=== PATIENT | female | born 1955 | race Caucasian/White ===

== ENCOUNTER → 2016-11-13 | Outpatient (CLI) | payer BC, MEDICARE ==
[2016-11-13 14:57] LABS: Blood Urea Nitrogen 10 mg/dL (7-17); Non-African American GFR(MDRD) >60 (>60 ml/min/1.73 sqM)
--- NOTE | 2016-11-13 15:47 | CT ---
EXAMINATION TYPE: CT abdomen pelvis w con DATE OF EXAM: 11/13/2016 COMPARISON: NONE HISTORY: Heart burn and bloating x [address] DLP: 1484.00 mGycm Automated exposure control for dose reduction was used. CONTRAST: CT scan of the abdomen pelvis is performed with IV Contrast, patient injected with 100 mL of Omnipaqu e 300. FINDINGS- LUNG BASES-subsegmental linear changes at both lung bases. Calcified granuloma right lower lobe LIVER/GB-a mild fatty infiltration of the liver. Post cholecystectomy changes noted. PANCREAS- No gross abnormality is seen. SPLEEN- No gross abnormality is seen. ADRENALS- No gross abnormality is seen. KIDNEYS/BLADDER- no hydronephrosis or nephrolithiasis. Tiny 3 mm hypodensity within the left kidney t oo small to characterize. BOWEL- no bowel dilatation. Normal appendix. Diverticulosis of the colon. No CT evidence of diverti culitis. LYMPH NODES- No greater than 1cm abdominal or pelvic lymph nodes areappreciated. OSSEOUS STRUCTURES-previous vertebroplasty involving the upper lumbar spine. Surgical clips in the pe lvis. OTHER- atherosclerotic change of the aorta and visualized vasculature. No aneurysm. IMPRESSION- 1. No acute process.
== END | disposition home or self-care (01) ==
LOC: RADCTMAIN 13:49
PROVIDERS: ATTEND Surgery Plastic and Reconstructive Surgery
DX: K57.30 Diverticulosis of large intestine without perforation or abscess without bleeding (principal); K21.9 Gastro-esophageal reflux disease without esophagitis
CPT/HCPCS: 82565; 84520; 74177; 36415; Q9967

== ENCOUNTER 2016-11-28 09:10 | Day surgery (SDC) | payer BC, MEDICARE ==
--- NOTE | 2016-11-28 08:59 | P.GSHP ---
History of Present Illness H&P Date: 11/28/16 CHIEF COMPLAINT: GERD HISTORY OF PRESENT ILLNESS: The patient is a 61-year-old female who presents reports gastroesophageal reflux disease. Upper endoscopy was offered for further evaluation and management. PAST MEDICAL HISTORY: Please see list. PAST SURGICAL HISTORY: Please see list. MEDICATIONS: Please see list. ALLERGIES: Please see list. SOCIAL HISTORY: No illicit drug use FAMILY HISTORY: No reports of Crohn disease or ulcerative colitis. REVIEW OF ORGAN SYSTEMS: CONSTITUTIONAL: No reports of fevers or chills. GI: Denies any blood in stools or constipation. PHYSICAL EXAM: VITAL SIGNS: Stable GENERAL: Well-developed and pleasant in no acute distress. HEENT: No scleral icterus. Extraocular movements grossly intact. Moist buccal mucosa. NECK: Supple without lymphadenopathy. CHEST: Unlabored respirations. Equal bilateral excursions. CARDIOVASCULAR: Regular rate and rhythm. Distal 2+ pulses. ABDOMEN: Soft, nondistended. MUSCULOSKELETAL: No clubbing, cyanosis, or edema. ASSESSMENT: 1. Gastroesophageal reflux disease PLAN: 1. Recommend proceeding with an upper endoscopy Past Medical History Past Medical History: Asthma, COPD, Diabetes Mellitus, Fibromyalgia, GERD/Reflux , Sleep Apnea/CPAP/BIPAP, Thyroid Disorder Additional Past Medical History / Comment(s): NEUROPATHY OF FEET WITH PAIN., NO LONGER USES C-PAP MACHINE, LUPUS, STATES HOLE IN HEART WITH IRREGULAR HEART BEAT , HX OF SEPSIS FROM PORT INFECTION. History of Any Multi-Drug Resistant Organisms: None Reported Past Surgical History: Section, Hysterectomy, Joint Replacement Additional Past Surgical History / Comment(s): PORT INSERTED AND REMOVED, THUMB SURGERY, BRUCE TOTAL KNEE. Past Anesthesia/Blood Transfusion Reactions: No Reported Reaction Past Psychological History: Anxiety, Depression Smoking Status: Current every day smoker Past Alcohol Use History: None Reported Additional Past Alcohol Use History / Comment(s): SMOKES < 1PPD, SMOKING FOR 35 YEARS. Past Drug Use History: None Reported - Past Family History Mother Family Medical History: Deep Vein Thrombosis (DVT) Daughter(s) Family Medical History: Cancer Additional Family Medical History / Comment(s): PASSED FROM LYMPHOMA Medications and Allergies Home Medications Medication Instructions Recorded Confirmed Type ALPRAZolam [Xanax] 0.25 mg PO BID PRN 11/27/16 11/27/16 History Aspirin [Adult Low Dose Aspirin EC] 81 mg PO DAILY 11/27/16 11/27/16 History Diclofenac Sodium [Voltaren Gel] 2 gram TOPICAL QID 11/27/16 11/27/16 History Diltiazem HCl [Diltiazem ER] 360 mg PO DAILY 11/27/16 11/27/16 History Empagliflozin [Jardiance] 10 mg PO DAILY 11/27/16 11/27/16 History Furosemide [Lasix] 40 mg PO DAILY 11/27/16 11/27/16 History Gabapentin [Neurontin] 800 mg PO TID 11/27/16 11/27/16 History HYDROcodone/APAP 7.5-325MG [[place] 1 tab PO BID 11/27/16 11/27/16 History 7.5-325] Levothyroxine Sodium [Synthroid] 112 mcg PO DAILY 11/27/16 11/27/16 History Liraglutide [Victoza 2-Lencho] 1.8 mg SQ DAILY 11/27/16 11/27/16 History Pantoprazole Sodium [Protonix] 40 mg PO DAILY 11/27/16 11/27/16 History Potassium Chloride [K-Tab ER] 20 meq PO DAILY 11/27/16 11/27/16 History Ranitidine HCl [Zantac] 150 mg PO BID 11/27/16 11/27/16 History Umeclidinium Brm/Vilanterol Tr 1 puff INHALATION DAILY 11/27/16 11/27/16 History [Anoro Ellipta 62.5-25 Mcg INH] Venlafaxine HCl ER [Effexor Xr] 75 mg PO DAILY 11/27/16 11/27/16 History glipiZIDE [Glucotrol] 10 mg PO BID 11/27/16 11/27/16 History rOPINIRole HCL [Requip] 3 mg PO HS 11/27/16 11/27/16 History traZODone HCL 200 mg PO HS 11/27/16 11/27/16 History Allergies Allergy/AdvReac Type Severity Reaction Status Date / Time ceftriaxone [From Rocephin] Allergy Severe PASSED OUT Verified 11/27/16 09:06 Sulfa (Sulfonamide Allergy Unknown DID NOT Verified 11/27/16 09:06 Antibiotics) FEEL WELL- PT UNABLE TO PUT INTO WORDS.
[~2016-11-28 09:10] MED LIST: LACTATED RINGERS 1,000 ML IV SCH
[2016-11-28 09:49] LABS: Glucose,Whole Blood 236 mg/dL (75-99)
[2016-11-28] MEDS ORDERED: LIDOCAINE 1% 20 ML VIAL (10MG/ML) FOR IV START INTRADERMA ONE (09:52)
[2016-11-28] MEDS ORDERED: PROPOFOL 10 MG/ML 20 ML VIAL IV ONE (09:53)
--- NOTE | 2016-11-28 10:15 | P.PCN ---
Date of Procedure: 11/28/16 Preoperative Diagnosis: Postoperative Diagnosis: Procedure(s) Performed: Implants: Indications for Procedure: Operative Findings: Description of Procedure: PREOPERATIVE DIAGNOSIS: Gastroesophageal reflux disease. POSTOPERATIVE DIAGNOSIS: Gastritis. Gastroesophageal reflux disease. Diaphragmatic hiatal hernia without obstruction. Erosive esophagitis. OPERATION: Esophagogastroduodenoscopy with biopsies along antrum. SURGEON: Mahsa Tan MD ANESTHESIA: MAC. INDICATIONS: The patient is a 61-year-old female who presents with a history of reflux disease. Benefits and risks of the procedure were described. Informed consent was obtained. DESCRIPTION: The patient was brought into the endoscopy suite and laid in the left lateral decubitus position. An Olympus gastroscope was passed along the posterior oropharynx down to the distal esophagus where the squamocolumnar junction was encountered at 36 cm from the incisors. The stomach was entered and bile reflux was found. Additional findings are listed below. Biopsies with cold forceps were obtained of the antrum. The first through third portion of the duodenum was examined and unremarkable. Retroflexion of the scope confirmed Hill grade 4 lower esophageal valve. The squamocolumnar junction demostrated LA grade B erosive esophagitis. The stomach was desufflated. The patient tolerated the procedure well. FINDINGS: Squamocolumnar junction 36 cm from the incisors. Diaphragmatic hiatus at 40 cm. Hiatal hernia 4 cm. Hill grade 4 lower esophageal valve. LA grade B erosive esophagitis. No active duodenitis. Gastritis. RECOMMENDATIONS: Continue medical therapy. Further recommendations pending results of pathology report. Upper endoscopy as needed. Will benefit from antireflux surgical procedure Plan - Discharge Summary New Discharge Prescriptions: No Action Umeclidinium Brm/Vilanterol Tr [Anoro Ellipta 62.5-25 Mcg INH] 1 puff INHALATION DAILY glipiZIDE [Glucotrol] 10 mg PO BID Levothyroxine Sodium [Synthroid] 112 mcg PO DAILY HYDROcodone/APAP 7.5-325MG [[place] 7.5-325] 1 tab PO BID Liraglutide [Victoza 2-Lencho] 1.8 mg SQ DAILY Furosemide [Lasix] 40 mg PO DAILY ALPRAZolam [Xanax] 0.25 mg PO BID PRN PRN Reason: Anxiety rOPINIRole HCL [Requip] 3 mg PO HS Venlafaxine HCl ER [Effexor Xr] 75 mg PO DAILY Ranitidine HCl [Zantac] 150 mg PO BID traZODone HCL 200 mg PO HS Potassium Chloride [K-Tab ER] 20 meq PO DAILY Pantoprazole Sodium [Protonix] 40 mg PO DAILY Gabapentin [Neurontin] 800 mg PO TID Empagliflozin [Jardiance] 10 mg PO DAILY Diltiazem HCl [Diltiazem ER] 360 mg PO DAILY Diclofenac Sodium [Voltaren Gel] 2 gram TOPICAL QID Aspirin [Adult Low Dose Aspirin EC] 81 mg PO DAILY Discharge Medication List ALPRAZolam [Xanax] 0.25 mg PO BID PRN 11/27/16 [History] Aspirin [Adult Low Dose Aspirin EC] 81 mg PO DAILY 11/27/16 [History] Diclofenac Sodium [Voltaren Gel] 2 gram TOPICAL QID 11/27/16 [History] Diltiazem HCl [Diltiazem ER] 360 mg PO DAILY 11/27/16 [History] Empagliflozin [Jardiance] 10 mg PO DAILY 11/27/16 [History] Furosemide [Lasix] 40 mg PO DAILY 11/27/16 [History] Gabapentin [Neurontin] 800 mg PO TID 11/27/16 [History] HYDROcodone/APAP 7.5-325MG [[place] 7.5-325] 1 tab PO BID 11/27/16 [History] Levothyroxine Sodium [Synthroid] 112 mcg PO DAILY 11/27/16 [History] Liraglutide [Victoza 2-Lencho] 1.8 mg SQ DAILY 11/27/16 [History] Pantoprazole Sodium [Protonix] 40 mg PO DAILY 11/27/16 [History] Potassium Chloride [K-Tab ER] 20 meq PO DAILY 11/27/16 [History] Ranitidine HCl [Zantac] 150 mg PO BID 11/27/16 [History] Umeclidinium Brm/Vilanterol Tr [Anoro Ellipta 62.5-25 Mcg INH] 1 puff INHALATION DAILY 11/27/16 [History] Venlafaxine HCl ER [Effexor Xr] 75 mg PO DAILY 11/27/16 [History] glipiZIDE [Glucotrol] 10 mg PO BID 11/27/16 [History] rOPINIRole HCL [Requip] 3 mg PO HS 11/27/16 [History] traZODone HCL 200 mg PO HS 11/27/16 [History] Follow up Appointment(s)/Referral(s): Mahsa Tan MD [STAFF PHYSICIAN] - 12/18/16 Patient Instructions/Handouts: Hiatal Hernia (DC), Gastroesophageal Reflux Disease (DC) Discharge Disposition: HOME SELF-CARE
[2016-11-28] MEDS ORDERED: HYDROmorphone 1 MG/ML 1 ML SYRINGE IVP ONE (10:40)
== END 2016-11-28 11:25 | disposition home or self-care (01) ==
LOC: ORWHC2ENDO 09:10
PROVIDERS: ATTEND Surgery Plastic and Reconstructive Surgery
DX: K29.70 Gastritis, unspecified, without bleeding (principal); K21.9 Gastro-esophageal reflux disease without esophagitis; K44.9 Diaphragmatic hernia without obstruction or gangrene; K22.10 Ulcer of esophagus without bleeding; J44.9 Chronic obstructive pulmonary disease, unspecified; F17.200 Nicotine dependence, unspecified, uncomplicated; E11.9 Type 2 diabetes mellitus without complications; Z79.84 Long term (current) use of oral hypoglycemic drugs; M79.7 Fibromyalgia; G47.30 Sleep apnea, unspecified; E07.9 Disorder of thyroid, unspecified; F41.9 Anxiety disorder, unspecified; F32.9 Major depressive disorder, single episode, unspecified; M32.9 Systemic lupus erythematosus, unspecified; Z79.82 Long term (current) use of aspirin; Z79.891 Long term (current) use of opiate analgesic; Z79.899 Other long term (current) drug therapy; Z88.1 Allergy status to other antibiotic agents; Z88.2 Allergy status to sulfonamides
CPT/HCPCS: 88305; 43239; J1170; J2704

== ENCOUNTER → 2017-05-07 | Outpatient (CLI) | payer MEDICARE ==
[2017-05-07 12:56] LABS: HCT 46.6 % (34.0-46.0); HGB 14.9 gm/dL (11.4-16.0); MCH 28.6 pg (25.0-35.0); MCV 89.3 fL (80.0-100.0); Mean Platelet Volume 7.3; Platelet Count 323 k/uL (150-450); RBC 5.22 m/uL (3.80-5.40); RDW 14.6 % (11.5-15.5); WBC 10.1 k/uL (3.8-10.6)
== END | disposition home or self-care (01) ==
LOC: LABPAT 12:02
PROVIDERS: ATTEND Surgery Plastic and Reconstructive Surgery
DX: Z01.812 Encounter for preprocedural laboratory examination (principal)
CPT/HCPCS: 36415; 84132; 85027

== ENCOUNTER 2017-05-09 11:22 | Inpatient (IN) | payer BC, MEDICARE ==
[2017-05-03 12:09] VITALS: BMI 29.2
[~2017-05-09 11:22] MED LIST changes: +CHLORHEXIDINE GLUCONATE 15 ML CUP MUCOUS MEM ONE; +CLINDAMYCIN 900 MG in DEXTROSE 5% IN WATER 50 ML IVPB ONE; +DEXAMETHASONE SOD PHOSPHATE 10 MG/ML 1 ML VIAL IV ONE; +HEPARIN SODIUM,PORCINE 5,000 UNIT/ML 1 ML VIAL SQ ONE; +LEVOFLOXACIN 500MG-D5W PMX 500 MG in DEXTROSE/WATER 1 100ML.BAG IVPB ONE; +LIDOCAINE 1% 20 ML VIAL (10MG/ML) FOR IV START INTRADERMA PRN; +MIDAZOLAM 2 MG/2 ML VIAL IV PRN; +ONDANSETRON 4 MG/2 ML VIAL IVP ONE; +PANTOPRAZOLE 40 MG/10 ML VIAL IV STA; +SCOPOLAMINE 1.5MG/72HR PATCH TRANSDERM ONE; +SCOPOLAMINE 1.5MG/72HR PATCH TRANSDERM STA
[2017-05-09 12:06] LABS: Glucose,Whole Blood 123 mg/dL (75-99)
--- NOTE | 2017-05-09 12:07 | P.GSHP ---
History of Present Illness H&P Date: 05/09/17 CHIEF COMPLAINT: Paraesophageal hiatal hernia with gastroesophageal reflux disease. HISTORY OF PRESENT ILLNESS: The patient is a 62-year-old female who presents with paraesophageal hiatal hernia. She has completed an esophageal manometry including upper endoscopy workup. Now she presents for surgical intervention. PAST MEDICAL HISTORY: Please see list. PAST SURGICAL HISTORY: Please see list. MEDICATIONS: Please see list. ALLERGIES: Please see list. SOCIAL HISTORY: No illicit drug use FAMILY HISTORY: No reports of Crohn disease or ulcerative colitis. REVIEW OF ORGAN SYSTEMS: CONSTITUTIONAL: No reports of fevers or chills. GI: Denies any blood in stools or constipation. PHYSICAL EXAM: VITAL SIGNS: Stable GENERAL: Well-developed pleasant and in no acute distress. HEENT: No scleral icterus. Extraocular movements grossly intact. Moist buccal mucosa. NECK: Supple without lymphadenopathy. CHEST: Unlabored respirations. Equal bilateral excursions. CARDIOVASCULAR: Regular rate and rhythm. Distal 2+ pulses. ABDOMEN: Soft, nondistended. No peritoneal signs. MUSCULOSKELETAL: No clubbing, cyanosis, or edema. ASSESSMENT: 1. Diaphragmatic paraesophageal hiatal hernia with severe gastroesophageal reflux disease. PLAN: 1. Recommend proceeding with a robotic paraesophageal hiatal hernia with possible mesh. 2. Benefits and risks of surgical intervention was discussed including possibility of open technique. 3. Inpatient hospitalization recommended of 2 nights or less. 4. DVT prophylaxis. 5. Antibiotic prophylaxis. Past Medical History Past Medical History: Asthma, COPD, Diabetes Mellitus, Fibromyalgia, GERD/Reflux , Hypertension, Sleep Apnea/CPAP/BIPAP, Thyroid Disorder Additional Past Medical History / Comment(s): NEUROPATHY FEET, RLS, HX OF RHEMATIC FEVER, HAS HOLE IN BACK OF HEART., HX OF SEPSIS FROM PORT INFECTIONS., STATES NO LONGER USING C-PAP MACHINE., OXYGEN @3 LITER PRN SOB., STATES FREQUENT DIARRHEA., LUPUS., HIATAL HERNIA., PT STATES SHE IS ON A PROTEIN LIQUID DIET PER DR WOODARD INSTRUCTIONS. History of Any Multi-Drug Resistant Organisms: None Reported Past Surgical History: Section, Hysterectomy, Joint Replacement Additional Past Surgical History / Comment(s): THUMB SURGERY, BRUCE TOTAL KNEES, PORT INSERTED & REMOVED. Past Anesthesia/Blood Transfusion Reactions: No Reported Reaction, Blood Transfusion Reaction Additional Past Anesthesia/Blood Transfusion Reaction / Comment(s): STATES BLOOD TRANSFUSION WITH CHILD - STATES RASH AND ITCHING. Past Psychological History: Anxiety, Depression Smoking Status: Former smoker Past Alcohol Use History: None Reported Additional Past Alcohol Use History / Comment(s): QUIT SMOKING 6 WEEKS AGO (MAR 2017). SMOKED <1 PPD, SMOKED FOR 35 YRS OR MORE. Past Drug Use History: Marijuana Additional Drug Use History / Comment(s): MEDICAL MARIJUANA 5 YRS AGO- NO USE NOW. - Past Family History Mother Family Medical History: Deep Vein Thrombosis (DVT) Medications and Allergies Home Medications Medication Instructions Recorded Confirmed Type Aspirin [Adult Low Dose Aspirin EC] 81 mg PO DAILY 11/27/16 05/03/17 History Diclofenac Sodium [Voltaren Gel] 2 gram TOPICAL DAILY PRN 11/27/16 05/03/17 History Empagliflozin [Jardiance] 10 mg PO DAILY 11/27/16 05/03/17 History Furosemide [Lasix] 40 mg PO DAILY 11/27/16 05/03/17 History Gabapentin [Neurontin] 800 mg PO TID 11/27/16 05/03/17 History HYDROcodone/APAP 7.5-325MG [[place] 1 tab PO BID PRN 11/27/16 05/03/17 History 7.5-325] Levothyroxine Sodium [Synthroid] 112 mcg PO DAILY 11/27/16 05/03/17 History Liraglutide [Victoza 2-Lencho] 1.8 mg SQ DAILY 11/27/16 05/03/17 History Pantoprazole Sodium [Protonix] 40 mg PO DAILY 11/27/16 05/03/17 History Potassium Chloride [K-Tab ER] 20 meq PO BID 11/27/16 05/03/17 History Ranitidine HCl [Zantac] 150 mg PO BID 11/27/16 05/03/17 History Umeclidinium Brm/Vilanterol Tr 1 puff INHALATION DAILY 11/27/16 05/03/17 History [Anoro Ellipta 62.5-25 Mcg INH] glipiZIDE [Glucotrol] 10 mg PO BID 11/27/16 05/03/17 History rOPINIRole HCL [Requip] 3 mg PO HS 11/27/16 05/03/17 History traZODone HCL 200 mg PO HS 11/27/16 05/03/17 History Cyanocobalamin (Vitamin B-12) 2,500 mcg PO DAILY 05/03/17 05/03/17 History [Vitamin B-12] Taztia Xt 180 mg PO DAILY 05/03/17 History Venlafaxine HCl [Effexor XR] 150 mg PO BID 05/03/17 05/03/17 History Allergies Allergy/AdvReac Type Severity Reaction Status Date / Time ceftriaxone [From Rocephin] Allergy Severe PASSED OUT Verified 05/03/17 11:37 Sulfa (Sulfonamide Allergy Unknown Rash/Hives, Verified 05/03/17 11:37 Antibiotics) Itchy
[2017-05-09] MEDS ORDERED: SUCCINYLCHOLINE CHLORIDE 100 MG/5 ML SYR IV ONE (13:36)
[2017-05-09] MEDS ORDERED: GLYCOPYRROLATE 0.2 MG/ML 2 ML VIAL ONE (13:36)
[2017-05-09] MEDS ORDERED: PROPOFOL 10 MG/ML 20 ML VIAL IV ONE (13:36)
[2017-05-09] MEDS ORDERED: fentaNYL (PF) 50 MCG/ML 2 ML AMP ONE (13:36)
[2017-05-09] MEDS ORDERED: LIDOCAINE 1% INJ 10MG/ML (20 ML MDV) ONE (13:36)
[2017-05-09] MEDS ORDERED: MIDAZOLAM 2 MG/2 ML VIAL ONE (13:36)
[2017-05-09] MEDS ORDERED: HYDROmorphone (PF) 1 MG/ML ONE (13:36)
[2017-05-09] MEDS ORDERED: NEOSTIGMINE 1 MG/ML 10 ML VIAL ONE (13:36)
[2017-05-09] MEDS ORDERED: ROCURONIUM BROMIDE 10 MG/ML 10 ML VIAL IV ONE (13:36)
[2017-05-09] MEDS ORDERED: BUPIVACAINE (PF) 0.25% 30 ML VIAL SQ ONE (14:06)
[2017-05-09] MEDS ORDERED: LACTATED RINGERS 1,000 ML IV ONE (15:42)
[2017-05-09] MEDS ORDERED: ONDANSETRON 4 MG/2 ML VIAL IVP PRN (15:59)
[2017-05-09 16:10] LABS: Glucose,Whole Blood 158 mg/dL (75-99)
--- NOTE | 2017-05-09 16:10 | P.PCN ---
Date of Procedure: 05/09/17 Preoperative Diagnosis: 1. Paraesophageal hiatal hernia 2. Gastroesophageal reflux disease. 3. Hypertensive lower esophageal sphincter 4. Diabetes type 2 5. Hypertensive heart disease or cardiomyopathy Postoperative Diagnosis: 1. Paraesophageal midline diaphragmatic hiatal hernia, incarcerated, 6 x 4 cm 2. Gastroesophageal reflux disease. 3. Hypertensive lower esophageal sphincter 4. Diabetes type 2 5. Hypertensive heart disease or cardiomyopathy 6. Mediastinal lipoma Procedure(s) Performed: 1. Robotic assisted laparoscopic reduction and repair of incarcerated paraesophageal diaphragmatic midline hernia, 6 x 4 cm with mesh 2. Intraoperative esophagogastroduodenoscopy. 3. Robotic excision of mediastinal tumor, 4 x 3 cm Anesthesia: GETA, local Surgeon: Mahsa Tan Estimated Blood Loss (ml): 5 Pathology: other (Mediastinal tumor) Condition: stable Disposition: floor Operative Findings: 1. Defect of 6 x 4 cm repaired with a posterior herniorrhaphy 2. 56-[place] bougie easily passed. 3. Hill grade 1 lower esophageal valve post procedure
[2017-05-09] MEDS ORDERED: HYDROcodone/APAP 15 ML SOLUTION PO PRN (16:11)
[2017-05-09 16:46] LABS: Basophils % (A) 0 %; Eosinophils % (A) 0 %; HCT 44.3 % (34.0-46.0); HGB 13.8 gm/dL (11.4-16.0); Lymphocytes # (A) 0.8 k/uL (1.0-4.8); Lymphocytes % (A) 10 %; MCH 27.9 pg (25.0-35.0); MCHC 31.1 g/dL (31.0-37.0); MCV 89.8 fL (80.0-100.0); Monocytes # (A) 0.1 k/uL (0-1.0); Monocytes % (A) 1 %; Neutrophils # (A) 6.7 k/uL (1.3-7.7); Neutrophils % (A) 88 %; Platelet Count 277 k/uL (150-450); RBC 4.94 m/uL (3.80-5.40); RDW 14.7 % (11.5-15.5); WBC 7.7 k/uL (3.8-10.6)
[2017-05-09] MEDS: HYDROmorphone 0.5 MG/0.5 ML SYRINGE IVP PRN ×4 (16:50→17:49)
[2017-05-09 17:02] LABS: Anion Gap 15 mmol/L; Blood Urea Nitrogen 14 mg/dL (7-17); Calcium 9.2 mg/dL (8.4-10.2); Carbon Dioxide 20 mmol/L (22-30); Chloride 106 mmol/L (98-107); Glucose 164 mg/dL (74-99); Potassium 4.1 mmol/L (3.5-5.1); Sodium 141 mmol/L (137-145)
[2017-05-09] MEDS: GABAPENTIN 400 MG CAP PO SCH ×2 (17:51→20:50)
[2017-05-09] MEDS: HYDROmorphone 4 MG/ML 1 ML SYRINGE IVP PRN (18:49)
[2017-05-09 20:32] LABS: Glucose,Whole Blood 140 mg/dL (75-99)
[2017-05-09] MEDS: INSULIN ASPART 100 UNIT/ML 1 ML 10 ML VIAL SQ SCH (20:49)
[2017-05-09] MEDS: HYOSCYAMINE ORAL DROPS 1.875 MG/15 ML BOTTLE PO SCH (20:49)
[2017-05-09] MEDS: METOCLOPRAMIDE 5 MG/ML 2 ML VIAL IVP SCH (20:49)
[2017-05-09] MEDS: SIMETHICONE 40 MG/0.6 ML DROPS 2,000 MG/30 ML BOTTLE PO SCH (20:50)
[2017-05-09] MEDS: VENLAFAXINE HCL ER 150 MG CAP PO SCH (20:50)
[2017-05-09] MEDS ORDERED: diphenhydrAMINE 50 MG/ML 1 ML VIAL IVP SCH (21:00)
[2017-05-09] MEDS ORDERED: traZODone HCL 100 MG TAB PO SCH (21:00)
[2017-05-09] MEDS: D5-0.45% NACL WITH KCL 20MEQ/L 1,000 ML IV SCH ×2 (21:09)
[2017-05-10] MEDS: METOCLOPRAMIDE 5 MG/ML 2 ML VIAL IVP SCH ×3 (01:11→12:45)
[2017-05-10] MEDS: HYDROmorphone 4 MG/ML 1 ML SYRINGE IVP PRN ×2 (01:11→05:04)
[2017-05-10] MEDS: HYOSCYAMINE ORAL DROPS 1.875 MG/15 ML BOTTLE PO SCH ×4 (01:11→12:46)
[2017-05-10] MEDS: SIMETHICONE 40 MG/0.6 ML DROPS 2,000 MG/30 ML BOTTLE PO SCH ×3 (01:12→12:45)
[2017-05-10] MEDS: D5-0.45% NACL WITH KCL 20MEQ/L 1,000 ML IV SCH ×3 (01:18→08:41)
[2017-05-10] MEDS: INSULIN ASPART 100 UNIT/ML 1 ML 10 ML VIAL SQ SCH ×3 (01:21→12:43)
[2017-05-10 01:31] LABS: Glucose,Whole Blood 150 mg/dL (75-99)
[2017-05-10] MEDS ORDERED: LEVOTHYROXINE 112 MCG TAB PO SCH (06:30)
[2017-05-10 06:49] LABS: Glucose,Whole Blood 120 mg/dL (75-99)
[2017-05-10] MEDS ORDERED: IPRATROPIUM-ALBUTEROL 3 ML NEB INHALATION SCH (08:00)
[2017-05-10 08:03] VITALS: BP 100/61; PULSE 72; RESP 18; TEMP 97.8
[2017-05-10] MEDS: VENLAFAXINE HCL ER 150 MG CAP PO SCH (08:41)
[2017-05-10] MEDS: GABAPENTIN 400 MG CAP PO SCH (08:41)
[2017-05-10] MEDS ORDERED: ENOXAPARIN 40 MG/0.4 ML SYRINGE SQ SCH (09:00)
[2017-05-10] MEDS ORDERED: ASPIRIN 81 MG PO SCH (09:00)
--- NOTE | 2017-05-10 10:24 | FL ---
EXAMINATION TYPE: FL esophagus cervic/pharynx DATE OF EXAM: 05/10/2017 HISTORY: Gastroesophageal reflux, Adrian fundoplication COMPARISON: NONE TECHNIQUE: Single contrast study FINDINGS: Attention is paid to the distal esophagus and proximal stomach status post Adrian fundoplication. There is moderate hesitancy passing through the level of the Adrian fundoplication. No obstruction is evident. No extravasation of contrast is evident. 45 seconds of fluoroscopy time was provided for the procedure. 10 images were obtained. IMPRESSION: 1. No obstruction or extravasation post Adrian fundoplication.
[2017-05-10 11:16] LABS: Glucose,Whole Blood 101 mg/dL (75-99)
--- NOTE | 2017-05-10 11:19 | P.DS ---
Providers Date of admission: 05/09/17 11:22 Expected date of discharge: 05/10/17 Attending physician: Mahsa Tan Primary care physician: Mariana Young Hospital Course: 62-year-old female presented on the day of admission to undergo a robotic- assisted laparoscopic reduction and repair of incarcerated periesophageal diaphragmatic midline hernia with mesh. Patient has a history of esophageal reflux disease. Patient underwent the procedure on May 09 postop no events Patient had a esophagram done showed no obstruction patient is tolerating rangel clear liquid diet Patient was felt to be appropriate to proceed with discharge to home Impression discharge diagnoses History of esophageal reflux disease Paraesophageal midline diaphragmatic hiatal hernia, incarcerated, 6 x 4 cm Robotic-assisted laparoscopic reduction and repair of incarcerated periesophageal diaphragmatic midline hernia with mesh done on May 09 May 09 robotic excision of mediastinal tumor 4 x 3 cm History of mediastinal lipoma The above impression and plan of care have been discussed and directed by signing physician. Alla Parra nurse practitioner acting as scribe for signing physician. Plan - Discharge Summary Discharge Rx Participant: Yes New Discharge Prescriptions: New Hyoscyamine Oral Drops [Levsin Drops] 0.25 mg PO Q4HR #1 bottle Simethicone 40 mg/0.6 ml Drops [Mylicon Drops] 40 mg PO QID #1 bottle HYDROcodone/APAP [[place] 7.5-325Mg/15Ml] 15 ml PO Q6H PRN #480 solution PRN Reason: Pain Continue Umeclidinium Brm/Vilanterol Tr [Anoro Ellipta 62.5-25 Mcg INH] 1 puff INHALATION RT-DAILY glipiZIDE [Glucotrol] 10 mg PO BID Levothyroxine Sodium [Synthroid] 112 mcg PO DAILY Liraglutide [Victoza 2-Lencho] 1.8 mg SQ DAILY Furosemide [Lasix] 40 mg PO DAILY rOPINIRole HCL [Requip] 3 mg PO HS traZODone HCL 200 mg PO HS Potassium Chloride [K-Tab ER] 20 meq PO BID Gabapentin [Neurontin] 800 mg PO TID Empagliflozin [Jardiance] 10 mg PO DAILY Diclofenac Sodium [Voltaren Gel] 2 gram TOPICAL DAILY PRN PRN Reason: Pain Aspirin [Adult Low Dose Aspirin EC] 81 mg PO DAILY Venlafaxine HCl [Effexor XR] 150 mg PO BID Taztia Xt 180 mg PO DAILY Cyanocobalamin (Vitamin B-12) [Vitamin B-12] 2,500 mcg PO DAILY Discontinued HYDROcodone/APAP 7.5-325MG [[place] 7.5-325] 1 tab PO BID PRN PRN Reason: Pain Ranitidine HCl [Zantac] 150 mg PO BID Pantoprazole Sodium [Protonix] 40 mg PO DAILY Discharge Medication List Aspirin [Adult Low Dose Aspirin EC] 81 mg PO DAILY 11/27/16 [History] Diclofenac Sodium [Voltaren Gel] 2 gram TOPICAL DAILY PRN 11/27/16 [History] Empagliflozin [Jardiance] 10 mg PO DAILY 11/27/16 [History] Furosemide [Lasix] 40 mg PO DAILY 11/27/16 [History] Gabapentin [Neurontin] 800 mg PO TID 11/27/16 [History] Levothyroxine Sodium [Synthroid] 112 mcg PO DAILY 11/27/16 [History] Liraglutide [Victoza 2-Lencho] 1.8 mg SQ DAILY 11/27/16 [History] Potassium Chloride [K-Tab ER] 20 meq PO BID 11/27/16 [History] Umeclidinium Brm/Vilanterol Tr [Anoro Ellipta 62.5-25 Mcg INH] 1 puff INHALATION RT-DAILY 11/27/16 [History] glipiZIDE [Glucotrol] 10 mg PO BID 11/27/16 [History] rOPINIRole HCL [Requip] 3 mg PO HS 11/27/16 [History] traZODone HCL 200 mg PO HS 11/27/16 [History] Cyanocobalamin (Vitamin B-12) [Vitamin B-12] 2,500 mcg PO DAILY 05/03/17 [ History] Taztia Xt 180 mg PO DAILY 05/03/17 [History] Venlafaxine HCl [Effexor XR] 150 mg PO BID 05/03/17 [History] HYDROcodone/APAP [[place] Elixir 7.5-325Mg/15Ml] 15 ml PO Q6H PRN #480 solution [Rx] Hyoscyamine Oral Drops [Levsin Drops] 0.25 mg PO Q4HR #1 bottle 05/10/17 [Rx] Simethicone 40 mg/0.6 ml Drops [Mylicon Drops] 40 mg PO QID #1 bottle 05/10/17 [ Rx] Follow up Appointment(s)/Referral(s): Mahsa Tan MD [STAFF PHYSICIAN] - 05/14/17 Patient Instructions/Handouts: Laparoscopic Hiatal Hernia Repair (DC) Activity/Diet/Wound Care/Special Instructions: No lifting over 4 pounds in 4 weeks. May shower. No bathub soak. Discharge Disposition: HOME SELF-CARE
--- NOTE | 2017-06-02 14:28 | P.OP ---
Date of Procedure: 05/09/17 Description of Procedure: SURGEON: OUMAR VILLELA MD VEGETABLE FARM WORKER: 1. Cindy Meeks Preoperative Diagnosis: 1. Paraesophageal hiatal hernia 2. Gastroesophageal reflux disease. 3. Hypertensive lower esophageal sphincter 4. Diabetes type 2, [id number]. 5. Hypertensive heart disease with cardiomyopathy 6. Chronic obstructive pulmonary disease. 7. Depressive disorder. 8. Hypothyroidism. 9. Asthma. 10. Fibromyalgia. 11. Obstructive sleep apnea. 12. Lupus. Postoperative Diagnosis: 1. Paraesophageal midline diaphragmatic hiatal hernia, incarcerated, 6 x 4 cm 2. Gastroesophageal reflux disease. 3. Hypertensive lower esophageal sphincter 4. Diabetes type 2, [id number]. 5. Hypertensive heart disease with cardiomyopathy 6. Chronic obstructive pulmonary disease. 7. Depressive disorder. 8. Hypothyroidism. 9. Asthma. 10. Fibromyalgia. 11. Obstructive sleep apnea. 12. Lupus. 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 Robotic assisted laparoscopic reduction and repair of incarcerated paraesophageal diaphragmatic midline hernia, 6 x 4 cm with mesh 2. Robotic excision of mediastinal tumor, 4 x 3 cm 3. Intraoperative esophagogastroduodenoscopy. Anesthesia: GETA, local Surgeon: Oumar Villela Estimated Blood Loss (ml): 5 Pathology: other (Mediastinal tumor) Condition: stable Disposition: floor Operative Findings: 1. Defect of 6 x 4 cm repaired with a posterior herniorrhaphy 2. 56-Surinamese bougie easily passed. 3. Hill grade 1 lower esophageal valve post procedure INDICATIONS: The patient is a 62-year-old fmale who presents with gastroesophageal reflux and a symptomatic diaphragmatic hiatal hernia. Preoperative workup including upper endoscopy demonstrated a Hill grade 4 lower esophageal valve. She completed an esophageal manometry. Given the severity of her symptoms, particularly of her symptomatic diaphragmatic hiatal hernia, she had elected for surgical intervention. Benefits and risks including bleeding, infection, recurrence, dysphagia, injury to the lung, need for further surgery was described at length. Informed consent was obtained. DESCRIPTION: The patient was brought into the operating room and placed in supine position. Preoperatively she had received heparin subcutaneously for DVT prophylaxis. After general induction, the abdomen was prepped and draped in standard sterile fashion. The patient had previously voided prior to coming to the operating room. Ioban draping was placed along the abdomen. A timeout protocol was confirmed with the surgical team, for which the patient's name, procedure to be performed including DVT prophylaxis with bilateral SCDs, and preoperative antibiotics were also confirmed. A robotic da Michael Xi system was prepped and primed. At 12 cm from the xiphoid to just below the umbilicus, proposed port sites were marked with indelible marker along the left axillary line, left mid-clavicular line with each ports were marked 10 cm from each other. A 5 mm 0 degrees laparoscopic trocar entry was performed along the left upper quadrant. The abdomen was insufflated to 15 mmHg pressure he tolerated well. Diagnostic laparoscopy demonstrated no injury to bowel, viscera, or mesentery. The liver surface was unremarkable. No injury had occurred to the small bowel or viscera. Along the hiatus, a defect was found anteriorly. Next, one 8 mm robotic port was placed along the right upper abdomen. An 8-mm port was were placed along the left lateral abdominal wall. The camera 8-mm port was maintained along the epigastrium via the hernia defect. Another 12 mm port was placed along the left upper abdominal wall after exchanging the 5 mm port. Please note that the ports were placed at least 20 cm away from the target anatomy. Care was taken to check that each robotic arm were safely away from collision with the bed or the patient. At the epigastrium, a medium sized Shaun liver retractor was placed under direct visualization with the Iron Tester Armature Or Fields placed over the right shoulder of the patient. The additional third robotic arm was placed along the left aspect of the patient. The patient was repositioned in reverse Trendelenburg position at 14-degrees after lowering the bed. The robot was docked above the left side of the patient. Using a grasper for arm 3, a grasper for arm 1, including vessel sealer for arm 2, the robotic system was docked and primed as described. Instruments were interchanged by the food service assistant. I had sat at the console. The gastrohepatic ligament was cleaved using a vessel sealer. Next, the phrenoesophageal ligament was mobilized and the distal esophagus was mobilized circumferentially. An incarcerated hernia with a large lipoma was found along the mediastinum. As a result, deep dissection well into the mediastinum was needed to free the entire esophagus. The left and right crura was identified. A moderate sized midline large hiatal hernia and sac was found incarcerated into the mediastinum. Significant mobilization of the distal to mid esophagus into the mediastinum was performed. Circumferentially, the hernia sac was excised and brought into the peritoneal cavity. Care was taken to avoid any gastrotomy to the incarcerated upper pole of the stomach. Extended dissection occurred for at least another 1 hour as the stomach was densely adherent to the left diaphragm. The measured defect was consistent with 6 cm axial length and 4 cm in width. After extensive dissection, the distal esophagus at least 3 cm was brought into the abdominal cavity. Once the hiatus and crura was dissected, 2-0 VLOC suture was placed as a running suture to re-approximate the diaphragmatic hiatus posteriorly. To buttress the repair, a [place] Biopatch A was prepared along the back table and cut in a mendieta-hole fashion as to reinforce the repair as an underlay. The mesh was placed along the crural repair and tagged using horizontal mattress sutures using 2-0 VLOC. I went to the head of the bed to perform intraoperative esophagogastroduodenoscopy. A 56-Surinamese bougie was carefully placed along the posterior oropharynx through the hiatus as a visual aid for hiatus closure and then removed. I went to the head of the bed to perform intraoperative esophagogastroduodenoscopy. An Olympus gastroscope was passed through posterior oropharynx, where the GE junction was found distal to the diaphragmatic hiatus. The intra-abdominal esophageal length obtained during the case was over 2 cm. The stomach was entered. The duodenum was unremarkable. Retroflexion of the scope confirmed a Hill grade 1 lower esophageal valve. The stomach had been desufflated. No evidence of leaks were found either of the mucosal defects of the esophagus or stomach. The hiatal closure was consistent with a 56 Surinamese bougie as a bougie was passed. This concluded the endoscopic portion of the case. The robot was undocked from the patient. I re-scrubbed into the case. All instruments and pneumoperitoneum were evacuated from the abdominal cavity. Incisions were reapproximated using 4-0 Monocryl in an interrupted subcuticular fashion. The 12-mm port site fascial defect was reapproximated using 0 Vicryl and Caleb Hebert. Dermabond was applied to the skin. Local anesthetic was infiltrated in all wounds for postop analgesia. Multiple intra-abdominal films were obtained. At the end of the procedure, needle, sponge, and instrument count was verified correct by the waste minimization technician. The patient had tolerated the procedure well and was taken to the postanesthesia unit in stable condition.
== END 2017-05-10 14:45 | disposition home or self-care (01) | DRG 327 ==
LOC: 2ORWHC 11:22 → 3SUR 16:04
PROVIDERS: ADMIT Surgery Plastic and Reconstructive Surgery; ATTEND Surgery Plastic and Reconstructive Surgery
PROC: 0WBC4ZZ Excision of Mediastinum, Percutaneous Endoscopic Approach (ICD-10-PCS; principal; 2017-05-09 13:10)
PROC: 8E0W4CZ Robotic Assisted Procedure of Trunk Region, Percutaneous Endoscopic Approach (ICD-10-PCS; principal; 2017-05-09 13:10)
PROC: 0DJ08ZZ Inspection of Upper Intestinal Tract, Via Natural or Artificial Opening Endoscopic (ICD-10-PCS; principal; 2017-05-09 13:10)
PROC: 0BUT4JZ Supplement Diaphragm with Synthetic Substitute, Percutaneous Endoscopic Approach (ICD-10-PCS; principal; 2017-05-09 13:10)
DX: K44.9 Diaphragmatic hernia without obstruction or gangrene (principal); I42.9 Cardiomyopathy, unspecified; K22.0 Achalasia of cardia; I11.9 Hypertensive heart disease without heart failure; E11.9 Type 2 diabetes mellitus without complications; F32.9 Major depressive disorder, single episode, unspecified; F41.9 Anxiety disorder, unspecified; G25.81 Restless legs syndrome; G47.30 Sleep apnea, unspecified; J44.9 Chronic obstructive pulmonary disease, unspecified; G47.33 Obstructive sleep apnea (adult) (pediatric); K21.9 Gastro-esophageal reflux disease without esophagitis; E03.9 Hypothyroidism, unspecified; M79.7 Fibromyalgia; Z79.82 Long term (current) use of aspirin; Z79.84 Long term (current) use of oral hypoglycemic drugs; Z79.899 Other long term (current) drug therapy; Z87.891 Personal history of nicotine dependence; Z90.710 Acquired absence of both cervix and uterus; Z79.890 Hormone replacement therapy; Z79.891 Long term (current) use of opiate analgesic; Z88.2 Allergy status to sulfonamides; Z88.1 Allergy status to other antibiotic agents; D17.5 Benign lipomatous neoplasm of intra-abdominal organs
CPT/HCPCS: 36415; 74210; 80048; 83735; 84132; 85025; 85027; 86850; 86900; 86901; 88304

== ENCOUNTER → 2017-11-11 | Outpatient (CLI) | payer MEDICARE ==
--- NOTE | 2017-11-11 13:48 | FL ---
EXAMINATION: Cervical and Thoracic Esophagram DATE OF EXAM: 11/11/2017 CLINICAL INDICATION: 62-year-old female with gastroesophageal reflux disease, status post Nasir fund oplication in May 2017, recurrent GERD and belching. COMPARISON: 05/10/2017 Total Fluoroscopy Time: 2.07 minutes Total images: 36 FINDINGS: The swallowing mechanism is normal and hypopharyngeal anatomy is preserved. The cervical and thoracic portions have a normal course and caliber. Mild tertiary peristalsis is not ed. The mucosa is normal and no persistent filling defect is encountered. There is a tiny sliding hiatal hernia. A Nasir fundoplication wrap is not clearly seen. Gastroesophageal reflux could not be elicited with Valsalva or positional maneuvers. IMPRESSION: 1. Tiny sliding hiatal hernia. A Nasir wrap is not clearly identified. Correlate clinically. Images are available for review. 2. Reflux could not be elicited during the course of the exam. This does not exclude its possibility.
== END | disposition home or self-care (01) ==
LOC: RADFLWHC 09:41
PROVIDERS: ATTEND Surgery Plastic and Reconstructive Surgery
DX: K44.9 Diaphragmatic hernia without obstruction or gangrene (principal); Z88.1 Allergy status to other antibiotic agents; Z88.2 Allergy status to sulfonamides; Z88.5 Allergy status to narcotic agent
CPT/HCPCS: 74220

== ENCOUNTER 2017-11-20 08:27 | Day surgery (SDC) | payer MEDICARE ==
[2017-11-18 17:01] VITALS: BMI 29.2
[~2017-11-20 08:27] MED LIST changes: -CHLORHEXIDINE GLUCONATE 15 ML CUP MUCOUS MEM ONE; -CLINDAMYCIN 900 MG in DEXTROSE 5% IN WATER 50 ML IVPB ONE; -DEXAMETHASONE SOD PHOSPHATE 10 MG/ML 1 ML VIAL IV ONE; -HEPARIN SODIUM,PORCINE 5,000 UNIT/ML 1 ML VIAL SQ ONE; -LEVOFLOXACIN 500MG-D5W PMX 500 MG in DEXTROSE/WATER 1 100ML.BAG IVPB ONE; -MIDAZOLAM 2 MG/2 ML VIAL IV PRN; -ONDANSETRON 4 MG/2 ML VIAL IVP ONE; -PANTOPRAZOLE 40 MG/10 ML VIAL IV STA; -SCOPOLAMINE 1.5MG/72HR PATCH TRANSDERM ONE; -SCOPOLAMINE 1.5MG/72HR PATCH TRANSDERM STA
--- NOTE | 2017-11-20 09:32 | P.GSHP ---
History of Present Illness H&P Date: 11/20/17 CHIEF COMPLAINT: GERD HISTORY OF PRESENT ILLNESS: The patient is a 62-year-old female who presents reports gastroesophageal reflux disease. Upper endoscopy was offered for further evaluation and management. PAST MEDICAL HISTORY: Please see list. PAST SURGICAL HISTORY: Please see list. MEDICATIONS: Please see list. ALLERGIES: Please see list. SOCIAL HISTORY: No illicit drug use FAMILY HISTORY: No reports of Crohn disease or ulcerative colitis. REVIEW OF ORGAN SYSTEMS: CONSTITUTIONAL: No reports of fevers or chills. GI: Denies any blood in stools or constipation. PHYSICAL EXAM: VITAL SIGNS: Stable GENERAL: Well-developed and pleasant in no acute distress. HEENT: No scleral icterus. Extraocular movements grossly intact. Moist buccal mucosa. NECK: Supple without lymphadenopathy. CHEST: Unlabored respirations. Equal bilateral excursions. CARDIOVASCULAR: Regular rate and rhythm. Distal 2+ pulses. ABDOMEN: Soft, nondistended. MUSCULOSKELETAL: No clubbing, cyanosis, or edema. ASSESSMENT: 1. Gastroesophageal reflux disease PLAN: 1. Recommend proceeding with an upper endoscopy Past Medical History Past Medical History: Asthma, COPD, Diabetes Mellitus, Fibromyalgia, GERD/Reflux , Hypertension, Sleep Apnea/CPAP/BIPAP, Thyroid Disorder Additional Past Medical History / Comment(s): NEUROPATHY FEET, RLS. HX RHEMATIC FEVER, HOLE IN BACK OF HEART. HX SEPSIS R/T PORT INFECTIONS. STATES NO C-PAP MACHINE. HX LUPUS. HIATAL HERNIA REPAIRED 05/2017; HAVING PROB FOR FEW MONTHS - EXCESSIVE BURPING, BLOATING, FLATULENCE. History of Any Multi-Drug Resistant Organisms: None Reported Past Surgical History: Section, Hernia Repair, Hysterectomy, Joint Replacement Additional Past Surgical History / Comment(s): THUMB SURGERY, BRUCE TOTAL KNEES, PORT INSERTED & REMOVED. Lap Nasir with hiatal hernia repair with mesh 2017. Past Anesthesia/Blood Transfusion Reactions: No Reported Reaction, Blood Transfusion Reaction Additional Past Anesthesia/Blood Transfusion Reaction / Comment(s): STATES BLOOD TRANSFUSION WITH CHILD - STATES RASH AND ITCHING. Smoking Status: Former smoker - Past Family History Mother Family Medical History: Deep Vein Thrombosis (DVT) Daughter(s) Family Medical History: Cancer Medications and Allergies Home Medications Medication Instructions Recorded Confirmed Type Aspirin [Adult Low Dose Aspirin EC] 81 mg PO DAILY 11/27/16 11/18/17 History Diclofenac Sodium [Voltaren Gel] 2 gram TOPICAL DAILY PRN 11/27/16 11/18/17 History Furosemide [Lasix] 40 mg PO DAILY 11/27/16 11/18/17 History Gabapentin [Neurontin] 800 mg PO TID 11/27/16 11/18/17 History Levothyroxine Sodium [Synthroid] 112 mcg PO DAILY 11/27/16 11/18/17 History Potassium Chloride [K-Tab ER] 20 meq PO BID 11/27/16 11/18/17 History Umeclidinium Brm/Vilanterol Tr 1 puff INHALATION RT-DAILY 11/27/16 11/18/17 History [Anoro Ellipta 62.5-25 Mcg INH] glipiZIDE [Glucotrol] 10 mg PO BID 11/27/16 11/18/17 History rOPINIRole HCL [Requip] 3 mg PO HS 11/27/16 11/18/17 History traZODone HCL 200 mg PO HS 11/27/16 11/18/17 History Taztia Xt 180 mg PO DAILY 05/03/17 11/18/17 History Venlafaxine HCl [Effexor XR] 150 mg PO BID 05/03/17 11/18/17 History Bisacodyl [Dulcolax] 10 mg RECTAL DAILY PRN 11/18/17 11/18/17 History Dulaglutide [Trulicity] 1.5 mg SQ FR 11/18/17 11/18/17 History HYDROcodone/APAP 7.5-325MG [[place] 1 - 2 tab PO Q6HR PRN 11/18/17 11/18/17 History 7.5-325] Polyethylene Glycol 3350 [Miralax] 17 gm PO DAILY PRN 11/18/17 11/18/17 History Allergies Allergy/AdvReac Type Severity Reaction Status Date / Time ceftriaxone [From Rocephin] Allergy Severe PASSED OUT Verified 11/18/17 16:31 Sulfa (Sulfonamide Allergy Unknown Rash/Hives, Verified 11/18/17 16:31 Antibiotics) Itchy
[2017-11-20 09:39] VITALS: RESP 16; TEMP 97.8
[2017-11-20 09:51] LABS: Glucose,Whole Blood 130 mg/dL (75-99)
[2017-11-20] MEDS ORDERED: PROPOFOL 10 MG/ML 20 ML VIAL IV ONE (10:12)
--- NOTE | 2017-11-20 10:31 | P.PCN ---
Date of Procedure: 11/20/17 Description of Procedure: PREOPERATIVE DIAGNOSIS: Dysphagia. Gastroesophageal reflux disease History of Nasir fundoplication Upper esophageal sphincter hypertension POSTOPERATIVE DIAGNOSIS: Dysphagia. Gastroesophageal reflux disease History of Nasir fundoplication Upper esophageal sphincter hypertension Acute gastritis is recent bleeding. OPERATION: Esophagogastroduodenoscopy with rigid dilator over the guidewire 57 Fr. Esophagogastroduodenoscopy with cold forceps biopsy along the antrum SURGEON: Mahsa Tan MD ANESTHESIA: MAC. INDICATIONS: The patient is a 62-year-old female who presents with a history of dysphagia. She had a manometry demonstrating upper esophageal sphincter disorder. She reports trouble swallowing. Benefits and risks of the procedure were described. Informed consent was obtained. DESCRIPTION: The patient was brought into the endoscopy suite and laid in the left lateral decubitus position. After a timeout was confirmed, the procedure was initiated. An Olympus gastroscope was passed and the stomach was entered. Acute gastritis with recent bleeding was identified. The scope was advanced to the duodenum which was unremarkable. Retroflexion the scope confirmed a Hill grade 1 lower esophageal valve. Next using an Taiwanese rigid dilator, a guidewire was placed through the gastroscope. Next the scope was withdrawn. A 57-Greek rigid Taiwanese dilator was passed carefully along the posterior oropharynx to 45 cm and left in place for 2 minutes stretch. The dilator was withdrawn including the guidewire. The scope was reentered along the posterior oropharynx with no findings of full-thickness tear of the upper esophageal sphincter. Biopsies were taken along the antrum secondary to acute gastritis as well as some bleeding. No full-thickness injury was encountered. The GI tract was desufflated. The patient tolerated the procedure well. FINDINGS: Squamocolumnar junction unremarkable at 40 cm. Hypertensive upper esophageal sphincter. Taiwanese rigid dilator 57-Greek completed. Acute gastritis or recent bleeding within the body of the stomach and biopsies obtained Hill grade 1 lower esophageal valve No recurrent hiatal hernia No LA grade A esophagitis. RECOMMENDATIONS: Upper endoscopy as needed Plan - Discharge Summary New Discharge Prescriptions: No Action Umeclidinium Brm/Vilanterol Tr [Anoro Ellipta 62.5-25 Mcg INH] 1 puff INHALATION RT-DAILY glipiZIDE [Glucotrol] 10 mg PO BID Levothyroxine Sodium [Synthroid] 112 mcg PO DAILY Furosemide [Lasix] 40 mg PO DAILY rOPINIRole HCL [Requip] 3 mg PO HS traZODone HCL 200 mg PO HS Potassium Chloride [K-Tab ER] 20 meq PO BID Gabapentin [Neurontin] 800 mg PO TID Diclofenac Sodium [Voltaren Gel] 2 gram TOPICAL DAILY PRN PRN Reason: Pain Aspirin [Adult Low Dose Aspirin EC] 81 mg PO DAILY Venlafaxine HCl [Effexor XR] 150 mg PO BID Taztia Xt 180 mg PO DAILY Dulaglutide [Trulicity] 1.5 mg SQ FR HYDROcodone/APAP 7.5-325MG [[place] 7.5-325] 1 - 2 tab PO Q6HR PRN PRN Reason: Pain Bisacodyl [Dulcolax] 10 mg RECTAL DAILY PRN PRN Reason: Constipation Polyethylene Glycol 3350 [Miralax] 17 gm PO DAILY PRN PRN Reason: Constipation Discharge Medication List Aspirin [Adult Low Dose Aspirin EC] 81 mg PO DAILY 11/27/16 [History] Diclofenac Sodium [Voltaren Gel] 2 gram TOPICAL DAILY PRN 11/27/16 [History] Furosemide [Lasix] 40 mg PO DAILY 11/27/16 [History] Gabapentin [Neurontin] 800 mg PO TID 11/27/16 [History] Levothyroxine Sodium [Synthroid] 112 mcg PO DAILY 11/27/16 [History] Potassium Chloride [K-Tab ER] 20 meq PO BID 11/27/16 [History] Umeclidinium Brm/Vilanterol Tr [Anoro Ellipta 62.5-25 Mcg INH] 1 puff INHALATION RT-DAILY 11/27/16 [History] glipiZIDE [Glucotrol] 10 mg PO BID 11/27/16 [History] rOPINIRole HCL [Requip] 3 mg PO HS 11/27/16 [History] traZODone HCL 200 mg PO HS 11/27/16 [History] Taztia Xt 180 mg PO DAILY 05/03/17 [History] Venlafaxine HCl [Effexor XR] 150 mg PO BID 05/03/17 [History] Bisacodyl [Dulcolax] 10 mg RECTAL DAILY PRN 11/18/17 [History] Dulaglutide [Trulicity] 1.5 mg SQ FR 11/18/17 [History] HYDROcodone/APAP 7.5-325MG [[place] 7.5-325] 1 - 2 tab PO Q6HR PRN 11/18/17 [ History] Polyethylene Glycol 3350 [Miralax] 17 gm PO DAILY PRN 11/18/17 [History]
[2017-11-20 11:11] VITALS: BP 118/78; PULSE 69
== END 2017-11-20 11:38 | disposition home or self-care (01) ==
LOC: ORWHC2ENDO 08:27
PROVIDERS: ATTEND Surgery Plastic and Reconstructive Surgery
DX: R13.10 Dysphagia, unspecified (principal); K22.8 Other specified diseases of esophagus; K29.01 Acute gastritis with bleeding; J44.9 Chronic obstructive pulmonary disease, unspecified; E11.40 Type 2 diabetes mellitus with diabetic neuropathy, unspecified; M79.7 Fibromyalgia; K21.9 Gastro-esophageal reflux disease without esophagitis; I10 Essential (primary) hypertension; G47.33 Obstructive sleep apnea (adult) (pediatric); G25.81 Restless legs syndrome; M32.9 Systemic lupus erythematosus, unspecified; Z87.891 Personal history of nicotine dependence; Z79.82 Long term (current) use of aspirin; Z79.890 Hormone replacement therapy; Z79.899 Other long term (current) drug therapy; Z88.1 Allergy status to other antibiotic agents; Z88.2 Allergy status to sulfonamides
CPT/HCPCS: 88305; 43239; 43248; J2704; 43249

== ENCOUNTER 2017-12-27 10:36 | Inpatient (IN) | payer MEDICARE ==
[2017-12-19 10:32] VITALS: BMI 29.5
[~2017-12-27 10:36] MED LIST changes: +CLINDAMYCIN 900 MG in DEXTROSE 5% IN WATER 50 ML IVPB ONE; +DEXAMETHASONE SOD PHOSPHATE 10 MG/ML 1 ML VIAL IV ONE; +GENTAMICIN 440 MG in SODIUM CHLORIDE 0.9% 100 ML IVPB ONE; +HEPARIN SODIUM,PORCINE 5,000 UNIT/ML 1 ML VIAL SQ ONE; -LACTATED RINGERS 1,000 ML IV SCH; -LIDOCAINE 1% 20 ML VIAL (10MG/ML) FOR IV START INTRADERMA PRN; +MIDAZOLAM 2 MG/2 ML VIAL IV PRN; +ONDANSETRON 4 MG/2 ML VIAL IVP ONE; +SCOPOLAMINE 1.5MG/72HR PATCH TRANSDERM ONE; +fentaNYL (PF) 50 MCG/ML 2 ML AMP IV PRN
[2017-12-27] MEDS ORDERED: Antibiotics per Pharmacy 1 EACH MISC MISCELLANE PRN (11:14)
[2017-12-27] MEDS ORDERED: ACETAMINOPHEN TAB 500 MG TAB PO ONE (11:14)
[2017-12-27] MEDS ORDERED: ALVIMOPAN 12 MG CAPSULE PO ONE (11:14)
--- NOTE | 2017-12-27 11:14 | P.GSHP ---
History of Present Illness H&P Date: 12/27/17 CHIEF COMPLAINT: History of sigmoid diverticulitis HISTORY OF PRESENT ILLNESS: The patient is a 62-year-old female with long- standing history of chronic constipation including chronic diverticulitis. She completed a colonoscopy which excluded underlying neoplasm. Now she presents for sigmoid colon resection. PAST MEDICAL HISTORY: Please see list. PAST SURGICAL HISTORY: Please see list. MEDICATIONS: Please see list. ALLERGIES: Please see list. SOCIAL HISTORY: No illicit drug use FAMILY HISTORY: No reports of Crohn disease or ulcerative colitis. REVIEW OF ORGAN SYSTEMS: CONSTITUTIONAL: Denies any fever or chills. HEENT: Denies any trouble with vision or nosebleeds. No difficulty swallowing. LYMPHATIC: The patient denies any lumps and bumps around the neck. ENDOCRINE: Has thyroid disorders. Has blood sugar glucose intolerance. RESPIRATORY: Denies pneumonia. Denies any troubles with breathing or dyspnea on exertion. CARDIOVASCULAR: Denies any chest pain, palpitations, or recent heart attacks. She has obtained cardiac risk assessment in the past year. GASTROINTESTINAL: Has constipation GENITOURINARY: No increased urinary frequency. MUSCULOSKELETAL: Has back pain, stiffness, joint arthritis. NEUROLOGIC: Denies any numbness or tingling along the distal extremities. No seizure disorders or headaches. PSYCHIATRIC: Has depression. No suidical ideation. HEMATOLOGIC: Denies any abnormal bleeding or bruising. PHYSICAL EXAM: VITAL SIGNS: Stable GENERAL: Well-developed pleasant in no acute distress. HEENT: No scleral icterus. Extraocular movements grossly intact. Moist buccal mucosa. NECK: Supple without lymphadenopathy. CHEST: Unlabored respirations. Equal bilateral excursions. CARDIOVASCULAR: Regular rate and rhythm. Distal 2+ pulses. ABDOMEN: Soft, nontender, nondistended. MUSCULOSKELETAL: No clubbing, cyanosis, or edema. NERUO: Regular 2-12 grossly intact. PSYCH: Alert and oriented to person place and time. ASSESSMENT: 1. History of sigmoid diverticulitis. 2. Chronic constipation 3. Diabetes type 2 4. Hypertensive heart disease PLAN: 1. Benefits and risks of surgical intervention sigmoid diverticulitis were reviewed in detail. Robotic-assisted approach was also described. 2. She has completed an enhanced colon recovery program. 3. DVT prophylaxis. 4. Antibiotic prophylaxis. Past Medical History Past Medical History: Asthma, COPD, CVA/TIA, Diabetes Mellitus, Fibromyalgia, GERD/Reflux, Hypertension, Neurologic Disorder, Sleep Apnea/CPAP/BIPAP, Thyroid Disorder Additional Past Medical History / Comment(s): NEUROPATHY FEET, RLS, HX OF RHEMATIC FEVER, HAS HOLE IN BACK OF HEART., HX OF SEPSIS FROM PORT INFECTIONS., STATES NO LONGER USING C-PAP MACHINE., STATES FREQUENT DIARRHEA., LUPUS., aneurysm back of brain surgery with coil, and stent to repair History of Any Multi-Drug Resistant Organisms: None Reported Past Surgical History: Section, Hysterectomy, Joint Replacement Additional Past Surgical History / Comment(s): THUMB SURGERY, BRUCE TOTAL KNEES, PORT INSERTED & REMOVED. Lap Nasir with hiatal hernia repair with mesh 2017 ,surgery to repair brain aneurysm with coil and stent, bruce elbow surgery Past Anesthesia/Blood Transfusion Reactions: No Reported Reaction, Blood Transfusion Reaction Additional Past Anesthesia/Blood Transfusion Reaction / Comment(s): STATES BLOOD TRANSFUSION WITH CHILD - STATES RASH AND ITCHING Smoking Status: Former smoker - Past Family History Mother Family Medical History: Deep Vein Thrombosis (DVT) Daughter(s) Family Medical History: Cancer Additional Family Medical History / Comment(s): lymphoma Medications and Allergies Home Medications Medication Instructions Recorded Confirmed Type Aspirin [Adult Low Dose Aspirin EC] 81 mg PO DAILY 11/27/16 12/19/17 History Diclofenac Sodium [Voltaren Gel] 2 gram TOPICAL DAILY PRN 11/27/16 12/19/17 History Furosemide [Lasix] 40 mg PO BID 11/27/16 12/19/17 History Gabapentin [Neurontin] 800 mg PO TID 11/27/16 12/19/17 History Levothyroxine Sodium [Synthroid] 112 mcg PO DAILY 11/27/16 12/19/17 History Potassium Chloride [K-Tab ER] 20 meq PO BID 11/27/16 12/19/17 History Umeclidinium Brm/Vilanterol Tr 1 puff INHALATION DAILY 11/27/16 12/19/17 History [Anoro Ellipta 62.5-25 Mcg INH] glipiZIDE [Glucotrol] 10 mg PO BID 11/27/16 12/19/17 History rOPINIRole HCL [Requip] 3 mg PO HS 11/27/16 12/19/17 History traZODone HCL 200 mg PO HS 11/27/16 12/19/17 History Taztia Xt 180 mg PO DAILY 05/03/17 12/19/17 History Venlafaxine HCl [Effexor XR] 150 mg PO BID 05/03/17 12/19/17 History Bisacodyl [Dulcolax] 10 mg RECTAL DAILY PRN 11/18/17 12/19/17 History Dulaglutide [Trulicity] 1.5 mg SQ FR 11/18/17 12/19/17 History HYDROcodone/APAP 7.5-325MG [[place] 1 - 2 tab PO Q6HR PRN 11/18/17 12/19/17 History 7.5-325] Polyethylene Glycol 3350 [Miralax] 17 gm PO DAILY PRN 11/18/17 12/19/17 History Allergies Allergy/AdvReac Type Severity Reaction Status Date / Time ceftriaxone [From Rocephin] Allergy Severe PASSED OUT Verified 12/19/17 10:08 Sulfa (Sulfonamide Allergy Unknown Rash/Hives, Verified 12/19/17 10:08 Antibiotics) Itchy
[2017-12-27] MEDS: LACTATED RINGERS 1,000 ML IV SCH (12:54)
[2017-12-27] MEDS ORDERED: LIDOCAINE 1% 20 ML VIAL (10MG/ML) FOR IV START INTRADERMA ONE (12:55)
[2017-12-27 12:56] LABS: Glucose,Whole Blood 214 mg/dL (75-99)
[2017-12-27 12:57] LABS: Basophils % (A) 0 %; Eosinophils # (A) 0.1 k/uL (0-0.7); Eosinophils % (A) 1 %; HCT 44.8 % (34.0-46.0); HGB 15.1 gm/dL (11.4-16.0); Lymphocytes # (A) 2.4 k/uL (1.0-4.8); Lymphocytes % (A) 24 %; MCH 30.3 pg (25.0-35.0); MCHC 33.7 g/dL (31.0-37.0); MCV 89.8 fL (80.0-100.0); Mean Platelet Volume 7.4; Monocytes # (A) 0.4 k/uL (0-1.0); Monocytes % (A) 4 %; Neutrophils # (A) 6.9 k/uL (1.3-7.7); Neutrophils % (A) 69 %; Platelet Count 248 k/uL (150-450); RBC 4.99 m/uL (3.80-5.40); RDW 12.9 % (11.5-15.5)
[2017-12-27] MEDS ORDERED: NALOXONE 0.4 MG/ML 1 ML VIAL IV PRN (13:18)
[2017-12-27] MEDS ORDERED: ROPIVACAINE 300 MG, HYDROMORPHONE (PF) 5 MG in SODIUM CHLORIDE 0.9% 190 ML EPIDURAL PRN (13:18)
[2017-12-27 13:28] LABS: Albumin 4.1 g/dL (3.5-5.0); Calcium 9.3 mg/dL (8.4-10.2); Potassium 3.5 mmol/L (3.5-5.1); Total Bilirubin 0.8 mg/dL (0.2-1.3)
[2017-12-27] MEDS ORDERED: fentaNYL (PF) 50 MCG/ML 2 ML AMP ONE (14:06)
[2017-12-27] MEDS ORDERED: LIDOCAINE 1% INJ 10MG/ML (20 ML MDV) ONE (14:06)
[2017-12-27] MEDS ORDERED: MIDAZOLAM 2 MG/2 ML VIAL ONE (14:06)
[2017-12-27] MEDS ORDERED: PROPOFOL 10 MG/ML 20 ML VIAL IV ONE (14:06)
[2017-12-27] MEDS ORDERED: ROCURONIUM BROMIDE 10 MG/ML 10 ML VIAL IV ONE (14:06)
[2017-12-27] MEDS ORDERED: ePHEDrine SULFATE/0.9% NACL/PF 50 MG/5 ML SYRINGE IV ONE (14:06)
[2017-12-27] MEDS ORDERED: SUCCINYLCHOLINE CHLORIDE 100 MG/5 ML SYR IV ONE (14:06)
[2017-12-27] MEDS ORDERED: PHENYLEPHRINE-0.9% NACL SYG 1 MG/10 ML SYRINGE ONE (14:06)
[2017-12-27] MEDS ORDERED: BUPIVACAIN-EPI 0.25%-1:200,000 30 ML VIAL SQ ONE (14:43)
[2017-12-27] MEDS ORDERED: LACTATED RINGERS 1,000 ML IV ONE ×2 (16:35→19:25)
[2017-12-27] MEDS ORDERED: ONDANSETRON 4 MG/2 ML VIAL IVP PRN (20:01)
[2017-12-27] MEDS ORDERED: HYDROmorphone 1 MG/ML 1 ML SYRINGE IVP PRN (20:01)
[2017-12-27] MEDS ORDERED: METOCLOPRAMIDE 5 MG/ML 2 ML VIAL IVP PRN (20:01)
[2017-12-27] MEDS ORDERED: BENZOCAINE/MENTHOL LOZENG 1 EACH LOZENGE MUCOUS MEM PRN (20:01)
--- NOTE | 2017-12-27 20:01 | P.PCN ---
Date of Procedure: 12/27/17 Preoperative Diagnosis: Sigmoid diverticulitis, chronic constipation Postoperative Diagnosis: Same, severe pelvic adhesions from previous hysterectomy Procedure(s) Performed: Robotic lysis of adhesions over 2.5 hours, robotic sigmoid colectomy Anesthesia: GETA, local Surgeon: Mahsa aTn Estimated Blood Loss (ml): 30 Pathology: other (Sigmoid colon) Condition: stable Disposition: floor Indications for Procedure: 1. Severe pelvic adhesions including the redundant sigmoid colon with gross distortion from scar tissue from previous hysterectomy and diverticulitis 2. Over 12 inches colectomy performed 3. Surgical anastomosis with 25 mm Ethicon stapler 4. REJI drain and pelvis with minimal gross spillage 5. Anterior colotomy on descending colon for anastomosis 6. Console time 254 minutes
[2017-12-27] MEDS ORDERED: INSULIN ASPART 100 UNIT/ML 1 ML 10 ML VIAL SQ ONE (20:12)
[2017-12-27] MEDS ORDERED: diphenhydrAMINE 50 MG/ML 1 ML VIAL IVP ONE (20:19)
[2017-12-27 20:21] LABS: Glucose,Whole Blood 210 mg/dL (75-99)
[2017-12-27] MEDS: FORMOTEROL FUMARATE 20 MCG/2 ML NEBU INHALATION SCH (21:03)
[2017-12-27] MEDS: IPRATROPIUM 0.5 MG/2.5 ML NEBU INHALATION SCH (21:04)
[2017-12-27] MEDS: HEPARIN SODIUM,PORCINE 5,000 UNIT/ML 1 ML VIAL SQ SCH (22:05)
[2017-12-27] MEDS: traZODone HCL 100 MG TAB PO SCH (22:05)
[2017-12-27] MEDS: ALVIMOPAN 12 MG CAPSULE PO SCH (22:05)
[2017-12-27 22:20] LABS: Hemoglobin A1C 7.7 % (4.0-6.0)
[2017-12-27] MEDS: HYDROmorphone 1 MG/ML 1 ML SYRINGE IVP PRN (22:46)
[2017-12-27] MEDS: GABAPENTIN 400 MG CAP PO SCH (22:47)
[2017-12-28] MEDS: HYDROmorphone 1 MG/ML 1 ML SYRINGE IVP PRN ×6 (01:39→16:16)
[2017-12-28] MEDS: LEVOTHYROXINE 112 MCG TAB PO SCH (05:45)
[2017-12-28] MEDS: LACTATED RINGERS 1,000 ML IV SCH (06:07)
[2017-12-28 07:46] LABS: Basophils % (A) 0 %; Eosinophils % (A) 0 %; HCT 39.5 % (34.0-46.0); HGB 12.8 gm/dL (11.4-16.0); Lymphocytes # (A) 1.8 k/uL (1.0-4.8); Lymphocytes % (A) 12 %; MCH 30.4 pg (25.0-35.0); MCHC 32.5 g/dL (31.0-37.0); MCV 93.6 fL (80.0-100.0); Mean Platelet Volume 7.7; Monocytes # (A) 0.7 k/uL (0-1.0); Monocytes % (A) 4 %; Neutrophils # (A) 12.9 k/uL (1.3-7.7); Neutrophils % (A) 83 %; Platelet Count 220 k/uL (150-450); RBC 4.22 m/uL (3.80-5.40); RDW 12.9 % (11.5-15.5); WBC 15.7 k/uL (3.8-10.6)
[2017-12-28] MEDS: IPRATROPIUM 0.5 MG/2.5 ML NEBU INHALATION SCH ×4 (08:07→19:39)
[2017-12-28] MEDS: FORMOTEROL FUMARATE 20 MCG/2 ML NEBU INHALATION SCH ×2 (08:07→19:45)
[2017-12-28 08:09] LABS: Calcium 8.9 mg/dL (8.4-10.2); Potassium 4.2 mmol/L (3.5-5.1)
[2017-12-28 08:10] LABS: Glucose,Whole Blood 134 mg/dL (75-99)
[2017-12-28] MEDS: ALVIMOPAN 12 MG CAPSULE PO SCH ×2 (09:49→20:04)
[2017-12-28] MEDS: ASPIRIN 81 MG PO SCH (09:49)
[2017-12-28] MEDS: GABAPENTIN 400 MG CAP PO SCH ×3 (09:50→20:13)
[2017-12-28] MEDS: DILTIAZEM CD 180 MG CAP.ER.24H PO SCH (09:50)
[2017-12-28] MEDS: HEPARIN SODIUM,PORCINE 5,000 UNIT/ML 1 ML VIAL SQ SCH ×2 (09:52→20:05)
--- NOTE | 2017-12-28 10:16 | P.PN ---
Progress Note - Text Progress Note Date: 12/28/17 The patient resting comfortably in bed. She has complaints of pain at her left upper quadrant incision. On exam her vital signs appear stable. Her abdomen is soft. There is some minimal incisional tenderness. Status post laparoscopic sigmoid likely. Patient will continue to be observed. We dissected discharged home next 24-48 hours.
[2017-12-28] MEDS: ceFAZolin IN SWFI 2 GM/20 ML SYRINGE IVP SCH ×3 (10:42→23:29)
[2017-12-28] MEDS: metroNIDAZOLE-NS PMX 500 MG in SALINE 1 100ML.BAG IVPB SCH ×3 (10:42→20:13)
[2017-12-28] MEDS ORDERED: HYDROcodone/APAP 7.5-325MG 1 EACH TAB PO PRN (10:54)
[2017-12-28] MEDS: diphenhydrAMINE 50 MG/ML 1 ML VIAL IVP PRN ×2 (11:24→20:05)
[2017-12-28 11:31] LABS: Glucose,Whole Blood 137 mg/dL (75-99)
[2017-12-28] MEDS: INSULIN ASPART 100 UNIT/ML 1 ML 10 ML VIAL SQ SCH ×3 (13:49→23:32)
--- NOTE | 2017-12-28 15:27 | P.CONS ---
History of Present Illness - Reason for Consult Consult date: 12/28/17 Medical management of hypertension diabetes2 - Chief Complaint Admitted for sigmoid colectomy, chronic diverticulitis - History of Present Illness Patient is a 62-year-old female with a known history of hypertension, diabetes type 2, history of CVA/TIA, COPD/asthma and obstructive sleep apnea as well as hypothyroidism was admitted to the hospital for colectomy. Patient does have a history of chronic constipation and chronic diverticulitis. Patient had colonoscopy which showed no evidence of malignancy. Patient was admitted to hospital for sigmoid colon resection. Patient underwent robotic lysis of adhesions and sigmoid colectomy. Patient tolerated the procedure. Currently still complaining of left upper quadrant abdominal pain. Slight nausea otherwise. No vomiting. Tolerating liquid diet. No complaints of chest pain or shortness of breath. No fever no chills. No headache or dizziness. Review of Systems Constitutional: Patient denies any fever or chills . No generalized weakness or weight loss. Abdomen: Patient does have left upper quadrant abdominal pain. Nausea. No vomiting. No diarrhea.. Cardiovascular: Patient denies any chest pain or short of breath no palpitations. Respiratory: patient denied any cough is from production. No shortness of breath Neurologic: Patient denied any numbness or tingling headache. Musculoskeletal: Patient denies any complaints of joint swelling or deformity. Skin: Negative Psychiatric: Negative Endocrine: No heat or cold intolerance. No recent weight gain. Genitourinary: No dysuria or hematuria. All other 14 point ROS negative except the above Past Medical History Past Medical History: Asthma, COPD, CVA/TIA, Diabetes Mellitus, Fibromyalgia, GERD/Reflux, Hypertension, Neurologic Disorder, Sleep Apnea/CPAP/BIPAP, Thyroid Disorder Additional Past Medical History / Comment(s): NEUROPATHY FEET, RLS, HX OF RHEMATIC FEVER, HAS HOLE IN BACK OF HEART., HX OF SEPSIS FROM PORT INFECTIONS., STATES NO LONGER USING C-PAP MACHINE., STATES FREQUENT DIARRHEA., LUPUS., aneurysm back of brain surgery with coil, and stent to repair History of Any Multi-Drug Resistant Organisms: None Reported Past Surgical History: Section, Hysterectomy, Joint Replacement Additional Past Surgical History / Comment(s): THUMB SURGERY, BRUCE TOTAL KNEES, PORT INSERTED & REMOVED. Lap Nasir with hiatal hernia repair with mesh 2017 ,surgery to repair brain aneurysm with coil and stent, bruce elbow surgery Past Anesthesia/Blood Transfusion Reactions: No Reported Reaction, Blood Transfusion Reaction Additional Past Anesthesia/Blood Transfusion Reaction / Comm: STATES BLOOD TRANSFUSION WITH CHILD - STATES RASH AND ITCHING Past Psychological History: Anxiety, Depression Smoking Status: Former smoker Past Alcohol Use History: None Reported Additional Past Alcohol Use History / Comment(s): QUIT SMOKING 6 WEEKS AGO (MAR 2017). SMOKED <1 PPD, SMOKED FOR 35 YRS OR MORE. Past Drug Use History: Marijuana Additional Drug Use History / Comment(s): MEDICAL MARIJUANA 5 YRS AGO- NO USE NOW. - Past Family History Mother Family Medical History: Deep Vein Thrombosis (DVT) Daughter(s) Family Medical History: Cancer Additional Family Medical History / Comment(s): lymphoma Medications and Allergies Home Medications Medication Instructions Recorded Confirmed Type Aspirin [Adult Low Dose Aspirin EC] 81 mg PO DAILY 11/27/16 12/27/17 History Diclofenac Sodium [Voltaren Gel] 2 gram TOPICAL DAILY PRN 11/27/16 12/27/17 History Furosemide [Lasix] 40 mg PO BID 11/27/16 12/27/17 History Gabapentin [Neurontin] 800 mg PO TID 11/27/16 12/27/17 History Levothyroxine Sodium [Synthroid] 112 mcg PO DAILY 11/27/16 12/27/17 History Potassium Chloride [K-Tab ER] 20 meq PO BID 11/27/16 12/27/17 History Umeclidinium Brm/Vilanterol Tr 1 puff INHALATION RT-DAILY 11/27/16 12/27/17 History [Anoro Ellipta 62.5-25 Mcg INH] glipiZIDE [Glucotrol] 10 mg PO BID 11/27/16 12/27/17 History rOPINIRole HCL [Requip] 3 mg PO HS 11/27/16 12/27/17 History traZODone HCL 200 mg PO HS 11/27/16 12/27/17 History Taztia Xt 180 mg PO DAILY 05/03/17 12/27/17 History Venlafaxine HCl [Effexor XR] 150 mg PO BID 05/03/17 12/27/17 History Dulaglutide [Trulicity] 1.5 mg SQ FR 11/18/17 12/27/17 History HYDROcodone/APAP 7.5-325MG [[place] 1 - 2 tab PO Q6HR PRN 11/18/17 12/27/17 History 7.5-325] Allergies Allergy/AdvReac Type Severity Reaction Status Date / Time ceftriaxone [From [facility]] Allergy Severe PASSED OUT Verified 12/28/17 09:33 Sulfa (Sulfonamide Allergy Unknown Rash/Hives, Verified 12/19/17 10:08 Antibiotics) Itchy Physical Exam Vitals: Vital Signs Temp Pulse Pulse Resp BP Pulse Ox 12/28/17 12:31 80 12/28/17 12:19 80 12/28/17 08:30 16 12/28/17 07:00 97.9 F 89 16 94/52 94 L 12/27/17 23:50 99.2 F 91 14 91/55 91 L 12/27/17 22:32 87 99/61 91 L 12/27/17 22:16 96 95/56 90 L 12/27/17 22:01 91 99/62 93 L 12/27/17 21:48 92 97/61 93 L 12/27/17 21:31 95 87/53 92 L 12/27/17 21:23 92 12/27/17 21:17 95 95/61 92 L 12/27/17 21:14 90 12/27/17 21:13 88 12/27/17 21:12 94 L 12/27/17 21:07 90 12/27/17 21:02 97 87/48 91 L 12/27/17 20:46 95 92/57 91 L 12/27/17 20:20 99 18 110/55 94 L 12/27/17 20:05 100 16 125/60 94 L 12/27/17 19:49 98.4 F 108 H 16 129/60 96 Intake and Output 12/27/17 12/28/17 12/28/17 22:59 06:59 14:59 Intake Total 1240 140 700 Output Total 200 630 900 Balance 1040 -490 -200 Intake: IV 1200 Intake, IV Titration 40 140 Amount Lactated Ringers 1,000 ml 40 140 @ 20 mls/hr IV .Q24H [facility] Rx#:[id number] Oral 700 Output: Drainage 30 Anterior Abdomen 30 Urine 200 600 900 Other: Voiding Method Indwelling Catheter Indwelling Catheter Indwelling Catheter Weight 90.718 kg PHYSICAL EXAMINATION: Patient is lying in the bed comfortably, no acute distress, awake alert and oriented.. HEENT: Normocephalic. Neck is supple. Pupils reactive. Nostrils clear. Oral cavity is moist. Ears reveal no drainage. Neck reveals no JVD, carotid bruits, or thyromegaly. CHEST EXAMINATION: Trachea is central. Symmetrical expansion. Bibasilar diminished air entry. Lung jones clear to auscultation and percussion. CARDIAC: Normal S1, S2 with no gallops. No murmurs ABDOMEN: Soft. Left upper quadrant tenderness. Bowel sounds normal. No organomegaly. No abdominal bruits. Surgical wounds intact. Drain tube in place. Extremities: reveal no edema. No clubbing or cyanosis Neurologically awake, alert, oriented x3 with well-coordinated movements. No focal deficits noted Skin: No rash or skin lesions. Psychiatric: Coperative. Nonsuicidal Musculoskeletal: No joint swelling or deformity. Normal range of motion. Results CBC & Chem 7: 12/28/17 06:35 12/28/17 06:35 Labs: Abnormal Lab Results - Last 24 Hours (Table) 12/27/17 12/27/17 12/28/17 Range/Units 12:45 20:01 06:35 WBC 15.7 H (3.8-10.6) k/uL Neutrophils # 12.9 H (1.3-7.7) k/uL Glucose (74-99) mg/dL POC Glucose (mg/dL) 210 H (75-99) mg/dL Hemoglobin A1c 7.7 H (4.0-6.0) % 12/28/17 12/28/17 12/28/17 Range/Units 06:35 08:08 11:29 WBC (3.8-10.6) k/uL Neutrophils # (1.3-7.7) k/uL Glucose 138 H (74-99) mg/dL POC Glucose (mg/dL) 134 H 137 H (75-99) mg/dL Hemoglobin A1c (4.0-6.0) % Assessment and Plan Assessment: Status post robotic persisted sigmoid colectomy due to chronic constipation and diverticulitis Mild leukocytosis and mild acute blood loss surgery Hypertension controlled. Currently hypotensive. Hold blood pressure medications. Diabetes type 2. [id number]. Asthma/COPD stable Fibromyalgia GERD Obstructive sleep apnea on CPAP at home Hypothyroidism Bilateral peripheral diabetic neuropathy Restless leg syndrome History of rheumatic fever Brain aneurysm status post surgery with coil and stent. Anxiety/depression History of marijuana use and smoking. DVT prophylaxis Plan: Patient will be continued on IV fluids and pain management and bowel regimen. Continue with incentive spirometry and DVT prophylaxis. Blood pressure medications will be held due to hypotension. Continue the home medications and insulin sliding scale. Continue with breathing treatments as needed. CPAP in the night when necessary. Will follow up closely. Repeat CBC tomorrow. Further recommendations based on the clinical course. Thank you for your consult Time with Patient: Greater than 30
[2017-12-28 17:04] LABS: Glucose,Whole Blood 140 mg/dL (75-99)
[2017-12-28] MEDS: traZODone HCL 100 MG TAB PO SCH (20:04)
--- NOTE | 2017-12-28 20:26 | P.PN ---
Progress Note - Text Progress Note Date: 12/28/17 Postoperative day #1 status post robotic sigmoid resection/epidural catheter placed for postoperative analgesia, patient doing well epidural site okay, patient currently on combination of epidural infusion solution of Ropivacaine 0.0625% and Dilaudid 20 g per mL the infusion rate at 5 ml per hour , patient had no motor deficit epidural site okay , vital signs stable ,VAS 2-6 / 10, patient is getting Dilaudid IV 0.5 mg when necessary for breakthrough pain. , Assessment and plan= post operative day #1 patient doing well ,pain adequtely controlled , there is no anesthesia related complications
[2017-12-28 23:31] LABS: Glucose,Whole Blood 141 mg/dL (75-99)
[2017-12-29] MEDS: metroNIDAZOLE-NS PMX 500 MG in SALINE 1 100ML.BAG IVPB SCH (05:19)
[2017-12-29 06:21] LABS: Glucose,Whole Blood 146 mg/dL (75-99)
[2017-12-29] MEDS: LACTATED RINGERS 1,000 ML IV SCH (06:21)
[2017-12-29] MEDS: INSULIN ASPART 100 UNIT/ML 1 ML 10 ML VIAL SQ SCH ×3 (06:21→17:36)
[2017-12-29] MEDS: LEVOTHYROXINE 112 MCG TAB PO SCH (06:23)
[2017-12-29 07:55] LABS: Basophils % (A) 0 %; Eosinophils # (A) 0.2 k/uL (0-0.7); Eosinophils % (A) 1 %; HCT 39.2 % (34.0-46.0); HGB 12.3 gm/dL (11.4-16.0); Lymphocytes # (A) 2.4 k/uL (1.0-4.8); Lymphocytes % (A) 17 %; MCH 30.1 pg (25.0-35.0); MCHC 31.4 g/dL (31.0-37.0); MCV 95.7 fL (80.0-100.0); Mean Platelet Volume 7.3; Monocytes # (A) 0.7 k/uL (0-1.0); Monocytes % (A) 5 %; Neutrophils # (A) 10.5 k/uL (1.3-7.7); Neutrophils % (A) 75 %; Platelet Count 184 k/uL (150-450); RBC 4.09 m/uL (3.80-5.40); RDW 13.2 % (11.5-15.5); WBC 14.1 k/uL (3.8-10.6)
[2017-12-29] MEDS: FORMOTEROL FUMARATE 20 MCG/2 ML NEBU INHALATION SCH ×2 (08:15→19:24)
[2017-12-29] MEDS: IPRATROPIUM 0.5 MG/2.5 ML NEBU INHALATION SCH ×4 (08:15→19:24)
[2017-12-29 08:48] LABS: Calcium 8.7 mg/dL (8.4-10.2); Potassium 3.5 mmol/L (3.5-5.1)
[2017-12-29] MEDS: ALVIMOPAN 12 MG CAPSULE PO SCH ×2 (10:28→20:53)
[2017-12-29] MEDS: HEPARIN SODIUM,PORCINE 5,000 UNIT/ML 1 ML VIAL SQ SCH ×2 (10:28→20:54)
[2017-12-29] MEDS: GABAPENTIN 400 MG CAP PO SCH ×3 (10:28→20:55)
[2017-12-29] MEDS: ASPIRIN 81 MG PO SCH (10:28)
[2017-12-29] MEDS: DILTIAZEM CD 180 MG CAP.ER.24H PO SCH (10:29)
--- NOTE | 2017-12-29 11:52 | P.PN ---
Progress Note - Text Progress Note Date: 12/29/17 The patient's postoperative day 2 from laparoscopic left colectomy. The patient resting comfortably in bed. She has some complaints of pain. Her epidural was adjusted yesterday. On exam her vital signs are stable. Her abdomen soft. Incision sites are clean dry tach. Status post low anterior resection. Patient will most likely be discharged home the next 24-48 hours.
[2017-12-29 12:11] LABS: Glucose,Whole Blood 143 mg/dL (75-99)
[2017-12-29] MEDS ORDERED: DICLOFENAC SODIUM GEL 100 GM TUBE TOPICAL PRN (13:04)
[2017-12-29] MEDS ORDERED: HYDROcodone/APAP 7.5-325MG 1 EACH TAB PO PRN (13:04)
[2017-12-29] MEDS ORDERED: PIPERACILLIN-TAZOBACTAM 3.375 GM in DEXTROSE/WATER 1 50ML.BAG IVPB SCH (14:00)
[2017-12-29 17:23] LABS: Glucose,Whole Blood 169 mg/dL (75-99)
--- NOTE | 2017-12-29 17:41 | P.PN ---
Progress Note - Text Progress Note Date: 12/29/17 Postoperative day #2 status post robotic sigmoid resection/epidural catheter placed for postoperative analgesia, patient doing well epidural site okay, patient currently on combination of epidural infusion solution of Ropivacaine 0.0625% and Dilaudid 20 g per mL the infusion rate at 5 ml per hour , patient had no motor deficit epidural site okay , vital signs stable ,VAS 2-6 / 10, patient is getting Dilaudid IV 0.5 mg when necessary for breakthrough pain. , Assessment and plan= post operative day #1 patient doing well ,pain adequtely controlled , there is no anesthesia related complications
[2017-12-29] MEDS: HYDROmorphone 1 MG/ML 1 ML SYRINGE IVP PRN (18:21)
[2017-12-29] MEDS: diphenhydrAMINE 50 MG/ML 1 ML VIAL IVP PRN (18:44)
[2017-12-29] MEDS: PIPERACILLIN-TAZOBACTAM 3.375 GM in DEXTROSE/WATER 1 50ML.BAG IVPB SCH (20:53)
[2017-12-29] MEDS: POTASSIUM CHLORIDE ER 20 MEQ TAB.ER PO SCH (20:54)
[2017-12-29] MEDS: FUROSEMIDE 40 MG TAB PO SCH (20:54)
[2017-12-29] MEDS: traZODone HCL 100 MG TAB PO SCH (20:55)
[2017-12-29] MEDS: VENLAFAXINE HCL ER 75 MG CAP PO SCH (20:55)
[2017-12-30 00:02] LABS: Glucose,Whole Blood 154 mg/dL (75-99)
[2017-12-30] MEDS: PIPERACILLIN-TAZOBACTAM 3.375 GM in DEXTROSE/WATER 1 50ML.BAG IVPB SCH ×2 (00:07→12:27)
[2017-12-30] MEDS: LACTATED RINGERS 1,000 ML IV SCH (00:07)
[2017-12-30] MEDS: INSULIN ASPART 100 UNIT/ML 1 ML 10 ML VIAL SQ SCH ×3 (00:09→12:19)
[2017-12-30 05:43] LABS: Glucose,Whole Blood 153 mg/dL (75-99)
[2017-12-30] MEDS: LEVOTHYROXINE 112 MCG TAB PO SCH (05:44)
--- NOTE | 2017-12-30 06:50 | P.PN ---
Progress Note - Text Progress Note Date: 12/30/17 Postoperative day #3 status post robotic sigmoid resection/epidural catheter placed for postoperative analgesia, patient doing well epidural site okay, patient currently on combination of epidural infusion solution of Ropivacaine 0.0625% and Dilaudid 20 g per mL the infusion rate at 5 ml per hour , patient had no motor deficit epidural site okay , vital signs stable ,VAS 2 /10 , patient. , Assessment and plan= post operative day #3 patient doing well ,pain adequtely controlled , there is no anesthesia related complications
[2017-12-30 07:18] VITALS: PULSE 92; RESP 16
[2017-12-30 07:43] LABS: Basophils % (A) 0 %; Eosinophils # (A) 0.4 k/uL (0-0.7); Eosinophils % (A) 3 %; HCT 43.1 % (34.0-46.0); Lymphocytes % (A) 12 %; MCH 30.3 pg (25.0-35.0); MCHC 32.4 g/dL (31.0-37.0); MCV 93.6 fL (80.0-100.0); Mean Platelet Volume 7.9; Monocytes # (A) 0.6 k/uL (0-1.0); Monocytes % (A) 4 %; Neutrophils # (A) 12.5 k/uL (1.3-7.7); Neutrophils % (A) 79 %; Platelet Count 219 k/uL (150-450); WBC 15.8 k/uL (3.8-10.6)
[2017-12-30 08:06] LABS: Calcium 8.6 mg/dL (8.4-10.2); Potassium 3.5 mmol/L (3.5-5.1)
[2017-12-30] MEDS: ASPIRIN 81 MG PO SCH (08:13)
[2017-12-30] MEDS: ALVIMOPAN 12 MG CAPSULE PO SCH (08:13)
[2017-12-30] MEDS: GABAPENTIN 400 MG CAP PO SCH ×2 (08:14→15:37)
[2017-12-30] MEDS: POTASSIUM CHLORIDE ER 20 MEQ TAB.ER PO SCH (08:14)
[2017-12-30] MEDS: DILTIAZEM CD 180 MG CAP.ER.24H PO SCH (08:14)
[2017-12-30] MEDS: VENLAFAXINE HCL ER 75 MG CAP PO SCH (08:14)
[2017-12-30] MEDS: HEPARIN SODIUM,PORCINE 5,000 UNIT/ML 1 ML VIAL SQ SCH (08:14)
[2017-12-30] MEDS: FUROSEMIDE 40 MG TAB PO SCH (08:14)
[2017-12-30] MEDS: FORMOTEROL FUMARATE 20 MCG/2 ML NEBU INHALATION SCH (09:13)
[2017-12-30] MEDS: IPRATROPIUM 0.5 MG/2.5 ML NEBU INHALATION SCH ×2 (09:13→16:10)
--- NOTE | 2017-12-30 10:50 | P.PN ---
Subjective Progress Note Date: 12/29/17 Principal diagnosis: Sigmoid colectomy due to chronic diverticulitis Patient is a 62-year-old female with a known history of hypertension, diabetes type 2, history of CVA/TIA, COPD/asthma and obstructive sleep apnea as well as hypothyroidism was admitted to the hospital for colectomy. Patient does have a history of chronic constipation and chronic diverticulitis. Patient had colonoscopy which showed no evidence of malignancy. Patient was admitted to hospital for sigmoid colon resection. Patient underwent robotic lysis of adhesions and sigmoid colectomy. Patient tolerated the procedure. Currently still complaining of left upper quadrant abdominal pain. Slight nausea otherwise. No vomiting. Tolerating liquid diet. No complaints of chest pain or shortness of breath. No fever no chills. No headache or dizziness. 12/29/2017 Patient's abdominal pain is mainly left upper quadrant which is improved compared to yesterday. Pain medications have been adjusted. No fever no chills. Patient is tolerating oral diet. Patient does have nausea but no episodes of vomiting. No chest pain or shortness of breath. Anticipate discharge in next 24 hours with marked clinical improvement. Encourage granulation. Current medications reviewed Objective - Vital Signs Vital signs: Vital Signs Temp 99.1 F 12/29/17 07:00 Pulse 90 12/29/17 08:34 Resp 16 12/29/17 07:00 BP 110/49 12/29/17 07:00 Pulse Ox 95 12/29/17 07:00 Intake & Output 12/28/17 12/29/17 12/29/17 18:59 06:59 18:59 Intake Total 700 400 Output Total 920 300 Balance -220 100 Weight 90.718 kg Intake: Oral 700 400 Output: Drainage 20 Anterior Abdomen 20 Urine 900 300 Other: Voiding Method Indwelling Catheter Indwelling Catheter Indwelling Catheter # Bowel Movements 1 - Exam PHYSICAL EXAMINATION: Patient is lying in the bed comfortably, no acute distress, awake alert and oriented.. HEENT: Normocephalic. Neck is supple. Pupils reactive. Nostrils clear. Oral cavity is moist. Ears reveal no drainage. Neck reveals no JVD, carotid bruits, or thyromegaly. CHEST EXAMINATION: Trachea is central. Symmetrical expansion. Bibasilar diminished air entry. Lung jones clear to auscultation and percussion. CARDIAC: Normal S1, S2 with no gallops. No murmurs ABDOMEN: Soft. Left upper quadrant tenderness. Bowel sounds normal. No organomegaly. No abdominal bruits. Surgical wounds intact. Drain tube in place. Extremities: reveal no edema. No clubbing or cyanosis Neurologically awake, alert, oriented x3 with well-coordinated movements. No focal deficits noted Skin: No rash or skin lesions. Psychiatric: Coperative. Nonsuicidal Musculoskeletal: No joint swelling or deformity. Normal range of motion. - Labs CBC & Chem 7: 12/30/17 06:50 12/30/17 06:50 Labs: Abnormal Lab Results - Last 24 Hours (Table) 12/28/17 12/28/17 12/29/17 Range/Units 17:03 23:30 06:20 WBC (3.8-10.6) k/uL Neutrophils # (1.3-7.7) k/uL Sodium (137-145) mmol/L Glucose (74-99) mg/dL POC Glucose (mg/dL) 140 H 141 H 146 H (75-99) mg/dL 12/29/17 12/29/17 12/29/17 Range/Units 07:24 07:24 12:06 WBC 14.1 H (3.8-10.6) k/uL Neutrophils # 10.5 H (1.3-7.7) k/uL Sodium 136 L (137-145) mmol/L Glucose 140 H (74-99) mg/dL POC Glucose (mg/dL) 143 H (75-99) mg/dL Assessment and Plan Assessment: Status post robotic persisted sigmoid colectomy due to chronic constipation and diverticulitis Mild leukocytosis and mild acute blood loss surgery Hypertension controlled. Currently hypotensive. Hold blood pressure medications. Diabetes type 2. [id number]. Asthma/COPD stable Fibromyalgia GERD Obstructive sleep apnea on CPAP at home Hypothyroidism Bilateral peripheral diabetic neuropathy Restless leg syndrome History of rheumatic fever Brain aneurysm status post surgery with coil and stent. Anxiety/depression History of marijuana use and smoking. DVT prophylaxis Plan: Patient will be continued on IV fluids and pain management and bowel regimen. Continue with incentive spirometry and DVT prophylaxis. Blood pressure medications have been held due to hypotension. Continue the home medications and insulin sliding scale. Continue with breathing treatments as needed. CPAP in the night when necessary. Will follow up closely. Repeat CBC tomorrow. Further recommendations based on the clinical course. Thank you for your consult Time with Patient: Greater than 30
[2017-12-30] MEDS ORDERED: HYDROcodone/APAP 5-325MG 1 EACH TAB PO PRN (11:05)
--- NOTE | 2017-12-30 11:05 | P.PN ---
<Alla Parra - Last Filed: 12/30/17 10:55> Subjective Progress Note Date: 12/30/17 62-year-old female seen at the bedside. Patient states she has been up ambulating in the hallway. Passing gas" having loose stools" reports no nausea vomiting tolerating diet surgical dressing site dry abdomen soft not distended. Patient is postop December 27 Robotic lysis of adhesions over 2.5 hours, robotic sigmoid colectomy Objective - Vital Signs Vital signs: Vital Signs Temp 99.6 F 12/30/17 07:16 Pulse 92 12/30/17 07:16 Resp 16 12/30/17 07:16 BP 100/63 12/30/17 07:16 Pulse Ox 92 L 12/30/17 02:44 Intake & Output 12/29/17 12/30/17 12/30/17 18:59 06:59 18:59 Intake Total 360 540 Output Total 70 840 60 Balance -70 -480 480 Intake: Oral 360 540 Output: Drainage 70 140 60 Anterior Abdomen 70 140 60 Urine 700 Other: Voiding Method Indwelling Catheter Indwelling Catheter # Bowel Movements 1 2 1 - Exam Physical exam 62-year-old female sitting up in bed appearing in no acute distress Lungs adequate air movement bilaterally on 2 l nc sats 92% no shortness of breath noted Heart S1-S2 audible regular Abdomen soft surgical tenderness appropriate not distended bowel tones present states passing gas and having loose stools reports no nausea vomiting and tolerating a diet surgical dressings dry. Indwelling Rod catheter in place. REJI drain in place serous drainage Extremities Venodyne's on bilaterally no edema - Labs CBC & Chem 7: 12/30/17 06:50 12/30/17 06:50 Labs: Abnormal Lab Results - Last 24 Hours (Table) 12/29/17 12/29/17 12/30/17 Range/Units 12:06 17:21 00:01 WBC (3.8-10.6) k/uL Neutrophils # (1.3-7.7) k/uL Carbon Dioxide (22-30) mmol/L Glucose (74-99) mg/dL POC Glucose (mg/dL) 143 H 169 H 154 H (75-99) mg/dL 12/30/17 12/30/17 12/30/17 Range/Units 05:41 06:50 06:50 WBC 15.8 H (3.8-10.6) k/uL Neutrophils # 12.5 H (1.3-7.7) k/uL Carbon Dioxide 21 L (22-30) mmol/L Glucose 151 H (74-99) mg/dL POC Glucose (mg/dL) 153 H (75-99) mg/dL Assessment and Plan Assessment: Impression Severe pelvic adhesions including sigmoid colon suspect due to from diverticulitis and prior hysterectomy Sigmoid diverticulitis Chronic constipation Robotic lysis of adhesions over 2.5 hours, robotic sigmoid colectomy Leukocytosis white count 15.8 Plan Continue postop surgical care Remove epidural Hamel for pain as ordered Increase activity Remove Rod catheter DVT and GI prophylaxis Anticipate discharge soon The above impression and plan of care have been discussed and directed by signing physician. Alla Parra nurse practitioner acting as scribe for signing physician. <Mahsa Tan N - Last Filed: 12/30/17 14:21> Objective - Vital Signs Vital signs: Vital Signs Temp 99.6 F 12/30/17 07:16 Pulse 92 12/30/17 07:16 Resp 16 12/30/17 07:16 BP 100/63 12/30/17 07:16 Pulse Ox 92 L 12/30/17 02:44 Intake & Output 12/29/17 12/30/17 12/30/17 18:59 06:59 18:59 Intake Total 360 540 Output Total 70 840 210 Balance -70 -480 330 Intake: Oral 360 540 Output: Drainage 70 140 60 Anterior Abdomen 70 140 60 Urine 700 150 Uretheral (Rod) 150 Other: Voiding Method Indwelling Catheter Indwelling Catheter # Bowel Movements 1 2 1 - Labs CBC & Chem 7: 12/30/17 06:50 12/30/17 06:50 Labs: Abnormal Lab Results - Last 24 Hours (Table) 12/29/17 12/30/17 12/30/17 Range/Units 17:21 00:01 05:41 WBC (3.8-10.6) k/uL Neutrophils # (1.3-7.7) k/uL Carbon Dioxide (22-30) mmol/L Glucose (74-99) mg/dL POC Glucose (mg/dL) 169 H 154 H 153 H (75-99) mg/dL 12/30/17 12/30/17 12/30/17 Range/Units 06:50 06:50 12:11 WBC 15.8 H (3.8-10.6) k/uL Neutrophils # 12.5 H (1.3-7.7) k/uL Carbon Dioxide 21 L (22-30) mmol/L Glucose 151 H (74-99) mg/dL POC Glucose (mg/dL) 161 H (75-99) mg/dL
[2017-12-30 12:12] LABS: Glucose,Whole Blood 161 mg/dL (75-99)
--- NOTE | 2017-12-30 13:20 | P.DS ---
Providers Date of admission: 12/27/17 10:36 Expected date of discharge: 12/30/17 Attending physician: Mahsa Tan Consults: 12/27/17 20:01 Consult Physician Routine Consulting Provider: Saw Collins Consult Reason/Comments: Medical management Do you want consulting provider notified?: Yes, Notify in am 12/28/17 12:18 Consult Physician Routine Consulting Provider: Eladio Elder Consult Reason/Comments: medical management Do you want consulting provider notified?: Yes Primary care physician: Stated None Hospital Course: 62-year-old female presented to undergo any elective sigmoid colon resection. Patient has a long-standing history of chronic constipation including chronic diverticulitis. Patient underwent a colonoscopy recently which excluded underlying neoplasm There were no postop events the day of discharge patient was up ambulatory on the unit having bowel movements and tolerating a diet pain medication was effective for pain control surgical dressing sites were dry surgical tenderness appropriate abdomen nondistended The white count on the was 15.8 electrolytes within normal limits the temp was 99.6 Robotic lysis of adhesions over 2.5 hours, robotic sigmoid colectomy done on December 27 for severe pelvic adhesions from her prior hysterectomy Impression Severe pelvic adhesions including sigmoid colon suspect due to from diverticulitis and prior hysterectomy Sigmoid diverticulitis Chronic constipation Robotic lysis of adhesions over 2.5 hours, robotic sigmoid colectomy Leukocytosis white count 15.8 The above impression and plan of care have been discussed and directed by signing physician. Alla Parra nurse practitioner acting as scribe for signing physician. Plan - Discharge Summary Discharge Rx Participant: Yes New Discharge Prescriptions: New Tamsulosin HCl [Flomax] 0.4 mg PO DAILY #7 capsule Levofloxacin [Levaquin] 500 mg PO DAILY #7 tab metroNIDAZOLE [Flagyl] 500 mg PO TID #21 tab Continue Umeclidinium Brm/Vilanterol Tr [Anoro Ellipta 62.5-25 Mcg INH] 1 puff INHALATION RT-DAILY glipiZIDE [Glucotrol] 10 mg PO BID Levothyroxine Sodium [Synthroid] 112 mcg PO DAILY Furosemide [Lasix] 40 mg PO BID rOPINIRole HCL [Requip] 3 mg PO HS traZODone HCL 200 mg PO HS Potassium Chloride [K-Tab ER] 20 meq PO BID Gabapentin [Neurontin] 800 mg PO TID Diclofenac Sodium [Voltaren Gel] 2 gram TOPICAL DAILY PRN PRN Reason: Pain Aspirin [Adult Low Dose Aspirin EC] 81 mg PO DAILY Venlafaxine HCl [Effexor XR] 150 mg PO BID Taztia Xt 180 mg PO DAILY Dulaglutide [Trulicity] 1.5 mg SQ FR HYDROcodone/APAP 7.5-325MG [[place] 7.5-325] 1 - 2 tab PO Q6HR PRN PRN Reason: Pain Discontinued Bisacodyl [Dulcolax] 10 mg RECTAL DAILY PRN PRN Reason: Constipation Polyethylene Glycol 3350 [Miralax] 17 gm PO DAILY PRN PRN Reason: Constipation Discharge Medication List Aspirin [Adult Low Dose Aspirin EC] 81 mg PO DAILY 11/27/16 [History] Diclofenac Sodium [Voltaren Gel] 2 gram TOPICAL DAILY PRN 11/27/16 [History] Furosemide [Lasix] 40 mg PO BID 11/27/16 [History] Gabapentin [Neurontin] 800 mg PO TID 11/27/16 [History] Levothyroxine Sodium [Synthroid] 112 mcg PO DAILY 11/27/16 [History] Potassium Chloride [K-Tab ER] 20 meq PO BID 11/27/16 [History] Umeclidinium Brm/Vilanterol Tr [Anoro Ellipta 62.5-25 Mcg INH] 1 puff INHALATION RT-DAILY 11/27/16 [History] glipiZIDE [Glucotrol] 10 mg PO BID 11/27/16 [History] rOPINIRole HCL [Requip] 3 mg PO HS 11/27/16 [History] traZODone HCL 200 mg PO HS 11/27/16 [History] Taztia Xt 180 mg PO DAILY 05/03/17 [History] Venlafaxine HCl [Effexor XR] 150 mg PO BID 05/03/17 [History] Dulaglutide [Trulicity] 1.5 mg SQ FR 11/18/17 [History] HYDROcodone/APAP 7.5-325MG [[place] 7.5-325] 1 - 2 tab PO Q6HR PRN 11/18/17 [ History] Levofloxacin [Levaquin] 500 mg PO DAILY #7 tab 12/30/17 [Rx] Tamsulosin HCl [Flomax] 0.4 mg PO DAILY #7 capsule 12/30/17 [Rx] metroNIDAZOLE [Flagyl] 500 mg PO TID #21 tab 12/30/17 [Rx] Follow up Appointment(s)/Referral(s): Mahsa Tan MD [STAFF PHYSICIAN] - 12/31/17 9:40 am ([facility]LE[facility]) Patient Instructions/Handouts: Rashawn-Saleh Drain Care (DC), Colectomy (DC), Laparoscopic Bowel Resection (DC), Colectomy Diet (DC) Activity/Diet/Wound Care/Special Instructions: NO lifting over 4 pounds in 4 weeks. No shower. No bathtub soaks. (TAKE YOUR HOME PAIN MEDICATIONS) Record REJI drain output daily and strip drains to prevent clogging. Dressings to be removed by your doctor in the office. Drink protein shakes three times daily [facility] - [phone] Discharge Disposition: HOME SELF-CARE
[2017-12-30] MEDS ORDERED: TAMSULOSIN 0.4 MG CAP.ER.24H PO STA (13:24)
[2017-12-30 14:55] VITALS: BP 106/60; TEMP 97.7
--- NOTE | 2017-12-30 17:27 | PN ---
PROGRESS NOTE DATE OF SERVICE: 12/30/2017 PRESENTING COMPLAINT: Sigmoid colectomy. INTERVAL HISTORY: Patient is status post sigmoid colectomy due to chronic diverticulitis. Sitting up on her bed. Did tolerate her diet. Colostomy bag is working. Patient has been moved up to a regular diet today. Some abdominal pain is present. No nausea or vomiting. The patient pretty much has been in bed. No chest pain or shortness of breath. REVIEW OF SYSTEMS: Done for constitutional, cardiovascular, GI, pulmonary; relevant findings as above. CURRENT MEDICATIONS: Reviewed. They include: 1. Entereg. 2. Aspirin. 3. Cardizem CD. 4. Oral Lasix. 5. Neurontin. 6. Subcutaneous heparin. 7. Ava. 8. Atrovent. 9. Synthroid. 10.IV Zosyn. 11.Desyrel. 12.Effexor. PHYSICAL EXAMINATION: Temperature 99.6, pulse 92, respirations 16, blood pressure 100/63, pulse ox 95% on 2 L. GENERAL APPEARANCE: Sitting up, awake. EYES: Pupils equal. Conjunctivae normal. HEENT: External appearance of nose and ears normal. Oral cavity normal. Nasal cannula in place. NECK: JVD unable to assess. Mass not palpable. RESPIRATORY: Effort normal. LUNGS: Decreased breath sounds. CARDIOVASCULAR: First and second sounds normal. No edema. ABDOMEN: Mild tenderness. Colostomy bag with stool in place. Liver and spleen not palpable. Some tenderness. No guarding or rigidity. PSYCHIATRY: Awake, answering questions appropriately. INVESTIGATIONS: White count 15.8, hemoglobin 14, potassium 3.5. BUN and creatinine are normal. Accu- Cheks are noted. ASSESSMENT: 1. Status post sigmoid colectomy for chronic diverticulitis. 2. Essential hypertension. 3. Diabetes mellitus, type 2, on oral hypoglycemics. 4. Chronic obstructive pulmonary disease, stable. 5. Chronic fibromyalgia. 6. Gastroesophageal reflux disease. 7. Obstructive sleep apnea. On CPAP at home. 8. Hypothyroidism. 9. Bilateral peripheral diabetic neuropathy. 10.Chronic restless legs syndrome. 11.History of brain aneurysm, status post surgery and coil and stent. 12.Anxiety, depression, not otherwise specified, controlled. PLAN: Continue current medication and treatment plan per Surgery. The patient will be on Levaquin and Flagyl. Looking for patient to go to the [facility]. Care was discussed with the patient. Will cut back the dose of Glucotrol to 5 mg b.i.d. Accu-Cheks to continue to be followed closely. MERONL / CHETN: [id number] /
== END 2017-12-30 16:42 | disposition home or self-care (01) | DRG 330 ==
LOC: 2ORMAIN 10:36 → 3SUR 20:19
PROVIDERS: ADMIT Surgery Plastic and Reconstructive Surgery; ATTEND Surgery Plastic and Reconstructive Surgery
PROC: 0DNW4ZZ Release Peritoneum, Percutaneous Endoscopic Approach (ICD-10-PCS; 2017-12-27)
PROC: 8E0W4CZ Robotic Assisted Procedure of Trunk Region, Percutaneous Endoscopic Approach (ICD-10-PCS; 2017-12-27)
PROC: 0DBN4ZZ Excision of Sigmoid Colon, Percutaneous Endoscopic Approach (ICD-10-PCS; principal; 2017-12-27 12:45)
DX: K57.32 Diverticulitis of large intestine without perforation or abscess without bleeding (principal); D62 Acute posthemorrhagic anemia; K59.09 Other constipation; E03.9 Hypothyroidism, unspecified; E11.42 Type 2 diabetes mellitus with diabetic polyneuropathy; F32.9 Major depressive disorder, single episode, unspecified; F41.9 Anxiety disorder, unspecified; G25.81 Restless legs syndrome; G47.33 Obstructive sleep apnea (adult) (pediatric); I11.9 Hypertensive heart disease without heart failure; J44.9 Chronic obstructive pulmonary disease, unspecified; K21.9 Gastro-esophageal reflux disease without esophagitis; M79.7 Fibromyalgia; N73.6 Female pelvic peritoneal adhesions (postinfective); Z79.82 Long term (current) use of aspirin; Z79.84 Long term (current) use of oral hypoglycemic drugs; Z80.7 Family history of other malignant neoplasms of lymphoid, hematopoietic and related tissues; Z86.73 Personal history of transient ischemic attack (TIA), and cerebral infarction without residual deficits; Z87.891 Personal history of nicotine dependence; Z90.710 Acquired absence of both cervix and uterus; Z88.1 Allergy status to other antibiotic agents; Z88.2 Allergy status to sulfonamides; Z96.653 Presence of artificial knee joint, bilateral; Z83.2 Family history of diseases of the blood and blood-forming organs and certain disorders involving the immune mechanism; Z79.890 Hormone replacement therapy; Z79.899 Other long term (current) drug therapy; M19.90 Unspecified osteoarthritis, unspecified site; M54.9 Dorsalgia, unspecified
CPT/HCPCS: 80048; 80053; 83036; 83735; 85025; 86850; 86900; 86901; 88307; 94640

== ENCOUNTER 2018-01-04 21:25 | Observation (INO) | payer MEDICARE ==
--- NOTE | 2018-01-04 22:07 | ED ---
Abdominal Pain HPI - General Source: patient, EMS, RN notes reviewed Mode of arrival: EMS Limitations: no limitations <Yohana Grijalva - Last Filed: 01/04/18 23:19> <Alexandru Acuna - Last Filed: 01/05/18 07:12> - General Chief Complaint: Abdominal Pain Stated Complaint: Abdominal Pain Time Seen by Provider: 01/04/18 21:35 - History of Present Illness Initial Comments: This is a 62-year-old female transferred to the emergency department via EMS from [facility] with chief complaint of abdominal pain. Patient reports undergoing bowel resection for an obstruction on December 27. She states the surgery was performed by Dr. Tan. She followed up with Dr. Tan on Saturday and was started on Levaquin and Flagyl. Patient states yesterday she began to develop an increase in abdominal pain. Today the pain continued to increase so she presented to the emergency department in [place]. Patient complains of pain to both the left and right-sided upper abdomen. She denies any recent fevers or chills, chest pain or shortness breath, nausea or vomiting. She states that she has not had a normal bowel movement since Saturday. (Yohana Grijalva) - Related Data Home Medications Medication Instructions Recorded Confirmed Aspirin [Adult Low Dose Aspirin EC] 81 mg PO DAILY 11/27/16 01/04/18 Diclofenac Sodium [Voltaren Gel] 2 gram TOPICAL DAILY PRN 11/27/16 01/04/18 Furosemide [Lasix] 40 mg PO BID 11/27/16 01/04/18 Gabapentin [Neurontin] 800 mg PO TID 11/27/16 01/04/18 Levothyroxine Sodium [Synthroid] 112 mcg PO DAILY 11/27/16 01/04/18 Potassium Chloride [K-Tab ER] 20 meq PO BID 11/27/16 01/04/18 Umeclidinium Brm/Vilanterol Tr 1 puff INHALATION RT-DAILY 11/27/16 01/04/18 [Anoro Ellipta 62.5-25 Mcg INH] rOPINIRole HCL [Requip] 3 mg PO HS 11/27/16 01/04/18 traZODone HCL 200 mg PO HS 11/27/16 01/04/18 Taztia Xt 180 mg PO DAILY 05/03/17 01/04/18 Venlafaxine HCl [Effexor XR] 150 mg PO BID 05/03/17 01/04/18 Dulaglutide [Trulicity] 1.5 mg SQ FR 11/18/17 01/04/18 HYDROcodone/APAP 7.5-325MG [[place] 1 - 2 tab PO Q6HR PRN 11/18/17 01/04/18 7.5-325] Previous Rx's Medication Instructions Recorded Levofloxacin [Levaquin] 500 mg PO DAILY #7 tab 12/30/17 Tamsulosin HCl [Flomax] 0.4 mg PO DAILY #7 capsule 12/30/17 glipiZIDE [Glucotrol] 5 mg PO BID #0 12/30/17 metroNIDAZOLE [Flagyl] 500 mg PO TID #21 tab 12/30/17 Allergies Allergy/AdvReac Type Severity Reaction Status Date / Time ceftriaxone [From Rocephin] Allergy Severe PASSED OUT Verified 01/04/18 21:26 Sulfa (Sulfonamide Allergy Unknown Rash/Hives, Verified 01/04/18 21:26 Antibiotics) Itchy Review of Systems ROS Other: All systems not noted in ROS Statement are negative. <Yohana Grijalva - Last Filed: 01/04/18 23:19> ROS Other: All systems not noted in ROS Statement are negative. <Alexandru Acuna - Last Filed: 01/05/18 07:12> ROS Statement: Those systems with pertinent positive or pertinent negative responses have been documented in the HPI. Past Medical History Past Medical History: Asthma, COPD, CVA/TIA, Diabetes Mellitus, Fibromyalgia, GERD/Reflux, Hypertension, Neurologic Disorder, Sleep Apnea/CPAP/BIPAP, Thyroid Disorder Additional Past Medical History / Comment(s): NEUROPATHY FEET, RLS, HX OF RHEMATIC FEVER, HAS HOLE IN BACK OF HEART., HX OF SEPSIS FROM PORT INFECTIONS., STATES NO LONGER USING C-PAP MACHINE., STATES FREQUENT DIARRHEA., LUPUS., aneurysm back of brain surgery with coil, and stent to repair History of Any Multi-Drug Resistant Organisms: None Reported Past Surgical History: Section, Hysterectomy, Joint Replacement Additional Past Surgical History / Comment(s): THUMB SURGERY, BRUCE TOTAL KNEES, PORT INSERTED & REMOVED. Lap Nasir with hiatal hernia repair with mesh 2017 ,surgery to repair brain aneurysm with coil and stent, bruce elbow surgery Past Anesthesia/Blood Transfusion Reactions: No Reported Reaction, Blood Transfusion Reaction Additional Past Anesthesia/Blood Transfusion Reaction / Comment(s): STATES BLOOD TRANSFUSION WITH CHILD - STATES RASH AND ITCHING Past Psychological History: Anxiety, Depression Smoking Status: Former smoker Past Alcohol Use History: None Reported Past Drug Use History: None Reported - Past Family History Mother Family Medical History: Deep Vein Thrombosis (DVT) Daughter(s) Family Medical History: Cancer Additional Family Medical History / Comment(s): lymphoma <Yohana Grijalva - Last Filed: 01/04/18 23:19> General Exam Limitations: no limitations <Yohana Grijalva - Last Filed: 01/04/18 23:19> <Alexandru Acuna - Last Filed: 01/05/18 07:12> - General Exam Comments Initial Comments: General: Awake and alert, well-developed; in no apparent distress. HEENT: Head atraumatic, normocephalic. Pupils are equal, round and reactive to light. Extraocular movements intact. Oropharynx moist without erythema or exudate. Neck: Supple. Normal ROM. Cardiovascular: Regular rate and rhythm. No murmurs, rubs or gallops. Chest symmetrical. Respiratory: Lungs clear to auscultation bilaterally. No wheezes, rales or rhonchi. Normal respiratory effort with no use of accessory muscles. Abdomen: Soft, distended. Tenderness on palpation of left upper quadrant and right upper quadrant with guarding. Four transverse linear incisions across the upper abdomen are well-healing in appearance with mild surrounding erythema. There is a drainage tube in the right upper quadrant. No rigidity or rebound. Normal bowel sounds in all 4 quadrants. Musculoskeletal: Normal ROM, no tenderness bilateral upper and lower extremities. Skin: [place], warm and dry without rashes or lesions. Neurological: Alert and oriented x3. CN II-XII grossly intact. Speech is fluent and answers are appropriate. No focal neuro deficits. Psychiatric: Normal mood and affect. No overt signs of depression or anxiety noted. (Yohana Grjialva) Vital Signs 01/04/18 01/04/18 21:27 23:05 Temperature 99.1 F 98.3 F Pulse Rate 71 68 Respiratory 18 20 Rate Blood Pressure 118/56 117/59 O2 Sat by Pulse 97 97 Oximetry Medical Decision Making <Yohana Grijalva - Last Filed: 01/04/18 23:19> <Alexandru Acuna - Last Filed: 01/05/18 07:12> - Medical Decision Making This is a 62-year-old female who presents to the emergency department with chief complaint of postoperative abdominal pain. Patient was transferred to this emergency department from [place]. Patient underwent bowel resection surgery on December [address] Tan. Over the past day she has had an increase in abdominal pain. She has been taking oral Levaquin and Flagyl since Saturday after following up with Dr. Tan. On physical examination, abdomen is distended and there is mild erythema surrounding the incision sites. There is tenderness on palpation of the right and left upper quadrants. On review of patient's laboratory studies that were performed at [place], UA is indicative of infection with positive leukocyte esterase, bacteria and white blood cells. CBC and CMP are unremarkable. Case discussed with attending physician, Dr. Acuna who spoke with Dr. Franco. Patient will be continued on Levaquin and Flagyl. She will be admitted for observation to Dr. Tan. Patient is in agreement for admission. Vitals are stable and patient is in no acute distress. (Yohana Grijalva) I saw this patient in conjunction with the physician senior it assistant. I performed independent history and physical exam. Agree with case management. (Alexandru Acuna) Disposition Is patient prescribed a controlled substance at d/c from ED?: No Time of Disposition: 22:36 <Yohana Grijalva - Last Filed: 01/04/18 23:19> <Alexandru Acuna - Last Filed: 01/05/18 07:12> Clinical Impression: Postoperative abdominal pain, Urinary tract infection Disposition: ADMITTED IP TO THIS HOSP Condition: Good
[2018-01-04] MEDS ORDERED: LEVOFLOXACIN 750MG-D5W PMX 750 MG in DEXTROSE/WATER 1 150ML.BAG IVPB SCH (22:30)
[2018-01-04] MEDS ORDERED: ACETAMINOPHEN TAB 325 MG TAB PO PRN (22:36)
[2018-01-04] MEDS ORDERED: NALOXONE 0.4 MG/ML 1 ML VIAL IV PRN (22:36)
[2018-01-04] MEDS: SODIUM CHLORIDE 0.9% 1,000 ML IV SCH (23:01)
[2018-01-04] MEDS: metroNIDAZOLE 500 MG TAB PO SCH (23:01)
[2018-01-04] MEDS: MORPHINE SULFATE 4 MG/ML SYRINGE IV PRN (23:01)
[2018-01-04 23:45] LABS: Glucose,Whole Blood 88 mg/dL (75-99)
[2018-01-05 00:41] VITALS: BMI 28.0
[2018-01-05] MEDS: HYDROcodone/APAP 5-325MG 1 EACH TAB PO PRN ×5 (00:44→18:22)
[2018-01-05] MEDS: MORPHINE SULFATE 4 MG/ML SYRINGE IV PRN ×6 (03:27→23:31)
[2018-01-05 05:12] LABS: Appearance,Urine Clear (Clear); Bilirubin,Urine Negative (Negative); Blood,Urine Negative (Negative); Color,Urine Yellow; Glucose,Urine (UA) Negative (Negative); Ketones,Urine Negative (Negative); Leukocyte Esterase,Urine Moderate (Negative); Nitrite,Urine Negative (Negative); Protein,Urine Trace (Negative); Specific Gravity,Urine 1.017 (1.001-1.035); Squamous Epithelial Cell,Urine 3 /hpf (0-4); Urobilinogen,Urine <2.0 mg/dL (<2.0); WBC,Urine 27 /hpf (0-5)
[2018-01-05 07:01] LABS: Glucose,Whole Blood 97 mg/dL (75-99)
[2018-01-05] MEDS: metroNIDAZOLE 500 MG TAB PO SCH ×3 (09:52→20:48)
[2018-01-05] MEDS ORDERED: HYDROCORTISONE 1% CREAM 30 GM TUBE TOPICAL PRN (10:38)
[2018-01-05] MEDS ORDERED: diphenhydrAMINE 50 MG/ML 1 ML VIAL IVP PRN (10:38)
--- NOTE | 2018-01-05 10:41 | P.GSHP ---
History of Present Illness H&P Date: 01/05/18 Chief Complaint: Abdominal pain Patient presents to the [facility] yesterday. She is complaining of redness at her laparoscopy incision sites. CAT scan was obtained while she was there. Some mild subcutaneous induration was noted. The ER physician felt that she had cellulitis at all of her laparoscopy incision sites. The patient was having pain at the incision site. The patient was given the option of oral antibiotics and outpatient follow-up but because of her ongoing complaints she was transferred to our emergency department and admitted. White blood cell count was reportedly normal. She is afebrile. Surgery was performed approximately 9-10 days ago. She has a REJI drain is serous. She is hungry. She is having normal bowel function. - Review of Systems Comment: The patient denies any acute changes in vision or hearing, no dysphagia or odynophagia, no chest pain or shortness of breath, no dysuria or hematuria, no headache, no runny nose, no rectal bleeding or melena, no unexplained weight loss Past Medical History Past Medical History: Asthma, COPD, CVA/TIA, Diabetes Mellitus, Fibromyalgia, GERD/Reflux, Hypertension, Neurologic Disorder, Sleep Apnea/CPAP/BIPAP, Thyroid Disorder Additional Past Medical History / Comment(s): NEUROPATHY FEET, RLS, HX OF RHEMATIC FEVER, HAS HOLE IN BACK OF HEART., HX OF SEPSIS FROM PORT INFECTIONS., STATES NO LONGER USING C-PAP MACHINE., STATES FREQUENT DIARRHEA., LUPUS., aneurysm back of brain surgery with coil, and stent to repair History of Any Multi-Drug Resistant Organisms: None Reported Past Surgical History: Section, Hysterectomy, Joint Replacement Additional Past Surgical History / Comment(s): THUMB SURGERY, BRUCE TOTAL KNEES, PORT INSERTED & REMOVED. Lap Nasir with hiatal hernia repair with mesh 2017 ,surgery to repair brain aneurysm with coil and stent, bruce elbow surgery Past Anesthesia/Blood Transfusion Reactions: Blood Transfusion Reaction Additional Past Anesthesia/Blood Transfusion Reaction / Comment(s): STATES BLOOD TRANSFUSION WITH CHILD - STATES RASH AND ITCHING Past Psychological History: Anxiety, Depression Smoking Status: Former smoker Past Alcohol Use History: None Reported Additional Past Alcohol Use History / Comment(s): QUIT SMOKING 6 WEEKS AGO (MAR 2017). SMOKED <1 PPD, SMOKED FOR 35 YRS OR MORE. Past Drug Use History: None Reported Additional Drug Use History / Comment(s): MEDICAL MARIJUANA 5 YRS AGO- NO USE NOW. - Past Family History Mother Family Medical History: Deep Vein Thrombosis (DVT) Daughter(s) Family Medical History: Cancer Additional Family Medical History / Comment(s): lymphoma Medications and Allergies Home Medications Medication Instructions Recorded Confirmed Type Aspirin [Adult Low Dose Aspirin EC] 81 mg PO DAILY 11/27/16 01/04/18 History Diclofenac Sodium [Voltaren Gel] 2 gram TOPICAL DAILY PRN 11/27/16 01/04/18 History Furosemide [Lasix] 40 mg PO BID 11/27/16 01/04/18 History Gabapentin [Neurontin] 800 mg PO TID 11/27/16 01/04/18 History Levothyroxine Sodium [Synthroid] 112 mcg PO DAILY 11/27/16 01/04/18 History Potassium Chloride [K-Tab ER] 20 meq PO BID 11/27/16 01/04/18 History Umeclidinium Brm/Vilanterol Tr 1 puff INHALATION RT-DAILY 11/27/16 01/04/18 History [Anoro Ellipta 62.5-25 Mcg INH] rOPINIRole HCL [Requip] 3 mg PO HS 11/27/16 01/04/18 History traZODone HCL 200 mg PO HS 11/27/16 01/04/18 History Taztia Xt 180 mg PO DAILY 05/03/17 01/04/18 History Venlafaxine HCl [Effexor XR] 150 mg PO BID 05/03/17 01/04/18 History Dulaglutide [Trulicity] 1.5 mg SQ FR 11/18/17 01/04/18 History HYDROcodone/APAP 7.5-325MG [[place] 1 - 2 tab PO Q6HR PRN 11/18/17 01/04/18 History 7.5-325] Levofloxacin [Levaquin] 500 mg PO DAILY #7 tab 12/30/17 01/04/18 Rx Tamsulosin HCl [Flomax] 0.4 mg PO DAILY #7 capsule 12/30/17 01/04/18 Rx glipiZIDE [Glucotrol] 5 mg PO BID #0 12/30/17 01/04/18 Rx metroNIDAZOLE [Flagyl] 500 mg PO TID #21 tab 12/30/17 01/04/18 Rx Allergies Allergy/AdvReac Type Severity Reaction Status Date / Time ceftriaxone [From Rocephin] Allergy Severe PASSED OUT Verified 01/04/18 21:26 Sulfa (Sulfonamide Allergy Unknown Rash/Hives, Verified 01/04/18 21:26 Antibiotics) Itchy Surgical - Exam Vital Signs Temp Pulse Resp BP Pulse Ox 99.1 F 71 18 118/56 97 01/04/18 21:27 01/04/18 21:27 01/04/18 21:27 01/04/18 21:27 01/04/18 21:27 Physical exam: General: Well-developed, well-nourished HEENT: Normocephalic, sclerae nonicteric Abdomen: All 4 incision sites with circular erythema suggestive all of probable skin related ALLERGY to the Dermabond, mild tenderness diffusely, nondistended Extremities: No edema Neuro: Alert and oriented Results - Labs Abnormal Lab Results - Last 24 Hours (Table) 01/05/18 Range/Units 04:30 Urine Protein Trace H (Negative) Ur Leukocyte Esterase Moderate H (Negative) Urine WBC 27 H (0-5) /hpf Microbiology - Last 24 Hours (Table) 01/05/18 04:30 Urine Culture - Preliminary Urine,Clean Catch Assessment and Plan (1) Postoperative abdominal pain Narrative/Plan: Discussed with the patient that I suspect more of an ALLERGIC reaction than true cellulitis. Continue antibiotics already ordered. Diet as tolerated. Anticipate discharge tomorrow. Current Visit: Yes Status: Acute Code(s): R10.9 - UNSPECIFIED ABDOMINAL PAIN ; G89.18 - OTHER ACUTE POSTPROCEDURAL PAIN SNOMED Code(s): 18185215
[2018-01-05 11:52] LABS: Glucose,Whole Blood 136 mg/dL (75-99)
[2018-01-05] MEDS: SODIUM CHLORIDE 0.9% 1,000 ML IV SCH (13:25)
[2018-01-05] MEDS: NYSTATIN 100,000 UNIT/ML SUSP 500,000 UNIT/5 ML CUP PO SCH ×3 (13:25→20:47)
[2018-01-05 16:37] LABS: Glucose,Whole Blood 89 mg/dL (75-99)
[2018-01-05] MEDS ORDERED: DICLOFENAC SODIUM GEL 100 GM TUBE TOPICAL PRN (16:54)
[2018-01-05] MEDS ORDERED: LEVOTHYROXINE 112 MCG TAB PO SCH (17:00)
[2018-01-05] MEDS: ENOXAPARIN 40 MG/0.4 ML SYRINGE SQ SCH (17:44)
[2018-01-05] MEDS: TAMSULOSIN 0.4 MG CAP.ER.24H PO SCH (17:44)
[2018-01-05] MEDS: ASPIRIN 81 MG PO SCH (17:44)
[2018-01-05] MEDS: DILTIAZEM CD 180 MG CAP.ER.24H PO SCH (18:21)
[2018-01-05] MEDS: FORMOTEROL FUMARATE 20 MCG/2 ML NEBU INHALATION SCH (19:56)
[2018-01-05] MEDS: IPRATROPIUM 0.5 MG/2.5 ML NEBU INHALATION SCH (19:56)
[2018-01-05 20:11] LABS: Glucose,Whole Blood 95 mg/dL (75-99)
--- NOTE | 2018-01-05 20:20 | CONS ---
CONSULTATION DATE OF CONSULTATION: 01/05/2018 REASON FOR CONSULTATION: Medical management requested by Dr. Tan. CONSULTATION: This is a 62-year-old patient off Dr. Mariana Young, who on 12/27/2017 for chronic diverticulitis, underwent sigmoid dissection and lysis of adhesions. The patient went home on 12/30/2017. When she left, she was doing well, tolerating a diet. The patient did have a postop followup visit with Dr. Tan in the office. The patient now presents with redness at 4 sites of the laparoscope with some slight induration. Denies any drainage from that area. No fever and chills. The patient's appetite has been okay. The patient's first bowel movement was last night after she got admitted to the hospital. The patient's chronic stable medical conditions include COPD, diabetes, fibromyalgia, GERD, hypertension, sleep apnea, peripheral neuropathy, aneurysm of the brain with a coil and stent for repair. REVIEW OF SYSTEMS: CONSTITUTIONAL: None. HEENT none. RESPIRATORY: Baseline short of breath. CARDIOVASCULAR: None. GASTROINTESTINAL: Heartburn and as above. GENITOURINARY none. MUSCULOSKELETAL: Arthritic pain in the joints. DERMATOLOGICAL, HEMATOLOGIC, LYMPHATIC: none. PSYCHIATRY none. NEUROLOGICAL none. PAST MEDICAL HISTORY: COPD, diabetes, fibromyalgia, GERD, hypertension, diverticulitis, sleep apnea, hypothyroid, peripheral neuropathy, restless legs syndrome. Rheumatic fever, hole in the back of the heart, port infections, not using CPAP anymore, lupus, aneurysm in the brain with coil and stent. PAST SURGICAL HISTORY: , hysterectomy, joint replacement, sigmoid resection for diverticulitis. Lap Nasir with hiatal hernia repair in May 2017. Surgery to repair brain aneurysm with coil and stents and bilateral elbow surgery. PSYCH HISTORY: Anxiety and depression. SOCIAL HISTORY: The patient smoked less than a pack a day over 35 years. Stopped in March of 2017. The patient did medical marijuana 5 years ago. Lives with her . FAMILY HISTORY: DVT and lymphoma. HOME MEDICATIONS: 1. Trazodone 200 mg q.h.s. 2. Requip 3 mg q.h.s. 3. Flagyl 500 mg p.o. t.i.d. 4. Glucotrol 5 mg b.i.d. 5. Effexor XR 150 mg b.i.d. 6. Ellipta 1 puff daily. 7. Taztixt 180 mg a day. 8. Flomax 0.4 mg a day. 9. Potassium 20 mEq b.i.d. 10.Synthroid 112 mcg a day. 11.Levaquin 500 mg a day. 12.Neurontin 800 mg t.i.d. 13.Lasix 40 mg b.i.d. 14.Trulicity 1.5 mg subcu on Saturday. 15.Voltaren gel 2 g topical daily p.r.n. 16.Aspirin 81 mg a day. ALLERGIES: TO CEFTRIAXONE AND SULFUR. PHYSICAL EXAMINATION: VITAL SIGNS: Temperature 98.3, pulse 68, respiratory 20, blood pressure 111/59, pulse ox 97% on room air. GENERAL APPEARANCE: Well-built, sitting up, comfortable. EYES pupils are equal, conjunctivae normal. HEENT: External appearance of nose and ears normal. Oral cavity normal. NECK JVD not raised. Mass not palpable. RESPIRATORY effort normal. LUNGS diminished breath sounds. CARDIOVASCULAR: First and second sounds normal. No edema. ABDOMEN: Distended, soft. Liver and spleen not palpable. The areas of laparoscopic insertion with some redness around the same in a circular fashion with minimal tenderness. No drainage. Liver and spleen not palpable. LYMPHATICS: No lymph nodes palpable in the neck and axilla. PSYCHIATRY: Alert and oriented x3. Mood and affect normal. NEUROLOGICAL: Pupils equal. Cranial nerves grossly intact. Power and sensation grossly intact. INVESTIGATIONS: White count 15. UA noted. ASSESSMENT: 1. There are areas that appear to be showing localized allergic contact dermatitis at the area of lap, probably where the glue was present. Does not appear to be infection. 2. Recent sigmoid colectomy for diverticulitis on December 27, 2017. 3. Chronic obstructive pulmonary disease in an ex-smoker. 4. Diabetes mellitus type 2 on oral hypoglycemics. 5. Chronic fibromyalgia. 6. Gastroesophageal reflux disease. 7. Essential hypertension. 8. Obstructive sleep apnea does not use CPAP machine. 9. Peripheral neuropathy secondary to diabetes. 10.Restless legs syndrome. 11.Aneurysm at the back of the brain with prior history of coil and stent. 12.Anxiety and depression, not otherwise specified. PLAN: Patient started from Levaquin in the ER. I personally do not think there is any infection involved. The patient to complete her antibiotic from the recent surgery. Other home medications will be resumed. Will give Lovenox for DVT prophylaxis. Care was discussed with the patient. Thank you Dr. Tan. Copy to Mariana Young. MMODL / IJN: [id number] /
[2018-01-05] MEDS: GABAPENTIN 400 MG CAP PO SCH (20:48)
[2018-01-05] MEDS: traZODone HCL 100 MG TAB PO SCH (20:48)
[2018-01-05] MEDS: POTASSIUM CHLORIDE ER 20 MEQ TAB.ER PO SCH (20:48)
[2018-01-05] MEDS ORDERED: VENLAFAXINE HCL 150 MG PO SCH (21:00)
[2018-01-05] MEDS: FUROSEMIDE 40 MG TAB PO SCH (22:49)
[2018-01-05] MEDS: VENLAFAXINE HCL ER 150 MG CAP PO SCH (22:55)
[2018-01-06] MEDS: HYDROcodone/APAP 5-325MG 1 EACH TAB PO PRN ×3 (01:01→17:31)
[2018-01-06] MEDS: SODIUM CHLORIDE 0.9% 1,000 ML IV SCH ×2 (02:31→15:04)
[2018-01-06] MEDS: MORPHINE SULFATE 4 MG/ML SYRINGE IV PRN ×2 (04:38→10:47)
[2018-01-06] MEDS: LEVOTHYROXINE 112 MCG TAB PO SCH (04:38)
[2018-01-06 07:08] LABS: Glucose,Whole Blood 137 mg/dL (75-99)
[2018-01-06] MEDS: FORMOTEROL FUMARATE 20 MCG/2 ML NEBU INHALATION SCH ×2 (07:31→19:18)
[2018-01-06] MEDS: IPRATROPIUM 0.5 MG/2.5 ML NEBU INHALATION SCH ×4 (07:32→19:18)
[2018-01-06 08:05] LABS: Basophils % (A) 1 %; Eosinophils # (A) 0.2 k/uL (0-0.7); Eosinophils % (A) 4 %; HCT 37.1 % (34.0-46.0); HGB 11.9 gm/dL (11.4-16.0); Hypochromasia Slight; Lymphocytes # (A) 1.5 k/uL (1.0-4.8); Lymphocytes % (A) 26 %; MCH 30.1 pg (25.0-35.0); MCHC 31.9 g/dL (31.0-37.0); MCV 94.1 fL (80.0-100.0); Mean Platelet Volume 7.2; Monocytes # (A) 0.3 k/uL (0-1.0); Monocytes % (A) 5 %; Neutrophils # (A) 3.5 k/uL (1.3-7.7); Neutrophils % (A) 62 %; Platelet Count 317 k/uL (150-450); RBC 3.94 m/uL (3.80-5.40); RDW 13.4 % (11.5-15.5); WBC 5.8 k/uL (3.8-10.6)
[2018-01-06 08:09] LABS: Anion Gap 5 mmol/L; Blood Urea Nitrogen 8 mg/dL (7-17); Calcium 8.3 mg/dL (8.4-10.2); Carbon Dioxide 19 mmol/L (22-30); Chloride 119 mmol/L (98-107); Glucose 113 mg/dL (74-99); Potassium 4.3 mmol/L (3.5-5.1); Sodium 143 mmol/L (137-145)
[2018-01-06] MEDS: INSULIN ASPART 100 UNIT/ML 1 ML 10 ML VIAL SQ SCH ×4 (08:38→21:47)
[2018-01-06] MEDS: ENOXAPARIN 40 MG/0.4 ML SYRINGE SQ SCH (08:39)
[2018-01-06] MEDS: GABAPENTIN 400 MG CAP PO SCH ×3 (08:42→19:02)
[2018-01-06] MEDS: metroNIDAZOLE 500 MG TAB PO SCH (08:42)
[2018-01-06] MEDS: DILTIAZEM CD 180 MG CAP.ER.24H PO SCH (08:44)
[2018-01-06] MEDS: VENLAFAXINE HCL ER 150 MG CAP PO SCH ×2 (08:44→21:48)
[2018-01-06] MEDS: NYSTATIN 100,000 UNIT/ML SUSP 500,000 UNIT/5 ML CUP PO SCH ×4 (08:45→21:47)
[2018-01-06] MEDS: POTASSIUM CHLORIDE ER 20 MEQ TAB.ER PO SCH ×2 (08:45→21:47)
[2018-01-06] MEDS: TAMSULOSIN 0.4 MG CAP.ER.24H PO SCH (08:45)
[2018-01-06] MEDS: FUROSEMIDE 40 MG TAB PO SCH ×2 (08:46→17:54)
[2018-01-06] MEDS: ASPIRIN 81 MG PO SCH (08:46)
[2018-01-06] MEDS ORDERED: LEVOFLOXACIN 500 MG TAB PO SCH (09:00)
--- NOTE | 2018-01-06 11:06 | P.PN ---
Subjective Progress Note Date: 01/06/18 HPI: The patient was brought into observation over the weekend in my absence as I was being covered. Patient presents with history of crampy abdominal pain that developed Saturday night. She went to her local emergency room at [facility] where she transferred her to [facility] for suspicion of possible cellulitis. She reports appropriate incisional pain along the left upper quadrant. No fevers or chills. Her bowel movements are more than 6 times daily. She denies any pain from her other incisions with the exception of the left upper quadrant which is to be expected. ABDOMEN: No signs of cellulitis or infection. Contact dermatitis at skin glue site. REJI completely serous GENERAL: Well developed and in no acute distress. Pleasant. HEENT: No sclera icterus. Extraocular movements grossly intact. Moist buccal mucosa. Head is atraumatic, normocephalic. Hears conversational speech. No nasal drainage. NECK: Supple without lymphadenopathy. No JV distention. CHEST: Non-labored respirations and equal bilateral excursions. CARDIOVASCULAR: Regular rate and rhythm. Palpable 2+ radial pulses. MUSCULOSKELETAL: No clubbing, cyanosis or edema. NEUROLOGIC: No focal or lateralizing signs. Cranial nerves II-12 grossly intact PSYCH: Appropriate affect. Alert and oriented to person, place and time. SKIN: Good skin turgor. Well perfused. STUDIES: CT of the abdomen and pelvis reviewed demonstrating no signs of intra- abdominal infection. ASSESSMENT: 1. Postop incisional pain 2. Contact dermatitis from skin glue 3. History of chronic pain PLAN: 1. White blood cell count normal. 2. Send stool for C. diff. Continue Flagyl. 3. Discontinue REJI prior to discharge. 4. Abdominal binder for comfort. 5. Possible discharge home today. Objective - Vital Signs Vital signs: Vital Signs Temp 98.7 F 01/06/18 08:11 Pulse 78 01/06/18 08:11 Resp 16 01/06/18 08:11 BP 110/71 01/06/18 08:11 Pulse Ox 91 L 01/06/18 08:11 Intake & Output 01/05/18 01/06/18 01/06/18 18:59 06:59 18:59 Intake Total 765 800 Output Total 15 Balance 765 785 Intake: Intake, IV Titration 525 800 Amount Sodium Chloride 0.9% 1, 525 800 000 ml @ 75 mls/hr IV . [id number] [facility] Rx#:[id number] Oral 240 Output: Drainage 15 Right Lower Abdomen 15 Other: Voiding Method Toilet # Voids 2 1 - Labs CBC & Chem 7: 01/06/18 07:09 01/06/18 07:09 Labs: Abnormal Lab Results - Last 24 Hours (Table) 01/05/18 01/06/18 01/06/18 Range/Units 11:48 07:06 07:09 Chloride 119 H (98-107) mmol/L Carbon Dioxide 19 L (22-30) mmol/L Glucose 113 H (74-99) mg/dL POC Glucose (mg/dL) 136 H 137 H (75-99) mg/dL Calcium 8.3 L (8.4-10.2) mg/dL Microbiology - Last 24 Hours (Table) 01/05/18 04:30 Urine Culture - Preliminary Urine,Clean Catch Assessment and Plan (1) Contact dermatitis Current Visit: Yes Status: Acute Code(s): L25.9 - UNSPECIFIED CONTACT DERMATITIS, UNSPECIFIED CAUSE SNOMED Code(s): 62354136 (2) Postoperative abdominal pain Current Visit: Yes Status: Acute Code(s): R10.9 - UNSPECIFIED ABDOMINAL PAIN ; G89.18 - OTHER ACUTE POSTPROCEDURAL PAIN SNOMED Code(s): 79205858 (3) Chronic pain syndrome Current Visit: Yes Status: Acute Code(s): G89.4 - CHRONIC PAIN SYNDROME SNOMED Code(s): 538674020
[2018-01-06] MEDS ORDERED: diphenhydrAMINE 50 MG/ML 1 ML VIAL IVP STA (12:12)
[2018-01-06] MEDS ORDERED: FAMOTIDINE 20 MG/2 ML VIAL IV STA (12:13)
[2018-01-06] MEDS ORDERED: methylPREDNISolone SOD SUCCI 125 MG/2 ML VIAL IV STA (12:14)
[2018-01-06 12:19] LABS: Glucose,Whole Blood 77 mg/dL (75-99)
[2018-01-06] MEDS: metroNIDAZOLE-NS PMX 500 MG in SALINE 1 100ML.BAG IVPB SCH ×3 (15:03→23:40)
[2018-01-06 17:04] LABS: Glucose,Whole Blood 182 mg/dL (75-99)
--- NOTE | 2018-01-06 18:27 | P.PN ---
Progress Note - Text Progress Note Date: 01/06/18 Patient reevaluated this evening. Stools bedside without sequelae. Discharge home due to ALLERGIC reaction from morphine
[2018-01-06] MEDS ORDERED: HYDROmorphone 1 MG/ML 1 ML SYRINGE IVP PRN (18:28)
[2018-01-06 20:40] LABS: Glucose,Whole Blood 230 mg/dL (75-99)
--- NOTE | 2018-01-06 21:10 | PN ---
PROGRESS NOTE DATE OF SERVICE: 01/06/18. PRESENTING COMPLAINT: Abdominal pain. INTERVAL HISTORY: This patient is status post recent sigmoid resection presented with abdominal pain. Had a good bowel movement yesterday, multiple stools, the first he had since surgery. The patient is felt to have local contact dermatitis at the laparoscopic insertion site, otherwise patient doing well. This morning patient did receive morphine and felt a bit of her tongue started to swell. I did order IV Benadryl, IV Pepcid, a dose of IV Solu-Medrol. REVIEW OF SYSTEMS: Done for constitutional, cardiovascular, GI, pulmonary; findings as above. The patient's diet had been advanced earlier. CURRENT MEDICATIONS: Reviewed. PHYSICAL EXAMINATION: Temperature 99.4, pulse 83, respirations 17, blood pressure 110/71, pulse ox 91 percent on room air. GENERAL APPEARANCE: Lying in bed, awake. EYES: Pupils equal. Conjunctivae normal. HEENT: External appearance of nose and ears normal. Oral cavity, swollen tongue. NECK: JVD not raised. Mass not palpable. RESPIRATORY: Effort, lung diminished breath sounds. CARDIOVASCULAR: 1st and 2nd sounds normal. No edema. ABDOMEN: Soft. Minimal tenderness. Some area of redness at the laparoscopic incision site. PSYCHIATRY: Alert and oriented x3. Mood and affect normal. INVESTIGATIONS: White count 5.8, hemoglobin 11.9, potassium 4.3. BUN and creatinine are normal. ASSESSMENT: 1. Areas of local allergic/contact dermatitis in areas of laparoscopic insertion. 2. Acute allergic reaction to morphine earlier today. 3. Recent sigmoid colectomy for diverticulitis on December 27, 2017. 4. Chronic obstructive pulmonary disease in an ex-smoker. 5. Diabetes mellitus type 2 on oral hypoglycemic. 6. Chronic fibromyalgia. 7. Gastroesophageal reflux disease. 8. Essential hypertension. 9. Obstructive sleep apnea, does not use CPAP. 10.Peripheral neuropathy secondary to diabetes. 11.Restless legs syndrome. 12.Aneurysm at the back of the brain with prior history of coil and stent. 13.Anxiety and depression, not otherwise specified. PLAN: Care was discussed with the patient. The patient already on oral antibiotics. Clinically does not appear to have C diff. The patient has a bowel movement yesterday was the first one after a week of surgery and she had multiple stools. Overall, otherwise looking rather good. The patient will be followed. MMODL / IJN: [id number] /
[2018-01-06] MEDS: HYDROcodone/APAP 7.5-325MG 1 EACH TAB PO PRN (21:48)
[2018-01-06] MEDS: traZODone HCL 100 MG TAB PO SCH (21:48)
[2018-01-07] MEDS: SODIUM CHLORIDE 0.9% 1,000 ML IV SCH (05:23)
[2018-01-07] MEDS: LEVOTHYROXINE 112 MCG TAB PO SCH (05:23)
[2018-01-07] MEDS: HYDROcodone/APAP 7.5-325MG 1 EACH TAB PO PRN (05:23)
[2018-01-07] MEDS: metroNIDAZOLE-NS PMX 500 MG in SALINE 1 100ML.BAG IVPB SCH ×2 (05:23→11:47)
[2018-01-07 06:57] LABS: Glucose,Whole Blood 194 mg/dL (75-99)
[2018-01-07 07:43] VITALS: BP 104/75; PULSE 69; RESP 18; TEMP 98.2
[2018-01-07] MEDS: FORMOTEROL FUMARATE 20 MCG/2 ML NEBU INHALATION SCH (07:47)
[2018-01-07] MEDS: IPRATROPIUM 0.5 MG/2.5 ML NEBU INHALATION SCH ×2 (07:47→12:41)
[2018-01-07] MEDS: POTASSIUM CHLORIDE ER 20 MEQ TAB.ER PO SCH (08:10)
[2018-01-07] MEDS: TAMSULOSIN 0.4 MG CAP.ER.24H PO SCH (08:10)
[2018-01-07] MEDS: GABAPENTIN 400 MG CAP PO SCH (08:10)
[2018-01-07] MEDS: VENLAFAXINE HCL ER 150 MG CAP PO SCH (08:10)
[2018-01-07] MEDS: ASPIRIN 81 MG PO SCH (08:10)
[2018-01-07] MEDS: DILTIAZEM CD 180 MG CAP.ER.24H PO SCH (08:10)
[2018-01-07] MEDS: FUROSEMIDE 40 MG TAB PO SCH (08:10)
[2018-01-07] MEDS: ENOXAPARIN 40 MG/0.4 ML SYRINGE SQ SCH (08:10)
[2018-01-07] MEDS: NYSTATIN 100,000 UNIT/ML SUSP 500,000 UNIT/5 ML CUP PO SCH ×2 (08:11→13:01)
[2018-01-07 08:24] LABS: Calcium 8.4 mg/dL (8.4-10.2); Potassium 4.4 mmol/L (3.5-5.1)
[2018-01-07] MEDS: INSULIN ASPART 100 UNIT/ML 1 ML 10 ML VIAL SQ SCH ×2 (08:24→11:33)
--- NOTE | 2018-01-07 10:48 | P.DS ---
<Alla Parra - Last Filed: 01/07/18 10:46> Providers Date of admission: 01/04/18 22:38 Expected date of discharge: 01/07/18 Attending physician: Mahsa Tan Consults: 01/05/18 09:37 Consult Physician Routine Consulting Provider: Saw Collins Consult Reason/Comments: medical management Do you want consulting provider notified?: Yes Primary care physician: Mariana [place] Hospital Course: 62-year-old female presented initially to [facility] on January 04. Chief complaint redness at her laparoscopic incision sites a CAT scan was obtained. It showed mild subcutaneous induration. physician at the facility felt the patient had cellulitis the patient was transferred to this facility. Patient reported that she was having incisional pain. REJI drain was in place with serous drainage. Patient's surgery approximately 7-10 days ago robotic lysis of adhesions robotic sigmoid colectomy suspect due to diverticulitis patient reportedly was tolerating a diet was having normal bowel function. the patient was felt to have local contact dermatitis at the laparoscopic insertion sites. Patient had been doing relatively well. Patient apparently did receive a dose of morphine on January 06 had a reaction to the morphine which since has resolved On the day of discharge patient was up ambulatory on the pain medication effective for pain control mild redness around the laparoscopic incision sites abdomen soft nondistended bowel function normal tolerating a diet stated that she was anxious to be discharged home all 4 incision sites with circular redness suggestive of probable skim related ALLERGY did Dermabond Impression discharge diagnosis Present on admission all 4 incision sites with circular erythema suggestive all of probable skin related ALLERGY to the Dermabond, mild tenderness diffusely, Postop incisional pain History of chronic pain Stool for C. diff negative ALLERGIC reaction to morphine ALLERGIC reaction to do dermabond Anxiety depressive disorder sigmoid diverticulitis chronic constipation chronic pain syndrome December 27 extensive robotic laparoscopic lysis of adhesions, sigmoid colectomy The above impression and plan of care have been discussed and directed by signing physician. Alla Parra nurse practitioner acting as scribe for signing physician. Patient Condition at Discharge: Good Plan - Discharge Summary New Discharge Prescriptions: Continue Umeclidinium Brm/Vilanterol Tr [Anoro Ellipta 62.5-25 Mcg INH] 1 puff INHALATION RT-DAILY Levothyroxine Sodium [Synthroid] 112 mcg PO DAILY Furosemide [Lasix] 40 mg PO BID rOPINIRole HCL [Requip] 3 mg PO HS traZODone HCL 200 mg PO HS Potassium Chloride [K-Tab ER] 20 meq PO BID Gabapentin [Neurontin] 800 mg PO TID Diclofenac Sodium [Voltaren Gel] 2 gram TOPICAL DAILY PRN PRN Reason: Pain Aspirin [Adult Low Dose Aspirin EC] 81 mg PO DAILY Venlafaxine HCl [Effexor XR] 150 mg PO BID Taztia Xt 180 mg PO DAILY Dulaglutide [Trulicity] 1.5 mg SQ FR HYDROcodone/APAP 7.5-325MG [[place] 7.5-325] 1 - 2 tab PO Q6HR PRN PRN Reason: Pain Tamsulosin HCl [Flomax] 0.4 mg PO DAILY #7 capsule Levofloxacin [Levaquin] 500 mg PO DAILY #7 tab metroNIDAZOLE [Flagyl] 500 mg PO TID #21 tab glipiZIDE [Glucotrol] 5 mg PO BID #0 Discharge Medication List Aspirin [Adult Low Dose Aspirin EC] 81 mg PO DAILY 11/27/16 [History] Diclofenac Sodium [Voltaren Gel] 2 gram TOPICAL DAILY PRN 11/27/16 [History] Furosemide [Lasix] 40 mg PO BID 11/27/16 [History] Gabapentin [Neurontin] 800 mg PO TID 11/27/16 [History] Levothyroxine Sodium [Synthroid] 112 mcg PO DAILY 11/27/16 [History] Potassium Chloride [K-Tab ER] 20 meq PO BID 11/27/16 [History] Umeclidinium Brm/Vilanterol Tr [Anoro Ellipta 62.5-25 Mcg INH] 1 puff INHALATION RT-DAILY 11/27/16 [History] rOPINIRole HCL [Requip] 3 mg PO HS 11/27/16 [History] traZODone HCL 200 mg PO HS 11/27/16 [History] Taztia Xt 180 mg PO DAILY 05/03/17 [History] Venlafaxine HCl [Effexor XR] 150 mg PO BID 05/03/17 [History] Dulaglutide [Trulicity] 1.5 mg SQ FR 11/18/17 [History] HYDROcodone/APAP 7.5-325MG [[place] 7.5-325] 1 - 2 tab PO Q6HR PRN 11/18/17 [ History] Levofloxacin [Levaquin] 500 mg PO DAILY #7 tab 12/30/17 [Rx] Tamsulosin HCl [Flomax] 0.4 mg PO DAILY #7 capsule 12/30/17 [Rx] glipiZIDE [Glucotrol] 5 mg PO BID #0 12/30/17 [Rx] metroNIDAZOLE [Flagyl] 500 mg PO TID #21 tab 12/30/17 [Rx] Follow up Appointment(s)/Referral(s): Mahsa Tan MD [STAFF PHYSICIAN] - 01/14/18 2:00 pm Mariana Young MD [Primary Care Provider] - 01/13/18 8:30 am (Appointment set in [address] [place] [address] ) Patient Instructions/Handouts: Urinary Tract Infection in Women (DC) Activity/Diet/Wound Care/Special Instructions: No tub bath for six weeks. Shower daily. No lifting over 10 pounds for the next 3 weeks. May use ice packs to surgical site. No driving while taking narcotic for pain. Discharge Disposition: HOME SELF-CARE <Mahsa Tan - Last Filed: 01/07/18 22:32> - Discharge Diagnosis(es) (1) Contact dermatitis Status: Acute (2) Postoperative abdominal pain Status: Acute (3) Chronic pain syndrome Status: Acute Hospital Course: Patient had NO urinary tract infection. Patient had NO cellulitis or surgical infection. Clinical findings consistent with contact dermatitis.
[2018-01-07 11:31] LABS: Glucose,Whole Blood 108 mg/dL (75-99)
[2018-01-07 15:19] LABS: Hemoglobin A1C 7.3 % (4.0-6.0)
--- NOTE | 2018-01-07 17:38 | PN ---
PROGRESS NOTE DATE OF SERVICE: 01/07/2018 PRESENTING COMPLAINT: Abdominal pain. INTERVAL HISTORY: This is a patient with recent sigmoid resection who presented with abdominal pain. Had a good bowel movement. Tolerating a diet. Overall feeling much better. She had an allergic reaction to morphine that has settled down. She was seen by Dr. Tan. REVIEW OF SYSTEMS: Done for constitutional, cardiovascular, GI, pulmonary; relevant findings as above. CURRENT MEDICATIONS: Reviewed. PHYSICAL EXAMINATION: Temperature 98.2, pulse 69, respiration 18, blood pressure 104/75, pulse ox 93% on room air. GENERAL APPEARANCE: Sitting up, comfortable. EYES: Pupils equal. Conjunctivae normal. HEENT: External appearance of nose and ears normal. Oral cavity normal. NECK: JVD not raised. Mass not palpable. RESPIRATORY: Effort normal. LUNGS: Decreased breath sounds. CARDIOVASCULAR: First and second sounds normal. No edema. ABDOMEN: Soft. Minimal tenderness. Some area of redness at the laparoscopic insertion site. PSYCHIATRY: Alert and oriented x3. Mood and affect normal. INVESTIGATIONS: Potassium 4.4. BUN and creatinine are normal. ASSESSMENT: 1. Area of contact dermatitis in the area of laparoscopic insertion. 2. Acute ALLERGIC REACTION TO MORPHINE yesterday, settled. 3. Recent sigmoid colectomy for diverticulitis on December 27. 4. Chronic obstructive pulmonary disease in an ex-smoker. 5. Diabetes mellitus, type 2, on oral hypoglycemic. 6. Chronic fibromyalgia. 7. Gastroesophageal reflux disease. 8. Essential hypertension. 9. Obstructive sleep apnea; does not use CPAP machine. 10.Peripheral neuropathy secondary to diabetes. 11.Restless legs syndrome. 12.Aneurysm at the back of the brain with prior history of coil and stent. 13.Anxiety and depression not otherwise specified. Patient is stable. Complete antibiotics per Dr. Tan. Should follow up with family doctor upon discharge. MMODL / IJN: [id number] /
== END 2018-01-07 13:20 | disposition home or self-care (01) ==
LOC: EC 21:25 → 3SUR 22:38
PROVIDERS: ADMIT Surgery Plastic and Reconstructive Surgery; ATTEND Surgery Plastic and Reconstructive Surgery
DX: L23.9 Allergic contact dermatitis, unspecified cause (principal); G89.18 Other acute postprocedural pain; G89.4 Chronic pain syndrome; F41.9 Anxiety disorder, unspecified; J44.9 Chronic obstructive pulmonary disease, unspecified; M79.7 Fibromyalgia; K21.9 Gastro-esophageal reflux disease without esophagitis; F32.9 Major depressive disorder, single episode, unspecified; E03.9 Hypothyroidism, unspecified; K57.32 Diverticulitis of large intestine without perforation or abscess without bleeding; E11.42 Type 2 diabetes mellitus with diabetic polyneuropathy; I10 Essential (primary) hypertension; R19.7 Diarrhea, unspecified; G25.81 Restless legs syndrome; M32.9 Systemic lupus erythematosus, unspecified; G47.33 Obstructive sleep apnea (adult) (pediatric); I67.1 Cerebral aneurysm, nonruptured; K59.09 Other constipation; Z87.891 Personal history of nicotine dependence; Z88.1 Allergy status to other antibiotic agents; Z88.2 Allergy status to sulfonamides; Z79.899 Other long term (current) drug therapy; Z79.890 Hormone replacement therapy; Z79.84 Long term (current) use of oral hypoglycemic drugs; Z79.82 Long term (current) use of aspirin; Z96.89 Presence of other specified functional implants; Z80.7 Family history of other malignant neoplasms of lymphoid, hematopoietic and related tissues; Z86.73 Personal history of transient ischemic attack (TIA), and cerebral infarction without residual deficits; Z90.49 Acquired absence of other specified parts of digestive tract; R22.0 Localized swelling, mass and lump, head; T40.2X5A Adverse effect of other opioids, initial encounter; T50.995A Adverse effect of other drugs, medicaments and biological substances, initial encounter; Y92.239 Unspecified place in hospital as the place of occurrence of the external cause
CPT/HCPCS: 99285; 96365 ×2; 96375 ×3; 96376 ×2; 96366 ×3; 96367; 96372 ×3; 80048 ×2; 85025; 81001; 87324; 87086; 83036; G0378 ×4; J2270 ×3; J1200; J2930; J1650 ×3; J1956

== ENCOUNTER 2018-03-05 18:49 | Inpatient (IN) | payer MEDICARE ==
[2018-03-05] MEDS ORDERED: NITROGLYCERIN SL TABS 0.4 MG TAB SUBLINGUAL PRN (19:15)
[2018-03-05] MEDS ORDERED: HEPARIN SODIUM,PORCINE 5,000 UNIT/ML 1 ML VIAL IV ONE (19:15)
--- NOTE | 2018-03-05 19:20 | ED ---
Chest Pain HPI - General Chief Complaint: Recheck/Abnormal Lab/Rx Stated Complaint: Ekg changes Time Seen by Provider: 03/05/18 19:10 Source: patient, EMS, RN notes reviewed, old records reviewed Mode of arrival: EMS Limitations: no limitations - History of Present Illness Initial Comments: This is a 63-year-old female the ER for evaluation, patient's presented here for evaluation EKG changes. Patient was being observed for glycemic changes to [place] and sent to ER when she began to have profound EKG changes. Patient has had occasional chest pain, shortness of breath currently no chest pain currently MD Complaint: chest pain -: hour(s) Onset: after eating, other Pain Location: substernal (Current chest pain) Pain Radiation: none Severity: mild Severity scale (1-10): 3 Quality: aching Consistency: now resolved Improves With: nothing Worsens With: nothing Context: other (None) Anginal Symptoms: other (None) Other Symptoms: other (None) Treatments Prior to Arrival: none - Related Data Home Medications Medication Instructions Recorded Confirmed Aspirin [Adult Low Dose Aspirin EC] 81 mg PO DAILY 11/27/16 03/05/18 Diclofenac Sodium [Voltaren Gel] 2 gram TOPICAL DAILY PRN 11/27/16 03/05/18 Furosemide [Lasix] 40 mg PO BID 11/27/16 03/05/18 Gabapentin [Neurontin] 800 mg PO TID 11/27/16 03/05/18 Levothyroxine Sodium [Synthroid] 112 mcg PO DAILY 11/27/16 03/05/18 Potassium Chloride [K-Tab ER] 20 meq PO BID 11/27/16 03/05/18 Umeclidinium Brm/Vilanterol Tr 1 puff INHALATION RT-DAILY 11/27/16 03/05/18 [Anoro Ellipta 62.5-25 Mcg INH] rOPINIRole HCL [Requip] 3 mg PO HS 11/27/16 03/05/18 traZODone HCL 200 mg PO HS 11/27/16 03/05/18 Venlafaxine HCl [Effexor XR] 150 mg PO BID 05/03/17 03/05/18 Dulaglutide [Trulicity] 1.5 mg SQ WE 11/18/17 03/05/18 HYDROcodone/APAP 7.5-325MG [[place] 1 - 2 tab PO Q6HR PRN 11/18/17 03/05/18 7.5-325] ALPRAZolam [Xanax] 0.5 mg PO HS 03/05/18 03/05/18 Diltiazem HCl [Diltiazem 24Hr ER] 180 mg PO DAILY 03/05/18 03/05/18 Previous Rx's Medication Instructions Recorded glipiZIDE [Glucotrol] 5 mg PO BID #0 12/30/17 Allergies Allergy/AdvReac Type Severity Reaction Status Date / Time ceftriaxone [From Rocephin] Allergy Severe PASSED OUT Verified 03/05/18 20:00 Sulfa (Sulfonamide Allergy Unknown Rash/Hives, Verified 03/05/18 20:00 Antibiotics) Itchy morphine Allergy Swelling Verified 03/05/18 20:00 dermabond Allergy Rash/Hives Uncoded 03/05/18 18:57 Review of Systems ROS Statement: Those systems with pertinent positive or pertinent negative responses have been documented in the HPI. ROS Other: All systems not noted in ROS Statement are negative. EKG Findings - EKG Comments: EKG Findings:: EKG shows normal sinus rhythm rate of 83, VT 150, QRS 70, QTc 568 Past Medical History Past Medical History: Asthma, COPD, CVA/TIA, Diabetes Mellitus, Fibromyalgia, GERD/Reflux, Hypertension, Neurologic Disorder, Sleep Apnea/CPAP/BIPAP, Thyroid Disorder Additional Past Medical History / Comment(s): NEUROPATHY FEET, RLS, HX OF RHEMATIC FEVER, HAS HOLE IN BACK OF HEART., HX OF SEPSIS FROM PORT INFECTIONS., STATES NO LONGER USING C-PAP MACHINE., STATES FREQUENT DIARRHEA., LUPUS., aneurysm back of brain surgery with coil, and stent to repair History of Any Multi-Drug Resistant Organisms: None Reported Past Surgical History: Section, Hysterectomy, Joint Replacement Additional Past Surgical History / Comment(s): THUMB SURGERY, BRUCE TOTAL KNEES, PORT INSERTED & REMOVED. Lap Nasir with hiatal hernia repair with mesh 2017 ,surgery to repair brain aneurysm with coil and stent, bruce elbow surgery Past Anesthesia/Blood Transfusion Reactions: Blood Transfusion Reaction Additional Past Anesthesia/Blood Transfusion Reaction / Comment(s): STATES BLOOD TRANSFUSION WITH CHILD - STATES RASH AND ITCHING Past Psychological History: Anxiety, Depression Smoking Status: Former smoker Past Alcohol Use History: None Reported Past Drug Use History: None Reported - Past Family History Mother Family Medical History: Deep Vein Thrombosis (DVT) Daughter(s) Family Medical History: Cancer Additional Family Medical History / Comment(s): lymphoma General Exam Limitations: no limitations General appearance: alert, in no apparent distress Head exam: Present: atraumatic, normocephalic, normal inspection Eye exam: Present: normal appearance, PERRL, EOMI. Absent: scleral icterus, conjunctival injection, periorbital swelling ENT exam: Present: normal exam, mucous membranes moist Neck exam: Present: normal inspection. Absent: tenderness, meningismus, lymphadenopathy Respiratory exam: Present: normal lung sounds bilaterally. Absent: respiratory distress, wheezes, rales, rhonchi, stridor Cardiovascular Exam: Present: regular rate, normal rhythm, normal heart sounds. Absent: systolic murmur, diastolic murmur, rubs, gallop, clicks GI/Abdominal exam: Present: soft, normal bowel sounds. Absent: distended, tenderness, guarding, rebound, rigid Extremities exam: Present: normal inspection, full ROM, normal capillary refill. Absent: tenderness, pedal edema, joint swelling, calf tenderness Back exam: Present: normal inspection Neurological exam: Present: alert, oriented X3, CN II-XII intact Psychiatric exam: Present: normal affect, normal mood Skin exam: Present: warm, dry, intact, normal color. Absent: rash Course Vital Signs 03/05/18 18:52 Temperature 98.5 F Pulse Rate 79 Respiratory 18 Rate Blood Pressure 137/78 O2 Sat by Pulse 97 Oximetry Chest Pain MDM - MDM 63 female to the ER for evaluation, patient was sent to the ER for evaluation regards to abnormal EKG changes and elevated troponin. Patient be admitted for cardiac observation Critical Care Time Critical Care Time: Yes Total Critical Care Time: 31 Disposition Clinical Impression: Chest pain, Unstable angina Disposition: ADMITTED IP TO THIS HOSP Condition: Serious Is patient prescribed a controlled substance at d/c from ED?: No
[2018-03-05 20:26] LABS: Basophils % (A) 0 %; Eosinophils # (A) 0.1 k/uL (0-0.7); Eosinophils % (A) 1 %; HCT 48.9 % (34.0-46.0); Lymphocytes % (A) 29 %; MCH 29.5 pg (25.0-35.0); MCHC 32.7 g/dL (31.0-37.0); MCV 90.3 fL (80.0-100.0); Mean Platelet Volume 7.2; Monocytes # (A) 0.3 k/uL (0-1.0); Monocytes % (A) 3 %; Neutrophils # (A) 6.8 k/uL (1.3-7.7); Neutrophils % (A) 65 %; Platelet Count 345 k/uL (150-450); RBC 5.42 m/uL (3.80-5.40); RDW 13.9 % (11.5-15.5); WBC 10.4 k/uL (3.8-10.6)
--- NOTE | 2018-03-05 20:29 | XR ---
EXAMINATION TYPE: XR chest 2V DATE OF EXAM: 03/05/2018 COMPARISON: 06/20/2017 HISTORY: COPD and asthma TECHNIQUE: Frontal and lateral views of the chest are obtained. FINDINGS: Heart and mediastinum are normal. Lungs are clear. Diaphragm is normal. Bony thorax is int act. There are chest leads. IMPRESSION: Normal chest. No change.
[2018-03-05 20:41] LABS: Partial Thromboplastin Time 22.4 sec (22.0-30.0); Prothrombin Time 10.1 sec (9.0-12.0)
[2018-03-05] MEDS: HEPARIN SOD,PORK IN 0.45% NACL 25,000 UNIT in 0.45% NACL 1 500ML.BAG IV SCH (20:53)
[2018-03-05 21:00] LABS: ALT 23 U/L (9-52); AST 24 U/L (14-36); Albumin 3.9 g/dL (3.5-5.0); Alkaline Phosphatase 158 U/L (38-126); Anion Gap 10 mmol/L; Blood Urea Nitrogen 16 mg/dL (7-17); Carbon Dioxide 22 mmol/L (22-30); Chloride 108 mmol/L (98-107); Glucose 171 mg/dL (74-99); Magnesium 1.9 mg/dL (1.6-2.3); Potassium 3.7 mmol/L (3.5-5.1); Sodium 140 mmol/L (137-145); Total Bilirubin 0.7 mg/dL (0.2-1.3); Total Protein 7.3 g/dL (6.3-8.2)
[2018-03-05] MEDS ORDERED: HYDROcodone/APAP 7.5-325MG 1 EACH TAB PO ONE (21:00)
[2018-03-05 21:05] LABS: Creatine Kinase MB 2.3 ng/mL (0.0-2.4); Troponin I 0.018 ng/mL (0.000-0.034)
[2018-03-05] MEDS ORDERED: LACTULOSE 20 GM/30 ML CUP PO PRN (23:15)
[2018-03-05] MEDS ORDERED: ONDANSETRON 4 MG/2 ML VIAL IVP PRN (23:15)
[2018-03-05] MEDS ORDERED: ACETAMINOPHEN TAB 325 MG TAB PO PRN (23:15)
[2018-03-05] MEDS ORDERED: NALOXONE 0.4 MG/ML 1 ML VIAL IV PRN (23:15)
[2018-03-05] MEDS ORDERED: MAGNESIUM HYDROXIDE 2,400 MG/10 ML CUP PO PRN (23:15)
[2018-03-06] MEDS ORDERED: CALCIUM CARBONATE 500 MG CHEWABLE PO PRN
--- NOTE | 2018-03-06 00:51 | HP ---
HISTORY AND PHYSICAL DATE OF ADMISSION/SERVICE: March 05, 2018. PRESENTING COMPLAINT: Not feeling well. HISTORY OF PRESENTING COMPLAINT: This is a pleasant 63-year-old who follows with Dr. Mariana Young and follows with screen cleaner Dr. Mares. The patient is transferred from [facility]. The patient's chronic stable medical conditions include COPD, fibromyalgia, GERD, hypertension, hypothyroid, peripheral neuropathy, restless legs syndrome, lupus, brain aneurysm with coil and stent in place, anxiety, depression. The patient, a week ago, was given Solu-Medrol for COPD. For sugars glucometer sugars were running high. The patient did see her doctor, neurologist from [place] Dr. Gutierrez who asked her to go to the hospital to get her sugars checked. Today the sugar was reading 527. The patient has been having a headache earlier in the day. The patient is put in the room and patient felt herself drifting and then she passed out. The patient was examined by the ER physician there. It says patient did get 2 dose of Romazaicane. The patient did come around. The patient had no focal weakness otherwise. There was no slurring of speech. The patient's urine drug screen was positive for benzodiazepine. EKG did show diffuse flipped T-waves. CT scan of the brain was negative. Carotid was unremarkable. 2D echo showed EF of 68%, possible ASD and LVH. Troponins were 0.031, 0.032 and 0.034. UA is negative. The patient was therefore sent over here for further workup. The patient was put on IV heparin. The patient denies any other cardiac history except for possible small ASD in the past. REVIEW OF SYSTEMS: CONSTITUTIONAL: Tired. HEENT: Headache previously. RESPIRATORY: Occasional wheezing. CARDIOVASCULAR: No chest pain. GASTROINTESTINAL: Heartburn. GENITOURINARY: None. MUSCULOSKELETAL: Some arthritic pain in joints. DERMATOLOGICAL, HEMATOLOGIC, LYMPHATICS: none. PSYCHIATRY: Anxiety and depression controlled. NEUROLOGICAL as above with no focal symptoms. PAST MEDICAL HISTORY: COPD, diabetes, fibromyalgia, GERD, hypertension, obstructive sleep apnea does not use CPAP, hypothyroid, peripheral neuropathy, restless legs syndrome, lupus, brain aneurysm with a stent and a coil, anxiety, depression. PAST SURGICAL HISTORY: , hysterectomy, bilateral total knees, port inserted and removed. Lap Nasir with hiatal hernia repair with mesh in May 2017, brain surgery for aneurysm with coil and stent, bilateral elbow surgery like sigmoid colectomy, cataract lens implant. PSYCH HISTORY: Anxiety and depression. SOCIAL HISTORY: The patient smoked for 39 years, stopped about a year ago. Smoked a pack a day. The patient was doing medical marijuana till 5 years ago. Lives with her . FAMILY HISTORY: Of lymphoma. HOME MEDICATIONS: 1. Trulicity 1.5 mg subcu Wednesdays. 2. Cardizem ER 180 mg a day. 3. Xanax 0.5 p.o. q.h.s. 4. Trazodone 200 mg q.h.s. 5. Requip 0.3 mg q.h.s. 6. Glucotrol 5 mg b.i.d. 7. Effexor XR 150 mg p.o. b.i.d. 8. Anoro Ellipta 62.5/25 1 puff daily. 9. Potassium 20 mEq daily. 10.Synthroid 112 mcg a day. 11.[place] 7.5 1-2 tablets q.6h p.r.n. 12.Neurontin 800 mg t.i.d. 13.Lasix 40 mg b.i.d. 14.Motrin gel 2 g topical daily p.r.n. 15.Aspirin 81 mg a day. ALLERGIES: TO CEFTRIAXONE, SULFA, MORPHINE, DERMABOND. EXAMINATION: VITAL SIGNS: Temp 98.5, pulse 79, respiratory 18, blood pressure 197/58, pulse ox 97% on room air. GENERAL APPEARANCE: Average build, lying in bed somewhat anxious-appearing. EYES: Pupils equal. Conjunctivae normal. HEENT: External appearance of nose and ears normal. Oral cavity normal. NECK: JVD unable to assess. Mass not palpable. RESPIRATORY: Effort lungs mild wheezing. CARDIOVASCULAR: First and second sounds normal. No edema. ABDOMEN: Soft, nontender. Liver and spleen not palpable LYMPHATICS: No lymph nodes palpable in the neck and axillae. PSYCHIATRY: Alert and oriented x3. Mood and affect slightly anxious-appearing. NEUROLOGICAL: Pupils equal. Cranial nerves grossly intact. Power and sensation grossly intact. INVESTIGATIONS: White count 10.4, hemoglobin 16, potassium 3.7, BUN 16, creatinine 0.75. Additional testing from [place] showed UA to be negative. 2D echo showed EF of 68%, possibly AST, LVH. CT scan of brain was negative. Carotid was negative. EKG was diffuse, flipped T-waves. UA drug screen positive for benzodiazepine. ASSESSMENT: 1. This is a patient who presented initially with not feeling well this morning. Sugars were running in 500s. Had a slight headache, then became unresponsive in the ER with no focal manifestations. Patient did get some Romazaicaine. This appears to be more from metabolic event from the hyperglycemia as patient did turn around and the EKG changes may be reflective of the same. 2. EKG changes showing diffuse T flipped T-waves, probably more of a central nature. Doubt acute coronary event, even though patient's troponins have been 0.031, 0.32. We will get a cardiology opinion. 3. Chronic obstructive pulmonary disease in an ex-smoker. 4. Diabetes mellitus type 2 on oral hypoglycemics, uncontrolled with hyperglycemia from recent steroids. 5. Chronic fibromyalgia. 6. Gastroesophageal reflux disease. 7. Essential hypertension. 8. Hypothyroidism. 9. Peripheral neuropathy from diabetes. 10.Restless legs syndrome. 11.Lupus in remission. 12.Anxiety, depression not otherwise specified. 13.Brain aneurysm with stent and coil in place. PLAN: Home medications resumed. Will add bronchodilators. Will do neuro checks. We ordered an EEG in the morning. Get a neurological opinion. Cardiology was also consulted. Care was discussed with the patient. Questions were answered. Copy to Mariana Young. KENY / MAX: [id number] /
[2018-03-06] MEDS: FUROSEMIDE 40 MG TAB PO SCH ×3 (01:02→21:23)
[2018-03-06] MEDS: METOPROLOL TARTRATE 25 MG TAB PO SCH ×3 (01:06→21:23)
[2018-03-06] MEDS: POTASSIUM CHLORIDE ER 20 MEQ TAB.ER PO SCH ×3 (01:06→21:23)
[2018-03-06] MEDS: traZODone HCL 100 MG TAB PO SCH ×2 (01:07→21:22)
[2018-03-06] MEDS: VENLAFAXINE HCL ER 75 MG CAP PO SCH ×2 (01:08→12:18)
[2018-03-06] MEDS: GABAPENTIN 400 MG CAP PO SCH ×4 (01:12→22:04)
[2018-03-06] MEDS: ALPRAZolam 0.5 MG TAB PO SCH ×2 (01:12→21:23)
[2018-03-06] MEDS: DICLOFENAC SODIUM GEL 100 GM TUBE TOPICAL PRN ×2 (01:46→12:10)
[2018-03-06 02:15] LABS: Creatine Kinase MB 2.3 ng/mL (0.0-2.4); Troponin I 0.023 ng/mL (0.000-0.034)
[2018-03-06] MEDS: HEPARIN SODIUM,PORCINE 5,000 UNIT/ML 1 ML VIAL IV PRN ×2 (03:02→11:12)
[2018-03-06 03:29] LABS: Glucose,Whole Blood 200 mg/dL (75-99)
[2018-03-06] MEDS: HYDROcodone/APAP 7.5-325MG 1 EACH TAB PO PRN ×2 (03:37→22:05)
[2018-03-06] MEDS: LEVOTHYROXINE 112 MCG TAB PO SCH (06:23)
[2018-03-06] MEDS: IPRATROPIUM-ALBUTEROL 3 ML NEB INHALATION SCH ×4 (07:57→19:44)
[2018-03-06] MEDS ORDERED: ASPIRIN 325 MG TAB PO SCH (09:00)
[2018-03-06] MEDS ORDERED: DILTIAZEM CD 180 MG CAP.ER.24H PO SCH (09:00)
[2018-03-06] MEDS ORDERED: ASPIRIN 81 MG PO SCH (09:00)
--- NOTE | 2018-03-06 09:05 | P.CRDCN ---
History of Present Illness Consult date: 03/06/18 Requesting physician: Eladio Elder Consult reason: sycope Chief complaint: Syncope History of present illness: This is a 63-year-old female who follows regularly with Dr. Mares in the office. She has a known history of diabetes, hypertension, hyperlipidemia, rheumatic fever as a child, Rubi scan stress test was performed in 2017 which was negative for any reversible ischemia, she has a history of nicotine dependence, she states that she quit smoking approximately a year ago. Patient also has had history of TIA approximately 5 or 6 years ago and also has undergone coiling and stenting at [facility]. Earlier this year patient did undergo a bowel resection. She states that she went to see Dr. Gonzalez recently and was started on steroids for her COPD. Shortly thereafter, her blood sugars were running quite high, up to the 500 600 range. She went to the clinic, she was given some insulin, and discharged home. Patient then had a follow-up appointment, a routine visit with her neurologist, she went to see her and was recommended to have blood tests drawn. She went to visit a friend [facility] and had her labs drawn there. She then received a call at home but her blood sugars were in the 5-600 range and was advised to go back to [facility]. While in her room at [facility], patient states there is no call light in her room, but she was given something for pain, shortly thereafter, she states that she just did not feel right, she did not get out of bed, felt as though she may pass out. Shortly thereafter a friend came to visit and found her unresponsive. According to the patient, she states that he she could hear her friend's voice but was unable to open her eyes unable to speak or unable to move. Upon wakening she was alert and oriented, she did not lose bowel or bladder function. She was not on the monitor at that time. They did perform an echocardiogram with Doppler study which revealed an ejection fraction of 68%, no pericardial effusion, questionable ASD. An EKG was subsequently performed there which showed a normal sinus rhythm with significant T wave inversion noted in the anterior inferior and lateral leads. CAT scan of the brain was performed which did not reveal any acute process. Carotid ultrasound was also performed which did not reveal any hemodynamically significant stenosis. White blood cell count at [facility] 9.6, hemoglobin 13.1, platelet count 223. Troponins were drawn there which came back to be 0.03, 0.03 , 0.03, magnesium 2.0, sodium 137, potassium 3.1, glucose 251, BUN 20 and creatinine 0.8. Drug screen positive for benzos otherwise negative. As of the abnormality and EKG as well as the abnormal troponin was advised for transfer here to [facility]. Blood pressure here 96/60, 91% on room air, heart rate in the 60s. White blood cell count 10.4, hemoglobin 16, platelet count 345. Sodium 140, potassium 3.7, BUN 16, creatinine 0.7. Troponins 0.018, 0.023. Chest x-ray normal. At the time of my examination this morning, patient feels well, she denies any dizziness or lightheadedness, no chest discomfort. No palpitations. Past Medical History Past Medical History: Asthma, COPD, CVA/TIA, Diabetes Mellitus, Fibromyalgia, GERD/Reflux, Hypertension, Neurologic Disorder, Sleep Apnea/CPAP/BIPAP, Thyroid Disorder Additional Past Medical History / Comment(s): NEUROPATHY FEET, RLS, diverticulitis HX OF RHEMATIC FEVER, HAS HOLE IN BACK OF HEART., HX OF SEPSIS FROM PORT INFECTIONS., STATES NO LONGER USING C-PAP MACHINE., STATES FREQUENT DIARRHEA., LUPUS., aneurysm back of brain surgery with coil, and stent to repair History of Any Multi-Drug Resistant Organisms: None Reported Past Surgical History: Section, Hysterectomy, Joint Replacement Additional Past Surgical History / Comment(s): THUMB SURGERY, BRUCE TOTAL KNEES, PORT INSERTED & REMOVED. Lap Nasir with hiatal hernia repair with mesh 2017 ,surgery to repair brain aneurysm with coil and stent, bruce elbow surgery , lap sigmoid colectomy, cataracts-lens implants Past Anesthesia/Blood Transfusion Reactions: Blood Transfusion Reaction Additional Past Anesthesia/Blood Transfusion Reaction / Comment(s): STATES BLOOD TRANSFUSION 45 years ago WITH CHILD - STATES RASH AND ITCHING Smoking Status: Former smoker - Past Family History Mother Family Medical History: Deep Vein Thrombosis (DVT) Daughter(s) Family Medical History: Cancer Additional Family Medical History / Comment(s): lymphoma Medications and Allergies Home Medications Medication Instructions Recorded Confirmed Type Aspirin [Adult Low Dose Aspirin EC] 81 mg PO DAILY 11/27/16 03/05/18 History Diclofenac Sodium [Voltaren Gel] 2 gram TOPICAL DAILY PRN 11/27/16 03/05/18 History Furosemide [Lasix] 40 mg PO BID 11/27/16 03/05/18 History Gabapentin [Neurontin] 800 mg PO TID 11/27/16 03/05/18 History Levothyroxine Sodium [Synthroid] 112 mcg PO DAILY 11/27/16 03/05/18 History Potassium Chloride [K-Tab ER] 20 meq PO BID 11/27/16 03/05/18 History Umeclidinium Brm/Vilanterol Tr 1 puff INHALATION RT-DAILY 11/27/16 03/05/18 History [Anoro Ellipta 62.5-25 Mcg INH] rOPINIRole HCL [Requip] 3 mg PO HS 11/27/16 03/05/18 History traZODone HCL 200 mg PO HS 11/27/16 03/05/18 History Venlafaxine HCl [Effexor XR] 150 mg PO BID 05/03/17 03/05/18 History Dulaglutide [Trulicity] 1.5 mg SQ WE 11/18/17 03/05/18 History HYDROcodone/APAP 7.5-325MG [Tabor 1 - 2 tab PO Q6HR PRN 11/18/17 03/05/18 History 7.5-325] glipiZIDE [Glucotrol] 5 mg PO BID #0 12/30/17 03/05/18 Rx ALPRAZolam [Xanax] 0.5 mg PO HS 03/05/18 03/05/18 History Diltiazem HCl [Diltiazem 24Hr ER] 180 mg PO DAILY 03/05/18 03/05/18 History Allergies Allergy/AdvReac Type Severity Reaction Status Date / Time ceftriaxone [From Rocephin] Allergy Severe PASSED OUT Verified 03/05/18 20:00 Sulfa (Sulfonamide Allergy Unknown Rash/Hives, Verified 03/05/18 20:00 Antibiotics) Itchy morphine Allergy Swelling Verified 03/05/18 20:00 dermabond Allergy Rash/Hives Uncoded 03/05/18 18:57 Physical Exam Vitals: Vital Signs Temp Pulse Pulse Resp BP BP BP 03/06/18 08:00 97.9 F 61 20 90/50 96/62 03/06/18 05:22 90 139/82 03/06/18 03:21 97.3 F L 73 15 116/54 03/05/18 23:30 145/78 03/05/18 22:00 110/100 03/05/18 21:30 87 12 139/76 03/05/18 21:00 91 24 132/64 03/05/18 20:38 89 24 132/64 03/05/18 18:52 98.5 F 79 18 137/78 Pulse Ox 03/06/18 08:00 91 L 03/06/18 05:22 03/06/18 03:21 96 03/05/18 23:30 94 L 03/05/18 22:00 03/05/18 21:30 97 03/05/18 21:00 95 03/05/18 20:38 99 03/05/18 18:52 97 Intake and Output 03/05/18 03/06/18 03/06/18 22:59 06:59 14:59 Intake Total 122.84 Output Total 0 Balance 122.84 Intake: Intake, IV Titration 122.84 Amount Heparin Sod,Pork in 0.45% 122.84 NaCl 25,000 unit In 0.45 % NaCl 1 500ml.bag @ 12 UNITS/KG/HR 19.92 mls/hr IV .Q24H [facility] Rx#: [id number] Output: Urine 0 Other: Voiding Method Toilet Weight 83.007 kg 82.1 kg PHYSICAL EXAMINATION: GENERAL: 63-year-old female in no acute distress at the time of my examination HEENT: Head is atraumatic, normocephalic. Pupils equal, round. Sclera anicteric. Conjunctiva are clear. Mucous membranes of the mouth are moist. Neck is supple. There is no elevated jugular venous pressure. No carotid bruit is heard. HEART EXAMINATION: S1 S2 1 systolic murmur is heard. CHEST EXAMINATION: Lungs are clear to auscultation and precussion. No chest wall tenderness is noted on palpation or with deep breathing. ABDOMEN: Soft, nontender. Bowel sounds are heard. No organomegaly noted. EXTREMITIES: 2+ peripheral pulses with no evidence of peripheral edema and no calf tenderness noted. NEUROLOGIC patient is awake, alert and oriented 3 . . Results 03/05/18 19:45 03/05/18 19:45 Cardiac Enzymes 03/05/18 03/05/18 03/06/18 Range/Units 19:45 19:45 01:11 AST 24 (14-36) U/L CK-MB (CK-2) 2.3 2.3 (0.0-2.4) ng/mL Troponin I 0.018 0.023 (0.000-0.034) ng/mL Coagulation 03/05/18 03/06/18 Range/Units 19:45 01:11 PT 10.1 (9.0-12.0) sec APTT 22.4 28.7 (22.0-30.0) sec CBC 03/05/18 Range/Units 19:45 WBC 10.4 (3.8-10.6) k/uL RBC 5.42 H (3.80-5.40) m/uL Hgb 16.0 D (11.4-16.0) gm/dL Hct 48.9 H (34.0-46.0) % Plt Count 345 (150-450) k/uL Comprehensive Metabolic Panel 03/05/18 Range/Units 19:45 Sodium 140 (137-145) mmol/L Potassium 3.7 (3.5-5.1) mmol/L Chloride 108 H (98-107) mmol/L Carbon Dioxide 22 (22-30) mmol/L BUN 16 (7-17) mg/dL Creatinine 0.75 (0.52-1.04) mg/dL Glucose 171 H (74-99) mg/dL Calcium 10.0 (8.4-10.2) mg/dL AST 24 (14-36) U/L ALT 23 (9-52) U/L Alkaline Phosphatase 158 H (38-126) U/L Total Protein 7.3 (6.3-8.2) g/dL Albumin 3.9 (3.5-5.0) g/dL Current Medications Generic Name Dose Route Start Last Admin Trade Name Freq PRN Reason Stop Dose Admin Acetaminophen 650 mg 03/05/18 23:15 Tylenol Tab PO Q6HR PRN Mild Pain or Fever > 100.5 Hydrocodone Bitart/Acetaminophen 1 each 03/05/18 21:00 03/06/18 03:37 Tabor 7.5-325 PO 1 each Q6H PRN Administration Pain Albuterol/Ipratropium 3 ml 03/06/18 08:00 03/06/18 07:57 Duoneb 0.5 Mg-3 Mg/3 Ml Soln INHALATION Not Given RT-QID [facility] Alprazolam 0.5 mg 03/05/18 23:15 03/06/18 01:12 Xanax PO 0.5 mg HS [facility] Administration Aspirin 325 mg 03/06/18 09:00 Aspirin PO DAILY [facility] Aspirin 81 mg 03/06/18 09:00 Aspirin PO DAILY [facility] Calcium Carbonate/Glycine 1,000 mg 03/06/18 00:00 Tums PO Q4HR PRN Dyspepsia Diclofenac Sodium 2 gm 03/06/18 09:00 03/06/18 01:46 Voltaren Gel TOPICAL 2 gm DAILY PRN Administration Pain Diltiazem HCl 180 mg 03/06/18 09:00 Cardizem Cd PO DAILY [facility] Furosemide 40 mg 03/05/18 23:30 03/06/18 01:02 Lasix PO Not Given BID [facility] Gabapentin 800 mg 03/05/18 23:30 03/06/18 01:12 Neurontin PO 800 mg TID [facility] Administration Heparin Sodium (Porcine) 0 unit 03/05/18 19:15 03/06/18 03:02 Heparin IV 4,000 unit Q6HR PRN Administration Low PTT Protocol Heparin Sodium/Sodium Chloride 500 mls @ 19.92 mls/hr 03/05/18 19:15 03:03 25,000 unit/ Sodium Chloride IV 15 units/kg/hr .Q24H [facility] 24.9 mls/hr Titration Protocol 12 UNITS/KG/HR Lactulose 20 gm 03/05/18 23:15 Cephulac PO DAILY PRN Constipation Levothyroxine Sodium 112 mcg 03/06/18 06:30 03/06/18 06:23 Synthroid PO 112 mcg DAILY@0630 [facility] Administration Magnesium Hydroxide 2,400 mg 03/05/18 23:15 Milk Of Magnesia PO DAILY PRN Constipation Metoprolol Tartrate 25 mg 03/05/18 21:00 03/06/18 01:06 Lopressor PO 25 mg BID [facility] Administration Naloxone HCl 0.2 mg 03/05/18 23:15 Narcan IV Q2M PRN Opioid Reversal Nitroglycerin 0.4 mg 03/05/18 19:15 Nitrostat SUBLINGUAL Q5M PRN Chest Pain Ondansetron HCl 4 mg 03/05/18 23:15 Zofran IVP Q8HR PRN Nausea And Vomiting Potassium Chloride 20 meq 03/05/18 23:15 03/06/18 01:06 K-Dur 20 PO 20 meq BID [facility] Administration Ropinirole HCl 3 mg 03/05/18 23:15 03/06/18 01:05 Requip PO 3 mg HS [facility] Administration Trazodone HCl 200 mg 03/05/18 23:30 03/06/18 01:07 Desyrel PO 200 mg HS [facility] Administration Venlafaxine HCl 150 mg 03/05/18 23:30 03/06/18 01:08 Effexor Xr PO 150 mg BID [facility] Administration Intake and Output 03/05/18 03/06/18 03/06/18 22:59 06:59 14:59 Intake Total 122.84 Output Total 0 Balance 122.84 Intake: Intake, IV Titration 122.84 Amount Heparin Sod,Pork in 0.45% 122.84 NaCl 25,000 unit In 0.45 % NaCl 1 500ml.bag @ 12 UNITS/KG/HR 19.92 mls/hr IV .Q24H [facility] Rx#: [id number] Output: Urine 0 Other: Voiding Method Toilet Weight 83.007 kg 82.1 kg 03/05/18 19:45 03/05/18 19:45 EKG Interpretations (text) EKG shows normal sinus rhythm with deep T-wave inversions in the inferior anterior lateral leads. Assessment and Plan Plan: Assessment and plan #1 hyperglycemia, likely secondary to steroids #2 syncope, rule out cardiac causes #3 history of prior CVA and history of brain coiling and stent placement #4 hypertension #5 diabetes #6 hyperlipidemia #7 abnormal troponins, not consistent with acute coronary syndrome, 0.03, 0.03, 0.03, 0.018, 0.033. EKG shows normal sinus rhythm with deep T-wave inversion in anterior inferior and lateral leads. #8 COPD #9 history of nicotine dependence #10 history of bowel resection earlier this year Plan Echocardiogram with Doppler study was performed at [facility] which revealed a normal left ventricular systolic function with a question of possible ASD. We will obtain an old EKG from the office to compare. We will check orthostatic heart rate and blood pressure every shift. Continue to monitor for any significant tachycardia or bradycardia arrhythmias. Check a d-dimer to rule out possibility of pulmonary embolism. Further recommendations to follow. DNP note has been reviewed, I agree with a documented findings and plan of care. Patient was seen and examined.
--- NOTE | 2018-03-06 09:26 | CT ---
EXAMINATION TYPE: CT brain wo con DATE OF EXAM: 03/06/2018 COMPARISON: Outside CT dated 03/04/2018. Images only and report is unavailable. HISTORY: decreased consciousness-f/u ct brain.hx coiled aneurysm CT DLP: 1070.4 mGycm Automated exposure control for dose reduction was used. FINDINGS: Aneurysm coils are seen near the basilar artery and right posterior cerebral artery. No evidence of a cute intracranial hemorrhage, midline shift or mass effect. Patchy areas of hypoattenuation are seen within the periventricular and frontal subcortical white matter. These findings are also seen in the bilateral external capsules. Velasco-white junction interface appears maintained. Mild peripheral sulcal prominence and symmetric ventricular system prominence are seen most compatible with age-related vol ume loss. Calvarium appears intact. Mild mucosal thickening is seen within the ethmoid sinuses. There is partial opacification of the bilateral inferior mastoid air cells. Stable lucent lesion within th e left frontal bone is well-circumscribed. IMPRESSION: NO EVIDENCE OF ACUTE INTRACRANIAL HEMORRHAGE, MIDLINE SHIFT OR MASS EFFECT. POSTERIOR CIRCULATION ANE URYSM COILS ARE REDEMONSTRATED. MILD NONSPECIFIC WHITE MATTER CHANGES AND CEREBRAL ATROPHY ARE PRESEN T.
[2018-03-06 09:31] LABS: Mean Platelet Volume 7.2; Platelet Count 328 k/uL (150-450)
[2018-03-06 09:48] LABS: D-Dimer 0.72 mg/L FEU (<0.60); Partial Thromboplastin Time 45.3 sec (22.0-30.0)
[2018-03-06 09:52] LABS: Cholesterol 165 mg/dL (<200); HDL Cholesterol 49 mg/dL (40-60); LDL Cholesterol,Calculated 76 mg/dL (0-99); Triglycerides 199 mg/dL (<150)
[2018-03-06] MEDS: MAGNESIUM SULFATE-D5W PMX 1 GM in DEXTROSE/WATER 1 100ML.BAG IVPB SCH ×2 (11:35→12:37)
[2018-03-06 12:17] LABS: Glucose,Whole Blood 243 mg/dL (75-99)
[2018-03-06] MEDS: ASPIRIN 81 MG PO SCH (12:38)
[2018-03-06] MEDS ORDERED: ALPRAZolam 0.25 MG TAB PO PRN (13:25)
[2018-03-06] MEDS ORDERED: ASPIRIN 325 MG TAB PO STA (13:25)
[2018-03-06] MEDS ORDERED: NITROGLYCERIN SL TABS 0.4 MG TAB SUBLINGUAL PRN (13:25)
[2018-03-06] MEDS ORDERED: ALPRAZolam 0.5 MG TAB PO PRN (13:25)
[2018-03-06] MEDS ORDERED: ATORVASTATIN 80 MG TAB PO STA (13:28)
[2018-03-06] MEDS: SODIUM CHLORIDE 0.9% 1,000 ML IV SCH ×2 (13:54→22:46)
[2018-03-06] MEDS: INSULIN ASPART 100 UNIT/ML 1 ML 10 ML VIAL SQ SCH ×3 (13:55→22:05)
[2018-03-06] MEDS: SODIUM CHLORIDE 0.9% 1,000 ML in EMPTY BAG 1 BAG IV ONE ×2 (16:07→22:07)
[2018-03-06 16:38] LABS: Glucose,Whole Blood 143 mg/dL (75-99)
[2018-03-06 21:05] LABS: Glucose,Whole Blood 279 mg/dL (75-99)
--- NOTE | 2018-03-06 21:10 | EEG ---
ELECTROENCEPHALOGRAM REPORT DATE OF EE03/06/2018. ELECTROENCEPHALOGRAPHIC EXAMINATION REPORT: REFERRING PHYSICIAN: Dr. Collins CONSULTING/INTERPRETING PHYSICIAN: Dr. Dashawn Torres MD INDICATION FOR EXAMINATION: This patient is a 63-year-old female being evaluated for acute syncopal episode and hyperglycemia. The patient has history of brain aneurysm with stent placement and coiling procedure in the past. AGE: [age]. EEG FINDINGS: A routine 21 channel awake digital EEG recording was accomplished utilizing the 10-20 international system with bipolar and referential montages. The background activity in the most alert resting state consists of a low to medium amplitude, fairly well developed and well sustained 8 Hz activity over the posterior head regions. This posterior rhythm attenuates to eye opening. There is a small amount of low amplitude 18-20 Hz beta activity seen maximally over the anterior head regions. Muscle and movement artifact was observed on a few occasions during the tracing. Hyperventilation was not performed. Photic stimulation at flash frequencies of 2-30 Hz produced a good symmetrical occipital driving response. No epileptiform discharges were seen. IMPRESSION: This EEG is normal for the patient's age. The EEG failed to reveal any focal, lateralized, or epileptiform abnormalities. Clinical correlation is recommended. MMODL / IJN: [id number] /
[2018-03-06] MEDS: VENLAFAXINE HCL ER 150 MG CAP PO SCH (21:23)
[2018-03-06 22:00] LABS: Hemoglobin A1C 10.1 % (4.0-6.0)
[2018-03-06] MEDS: HEPARIN SOD,PORK IN 0.45% NACL 25,000 UNIT in 0.45% NACL 1 500ML.BAG IV SCH (22:06)
--- NOTE | 2018-03-06 22:49 | P.CNNES ---
History of Present Illness Consult date: 03/06/18 History of Present Illness: The patient is a 63-year-old right-handed white female who states that one week ago she received a steroid shot for COPD and her glucose went up to 500. She went to the emergency room and received insulin and her sugar came down to 385. As she was released and again this week her sugar came back up and she went to the hospital. While she was at the hospital she had a reported unresponsive episode. Patient reports that she was not completely unresponsive and that she could hear what was going on around her but she couldn't open her eyes. Was transferred from [facility] because of abnormal EKG. Patient does not report any new neurologic changes such as focal weakness numbness vision changes or headache. States that when her EKG was abnormal she did not experience any chest pain or palpitations. The patient was admitted to the hospital with unstable angina Review of Systems All systems: negative Eyes: denies blurred vision, denies pain Ears, nose, mouth and throat: Denies headache, Denies sore throat Cardiovascular: Denies chest pain, Denies shortness of breath Respiratory: Denies cough Gastrointestinal: Denies abdominal pain, Denies diarrhea, Denies nausea, Denies vomiting Genitourinary: Denies dysuria, Denies hematuria Musculoskeletal: Denies myalgias Integumentary: Denies pruritus, Denies rash Neurological: Denies numbness, Denies weakness Psychiatric: Denies anxiety, Denies depression Endocrine: Denies fatigue, Denies weight change Past Medical History Past Medical History: Asthma, COPD, CVA/TIA, Diabetes Mellitus, Fibromyalgia, GERD/Reflux, Hypertension, Neurologic Disorder, Sleep Apnea/CPAP/BIPAP, Thyroid Disorder Additional Past Medical History / Comment(s): NEUROPATHY FEET, RLS, diverticulitis HX OF RHEMATIC FEVER, HAS HOLE IN BACK OF HEART., HX OF SEPSIS FROM PORT INFECTIONS., STATES NO LONGER USING C-PAP MACHINE., STATES FREQUENT DIARRHEA., LUPUS., aneurysm back of brain surgery with coil, and stent to repair History of Any Multi-Drug Resistant Organisms: None Reported Past Surgical History: Section, Hysterectomy, Joint Replacement Additional Past Surgical History / Comment(s): THUMB SURGERY, BRUCE TOTAL KNEES, PORT INSERTED & REMOVED. Lap Nasir with hiatal hernia repair with mesh 2017 ,surgery to repair brain aneurysm with coil and stent, bruce elbow surgery , lap sigmoid colectomy, cataracts-lens implants Past Anesthesia/Blood Transfusion Reactions: Blood Transfusion Reaction Additional Past Anesthesia/Blood Transfusion Reaction / Comment(s): STATES BLOOD TRANSFUSION 45 years ago WITH CHILD - STATES RASH AND ITCHING Smoking Status: Former smoker - Past Family History Mother Family Medical History: Deep Vein Thrombosis (DVT) Daughter(s) Family Medical History: Cancer Additional Family Medical History / Comment(s): lymphoma Medications and Allergies Home Medications Medication Instructions Recorded Confirmed Type Aspirin [Adult Low Dose Aspirin EC] 81 mg PO DAILY 11/27/16 03/05/18 History Diclofenac Sodium [Voltaren Gel] 2 gram TOPICAL DAILY PRN 11/27/16 03/05/18 History Furosemide [Lasix] 40 mg PO BID 11/27/16 03/05/18 History Gabapentin [Neurontin] 800 mg PO TID 11/27/16 03/05/18 History Levothyroxine Sodium [Synthroid] 112 mcg PO DAILY 11/27/16 03/05/18 History Potassium Chloride [K-Tab ER] 20 meq PO BID 11/27/16 03/05/18 History Umeclidinium Brm/Vilanterol Tr 1 puff INHALATION RT-DAILY 11/27/16 03/05/18 History [Anoro Ellipta 62.5-25 Mcg INH] rOPINIRole HCL [Requip] 3 mg PO HS 11/27/16 03/05/18 History traZODone HCL 200 mg PO HS 11/27/16 03/05/18 History Venlafaxine HCl [Effexor XR] 150 mg PO BID 05/03/17 03/05/18 History Dulaglutide [Trulicity] 1.5 mg SQ WE 11/18/17 03/05/18 History HYDROcodone/APAP 7.5-325MG [Talmo 1 - 2 tab PO Q6HR PRN 11/18/17 03/05/18 History 7.5-325] glipiZIDE [Glucotrol] 5 mg PO BID #0 12/30/17 03/05/18 Rx ALPRAZolam [Xanax] 0.5 mg PO HS 03/05/18 03/05/18 History Diltiazem HCl [Diltiazem 24Hr ER] 180 mg PO DAILY 03/05/18 03/05/18 History Allergies Allergy/AdvReac Type Severity Reaction Status Date / Time ceftriaxone [From Rocephin] Allergy Severe PASSED OUT Verified 03/05/18 20:00 Sulfa (Sulfonamide Allergy Unknown Rash/Hives, Verified 03/05/18 20:00 Antibiotics) Itchy morphine Allergy Swelling Verified 03/05/18 20:00 dermabond Allergy Rash/Hives Uncoded 03/05/18 18:57 Physical Examination - Vital Signs Vital Signs: Vital Signs Temp Pulse Pulse Pulse Pulse Resp BP 03/06/18 19:50 97.7 F 78 17 03/06/18 17:45 17 03/06/18 16:00 17 03/06/18 15:53 97.4 F L 77 17 03/06/18 12:04 63 03/06/18 11:30 98 F 66 74 62 16 03/06/18 08:00 97.9 F 61 20 03/06/18 05:22 90 03/06/18 03:21 97.3 F L 73 15 03/05/18 23:30 145/78 BP BP BP BP BP Pulse Ox 03/06/18 19:50 104/50 89 L 03/06/18 17:45 03/06/18 16:00 03/06/18 15:53 93/48 95 03/06/18 12:04 101/61 03/06/18 11:30 94/55 93/56 95/69 95 03/06/18 08:00 90/50 96/62 91 L 03/06/18 05:22 139/82 03/06/18 03:21 116/54 96 03/05/18 23:30 94 L Intake and Output 03/06/18 03/06/18 03/06/18 06:59 14:59 22:59 Intake Total 122.84 602.105 355.055 Output Total 0 100 400 Balance 122.84 502.105 -44.945 Intake: IV 200 Heparin Sod,Pork in 0.45% 200 NaCl 25,000 unit In 0.45 % NaCl 1 500ml.bag @ 12 UNITS/KG/HR 19.92 mls/hr IV .Q24H [facility] Rx#: [id number] Intake, IV Titration 122.84 202.105 175.055 Amount Heparin Sod,Pork in 0.45% 122.84 202.105 175.055 NaCl 25,000 unit In 0.45 % NaCl 1 500ml.bag @ 12 UNITS/KG/HR 19.92 mls/hr IV .Q24H [facility] Rx#: [id number] Oral 200 180 Output: Urine 0 100 400 Other: Voiding Method Toilet Toilet Toilet Weight 82.1 kg - Constitutional General appearance: obese - EENT EENT: PERRL, hearing intact, vision intact - Respiratory Respiratory: lungs clear - Cardiovascular Cardiovascular: regular rate, normal S1, normal S2 - Neurologic Neurologic examination: Mental status: She was awake alert and oriented 3. Her speech was fluent. There was no a aphasia or dysarthria. X Cranial nerve examination: Cranial nerves II through XII grossly intact Motor examination limited she was able to move all 4 extremities Coordination: Finger to nose intact Deep tendon reflexes: Intact in the upper extremities and symmetric next Gait: Not tested Results - Laboratory Findings CBC and BMP: 03/06/18 09:03 03/05/18 19:45 Abnormal Lab Findings: Abnormal Labs 03/05/18 03/05/18 03/06/18 19:45 19:45 03:27 RBC 5.42 H Hct 48.9 H APTT D-Dimer Chloride 108 H Glucose 171 H POC Glucose (mg/dL) 200 H Hemoglobin A1c Alkaline Phosphatase 158 H Triglycerides 03/06/18 03/06/18 03/06/18 09:03 09:03 09:03 RBC Hct APTT 45.3 H D-Dimer 0.72 H Chloride Glucose POC Glucose (mg/dL) Hemoglobin A1c 10.1 H Alkaline Phosphatase Triglycerides 199 H 03/06/18 03/06/18 03/06/18 12:15 15:10 16:34 RBC Hct APTT 53.2 H D-Dimer Chloride Glucose POC Glucose (mg/dL) 243 H 143 H Hemoglobin A1c Alkaline Phosphatase Triglycerides 03/06/18 20:40 RBC Hct APTT D-Dimer Chloride Glucose POC Glucose (mg/dL) 279 H Hemoglobin A1c Alkaline Phosphatase Triglycerides Assessment and Plan (1) Syncope Current Visit: Yes Status: Acute Code(s): R55 - SYNCOPE AND COLLAPSE SNOMED Code(s): 226384121 (2) Elevated serum glucose Current Visit: Yes Status: Acute SNOMED Code(s): 67222381 (3) Abnormal EKG Current Visit: Yes Status: Acute SNOMED Code(s): 567654755 (4) Unstable angina Current Visit: Yes Status: Acute SNOMED Code(s): 6093132 Plan: Patient's episode of syncope versus near syncope was likely related to metabolic causes. It does not appear that she had a seizure. She was advised however that she should not be operating a motorized vehicle until spell free for 6 months. She did have an EEG which was unremarkable. She had a CT of the brain which showed nonspecific white matter changes and cerebral atrophy and she reportedly had a carotid ultrasound which was negative
--- NOTE | 2018-03-07 00:31 | PN ---
PROGRESS NOTE DATE OF SERVICE: 03/06/2018. PRESENTING COMPLAINT: Tired. INTERVAL HISTORY: This patient presented to [facility] and she was transferred. Sugar was 500. She then became less responsive, felt to be metabolic. EEG negative. Stroke was negative. Patient had diffuse T-wave changes. The 2D echo was fine. Tired and rundown today. There were no new symptoms. REVIEW OF SYSTEMS: Done for constitutional, cardiovascular, GI, pulmonary; relevant findings as above. CURRENT MEDICATIONS: Reviewed. PHYSICAL EXAMINATION: Temperature 97.4, pulse 63, respirations 17, blood pressure 93/48, pulse ox 95% on room air. GENERAL APPEARANCE: Lying in bed, tired-appearing. EYES: Pupils equal. Conjunctivae normal. NECK: JVD not raised. Mass not palpable. Respiratory effort normal. LUNGS: Minimal wheezing. CARDIOVASCULAR: First and second heart sounds normal. No edema. ABDOMEN: Soft, nontender. Liver and spleen not palpable. PSYCHIATRY: Able to answer simple questions. INVESTIGATIONS: Accu-Cheks 243. HbA1c 10.1, LDL 76. CT scan of the brain nil acute. ASSESSMENT: 1. Nonketotic hyperosmolar hyperglycemia. 2. Chronic obstructive pulmonary disease in an ex-smoker. 3. Diabetes mellitus type 2, uncontrolled, with hyperglycemia. 4. Chronic fibromyalgia. 5. Gastroesophageal reflux disease. 6. Essential hypertension. 7. Hypothyroidism. 8. Peripheral neuropathy from diabetes. 9. Restless leg syndrome. 10.Lupus in remission. 11.Anxiety and depression, not otherwise specified. 12.Brain aneurysm with stent, coil in place. 13.Acute metabolic encephalopathy from hyperglycemia. PLAN: Patient is overall doing better. Continue current medication and treatment plan. Neurology and Cardiology consultations are noted. Will DC the IV fluids later today. Cut back on diuretics. MMODL / IJN: [id number] /
[2018-03-07 06:05] LABS: Glucose,Whole Blood 227 mg/dL (75-99)
[2018-03-07] MEDS: INSULIN ASPART 100 UNIT/ML 1 ML 10 ML VIAL SQ SCH ×4 (06:09→21:13)
[2018-03-07] MEDS: ASPIRIN 81 MG PO SCH (06:45)
[2018-03-07] MEDS: GABAPENTIN 400 MG CAP PO SCH ×3 (06:45→20:05)
[2018-03-07] MEDS: METOPROLOL TARTRATE 25 MG TAB PO SCH ×2 (06:45→20:08)
[2018-03-07] MEDS: VENLAFAXINE HCL ER 150 MG CAP PO SCH ×2 (06:45→21:13)
[2018-03-07] MEDS: LEVOTHYROXINE 112 MCG TAB PO SCH (06:45)
[2018-03-07] MEDS: POTASSIUM CHLORIDE ER 20 MEQ TAB.ER PO SCH ×2 (06:46→20:05)
[2018-03-07 07:13] LABS: Anion Gap 6 mmol/L; Blood Urea Nitrogen 16 mg/dL (7-17); Calcium 8.4 mg/dL (8.4-10.2); Carbon Dioxide 19 mmol/L (22-30); Chloride 116 mmol/L (98-107); Glucose 213 mg/dL (74-99); Magnesium 1.8 mg/dL (1.6-2.3); Potassium 3.8 mmol/L (3.5-5.1); Sodium 141 mmol/L (137-145)
[2018-03-07] MEDS ORDERED: IV FLUID CONTINUATION 1,000 ML IV ONE (07:20)
[2018-03-07 07:44] LABS: Basophils % (A) 1 %; Eosinophils # (A) 0.1 k/uL (0-0.7); Eosinophils % (A) 2 %; HCT 36.3 % (34.0-46.0); Lymphocytes % (A) 51 %; MCH 29.9 pg (25.0-35.0); MCHC 31.6 g/dL (31.0-37.0); MCV 94.5 fL (80.0-100.0); Mean Platelet Volume 7.5; Monocytes # (A) 0.2 k/uL (0-1.0); Monocytes % (A) 4 %; Neutrophils # (A) 2.4 k/uL (1.3-7.7); Neutrophils % (A) 41 %; Platelet Count 252 k/uL (150-450); RBC 3.84 m/uL (3.80-5.40); RDW 13.9 % (11.5-15.5); WBC 5.9 k/uL (3.8-10.6)
[2018-03-07] MEDS ORDERED: fentaNYL (PF) 50 MCG/ML 2 ML AMP IV ONE (07:48)
[2018-03-07 07:49] LABS: HGB 11.5 gm/dL (11.4-16.0)
[2018-03-07] MEDS ORDERED: LIDOCAINE 1% INJ 10MG/ML (20 ML MDV) SQ ONE (07:50)
[2018-03-07] MEDS ORDERED: IOPAMIDOL-370 125ML BTL INJ ONE (08:02)
[2018-03-07] MEDS ORDERED: RX INFO: IV CONTRAST WAS GIVEN 1 EACH MISC MISCELLANE PRN (08:13)
[2018-03-07] MEDS: SODIUM CHLORIDE 0.9% 1,000 ML IV SCH ×2 (08:38→18:15)
[2018-03-07] MEDS: FUROSEMIDE 20 MG TAB PO SCH (08:39)
[2018-03-07] MEDS: IPRATROPIUM-ALBUTEROL 3 ML NEB INHALATION SCH ×4 (08:44→19:48)
--- NOTE | 2018-03-07 09:14 | CC ---
CARDIAC CATHETERIZATION REPORT INDICATION: Unstable angina. PROCEDURE NOTE: After obtaining informed consent, left heart catheterization and coronary angiogram were performed with the right femoral artery using standard Aida catheters. The patient tolerated the procedure well without any obvious immediate complications. The femoral angiogram was performed and Angio-Seal was deployed for hemostasis. FINDINGS: 1. HEMODYNAMICS: Left ventricular end-diastolic pressure is 28 mm. There is no significant gradient across the aortic valve. 2. LEFT VENTRICULOGRAM: Left ventriculogram is not performed. 3. ANGIOGRAPHIC DATA: Left main coronary artery: Left main coronary artery appears calcified but is free of significant stenosis. Divides into left anterior descending coronary artery and circumflex coronary artery. LAD and its branches are free of significant stenosis. Circumflex coronary artery shows a 30% to 40% plaque in the proximal part. Right coronary artery is a large dominant vessel that shows mild nonobstructive coronary artery disease. CONCLUSIONS: 1. Calcified left main coronary artery. 2. Mild nonobstructive coronary artery disease. PLAN: The patient's clinical presentation and the EKG changes may be related to some form of Takotsubo syndrome. Patient's management is going to be in the form of risk factor modification and optimal medical therapy. MMODL / IJN: [id number] /
[2018-03-07 11:17] LABS: Glucose,Whole Blood 158 mg/dL (75-99)
[2018-03-07 11:29] VITALS: BMI 27.8
--- NOTE | 2018-03-07 14:05 | ECHOF ---
Referral Reason:acs MEASUREMENTS -------- HEIGHT: 175.3 cm WEIGHT: 85.3 kg BP: 107/60 RVIDd: 2.9 cm (< 3.3) IVSd: 1.2 cm (0.6 - 1.1) LVIDd: 4.0 cm (3.9 - 5.3) LVPWd: 1.3 cm (0.6 - 1.1) IVSs: 1.7 cm LVIDs: 2.5 cm LVPWs: 1.7 cm LAESV Index (A-L): 23.80 ml/m Ao Diam: 3.2 cm (2.0 - 3.7) AV Cusp: 1.9 cm (1.5 - 2.6) LA Diam: 3.4 cm (2.7 - 3.8) MV EXCURSION: 9.718 mm (> 18.000) MV EF SLOPE: 65 mm/s (70 - 150) EPSS: 1.1 cm MV E Moises: 0.95 m/s MV DecT: 200 ms MV A Moises: 0.67 m/s MV E/A Ratio: 1.43 RAP: 5.00 mmHg RVSP: 24.09 mmHg FINDINGS -------- Sinus rhythm. This was a technically adequate study. The left ventricular size is normal. There is mild concentric left ventricular hypertrophy. Overa ll left ventricular systolic function is mildly impaired with, an EF between 45 - 50 %. Basal infer ior LV wall motion is hypokinetic. Mid inferior LV wall motion is hypokinetic. The right ventricle is normal in size and function. The left atrial size is normal. The right atrium is normal in size. Aortic valve is trileaflet and is mildly thickened. The mitral valve leaflets are mildly thickened. Xeqv-xh-tyddzoog mitral regurgitation is present. Mild tricuspid regurgitation present. There is no evidence of pulmonary hypertension. The right v entricular systolic pressure, as measured by Doppler, is 24.09mmHg. There is no pulmonic regurgitation present. The aortic root size is normal. IVC Not well visulized. There is no pericardial effusion. CONCLUSIONS -------- 1. Sinus rhythm. 2. This was a technically adequate study. 3. The left ventricular size is normal. 4. There is mild concentric left ventricular hypertrophy. 5. Overall left ventricular systolic function is mildly impaired with, an EF between 45 - 50 %. 6. Basal inferior LV wall motion is hypokinetic. 7. Mid inferior LV wall motion is hypokinetic. 8. The left atrial size is normal. 9. Aortic valve is trileaflet and is mildly thickened. 10. The mitral valve leaflets are mildly thickened. 11. Iozs-fe-sgadhhva mitral regurgitation is present. 12. Mild tricuspid regurgitation present. 13. There is no evidence of pulmonary hypertension. 14. There is no pulmonic regurgitation present. 15. The aortic root size is normal. 16. IVC Not well visulized. 17. There is no pericardial effusion. [employer] SALES REPRESENTATIVE: Devi Velez RDCS
[2018-03-07 16:42] LABS: Glucose,Whole Blood 149 mg/dL (75-99)
[2018-03-07] MEDS: traZODone HCL 100 MG TAB PO SCH (20:12)
[2018-03-07 20:56] LABS: Glucose,Whole Blood 207 mg/dL (75-99)
[2018-03-07] MEDS: ALPRAZolam 0.5 MG TAB PO SCH (21:13)
[2018-03-07] MEDS: HYDROcodone/APAP 7.5-325MG 1 EACH TAB PO PRN (22:18)
--- NOTE | 2018-03-08 00:08 | PN ---
PROGRESS NOTE DATE OF SERVICE: March 07, 2018. PRESENTING COMPLAINT: Tired. INTERVAL HISTORY: The patient admitted with nonketotic hyperglycemia and some EKG changes. Did undergo cardiac catheterization, found to have some calcified LAD, otherwise comfortable. Overall doing better. REVIEW OF SYSTEMS: Done for constitutional, cardiovascular, GI, pulmonary and relevant findings as above. CURRENT MEDICATIONS: Reviewed. The patient is on aspirin, Lasix and saline. PHYSICAL EXAMINATION: VITAL SIGNS: Temperature 97.5, pulse 67, respirations 17, blood pressure 101/52, pulse ox 98% on room air. GENERAL APPEARANCE: Lying in bed, comfortable. EYES: Pupils equal. Conjunctivae normal. NECK: JVD not raised. Mass not palpable. RESPIRATORY: Effort normal. LUNGS: Decreased breath sounds. CARDIOVASCULAR: 1st and 2nd sounds normal. No edema. ABDOMEN: Soft, nontender. Liver and spleen not palpable. PSYCHIATRY: Answering questions appropriately. INVESTIGATIONS: Cardiac cath results are noted. White count 5.9, potassium 3.8. Accu-Cheks are noted. ASSESSMENT: 1. Nonketotic hyperosmolar hyperglycemia with good response. 2. Chronic obstructive pulmonary disease in an ex-smoker. 3. Diabetes mellitus type 2 uncontrolled with hypoglycemia. 4. Chronic fibromyalgia. 5. Gastroesophageal reflux disease. 6. Essential hypertension. 7. Hypothyroidism. 8. Peripheral neuropathy from diabetes. 9. Restless legs syndrome. 10.Lupus in remission. 11.Anxiety and depression, not otherwise specified. 12.Brain aneurysm with stent, coil in place. 13.Acute metabolic encephalopathy from hypoglycemia, resolved. 14.Noncritical coronary artery disease. PLAN: Continue current medication and treatment plan. The patient's 2D echo did show EF of 45-50 percent and some wall motion abnormalities. Other medication and treatment plan is to continue. Hopefully patient can be discharged tomorrow. MMODL / IJN: [id number] /
[2018-03-08] MEDS: LEVOTHYROXINE 112 MCG TAB PO SCH (04:57)
[2018-03-08 06:29] LABS: Glucose,Whole Blood 186 mg/dL (75-99)
[2018-03-08] MEDS: INSULIN ASPART 100 UNIT/ML 1 ML 10 ML VIAL SQ SCH ×4 (06:44→21:00)
[2018-03-08] MEDS: IPRATROPIUM-ALBUTEROL 3 ML NEB INHALATION SCH ×4 (08:23→19:53)
[2018-03-08 08:50] LABS: Mean Platelet Volume 7.6; Platelet Count 244 k/uL (150-450)
[2018-03-08 09:03] LABS: Anion Gap 5 mmol/L; Blood Urea Nitrogen 16 mg/dL (7-17); Calcium 8.7 mg/dL (8.4-10.2); Carbon Dioxide 20 mmol/L (22-30); Chloride 115 mmol/L (98-107); Glucose 164 mg/dL (74-99); Magnesium 1.8 mg/dL (1.6-2.3); Potassium 4.5 mmol/L (3.5-5.1); Sodium 140 mmol/L (137-145)
[2018-03-08] MEDS: GABAPENTIN 400 MG CAP PO SCH ×3 (09:31→20:54)
[2018-03-08] MEDS: FUROSEMIDE 20 MG TAB PO SCH (09:31)
[2018-03-08] MEDS: METOPROLOL TARTRATE 25 MG TAB PO SCH ×2 (09:31→20:54)
[2018-03-08] MEDS: ASPIRIN 81 MG PO SCH (09:31)
[2018-03-08] MEDS: SODIUM CHLORIDE 0.9% 1,000 ML IV SCH (09:32)
[2018-03-08] MEDS: POTASSIUM CHLORIDE ER 20 MEQ TAB.ER PO SCH ×2 (09:32→20:53)
[2018-03-08] MEDS ORDERED: FUROSEMIDE 10 MG/ML 2 ML VIAL IV STA (11:07)
[2018-03-08 11:34] LABS: Glucose,Whole Blood 184 mg/dL (75-99)
[2018-03-08] MEDS: VENLAFAXINE HCL ER 150 MG CAP PO SCH ×2 (12:19→20:54)
--- NOTE | 2018-03-08 15:09 | P.PN ---
Subjective This is a pleasant 63-year-old female. Dr. Mares in the office. Past medical history significant for diabetes, hypertension, dyslipidemia, rheumatic fever as a child and nicotine dependence. She also has a history of TIA 5-6 years ago for which she underwent coiling and stenting at [facility]. She is seen and examined sitting up in bed in mild respiratory distress. She is mildly tachypneic. She also complains that she woke up in the middle of the night feeling short of breath and had to sit up and walk to the bathroom in order to feel better. She continues to complain of mild ongoing shortness of breath. She denies symptoms of chest pain, dizziness or palpitations. She has been receiving IV fluids at 100 mL/h due to episodes of hypertension yesterday evening. She underwent cardiac catheterization yesterday with Dr. Mares that revealed evidence of calcified left main coronary artery, as well as 30-40% plaque noted in the circumflex artery. Echocardiogram obtained reveals mildly impaired left ventricular systolic function with ejection fraction 45-50%, mild to moderate MR and mild TR noted. Right groin is is examined and is soft nontender with no evidence of hematoma, bleeding or ecchymosis. She has been up and ambulating in the halls without difficulty or pain in the leg. GENERAL: Well-appearing, well-nourished and in no acute distress. NECK: Supple without JVD or thyromegaly. LUNGS: Bibasilar rales noted. Worse on the left. Respiration equal and unlabored. No wheezes or rhonchi. HEART: Regular rate and rhythm with systolic ejection murmur at the apex, no rubs or gallops. S1 and S2 heard. EXTREMITIES: Normal range of motion, no edema. No clubbing or cyanosis. Peripheral pulses intact. Right groin soft, nontender and no hematoma no ecchymosis and no bleeding noted. Peripheral pulses intact. ASSESSMENT Episode of syncope Abnormal EKG with deep T-wave inversions anterolateral leads. COPD Evidence of mild nonobstructive coronary artery disease and catheterization performed yesterday Mildly impaired left ventricular systolic function Diabetes mellitus Hyperglycemia on admission PLAN Obtain chest x-ray to assess for fluid overload. Give 1 dose of IV Lasix 20 mg now and then BID with evidence of fluid overload on chest x-ray. Start on atorvastatin 40 mg daily and small dose of NIRMAL inhibitor 2.5 mg daily. Further recommendations to follow based upon clinical course. Nurse Practitioner note has been reviewed, I agree with a documented findings and plan of care. Patient was seen and examined. Objective - Vital Signs Vital signs: Vital Signs Temp 98.5 F 03/08/18 12:00 Pulse 69 03/08/18 12:00 Resp 16 03/08/18 12:00 BP 126/67 03/08/18 12:00 Pulse Ox 94 L 03/08/18 12:00 Intake & Output 03/07/18 03/08/18 03/08/18 18:59 06:59 18:59 Intake Total 1137 480 Output Total 714 916 4492 Balance 337 -400 -1120 Weight 85.5 kg 89.6 kg Intake: IV 675 Sodium Chloride 0.9% 1, 600 000 ml @ 100 mls/hr IV . Q10H [facility] Rx#:[id number] Oral 462 480 Output: Urine 906 599 2322 Other: Voiding Method Toilet Toilet Toilet - Labs CBC & Chem 7: 03/08/18 07:56 03/08/18 07:56 Labs: Abnormal Lab Results - Last 24 Hours (Table) 03/07/18 03/07/18 03/08/18 Range/Units 16:41 20:55 06:27 Chloride (98-107) mmol/L Carbon Dioxide (22-30) mmol/L Glucose (74-99) mg/dL POC Glucose (mg/dL) 149 H 207 H 186 H (75-99) mg/dL 03/08/18 03/08/18 Range/Units 07:56 11:29 Chloride 115 H (98-107) mmol/L Carbon Dioxide 20 L (22-30) mmol/L Glucose 164 H (74-99) mg/dL POC Glucose (mg/dL) 184 H (75-99) mg/dL
[2018-03-08] MEDS: ATORVASTATIN 40 MG TAB PO SCH (15:45)
[2018-03-08] MEDS: LISINOPRIL 2.5 MG TAB PO SCH (15:46)
[2018-03-08 16:41] LABS: Glucose,Whole Blood 181 mg/dL (75-99)
--- NOTE | 2018-03-08 17:25 | XR ---
EXAMINATION TYPE: XR chest 2V DATE OF EXAM: 03/08/2018 COMPARISON: NONE HISTORY: Dyspnea, pain TECHNIQUE: Frontal and lateral views of the chest are obtained. FINDINGS: There is no focal air space opacity, pleural effusion, or pneumothorax seen. The cardiac silhouette size is within normal limits. The osseous structures are intact. Prior vertebral augment ation of a lower thoracic vertebral body. IMPRESSION: No acute cardiopulmonary process.
[2018-03-08] MEDS: SODIUM BICARBONATE TAB 650 MG TAB PO SCH ×2 (18:48→21:00)
[2018-03-08] MEDS: traZODone HCL 100 MG TAB PO SCH (20:55)
[2018-03-08 20:58] LABS: Glucose,Whole Blood 142 mg/dL (75-99)
[2018-03-08] MEDS: ALPRAZolam 0.5 MG TAB PO SCH (21:00)
--- NOTE | 2018-03-08 21:30 | PN ---
PROGRESS NOTE DATE OF SERVICE: 03/08/2018 PRESENTING COMPLAINT: Tired. INTERVAL HISTORY: The patient admitted with nonketotic hyperglycemia, EKG changes. Cardiac catheterization showed some calcified LAD. This morning per Cardiology, patient was fluid overloaded. The patient did resume Lasix. Feeling better right now. No chest pain. REVIEW OF SYSTEMS: Done for constitutional, cardiovascular, GI, pulmonary and relevant findings as above. CURRENT MEDICATIONS: Reviewed that include p.o. Lasix. PHYSICAL EXAMINATION: VITAL SIGNS: Temperature 97, pulse 74, respirations 16, blood pressure 127/71, pulse ox 93 percent on room air. GENERAL APPEARANCE: Sitting up, not in distress. EYES: Pupils equal. Conjunctivae normal. NECK: JVD not raised. Mass not palpable. RESPIRATORY: Effort normal. LUNGS: Decreased breath sounds. CARDIOVASCULAR: 1st and 2nd sounds normal. No edema. ABDOMEN: Soft, nontender. Liver and spleen not palpable. PSYCHIATRY: Alert and oriented x3. Mood and affect normal. INVESTIGATIONS: Potassium 4.5, BUN 16, creatinine 0.78, bicarb is 20. Accu-Cheks are noted. ASSESSMENT: 1. Nonketotic hyperosmolar hypoglycemia improved. 2. Chronic obstructive pulmonary disease in an ex-smoker. 3. Diabetes mellitus type 2 uncontrolled with hyper and hypoglycemia. 4. Chronic fibromyalgia. 5. Gastroesophageal reflux disease. 6. Essential hypertension. 7. Hypothyroidism. 8. Peripheral neuropathy from diabetes. 9. Restless legs syndrome. 10.Lupus in remission. 11.Anxiety, depression not otherwise specified. 12.Brain aneurysm with stent coil in place. 13.Acute metabolic encephalopathy from hypoglycemia, resolved. 14.Nonobstructive coronary artery disease. 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 PLAN: Patient did receive some Lasix earlier today. Other medication and treatment plan. Encouraged to ambulate and see how she does. MMODL / IJN: [id number] /
[2018-03-08] MEDS: HYDROcodone/APAP 7.5-325MG 1 EACH TAB PO PRN (23:22)
[2018-03-09 06:31] LABS: Calcium 9.4 mg/dL (8.4-10.2); Potassium 4.8 mmol/L (3.5-5.1)
[2018-03-09 06:45] LABS: Glucose,Whole Blood 128 mg/dL (75-99)
[2018-03-09] MEDS: INSULIN ASPART 100 UNIT/ML 1 ML 10 ML VIAL SQ SCH ×2 (06:49→12:47)
[2018-03-09] MEDS: LEVOTHYROXINE 112 MCG TAB PO SCH (06:49)
[2018-03-09] MEDS: IPRATROPIUM-ALBUTEROL 3 ML NEB INHALATION SCH ×3 (08:00→16:33)
[2018-03-09] MEDS: VENLAFAXINE HCL ER 150 MG CAP PO SCH (08:15)
[2018-03-09] MEDS: ASPIRIN 81 MG PO SCH (08:15)
[2018-03-09] MEDS: LISINOPRIL 2.5 MG TAB PO SCH (08:15)
[2018-03-09] MEDS: POTASSIUM CHLORIDE ER 20 MEQ TAB.ER PO SCH (08:16)
[2018-03-09] MEDS: FUROSEMIDE 20 MG TAB PO SCH (08:16)
[2018-03-09] MEDS: GABAPENTIN 400 MG CAP PO SCH (08:16)
[2018-03-09] MEDS: METOPROLOL TARTRATE 25 MG TAB PO SCH (08:16)
[2018-03-09] MEDS: SODIUM BICARBONATE TAB 650 MG TAB PO SCH (08:16)
[2018-03-09] MEDS: ATORVASTATIN 40 MG TAB PO SCH (08:16)
[2018-03-09 12:00] LABS: Glucose,Whole Blood 166 mg/dL (75-99)
[2018-03-09 12:49] VITALS: BP 111/65; PULSE 72; RESP 16; TEMP 97.2
--- NOTE | 2018-03-09 13:33 | P.PN ---
Subjective Progress Note Date: 03/09/18 This is a 63-year-old female who follows regularly with Dr. Mares in the office. She has a known history of diabetes, hypertension, hyperlipidemia, rheumatic fever as a child, Rubi scan stress test was performed in 2017 which was negative for any reversible ischemia, she has a history of nicotine dependence, she states that she quit smoking approximately a year ago. Patient also has had history of TIA approximately 5 or 6 years ago and also has undergone coiling and stenting at [facility]. Earlier this year patient did undergo a bowel resection. She states that she went to see Dr. Gonzalez recently and was started on steroids for her COPD. Shortly thereafter, her blood sugars were running quite high, up to the 500 600 range. She went to the clinic, she was given some insulin, and discharged home. Patient then had a follow-up appointment, a routine visit with her neurologist, she went to see her and was recommended to have blood tests drawn. She went to visit a friend [facility] and had her labs drawn there. She then received a call at home but her blood sugars were in the 5-600 range and was advised to go back to [facility]. While in her room at [facility], patient states there is no call light in her room, but she was given something for pain, shortly thereafter, she states that she just did not feel right, she did not get out of bed, felt as though she may pass out. Shortly thereafter a friend came to visit and found her unresponsive. According to the patient, she states that he she could hear her friend's voice but was unable to open her eyes unable to speak or unable to move. Upon wakening she was alert and oriented, she did not lose bowel or bladder function. She was not on the monitor at that time. They did perform an echocardiogram with Doppler study which revealed an ejection fraction of 68%, no pericardial effusion, questionable ASD. An EKG was subsequently performed there which showed a normal sinus rhythm with significant T wave inversion noted in the anterior inferior and lateral leads. CAT scan of the brain was performed which did not reveal any acute process. Carotid ultrasound was also performed which did not reveal any hemodynamically significant stenosis. White blood cell count at [place] 9.6, hemoglobin 13.1, platelet count 223. Troponins were drawn there which came back to be 0.03, 0.03 , 0.03, magnesium 2.0, sodium 137, potassium 3.1, glucose 251, BUN 20 and creatinine 0.8. Drug screen positive for benzos otherwise negative. As of the abnormality and EKG as well as the abnormal troponin was advised for transfer here to [facility]. Blood pressure here 96/60, 91% on room air, heart rate in the 60s. White blood cell count 10.4, hemoglobin 16, platelet count 345. Sodium 140, potassium 3.7, BUN 16, creatinine 0.7. Troponins 0.018, 0.023. Chest x-ray normal. At the time of my examination this morning, patient feels well, she denies any dizziness or lightheadedness, no chest discomfort. No palpitations. 03/09/2018 Patient underwent a cardiac catheterization by Dr. Justice was not found to have any significant obstructive coronary artery disease. Repeat EKG was performed this morning which showed improvement in T wave inversion. Overall the patient feels well, denies any chest pain today and her breathing is overall stable. Blood pressure 110/60 with a heart rate in the 70s. Sodium 139, potassium 4.8, BUN 19, creatinine 0.9. Objective - Vital Signs Vital signs: Vital Signs Temp 97.2 F L 03/09/18 12:00 Pulse 72 03/09/18 12:00 Resp 16 03/09/18 12:00 BP 111/65 03/09/18 12:00 Pulse Ox 95 03/09/18 12:00 Intake & Output 03/08/18 03/09/18 03/09/18 18:59 06:59 18:59 Intake Total 670 200 520 Output Total 1600 1999 Balance -930 200 -1480 Weight 88 kg Intake: IV 10 Invasive Line 3 10 Oral 660 200 520 Output: Urine 1600 1999 Other: Voiding Method Toilet Toilet Toilet - Exam PHYSICAL EXAMINATION: GENERAL: HEENT: Head is atraumatic, normocephalic. Pupils equal, round. Sclera anicteric. Conjunctiva are clear. Mucous membranes of the mouth are moist. Neck is supple. There is no elevated jugular venous pressure. No carotid bruit is heard. HEART EXAMINATION: Heart S1, S2 normal. No murmur or gallop heard. CHEST EXAMINATION: Lungs are clear to auscultation and precussion. No chest wall tenderness is noted on palpation or with deep breathing. ABDOMEN: Soft, nontender. Bowel sounds are heard. No organomegaly noted. EXTREMITIES: 2+ peripheral pulses with no evidence of peripheral edema and no calf tenderness noted. Right groin soft, no evidence of any hematoma. NEUROLOGIC patient is awake, alert and oriented 3 . . - Labs CBC & Chem 7: 03/08/18 07:56 03/09/18 05:36 Labs: Abnormal Lab Results - Last 24 Hours (Table) 03/08/18 03/08/18 03/09/18 Range/Units 16:36 20:57 05:36 Chloride 112 H (98-107) mmol/L Carbon Dioxide 19 L (22-30) mmol/L BUN 19 H (7-17) mg/dL Glucose 125 H (74-99) mg/dL POC Glucose (mg/dL) 181 H 142 H (75-99) mg/dL 03/09/18 03/09/18 Range/Units 06:44 11:58 Chloride (98-107) mmol/L Carbon Dioxide (22-30) mmol/L BUN (7-17) mg/dL Glucose (74-99) mg/dL POC Glucose (mg/dL) 128 H 166 H (75-99) mg/dL Assessment and Plan Plan: Assessment and plan #1 hyperglycemia, likely secondary to steroids #2 syncope, rule out cardiac causes #3 history of prior CVA and history of brain coiling and stent placement #4 hypertension #5 diabetes #6 hyperlipidemia #7 abnormal troponins, not consistent with acute coronary syndrome, 0.03, 0.03, 0.03, 0.018, 0.033. EKG shows normal sinus rhythm with deep T-wave inversion in anterior inferior and lateral leads. Status post cardiac catheterization which did not reveal any significant obstructive coronary artery disease. #8 COPD #9 history of nicotine dependence #10 history of bowel resection earlier this year Plan From cardiology's perspective, patient may be able to be discharged home today. We will make her a follow-up appointment to see Dr. Mares in the office post discharge. DNP note has been reviewed, I agree with a documented findings and plan of care. Patient was seen and examined.
[2018-03-09 16:46] LABS: Glucose,Whole Blood 135 mg/dL (75-99)
--- NOTE | 2018-03-10 06:17 | DS ---
DISCHARGE SUMMARY DATE OF ADMISSION: 03/05/2018 DATE OF DISCHARGE: 03/09/2018 FINAL DIAGNOSES: 1. Nonketotic hyperosmolar hyperglycemia. 2. Chronic obstructive pulmonary disease in an ex-smoker. 3. Diabetes mellitus type 2 uncontrolled with hyper- and hypoglycemia. 4. Chronic fibromyalgia. 5. Gastroesophageal reflux disease. 6. Essential hypertension. 7. Hypothyroidism. 8. Peripheral neuropathy from diabetes. 9. Restless legs syndrome. 10.Lupus in remission. 11.Anxiety, depression, not otherwise specified. 12.Brain aneurysm, chronic with stent and a coil in place. 13.Acute metabolic encephalopathy from hyperglycemia resolved. 14.Nonobstructive coronary artery disease. 15.Mild cardiomyopathy, ejection fraction 45% to 50%. HOSPITAL COURSE: This patient presented to an outside hospital with hyperglycemia, sugars running in 500s. Does have troponin leak. The patient had diffuse T-wave changes. The patient did undergo cardiac catheterization. No significant blockage was found. It was felt that the EKG changes and mental status changes probably all from metabolic encephalopathy. A 2-D echo showed slight decrease in EF 45% to 50%. Otherwise, patient has been doing well. The patient did have a CT scan of the brain nil acute. EEG did not show any seizure activity. The patient doing much better today, was seen by Cardiology okay to be discharged. CONSULTATION: [facility]. PHYSICAL EXAMINATION: On examination, temperature 97.2, pulse 72, respiration 16, blood pressure 111/65, pulse ox 95% on room air. LUNGS: Slightly decreased breath sounds. CARDIOVASCULAR: First and second sounds normal. LABS: BUN 19, creatinine 0.93. Accu-Cheks also noted 165, 135. DISCHARGE MEDICATIONS: 1. Aspirin 81 mg a day. 2. Voltaren gel 2 grams topical daily p.r.n. 3. Neurontin 800 mg t.i.d. 4. Synthroid 112 mcg p.o. daily. 5. Anoro Ellipta 62.5/25 one puff daily. 6. Requip 3 mg q.h.s. 7. Trazodone 200 mg q.h.s. 8. Effexor XR 150 mg b.i.d. 9. Trulicity 1.5 mg subcutaneous on Wednesdays. 10.Chester 7.5 one to two tablets q.6 p.r.n. 11.Xanax 0.5 mg p.o. q.h.s. 12.Aspirin 81 mg a day. 13.Lipitor 40 mg p.o. daily. 14.Lasix 20 mg p.o. daily. 15.Zestril 2.5 p.o. daily. 16.Lopressor 25 mg p.o. b.i.d. 17.Sodium bicarb 650 mg p.o. t.i.d. DISCONTINUED MEDICATIONS: 1. Potassium. 2. Glucotrol. 3. Cardizem ER. Follow up with Dr. Mariana Young in 2 days. Follow up with Dr. Albert Mares in one week. MMODL / IJN: [id number] /
== END 2018-03-09 17:25 | disposition home or self-care (01) | DRG 637 ==
LOC: EC 18:49 → 3SCARD 19:15
PROVIDERS: ADMIT Hospitalist; ATTEND Hospitalist
PROC: 4A023N7 Measurement of Cardiac Sampling and Pressure, Left Heart, Percutaneous Approach (ICD-10-PCS; principal; 2018-03-05)
PROC: B2111ZZ Fluoroscopy of Multiple Coronary Arteries using Low Osmolar Contrast (ICD-10-PCS; 2018-03-05)
DX: E11.65 Type 2 diabetes mellitus with hyperglycemia (principal); G93.41 Metabolic encephalopathy; E87.0 Hyperosmolality and hypernatremia; I25.110 Atherosclerotic heart disease of native coronary artery with unstable angina pectoris; I42.9 Cardiomyopathy, unspecified; E03.9 Hypothyroidism, unspecified; E11.42 Type 2 diabetes mellitus with diabetic polyneuropathy; E78.5 Hyperlipidemia, unspecified; E87.70 Fluid overload, unspecified; F32.9 Major depressive disorder, single episode, unspecified; F41.9 Anxiety disorder, unspecified; G25.81 Restless legs syndrome; G47.33 Obstructive sleep apnea (adult) (pediatric); I10 Essential (primary) hypertension; I25.84 Coronary atherosclerosis due to calcified coronary lesion; I67.1 Cerebral aneurysm, nonruptured; J44.9 Chronic obstructive pulmonary disease, unspecified; K21.9 Gastro-esophageal reflux disease without esophagitis; M79.7 Fibromyalgia; T38.0X5A Adverse effect of glucocorticoids and synthetic analogues, initial encounter; Z79.82 Long term (current) use of aspirin; Z79.84 Long term (current) use of oral hypoglycemic drugs; Z79.890 Hormone replacement therapy; Z80.7 Family history of other malignant neoplasms of lymphoid, hematopoietic and related tissues; Z86.73 Personal history of transient ischemic attack (TIA), and cerebral infarction without residual deficits; Z87.891 Personal history of nicotine dependence; Z90.49 Acquired absence of other specified parts of digestive tract; Z90.710 Acquired absence of both cervix and uterus; Z96.1 Presence of intraocular lens; Z98.42 Cataract extraction status, left eye; Z98.41 Cataract extraction status, right eye
CPT/HCPCS: 70450; 71046; 80048; 80053; 80061; 82550; 82553; 83036; 83735; 84484; 85025; 85049; 85379; 85610; 85730; 93005; 93306; 93458; 95816; 96365; 96366; 96376; 99291

== ENCOUNTER → 2019-05-20 | Outpatient (CLI) | payer MEDICARE, OTHER ==
--- NOTE | 2019-05-20 16:19 | CT ---
EXAMINATION TYPE: CT abdomen pelvis w con DATE OF EXAM: 05/20/2019 COMPARISON: CT from outside institution dated 01/04/2018, 11/13/2016 HISTORY: abdominal pain. hx of diverticulitis. CT DLP: 1422 mGycm Automated exposure control for dose reduction was used. TECHNIQUE: Helical acquisition of images from the lung bases through the pelvis have been completed. CONTRAST: Performed with Oral Contrast and with IV Contrast, patient injected with 100 mL of Isovue 300. FINDINGS: LUNG BASES: No significant abnormality is appreciated. AORTA: No significant abnormality is appreciated. LIVER/GB: Liver shows low attenuation consistent with hepatic steatosis, liver is enlarged. Gallbladd er is absent. PANCREAS: No significant abnormality is seen. SPLEEN: No significant abnormality is seen. ADRENALS: No significant abnormality is seen. KIDNEYS: No significant abnormality is seen. REPRODUCTIVE ORGANS: Uterus and adnexal structures are not seen. BOWEL: Postop changes are noted to the sigmoid colon, there are scattered diverticular changes prese nt and there is retained fecal debris present within the a sending, transverse, descending colon to t he level of the anastomosis, some material is present distal to this level additionally. Postop winn es are present at the level of the cecum, appendix is not seen. FREE AIR: No Free Air visible. ASCITES: None visible. PELVIC ADENOPATHY: None visualized. RETROPERITONEAL ADENOPATHY: No Retroperitoneal Adenopathy visible. URINARY BLADDER: No significant abnormality is seen. OSSEOUS STRUCTURES: Vertebral plasty changes are again noted within the L2 and L1 vertebral bodies. IMPRESSION: CORRELATE FOR FECAL STASIS. Hepatomegaly, suspect hepatic steatosis. Postop changes. Diverticulosis.
== END | disposition home or self-care (01) ==
LOC: RADCTMAIN 12:50
PROVIDERS: ATTEND Surgery Plastic and Reconstructive Surgery
DX: K57.90 Diverticulosis of intestine, part unspecified, without perforation or abscess without bleeding (principal); R16.0 Hepatomegaly, not elsewhere classified; Z98.890 Other specified postprocedural states
CPT/HCPCS: 82565; 84520; 74177; 36415; Q9967

== ENCOUNTER 2019-06-03 06:03 | Day surgery (SDC) | payer MEDICARE, OTHER ==
[2019-06-01 10:00] VITALS: BMI 29.7
[~2019-06-03 06:03] MED LIST changes: -CLINDAMYCIN 900 MG in DEXTROSE 5% IN WATER 50 ML IVPB ONE; -DEXAMETHASONE SOD PHOSPHATE 10 MG/ML 1 ML VIAL IV ONE; -GENTAMICIN 440 MG in SODIUM CHLORIDE 0.9% 100 ML IVPB ONE; -HEPARIN SODIUM,PORCINE 5,000 UNIT/ML 1 ML VIAL SQ ONE; +LACTATED RINGERS 1,000 ML IV SCH; +LIDOCAINE 1% 20 ML VIAL (10MG/ML) FOR IV START INTRADERMA PRN; -MIDAZOLAM 2 MG/2 ML VIAL IV PRN; -ONDANSETRON 4 MG/2 ML VIAL IVP ONE; -SCOPOLAMINE 1.5MG/72HR PATCH TRANSDERM ONE; -fentaNYL (PF) 50 MCG/ML 2 ML AMP IV PRN
[2019-06-03 06:36] VITALS: TEMP 97.5
[2019-06-03 06:40] LABS: Glucose,Whole Blood 136 mg/dL (75-99)
--- NOTE | 2019-06-03 07:33 | P.GSHP ---
History of Present Illness H&P Date: 06/03/19 CHIEF COMPLAINT: GERD and colon screen HISTORY OF PRESENT ILLNESS: The patient is a 64-year-old female who presents with gastroesophageal reflux disease and need for colon screen. Upper and lower endoscopy were offered for further evaluation and management. PAST MEDICAL HISTORY: Please see list. PAST SURGICAL HISTORY: Please see list. MEDICATIONS: Please see list. ALLERGIES: Please see list. SOCIAL HISTORY: No illicit drug use FAMILY HISTORY: No reports of Crohn disease or ulcerative colitis. REVIEW OF ORGAN SYSTEMS: CONSTITUTIONAL: No reports of fevers or chills. GI: Denies any blood in stools or constipation. PHYSICAL EXAM: VITAL SIGNS: Stable GENERAL: Well-developed pleasant in no acute distress. HEENT: No scleral icterus. Extraocular movements grossly intact. Moist buccal mucosa. NECK: Supple without lymphadenopathy. CHEST: Unlabored respirations. Equal bilateral excursions. CARDIOVASCULAR: Regular rate and rhythm. Distal 2+ pulses. ABDOMEN: Soft, nondistended. MUSCULOSKELETAL: No clubbing, cyanosis, or edema. ASSESSMENT: 1. Gastroesophageal reflux disease 2. Colon screen. PLAN: 1. Recommend proceeding with an upper and lower endoscopy Past Medical History Past Medical History: Asthma, COPD, CVA/TIA, Diabetes Mellitus, Fibromyalgia, GERD/Reflux, Hypertension, Neurologic Disorder, Sleep Apnea/CPAP/BIPAP, Thyroid Disorder Additional Past Medical History / Comment(s): NEUROPATHY FEET, RLS,diverticulitis, HX OF RHEMATIC FEVER, HAS HOLE IN BACK OF HEART., HX OF SEPSIS FROM PORT INFECTIONS., STATES NO LONGER USING C-PAP MACHINE., STATES FREQUENT DIARRHEA., LUPUS., aneurysm back of brain surgery with coil, and stent to repair History of Any Multi-Drug Resistant Organisms: None Reported Past Surgical History: Bowel Resection, Section, Hysterectomy, Joint Replacement Additional Past Surgical History / Comment(s): THUMB SURGERY, BRUCE TOTAL KNEES, PORT INSERTED & REMOVED. Lap Nasir with hiatal hernia repair with mesh 05/09/2017 ,surgery to repair brain aneurysm with coil and stent, bruce elbow surgery ,lap sigmoid colectomy, cataracts-lens implants, COLONOSCOPY Past Anesthesia/Blood Transfusion Reactions: Blood Transfusion Reaction Additional Past Anesthesia/Blood Transfusion Reaction / Comment(s): STATES BLOOD TRANSFUSION 45 years ago WITH CHILD - STATES RASH AND ITCHING Smoking Status: Former smoker - Past Family History Mother Family Medical History: Deep Vein Thrombosis (DVT) Daughter(s) Family Medical History: Cancer Additional Family Medical History / Comment(s): lymphoma Medications and Allergies Home Medications Medication Instructions Recorded Confirmed Type Aspirin [Adult Low Dose Aspirin EC] 81 mg PO DAILY 11/27/16 06/01/19 History Diclofenac Sodium [Voltaren Gel] 2 gram TOPICAL DAILY PRN 11/27/16 06/01/19 History Levothyroxine Sodium [Synthroid] 112 mcg PO DAILY 11/27/16 06/01/19 History Umeclidinium Brm/Vilanterol Tr 1 puff INHALATION RT-DAILY 11/27/16 06/01/19 History [Anoro Ellipta 62.5-25 Mcg INH] rOPINIRole HCL [Requip] 3 mg PO HS 11/27/16 06/01/19 History traZODone HCL 200 mg PO HS 11/27/16 06/01/19 History Venlafaxine HCl [Effexor XR] 150 mg PO BID 05/03/17 06/01/19 History Dulaglutide [Trulicity] 1.5 mg SQ WE 11/18/17 06/01/19 History HYDROcodone/APAP 7.5-325MG [[place] 1 - 2 tab PO Q6HR PRN 11/18/17 06/01/19 History 7.5-325] ALPRAZolam [Xanax] 0.5 mg PO HS 03/05/18 06/01/19 History Atorvastatin [Lipitor] 40 mg PO DAILY #30 tab 03/09/18 06/01/19 Rx Furosemide [Lasix] 20 mg PO DAILY #0 03/09/18 06/01/19 Rx Lisinopril [Zestril] 2.5 mg PO DAILY #30 tab 03/09/18 06/01/19 Rx Sodium Bicarbonate Tab 650 mg PO TID #30 tab 03/09/18 06/01/19 Rx Allergies Allergy/AdvReac Type Severity Reaction Status Date / Time ceftriaxone [From Rocephin] Allergy Severe PASSED OUT Verified 06/03/19 06:18 Sulfa (Sulfonamide Allergy Unknown Rash/Hives, Verified 06/03/19 06:18 Antibiotics) Itchy morphine Allergy Swelling Verified 06/03/19 06:18 dermabond Allergy Rash/Hives Uncoded 06/03/19 06:18 Surgical - Exam Vital Signs Temp Pulse Resp BP Pulse Ox 97.5 F L 99 16 158/80 95 06/03/19 06:30 06/03/19 06:30 06/03/19 06:30 06/03/19 06:30 06/03/19 06:30 Results - Labs Abnormal Lab Results - Last 24 Hours (Table) 06/03/19 Range/Units 06:35 POC Glucose (mg/dL) 136 H (75-99) mg/dL
[2019-06-03] MEDS ORDERED: LIDOCAINE 1% INJ 10MG/ML (20 ML MDV) ONE (07:35)
[2019-06-03] MEDS ORDERED: PROPOFOL 10 MG/ML 20 ML VIAL IV ONE (07:35)
--- NOTE | 2019-06-03 07:48 | P.PCN ---
Date of Procedure: 06/03/19 Description of Procedure: PREOPERATIVE DIAGNOSIS: Gastroesophageal reflux disease. POSTOPERATIVE DIAGNOSIS: Gastritis. Gastroesophageal reflux disease. Diaphragmatic hiatal hernia OPERATION: Esophagogastroduodenoscopy with biopsies along antrum. SURGEON: Mahsa Tan MD ANESTHESIA: MAC. INDICATIONS: The patient is a 64-year-old female who presents with a history of reflux disease. Benefits and risks of the procedure were described. Informed consent was obtained. DESCRIPTION: The patient was brought into the endoscopy suite and laid in the left lateral decubitus position. An Olympus gastroscope was passed along the posterior oropharynx down to the distal esophagus where the squamocolumnar junction was encountered at 37 cm from the incisors. The stomach was entered and no bile reflux was found. Additional findings are listed below. Biopsies with cold forceps were obtained of the antrum. The first through third portion of the duodenum was examined and unremarkable. Retroflexion of the scope confirmed Hill grade 1 lower esophageal valve. The squamocolumnar junction demonstrated LA grade B erosive esophagitis. The stomach was desufflated. The patient tolerated the procedure well. FINDINGS: Squamocolumnar junction 37 cm from the incisors. Diaphragmatic hiatus at 37 cm. Hill grade 1 lower esophageal valve. LA grade B erosive esophagitis. No active duodenitis. Chronic gastritis RECOMMENDATIONS: Upper endoscopy as needed.
--- NOTE | 2019-06-03 08:17 | P.PCN ---
Date of Procedure: 06/03/19 Description of Procedure: PREOPERATIVE DIAGNOSIS: Personal history of colon polyps Colonoscopy screening History of partial colectomy POSTOPERATIVE DIAGNOSIS: Personal history of colon polyps Colonoscopy screening History of sigmoid colectomy Tubular adenoma ascending colon Sigmoid diverticulosis OPERATION: Colonoscopy to the ileocecal valve and appendiceal orifice. Colonoscopy with multiple hot snare polypectomies SURGEON: Mahsa Tan MD. ANESTHESIA: MAC. INDICATIONS: The patient is an 64-year-old male who presents family history of malignant colon polyps and personal history of colon polyps. Last colonoscopy 5 years. Benefits and risks were described and informed consent was obtained. DESCRIPTION OF PROCEDURE: The patient had undergone Suprep. She had been brought into the operating room and laid in the left lateral decubitus position. After adequate intravenous sedation, the rectum was examined with 2% lidocaine jelly. No external hemorrhoids were encountered. The rectal tone was within normal limits. No lesions were palpated in the rectal vault. An Olympus colonoscope was advanced until the ileocecal valve and appendiceal orifice were clearly viewed. The prep was excellent. Sigmoid diverticulosis was encountered. The anastomosis was unremarkable along the sigmoid colon. Ascending colonic polyps were found and snare polypectomy. No evidence of focal colitis was found. Retroflexion of the scope demonstrated no internal hemorrhoids without active bleeding or i nflammation. The colon was desufflated. The patient had tolerated the procedure well. Withdrawal time was over 6 minutes. FINDINGS: Aronchick preparation quality scale 1 (1-5) No internal hemorrhoids No external hemorrhoids No arteriovenous malformations. Sigmoid diverticulosis Sigmoid anastomosis from previous colectomy intact Removal of 2 polyps: - Snare polypectomy ascending colon, 4 and 6 mm tubulovillous adenoma polyp. No focal colitis. RECOMMENDATIONS: Repeat colonoscopy in 3 years, 2022 Plan - Discharge Summary Discharge Rx Participant: No New Discharge Prescriptions: Continue Umeclidinium Brm/Vilanterol Tr [Anoro Ellipta 62.5-25 Mcg INH] 1 puff INHALATION RT-DAILY Levothyroxine Sodium [Synthroid] 112 mcg PO DAILY rOPINIRole HCL [Requip] 3 mg PO HS traZODone HCL 200 mg PO HS Diclofenac Sodium [Voltaren Gel] 2 gram TOPICAL DAILY PRN PRN Reason: Pain Aspirin [Adult Low Dose Aspirin EC] 81 mg PO DAILY Venlafaxine HCl [Effexor XR] 150 mg PO BID Dulaglutide [Trulicity] 1.5 mg SQ WE HYDROcodone/APAP 7.5-325MG [[place] 7.5-325] 1 - 2 tab PO Q6HR PRN PRN Reason: Pain ALPRAZolam [Xanax] 0.5 mg PO HS Lisinopril [Zestril] 2.5 mg PO DAILY #30 tab Sodium Bicarbonate Tab 650 mg PO TID #30 tab Furosemide [Lasix] 20 mg PO DAILY #0 Atorvastatin [Lipitor] 40 mg PO DAILY #30 tab Discharge Medication List Aspirin [Adult Low Dose Aspirin EC] 81 mg PO DAILY 11/27/16 [History] Diclofenac Sodium [Voltaren Gel] 2 gram TOPICAL DAILY PRN 11/27/16 [History] Levothyroxine Sodium [Synthroid] 112 mcg PO DAILY 11/27/16 [History] Umeclidinium Brm/Vilanterol Tr [Anoro Ellipta 62.5-25 Mcg INH] 1 puff INHALATION RT-DAILY 11/27/16 [History] rOPINIRole HCL [Requip] 3 mg PO HS 11/27/16 [History] traZODone HCL 200 mg PO HS 11/27/16 [History] Venlafaxine HCl [Effexor XR] 150 mg PO BID 05/03/17 [History] Dulaglutide [Trulicity] 1.5 mg SQ WE 11/18/17 [History] HYDROcodone/APAP 7.5-325MG [[place] 7.5-325] 1 - 2 tab PO Q6HR PRN 11/18/17 [History] ALPRAZolam [Xanax] 0.5 mg PO HS 03/05/18 [History] Atorvastatin [Lipitor] 40 mg PO DAILY #30 tab 03/09/18 [Rx] Furosemide [Lasix] 20 mg PO DAILY #0 03/09/18 [Rx] Lisinopril [Zestril] 2.5 mg PO DAILY #30 tab 03/09/18 [Rx] Sodium Bicarbonate Tab 650 mg PO TID #30 tab 03/09/18 [Rx] Follow up Appointment(s)/Referral(s): Mahsa Tan MD [STAFF PHYSICIAN] - 1 Week Patient Instructions/Handouts: Colorectal Polyps (IP), Esophagitis (DC), Gastroesophageal Reflux Disease (DC) Activity/Diet/Wound Care/Special Instructions: Repeat colonoscopy 3 years, 2022 Discharge Disposition: HOME SELF-CARE
[2019-06-03 08:33] VITALS: BP 117/58; PULSE 80; RESP 16
== END 2019-06-03 09:06 | disposition home or self-care (01) ==
LOC: ORWHC2ENDO 06:03
PROVIDERS: ATTEND Surgery Plastic and Reconstructive Surgery
DX: K29.50 Unspecified chronic gastritis without bleeding (principal); K21.0 Gastro-esophageal reflux disease with esophagitis; K22.10 Ulcer of esophagus without bleeding; K44.9 Diaphragmatic hernia without obstruction or gangrene; Z12.11 Encounter for screening for malignant neoplasm of colon; D12.2 Benign neoplasm of ascending colon; Z86.010 Personal history of colon polyps; K57.30 Diverticulosis of large intestine without perforation or abscess without bleeding; Z98.0 Intestinal bypass and anastomosis status; Z80.0 Family history of malignant neoplasm of digestive organs; E11.42 Type 2 diabetes mellitus with diabetic polyneuropathy; J44.9 Chronic obstructive pulmonary disease, unspecified; M79.7 Fibromyalgia; I10 Essential (primary) hypertension; G47.33 Obstructive sleep apnea (adult) (pediatric); G25.81 Restless legs syndrome; M32.9 Systemic lupus erythematosus, unspecified; E78.5 Hyperlipidemia, unspecified; E03.9 Hypothyroidism, unspecified; Z90.49 Acquired absence of other specified parts of digestive tract; Z86.19 Personal history of other infectious and parasitic diseases; Z87.19 Personal history of other diseases of the digestive system; Z86.79 Personal history of other diseases of the circulatory system; Z95.828 Presence of other vascular implants and grafts; Z98.890 Other specified postprocedural states; Z90.710 Acquired absence of both cervix and uterus; Z96.653 Presence of artificial knee joint, bilateral; Z98.42 Cataract extraction status, left eye; Z98.41 Cataract extraction status, right eye; Z96.1 Presence of intraocular lens; Z87.898 Personal history of other specified conditions; Z87.891 Personal history of nicotine dependence; Z79.82 Long term (current) use of aspirin; Z79.890 Hormone replacement therapy; Z79.899 Other long term (current) drug therapy; Z79.84 Long term (current) use of oral hypoglycemic drugs; Z88.1 Allergy status to other antibiotic agents; Z88.2 Allergy status to sulfonamides; Z88.5 Allergy status to narcotic agent; Z91.09 Other allergy status, other than to drugs and biological substances; Z97.2 Presence of dental prosthetic device (complete) (partial); Z86.73 Personal history of transient ischemic attack (TIA), and cerebral infarction without residual deficits; Z82.49 Family history of ischemic heart disease and other diseases of the circulatory system; Z80.7 Family history of other malignant neoplasms of lymphoid, hematopoietic and related tissues
CPT/HCPCS: 88305; 45385; 43239; J2001; J2704

== ENCOUNTER → 2020-05-30 | Outpatient (CLI) | payer MEDICARE, OTHER ==
--- NOTE | 2020-06-01 08:26 | CTL ---
EXAMINATION TYPE: CT Low Dose Lung DATE OF EXAM ORDERED: 05/30/2020 HISTORY: 65-year-old female Z87.891, personal history of tobacco use. Lung cancer screening CT DLP: [address] CTDI: 2.07 mGy Automated exposure control for dose reduction was used. SCREENING VISIT: Baseline COMPARISON: CT abdomen 01/04/2018 TECHNIQUE: Low dose computed tomography scan was performed through the chest at 1 mm thick sections a nd reconstructed images in the coronal and sagittal plane. Additional coronal MIP reconstruction was performed. CT DIAGNOSTIC QUALITY: Satisfactory FINDINGS: Heart normal size without pericardial effusion. Three-vessel coronary artery calcifications are noted . Aorta normal caliber with mild atherosclerotic arch calcifications and conventional arch vessel branc pawel anatomy. No thoracic lymphadenopathy by CT size criteria. There is mild/moderate diffuse bronchial wall thickening and moderate upper lung centrilobular emphys tano. Tiny 2 mm posterior right upper lobe pulmonary nodule, axial image 36. 3 mm pulmonary nodule posterior left upper lobe, axial image 67. Mild dependent atelectasis. No consolidation or pleural effusion. Visualized upper abdomen shows no gross abnormality. Bones: Vertebroplasty change within T12 and L1 vertebra. There is superior endplate deformity also no johana of T11 and T4 vertebra. Referring to the CT abdomen of 01/04/2018, the T11 endplate injury is new from that time. Slight retropulsion into the ventral spinal canal at the T12 level as progressed from 01/04/2018. No significant paravertebral soft tissue swelling seen at these levels. IMPRESSION: 1. LungRADS 2, benign. A couple tiny 3 mm and smaller pulmonary nodules at baseline. 2. COPD with moderate emphysema and suspected component of chronic bronchitis. Recommend smoking cess ation. 3. COPD with three-vessel coronary artery calcifications. 4. Previous T12 and L1 vertebroplasty. Age indeterminate T4 and T11 superior endplate deformities als o noted. As compared to the CT abdomen on 01/04/2018, the T11 endplate injury is new from that time. C linically correlate. CT LUNG RAD AND CT CHEST RECOMMENDATION: Lung-Rad 2 Benign Appearance or Behavior: Continue annual sc reening with LDCT in 12 months.
== END | disposition home or self-care (01) ==
LOC: RADCTMAIN 15:30
PROVIDERS: ATTEND Internal Medicine Critical Care Medicine
DX: Z12.2 Encounter for screening for malignant neoplasm of respiratory organs (principal); R91.8 Other nonspecific abnormal finding of lung field; J43.9 Emphysema, unspecified; I25.10 Atherosclerotic heart disease of native coronary artery without angina pectoris; F17.210 Nicotine dependence, cigarettes, uncomplicated; Z98.890 Other specified postprocedural states
CPT/HCPCS: 71271

== ENCOUNTER 2020-08-18 06:51 | Observation (INO) | payer MEDICARE, OTHER ==
[2020-08-17 09:28] VITALS: BMI 27.3
[2020-08-18] MEDS ORDERED: ONDANSETRON 4 MG/2 ML VIAL ONE (07:34)
[2020-08-18] MEDS ORDERED: DEXAMETHASONE SOD PHOSPHATE 10 MG/ML 1 ML VIAL ONE (07:36)
[2020-08-18] MEDS ORDERED: PROPOFOL 10 MG/ML 20 ML VIAL IV ONE (07:36)
[2020-08-18] MEDS ORDERED: METOCLOPRAMIDE 5 MG/ML 2 ML VIAL ONE (07:36)
[2020-08-18] MEDS ORDERED: LIDOCAINE 1% INJ 10MG/ML (20 ML MDV) ONE (07:36)
--- NOTE | 2020-08-18 07:42 | P.GSHP ---
History of Present Illness H&P Date: 08/18/20 CHIEF COMPLAINT: Epigastric abdominal pain HISTORY OF PRESENT ILLNESS: The patient is a 65-year-old female who reported epigastric abdominal pain and also gastroesophageal reflux disease. She reports the last 1-2 days unable to tolerate anything by mouth. She reports new intractable nausea and vomiting. She initially presented for elective upper endoscopy however her symptoms have gotten worse. Multiple IVs have been attempted due to severe dehydration. Secondary to severe abdominal pain which she says is 10 out of 10 including inadequate oral intake, patient is being admitted for IV fluid hydration and completion of her upper endoscopy workup. PAST MEDICAL HISTORY: Please see list. PAST SURGICAL HISTORY: Please see list. MEDICATIONS: Please see list. ALLERGIES: Please see list. SOCIAL HISTORY: No illicit drug use FAMILY HISTORY: No reports of Crohn disease or ulcerative colitis. REVIEW OF ORGAN SYSTEMS: CONSTITUTIONAL: Denies any fever or chills. HEENT: Denies any trouble with vision or nosebleeds. Has difficulty swallowing. LYMPHATIC: The patient denies any lumps and bumps around the neck. ENDOCRINE: Has thyroid disorders. Has blood sugar glucose intolerance. RESPIRATORY: Has chronic obstructive pulmonary disease. CARDIOVASCULAR: Past chest pain, palpitations, or recent heart attacks. GASTROINTESTINAL: Has a change in bowel habits Has no intractable nausea and vomiting and generalized abdominal pain. GENITOURINARY: No increased urinary frequency. MUSCULOSKELETAL: Has back pain, stiffness, joint arthritis. NEUROLOGIC: Denies any numbness or tingling along the distal extremities. No seizure disorders or headaches. PSYCHIATRIC: Has depression. No suidical ideation. HEMATOLOGIC: Denies any abnormal bleeding or bruising. PHYSICAL EXAM: VITAL SIGNS: Stable GENERAL: Well-developed pleasant in no acute distress. HEENT: No scleral icterus. Extraocular movements grossly intact. Moist buccal mucosa. NECK: Supple without lymphadenopathy. CHEST: Unlabored respirations. Equal bilateral excursions. CARDIOVASCULAR: Regular rate and rhythm. Distal 2+ pulses. ABDOMEN: Soft, nontender, nondistended. MUSCULOSKELETAL: No clubbing, cyanosis, or edema. NERUO: Regular 2-12 grossly intact. PSYCH: Alert and oriented to person place and time. ASSESSMENT: 1. Intractable nausea and vomiting 2. Dehydration 3. Epigastric abdominal pain now generalized abdominal pain 4. Gastroesophageal reflux disease PLAN: 1. Will proceed with upper endoscopy for intractable nausea and vomiting including epigastric abdominal pain and gastroesophageal reflux disease 2. Recommend admission with IV fluid hydration including additional workup for new generalized abdominal pain 3. Additional workup including CT of the abdomen and pelvis advised following IV fluid hydration Past Medical History Past Medical History: Asthma, COPD, CVA/TIA, Diabetes Mellitus, Fibromyalgia, GERD/Reflux, Hypertension, Neurologic Disorder, Sleep Apnea/CPAP/BIPAP, Thyroid Disorder Additional Past Medical History / Comment(s): NEUROPATHY FEET, RLS,diverticulitis HX OF RHEUMATIC FEVER, HAS HOLE IN BACK OF HEART., HX OF SEPSIS FROM PORT INFECTIONS., STATES NO LONGER USING C-PAP MACHINE., STATES FREQUENT DIARRHEA., LUPUS., aneurysm back of brain surgery with coil, and stent to repair, difficulty swallowing History of Any Multi-Drug Resistant Organisms: None Reported Past Surgical History: Back Surgery, Section, Hysterectomy, Joint Replacement Additional Past Surgical History / Comment(s): THUMB SURGERY, BRUCE TOTAL KNEES, PORT INSERTED & REMOVED. Lap Nasir with hiatal hernia repair with mesh 05/09/2017 ,surgery to repair brain aneurysm with coil and stent, bruce elbow surgery ,lap sigmoid colectomy, cataracts-lens implants, back surgery 06/23/20 Past Anesthesia/Blood Transfusion Reactions: Blood Transfusion Reaction Additional Past Anesthesia/Blood Transfusion Reaction / Comment(s): STATES BLOOD TRANSFUSION 45 years ago WITH CHILD - STATES RASH AND ITCHING Smoking Status: Former smoker - Past Family History Mother Family Medical History: Deep Vein Thrombosis (DVT) Daughter(s) Family Medical History: Cancer Additional Family Medical History / Comment(s): lymphoma Medications and Allergies Home Medications Medication Instructions Recorded Confirmed Type Aspirin [Adult Low Dose Aspirin EC] 81 mg PO DAILY 11/27/16 08/17/20 History Diclofenac Sodium [Voltaren Gel] 2 gram TOPICAL DAILY PRN 11/27/16 08/17/20 History Levothyroxine Sodium [Synthroid] 112 mcg PO DAILY 11/27/16 08/17/20 History Umeclidinium Brm/Vilanterol Tr 1 puff INHALATION RT-DAILY 11/27/16 08/17/20 History [Anoro Ellipta 62.5-25 Mcg INH] rOPINIRole HCL [Requip] 3 mg PO HS 11/27/16 08/17/20 History traZODone HCL 200 mg PO HS 11/27/16 08/17/20 History Venlafaxine HCl [Effexor XR] 150 mg PO BID 05/03/17 08/17/20 History Dulaglutide [Trulicity] 1.5 mg SQ WE 11/18/17 08/17/20 History ALPRAZolam [Xanax] 0.5 mg PO HS 03/05/18 08/17/20 History Atorvastatin [Lipitor] 40 mg PO DAILY #30 tab 03/09/18 08/17/20 Rx Furosemide [Lasix] 20 mg PO DAILY #0 03/09/18 08/17/20 Rx lisinopriL [Zestril] 2.5 mg PO DAILY #30 tab 03/09/18 08/17/20 Rx Percocet (Unkn.Dose) 1 tab PO DAILY 08/17/20 08/17/20 History Allergies Allergy/AdvReac Type Severity Reaction Status Date / Time ceftriaxone [From Rocephin] Allergy Severe PASSED OUT Verified 08/17/20 09:14 Sulfa (Sulfonamide Allergy Unknown Rash/Hives, Verified 08/17/20 09:14 Antibiotics) Itchy morphine Allergy Swelling Verified 08/17/20 09:14 dermabond Allergy Rash/Hives Uncoded 08/17/20 09:14
[2020-08-18] MEDS ORDERED: LIDOCAINE 1% (10MG/ML) FOR IV START INTRADERMA ONE (07:45)
[2020-08-18] MEDS ORDERED: ONDANSETRON 4 MG/2 ML VIAL IVP ONE (07:47)
[2020-08-18] MEDS ORDERED: LACTATED RINGERS 1,000 ML IV ONE (07:47)
[2020-08-18 07:55] LABS: Glucose,Whole Blood 150 mg/dL (75-99)
[2020-08-18] MEDS ORDERED: ONDANSETRON 4 MG/2 ML VIAL IVP PRN (08:09)
[2020-08-18] MEDS ORDERED: NALOXONE 0.4 MG/ML 1 ML VIAL IV PRN (08:09)
[2020-08-18] MEDS ORDERED: METOCLOPRAMIDE 5 MG/ML 2 ML VIAL IVP PRN (08:09)
[2020-08-18] MEDS ORDERED: SODIUM CHLORIDE 0.9% 2,000 ML IV ONE (08:10)
[2020-08-18] MEDS ORDERED: DICLOFENAC SODIUM GEL 100 GM TUBE TOPICAL PRN (08:11)
[2020-08-18] MEDS ORDERED: IV FLUID CONTINUATION 1,000 ML IV ONE ×2 (08:13)
--- NOTE | 2020-08-18 08:16 | P.PCN ---
Date of Procedure: 08/18/20 Description of Procedure: PREOPERATIVE DIAGNOSIS: Gastroesophageal reflux disease Intractable nausea with vomiting Severe epigastric abdominal pain POSTOPERATIVE DIAGNOSIS: Gastroesophageal reflux disease with erosive esophagitis Duodenal ulcer, acute Acute gastritis with recent bleed OPERATION: Esophagogastroduodenoscopy with biopsies along antrum, and duodenum SURGEON: Mahsa Tan MD ANESTHESIA: MAC. INDICATIONS: The patient is a 65-year-old female who presents with a history of reflux d isease. She reports severe epigastric abdominal pain including intractable nausea and vomiting upon presentation. Benefits and risks of the procedure were described. Informed consent was obtained. DESCRIPTION: The patient was brought into the endoscopy suite and laid in the left lateral decubitus position. An Olympus gastroscope was passed along the posterior oropharynx down to the distal esophagus where the squamocolumnar junction was encountered at 37 cm from the incisors. The stomach was entered and no bile reflux was found. Additional findings are listed below. Biopsies with cold forceps were obtained of the antrum. The first through third portion of the duodenum was examined and remarkable for acute duodenal ulcers. Retroflexion of the scope confirmed Hill grade 1 lower esophageal valve. The squamocolumnar junction demonstrated LA grade B erosive esophagitis. The stomach was desufflated. The patient tolerated the procedure well. FINDINGS: Squamocolumnar junction 37 cm from the incisors. Diaphragmatic hiatus at 37 cm. Hill grade 1 lower esophageal valve. Active duodenitis with duodenal ulcer Chronic gastritis with recent bleed RECOMMENDATIONS: 1. Start Protonix 40 mg twice daily 2. Recommend Carafate 1 g 3 times daily
[2020-08-18] MEDS: ACETAMINOPHEN IV (For NPO) 1,000 MG in EMPTY BAG 1 BAG IVPB ONE ×2 (08:32→08:47)
[2020-08-18] MEDS: SODIUM CHLORIDE 0.9% 1,000 ML IV SCH ×2 (09:55→18:57)
[2020-08-18] MEDS: PANTOPRAZOLE 40 MG/10 ML VIAL IVP SCH ×2 (09:55→22:13)
[2020-08-18] MEDS: SUCRALFATE 1 GM TAB PO SCH ×2 (09:55→18:51)
[2020-08-18] MEDS: IPRATROPIUM 0.5 MG/2.5 ML NEBU INHALATION SCH ×3 (10:56→21:25)
[2020-08-18 12:17] LABS: Basophils % (A) 0 %; Eosinophils % (A) 0 %; HCT 38.5 % (34.0-46.0); Hypochromasia Moderate; Lymphocytes % (A) 14 %; MCH 27.3 pg (25.0-35.0); MCHC 31.1 g/dL (31.0-37.0); MCV 87.8 fL (80.0-100.0); Mean Platelet Volume 7.5; Monocytes # (A) 0.1 k/uL (0-1.0); Monocytes % (A) 2 %; Neutrophils # (A) 5.6 k/uL (1.3-7.7); Neutrophils % (A) 83 %; Platelet Count 257 k/uL (150-450); RBC 4.39 m/uL (3.80-5.40); RDW 15.4 % (11.5-15.5); WBC 6.7 k/uL (3.8-10.6)
[2020-08-18 12:29] LABS: Albumin 3.4 g/dL (3.5-5.0); Calcium 8.5 mg/dL (8.4-10.2); Potassium 4.1 mmol/L (3.5-5.1); Total Bilirubin 0.7 mg/dL (0.2-1.3); Total Protein 6.5 g/dL (6.3-8.2)
[2020-08-18] MEDS ORDERED: HYDROmorphone 1 MG/ML 1 ML SYRINGE IVP PRN (16:07)
[2020-08-18] MEDS: IOPAMIDOL CONTRAST (ORAL USE) VIAL PO PRN ×2 (16:46→17:29)
[2020-08-18] MEDS ORDERED: ACETAMINOPHEN TAB 500 MG TAB PO SCH (18:00)
[2020-08-18] MEDS ORDERED: FORMOTEROL FUMARATE 20 MCG/2 ML NEBU INHALATION SCH (20:00)
[2020-08-18 20:31] VITALS: BP 143/76; PULSE 81; RESP 18; TEMP 97.7
[2020-08-18] MEDS ORDERED: traZODone HCL 100 MG TAB PO SCH (21:00)
[2020-08-18] MEDS ORDERED: ALPRAZolam 0.5 MG TAB PO SCH (21:00)
[2020-08-18] MEDS ORDERED: VENLAFAXINE HCL ER 150 MG CAP PO SCH (21:00)
--- NOTE | 2020-08-18 21:43 | CT ---
EXAMINATION TYPE: CT abdomen pelvis w con DATE OF EXAM: 08/18/2020 COMPARISON: 05/20/2019 CT HISTORY: Pain CT DLP: 1082.2 mGycm Automated exposure control for dose reduction was used. TECHNIQUE: Helical acquisition of images was performed from the lung bases through the pelvis. IV CONTRAST: 30 mL Isovue-300. FINDINGS: LUNG BASES: No significant abnormality is appreciated. LIVER/GB: No significant abnormality is appreciated. PANCREAS: No significant abnormality is seen. SPLEEN: No significant abnormality is seen. ADRENALS: No significant abnormality is seen. KIDNEYS: No significant abnormality is seen. PERITONEAL CAVITY: No peritoneal fluid or pneumoperitoneum. RETROPERITONEAL ADENOPATHY: None visualized REPRODUCTIVE ORGANS: No significant abnormality is seen URINARY BLADDER: No significant abnormality is seen. PELVIC ADENOPATHY: None visualized. OSSEOUS STRUCTURES: No significant abnormality is seen. BOWEL: No significant abnormality is seen. OTHER: No acute vascular findings. IMPRESSION: NO ACUTE PROCESS.
[2020-08-19] MEDS ORDERED: LEVOTHYROXINE 112 MCG TAB PO SCH (06:30)
== END 2020-08-18 23:37 | disposition home or self-care (01) ==
LOC: ORWHC2ENDO 06:51 → 6PED 08:45 → INTOOBSV 14:05 → ORWHC2ENDO 14:05 → UNDODISIN 23:37
PROVIDERS: ADMIT Surgery Plastic and Reconstructive Surgery; ATTEND Surgery Plastic and Reconstructive Surgery
DX: K29.80 Duodenitis without bleeding (principal); E86.0 Dehydration; K26.3 Acute duodenal ulcer without hemorrhage or perforation; K22.10 Ulcer of esophagus without bleeding; J44.9 Chronic obstructive pulmonary disease, unspecified; K29.50 Unspecified chronic gastritis without bleeding; K29.00 Acute gastritis without bleeding; K21.00 Gastro-esophageal reflux disease with esophagitis, without bleeding; E11.40 Type 2 diabetes mellitus with diabetic neuropathy, unspecified; M79.7 Fibromyalgia; R13.10 Dysphagia, unspecified; I10 Essential (primary) hypertension; G47.33 Obstructive sleep apnea (adult) (pediatric); E07.9 Disorder of thyroid, unspecified; G25.81 Restless legs syndrome; M32.9 Systemic lupus erythematosus, unspecified; Z20.822 Contact with and (suspected) exposure to COVID-19; Z96.1 Presence of intraocular lens; Z79.82 Long term (current) use of aspirin; Z79.890 Hormone replacement therapy; Z79.899 Other long term (current) drug therapy; Z79.891 Long term (current) use of opiate analgesic; Z88.2 Allergy status to sulfonamides; Z88.1 Allergy status to other antibiotic agents; Z88.5 Allergy status to narcotic agent; Z91.048 Other nonmedicinal substance allergy status; Z90.710 Acquired absence of both cervix and uterus; Z87.19 Personal history of other diseases of the digestive system; Z86.73 Personal history of transient ischemic attack (TIA), and cerebral infarction without residual deficits; Z86.19 Personal history of other infectious and parasitic diseases; Z95.828 Presence of other vascular implants and grafts; Z87.891 Personal history of nicotine dependence; Z82.49 Family history of ischemic heart disease and other diseases of the circulatory system; Z80.7 Family history of other malignant neoplasms of lymphoid, hematopoietic and related tissues
CPT/HCPCS: 88305; 80053; 85025; 87635; 74177; 43239; G0378; J1100; J2765; J2405; J2001; J0131; J2704; C9113; Q9967

== ENCOUNTER 2020-09-29 06:47 | Day surgery (SDC) | payer MEDICARE, OTHER ==
[~2020-09-29 06:47] MED LIST changes: -LIDOCAINE 1% 20 ML VIAL (10MG/ML) FOR IV START INTRADERMA PRN
[2020-09-29 07:32] VITALS: RESP 16; TEMP 97.1
--- NOTE | 2020-09-29 07:36 | P.GSHP ---
History of Present Illness H&P Date: 09/29/20 CHIEF COMPLAINT: Colon screen HISTORY OF PRESENT ILLNESS: The patient is a 65-year-old female who presents for colon screen. Lower endoscopy was offered for further evaluation and management. PAST MEDICAL HISTORY: Please see list. PAST SURGICAL HISTORY: Please see list. MEDICATIONS: Please see list. ALLERGIES: Please see list. SOCIAL HISTORY: No illicit drug use FAMILY HISTORY: No reports of Crohn disease or ulcerative colitis. REVIEW OF ORGAN SYSTEMS: CONSTITUTIONAL: No reports of fevers or chills. PHYSICAL EXAM: VITAL SIGNS: Stable GENERAL: Well-developed pleasant in no acute distress. HEENT: No scleral icterus. Extraocular movements grossly intact. Moist buccal mucosa. NECK: Supple without lymphadenopathy. CHEST: Unlabored respirations. Equal bilateral excursions. CARDIOVASCULAR: Regular rate and rhythm. Distal 2+ pulses. ABDOMEN: Soft, nontender, nondistended. MUSCULOSKELETAL: No clubbing, cyanosis, or edema. ASSESSMENT: 1. Colon screen. PLAN: 1. Recommend proceeding with a lower endoscopy Past Medical History Past Medical History: Asthma, COPD, CVA/TIA, Diabetes Mellitus, Fibromyalgia, GERD/Reflux, Hypertension, Neurologic Disorder, Sleep Apnea/CPAP/BIPAP, Thyroid Disorder Additional Past Medical History / Comment(s): IDDMM. 08/2011 DUODENAL ULCER, GASTRITIS. NEUROPATHY FEET, RLS. HX OF RHEUMATIC FEVER, HAS HOLE IN BACK OF HEART., HX OF SEPSIS FROM PORT INFECTIONS., STATES NO LONGER USING C-PAP MACHINE., STATES FREQUENT DIARRHEA., LUPUS., aneurysm back of brain surgery with coil, and stent to repair, difficulty swallowing History of Any Multi-Drug Resistant Organisms: None Reported Past Surgical History: Back Surgery, Section, Hysterectomy, Joint Replacement Additional Past Surgical History / Comment(s): THUMB SURGERY, BRUCE TOTAL KNEES, PORT INSERTED & REMOVED. Lap Nasir with hiatal hernia repair with mesh 05/09/2017 ,surgery to repair brain aneurysm with coil and stent, bruce elbow surgery ,lap sigmoid colectomy, cataracts-lens implants, back surgery 06/23/20 Past Anesthesia/Blood Transfusion Reactions: Blood Transfusion Reaction Additional Past Anesthesia/Blood Transfusion Reaction / Comment(s): STATES BLOOD TRANSFUSION 45 years ago WITH CHILD - STATES RASH AND ITCHING Past Psychological History: Anxiety, Depression Smoking Status: Former smoker Past Alcohol Use History: None Reported Additional Past Alcohol Use History / Comment(s): started smoking 1977 and QUIT SMOKING (MAR 2017). SMOKED 1 PPD. Past Drug Use History: None Reported Additional Drug Use History / Comment(s): MEDICAL MARIJUANA 5 YRS AGO- NO USE NOW. - Past Family History Mother Family Medical History: Deep Vein Thrombosis (DVT) Daughter(s) Family Medical History: Cancer Additional Family Medical History / Comment(s): lymphoma Medications and Allergies Home Medications Medication Instructions Recorded Confirmed Type Aspirin [Adult Low Dose Aspirin EC] 81 mg PO DAILY 11/27/16 09/26/20 History Diclofenac Sodium [Voltaren Gel] 2 gram TOPICAL DAILY PRN 11/27/16 09/26/20 History Levothyroxine Sodium [Synthroid] 112 mcg PO QAM 11/27/16 09/26/20 History Umeclidinium Brm/Vilanterol Tr 1 puff INHALATION QAM 11/27/16 09/26/20 History [Anoro Ellipta 62.5-25 Mcg INH] rOPINIRole HCL [Requip] 3 mg PO HS 11/27/16 09/26/20 History Venlafaxine HCl [Effexor XR] 150 mg PO BID 05/03/17 09/26/20 History ALPRAZolam [Xanax] 0.5 mg PO HS 03/05/18 09/26/20 History Atorvastatin [Lipitor] 40 mg PO QAM 09/26/20 09/26/20 History Furosemide [Lasix] 20 mg PO QAM 09/26/20 09/26/20 History Insulin Glargine [Lantus] 46 unit SQ HS 09/26/20 09/26/20 History oxyCODONE-APAP 7.5-325MG [Percocet 1 tab PO Q6H 09/26/20 09/26/20 History 7.5-325 mg] Allergies Allergy/AdvReac Type Severity Reaction Status Date / Time ceftriaxone [From Rocephin] Allergy Severe PASSED OUT Verified 09/29/20 07:33 Sulfa (Sulfonamide Allergy Unknown Rash/Hives, Verified 09/29/20 07:33 Antibiotics) Itchy morphine Allergy Swelling Verified 09/29/20 07:33 dermabond Allergy Rash/Hives Uncoded 09/29/20 07:33 Surgical - Exam Vital Signs Temp Pulse Resp BP Pulse Ox 97.1 F L 110 H 16 145/72 97 09/29/20 07:31 09/29/20 07:31 09/29/20 07:31 09/29/20 07:31 09/29/20 07:31
[2020-09-29 07:48] LABS: Glucose,Whole Blood 225 mg/dL (75-99)
[2020-09-29] MEDS ORDERED: PROPOFOL 10 MG/ML 20 ML VIAL IV ONE (09:09)
--- NOTE | 2020-09-29 10:04 | P.PCN ---
Date of Procedure: 09/29/20 Description of Procedure: PREOPERATIVE DIAGNOSIS: Personal history of colon polyps POSTOPERATIVE DIAGNOSIS: Personal history of colon polyps Scattered diverticulosis Cecal adenoma OPERATION: Colonoscopy to the ileocecal valve and appendiceal orifice, cecum Colonoscopy with hot snare polypectomy SURGEON: Mahsa Tan MD. ANESTHESIA: MAC. INDICATIONS: The patient is an 65-year-old female who presents with past history of colon polyps. Last colonoscopy 5 years. Benefits and risks were described and informed consent was obtained. DESCRIPTION OF PROCEDURE: The patient had undergone Sutab prep. The patient had been brought into the operating room and laid in the left lateral decubitus position. After adequate intravenous sedation, the rectum was examined with 2% lidocaine jelly. External hemorrhoids were encountered. The rectal tone was within normal limits. No lesions were palpated in the rectal vault. An Olympus colonoscope was advanced until the cecum, ileocecal valve and appendiceal orifice were clearly viewed. The prep was fair. Sigmoid diverticulosis was encountered. Area of tortuosity found between 20-30 cm from the anal verge. Colonic polyps were found and removed. No evidence of focal colitis was found. Retroflexion of the scope demonstrated grade 2 internal hemorrhoids without active bleeding or inflammation. The colon was desufflated. The patient had tolerated the procedure well. Withdrawal time was over 6 minutes. FINDINGS: Aronchick preparation quality scale 1 (1-5) Internal hemorrhoids, grade 2 External hemorrhoids, grade 2 No arteriovenous malformations. Sigmoid diverticulosis with scattered diverticulosis Area of tortuosity found between 20-30 cm from the anal verge Removal of 2 polyps: - Snare polypectomy at cecum, 8 mm tubulovillous adenoma polyp. No focal colitis. RECOMMENDATIONS: 1. Repeat colonoscopy in 3 years, 2023 Plan - Discharge Summary Discharge Rx Participant: No New Discharge Prescriptions: Continue Umeclidinium Brm/Vilanterol Tr [Anoro Ellipta 62.5-25 Mcg INH] 1 puff INHALATION QAM Levothyroxine Sodium [Synthroid] 112 mcg PO QAM rOPINIRole HCL [Requip] 3 mg PO HS Diclofenac Sodium [Voltaren Gel] 2 gram TOPICAL DAILY PRN PRN Reason: Pain Aspirin [Adult Low Dose Aspirin EC] 81 mg PO DAILY Venlafaxine HCl [Effexor XR] 150 mg PO BID ALPRAZolam [Xanax] 0.5 mg PO HS Atorvastatin [Lipitor] 40 mg PO QAM Furosemide [Lasix] 20 mg PO QAM Insulin Glargine [Lantus] 46 unit SQ HS oxyCODONE-APAP 7.5-325MG [Percocet 7.5-325 mg] 1 tab PO Q6H Discharge Medication List Aspirin [Adult Low Dose Aspirin EC] 81 mg PO DAILY 11/27/16 [History] Diclofenac Sodium [Voltaren Gel] 2 gram TOPICAL DAILY PRN 11/27/16 [History] Levothyroxine Sodium [Synthroid] 112 mcg PO QAM 11/27/16 [History] Umeclidinium Brm/Vilanterol Tr [Anoro Ellipta 62.5-25 Mcg INH] 1 puff INHALATION QAM 11/27/16 [History] rOPINIRole HCL [Requip] 3 mg PO HS 11/27/16 [History] Venlafaxine HCl [Effexor XR] 150 mg PO BID 05/03/17 [History] ALPRAZolam [Xanax] 0.5 mg PO HS 03/05/18 [History] Atorvastatin [Lipitor] 40 mg PO QAM 09/26/20 [History] Furosemide [Lasix] 20 mg PO QAM 09/26/20 [History] Insulin Glargine [Lantus] 46 unit SQ HS 09/26/20 [History] oxyCODONE-APAP 7.5-325MG [Percocet 7.5-325 mg] 1 tab PO Q6H 09/26/20 [History] Follow up Appointment(s)/Referral(s): Mahsa Tan MD [STAFF PHYSICIAN] - As Needed Patient Instructions/Handouts: Diverticulosis (DC), Colorectal Polyps (IP) Activity/Diet/Wound Care/Special Instructions: Repeat colonoscopy in 3 years, 2023 Discharge Disposition: HOME SELF-CARE
[2020-09-29 10:09] VITALS: BP 113/69; PULSE 84
== END 2020-09-29 10:20 | disposition home or self-care (01) ==
LOC: ORWHC2ENDO 06:47
PROVIDERS: ATTEND Surgery Plastic and Reconstructive Surgery
DX: Z12.11 Encounter for screening for malignant neoplasm of colon (principal); D12.0 Benign neoplasm of cecum; K57.30 Diverticulosis of large intestine without perforation or abscess without bleeding; Z86.010 Personal history of colon polyps; K64.1 Second degree hemorrhoids; Q43.8 Other specified congenital malformations of intestine; J44.9 Chronic obstructive pulmonary disease, unspecified; M79.7 Fibromyalgia; E11.21 Type 2 diabetes mellitus with diabetic nephropathy; K21.9 Gastro-esophageal reflux disease without esophagitis; I10 Essential (primary) hypertension; G47.30 Sleep apnea, unspecified; Z87.19 Personal history of other diseases of the digestive system; G25.81 Restless legs syndrome; Z86.19 Personal history of other infectious and parasitic diseases; Z86.73 Personal history of transient ischemic attack (TIA), and cerebral infarction without residual deficits; Q24.8 Other specified congenital malformations of heart; Z95.820 Peripheral vascular angioplasty status with implants and grafts; F41.9 Anxiety disorder, unspecified; F32.9 Major depressive disorder, single episode, unspecified; Z98.891 History of uterine scar from previous surgery; Z90.710 Acquired absence of both cervix and uterus; Z98.890 Other specified postprocedural states; Z90.49 Acquired absence of other specified parts of digestive tract; Z98.49 Cataract extraction status, unspecified eye; Z96.1 Presence of intraocular lens; Z87.891 Personal history of nicotine dependence; Z79.899 Other long term (current) drug therapy; Z82.49 Family history of ischemic heart disease and other diseases of the circulatory system; Z80.7 Family history of other malignant neoplasms of lymphoid, hematopoietic and related tissues; Z79.82 Long term (current) use of aspirin; Z79.890 Hormone replacement therapy; Z79.4 Long term (current) use of insulin; Z79.891 Long term (current) use of opiate analgesic; Z88.1 Allergy status to other antibiotic agents; Z88.5 Allergy status to narcotic agent; Z88.2 Allergy status to sulfonamides; Z91.09 Other allergy status, other than to drugs and biological substances
CPT/HCPCS: 88305; 45385; J2704

== ENCOUNTER → 2020-12-23 | Outpatient (CLI) | payer MEDICARE, OTHER ==
[2020-12-23 09:21] LABS: HCT 40.7 % (34.0-46.0); HGB 13.2 gm/dL (11.4-16.0); MCH 27.1 pg (25.0-35.0); MCHC 32.3 g/dL (31.0-37.0); MCV 83.8 fL (80.0-100.0); Mean Platelet Volume 8.2; Platelet Count 414 k/uL (150-450); RBC 4.85 m/uL (3.80-5.40); RDW 14.8 % (11.5-15.5); WBC 13.1 k/uL (3.8-10.6)
[2020-12-23 09:31] LABS: Albumin 4.2 g/dL (3.5-5.0); Calcium 10.2 mg/dL (8.4-10.2); Potassium 4.4 mmol/L (3.5-5.1); Total Bilirubin 0.7 mg/dL (0.2-1.3); Total Protein 7.6 g/dL (6.3-8.2)
== END | disposition home or self-care (01) ==
LOC: LABPAT 08:19
PROVIDERS: ATTEND Surgery Plastic and Reconstructive Surgery
DX: Z01.812 Encounter for preprocedural laboratory examination (principal)
CPT/HCPCS: 36415; 80053; 85027

== ENCOUNTER 2020-12-29 08:52 | Inpatient (IN) | payer MEDICARE, OTHER ==
[~2020-12-29 08:52] MED LIST changes: +ACETAMINOPHEN TAB 500 MG TAB PO PRN; +ALVIMOPAN 12 MG CAPSULE PO PRN; +HEPARIN SODIUM,PORCINE/PF 5,000 UNIT/0.5 ML SYRINGE SQ PRN; -LACTATED RINGERS 1,000 ML IV SCH; +MELOXICAM 7.5 MG TAB PO PRN
[2020-12-29 10:23] LABS: Glucose,Whole Blood 141 mg/dL (75-99)
[2020-12-29] MEDS ORDERED: Antibiotics per Pharmacy 1 EACH MISC MISCELLANE PRN (10:30)
--- NOTE | 2020-12-29 10:33 | P.GSHP ---
History of Present Illness H&P Date: 12/29/20 CHIEF COMPLAINT: History of sigmoid diverticulitis HISTORY OF PRESENT ILLNESS: The patient is a 65-year-old female with long- standing history of sigmoid diverticulitis. She completed a colonoscopy which excluded underlying neoplasm. Now she presents for sigmoid colon resection. PAST MEDICAL HISTORY: Please see list. PAST SURGICAL HISTORY: Please see list. MEDICATIONS: Please see list. ALLERGIES: Please see list. SOCIAL HISTORY: No illicit drug use FAMILY HISTORY: No reports of Crohn disease or ulcerative colitis. REVIEW OF ORGAN SYSTEMS: CONSTITUTIONAL: Denies any fever or chills. HEENT: Denies any trouble with vision or nosebleeds. No difficulty swallowing. PHYSICAL EXAM: VITAL SIGNS: Stable GENERAL: Well-developed pleasant in no acute distress. HEENT: No scleral icterus. Extraocular movements grossly intact. Moist buccal mucosa. He is hard of hearing. NECK: Supple without lymphadenopathy. CHEST: Unlabored respirations. Equal bilateral excursions. CARDIOVASCULAR: Regular rate and rhythm. Distal 2+ pulses. ABDOMEN: Soft, nontender, nondistended. MUSCULOSKELETAL: No clubbing, cyanosis, or edema. NERUO: Cranial nerves 2-12 grossly intact. PSYCH: Alert and oriented to person place and time. ASSESSMENT: 1. Sigmoid diverticulitis 2. Chronic pain syndrome PLAN: 1. Benefits and risks of surgical robotic sigmoid resection was reviewed in detail. Robotic-assisted approach was also described. 2. Enhanced colon recovery program. 3. DVT prophylaxis. 4. Antibiotic prophylaxis. 5. Inpatient hospitalization greater than 2 nights. 6. She is elevated risk with pre-existing colon resection and chronic pain syndrome. Past Medical History Past Medical History: Asthma, COPD, CVA/TIA, Diabetes Mellitus, Fibromyalgia, GERD/Reflux, Hyperlipidemia, Hypertension, Neurologic Disorder, Sleep Apnea/CPAP/BIPAP, Thyroid Disorder Additional Past Medical History / Comment(s): IDDMM. 08/2011 DUODENAL ULCER, GASTRITIS. NEUROPATHY FEET, RLS. HX OF RHEUMATIC FEVER, HAS HOLE IN BACK OF H EART., HX OF SEPSIS FROM PORT INFECTIONS., STATES NO LONGER USING C-PAP MACHINE., STATES FREQUENT DIARRHEA., LUPUS., aneurysm back of brain surgery with coil, and stent to repair, difficulty swallowing, diverticulitis History of Any Multi-Drug Resistant Organisms: None Reported Past Surgical History: Back Surgery, Section, Hernia Repair, H ysterectomy, Joint Replacement Additional Past Surgical History / Comment(s): THUMB SURGERY, BRUCE TOTAL KNEES, PORT INSERTED & REMOVED. Lap Nasir with hiatal hernia repair with mesh 05/09/2017 ,surgery to repair brain aneurysm with coil and stent, bruce elbow surgery ,lap sigmoid colectomy, cataracts-lens implants, back surgery 06/23/20 Past Anesthesia/Blood Transfusion Reactions: Blood Transfusion Reaction Additional Past Anesthesia/Blood Transfusion Reaction / Comment(s): STATES BLOOD TRANSFUSION 45 years ago WITH CHILD - STATES RASH AND ITCHING Smoking Status: Former smoker - Past Family History Mother Family Medical History: Deep Vein Thrombosis (DVT) Daughter(s) Family Medical History: Cancer Additional Family Medical History / Comment(s): lymphoma- age 30 Medications and Allergies Home Medications Medication Instructions Recorded Confirmed Type Aspirin [Adult Low Dose Aspirin EC] 81 mg PO DAILY 11/27/16 12/26/20 History Diclofenac Sodium [Voltaren Gel] 2 gram TOPICAL DAILY PRN 11/27/16 12/26/20 History Levothyroxine Sodium [Synthroid] 112 mcg PO QAM 11/27/16 12/26/20 History Umeclidinium Brm/Vilanterol Tr 1 puff INHALATION QAM 11/27/16 12/26/20 History [Anoro Ellipta 62.5-25 Mcg INH] rOPINIRole HCL [Requip] 3 mg PO HS 11/27/16 12/26/20 History Venlafaxine HCl [Effexor XR] 150 mg PO BID 05/03/17 12/26/20 History ALPRAZolam [Xanax] 0.5 mg PO HS 03/05/18 12/26/20 History Atorvastatin [Lipitor] 40 mg PO QAM 09/26/20 12/26/20 History Furosemide [Lasix] 20 mg PO QAM 09/26/20 12/26/20 History Insulin Glargine [Lantus Vial] 46 unit SQ HS 09/26/20 12/26/20 History oxyCODONE-APAP 7.5-325MG [Percocet 1 tab PO Q6H 09/26/20 12/26/20 History 7.5-325 mg] Insulin Aspart [NovoLOG] 0 units SQ ACHS PRN 12/26/20 12/26/20 History Allergies Allergy/AdvReac Type Severity Reaction Status Date / Time ceftriaxone [From Rocephin] Allergy Severe PASSED OUT Verified 12/29/20 10:06 Sulfa (Sulfonamide Allergy Unknown Rash/Hives, Verified 12/29/20 10:06 Antibiotics) Itchy morphine Allergy Swelling Verified 12/29/20 10:06 dermabond Allergy Rash/Hives Uncoded 12/29/20 10:06 Surgical - Exam Vital Signs Temp Pulse Resp BP Pulse Ox 96.7 F L 87 15 135/68 95 12/29/20 10:01 12/29/20 10:01 12/29/20 10:01 12/29/20 10:01 12/29/20 10:01 Results - Labs Abnormal Lab Results - Last 24 Hours (Table) 12/29/20 Range/Units 10:12 POC Glucose (mg/dL) 141 H (75-99) mg/dL
[2020-12-29] MEDS ORDERED: LACTATED RINGERS 1,000 ML IV ONE (10:57)
[2020-12-29] MEDS ORDERED: ONDANSETRON 4 MG/2 ML VIAL ONE (11:05)
[2020-12-29] MEDS ORDERED: MIDAZOLAM 2 MG/2 ML VIAL IVP ONE (11:09)
[2020-12-29] MEDS ORDERED: ONDANSETRON 4 MG/2 ML VIAL IVP ONE (11:22)
[2020-12-29] MEDS ORDERED: DEXAMETHASONE SOD PHOSPHATE 4 MG/ML 1 ML VIAL IVP ONE (11:22)
--- NOTE | 2020-12-29 11:35 | P.ANPRN ---
Procedure Note - Anesthesia - Nerve Block Performed Bilateral Erector Spinae Single Time Out Performed: Yes Date of Procedure: 12/29/20 Procedure Start Time: 11:08 Procedure Stop Time: 11:16 Location of Patient: PreOp Indication: Acute Post-Operative Pain, Requested by Surgeon Sedation Type: Sedate with meaningful contact maintained Preparation: Sterile Prep Position: Prone Needle Types: Pajunk Needle Gauge: 21 Ultrasound used to visualize needle placement: Yes Ultrasound used to observe medication spread: Yes Blood Aspirated: No Pain Paresthesia on Injection Noted: No Resistance on Injection: Normal Image Stored and Saved: Yes Events: Uneventful and Well Tolerated (ropi .5% 15cc plus xylo 1% with epi 15cc given bilaterally at L1)
[2020-12-29] MEDS ORDERED: SUCCINYLCHOLINE CHLORIDE 100 MG/5 ML SYR IV ONE (11:41)
[2020-12-29] MEDS ORDERED: SODIUM CHLORIDE 0.9% 100 ML BAG ONE (11:41)
[2020-12-29] MEDS ORDERED: PROPOFOL 10 MG/ML 20 ML VIAL IV ONE (11:41)
[2020-12-29] MEDS ORDERED: MIDAZOLAM 2 MG/2 ML VIAL ONE (11:41)
[2020-12-29] MEDS ORDERED: ceFAZolin 1,000 MG VIAL ONE (11:41)
[2020-12-29] MEDS ORDERED: fentaNYL (PF) 50 MCG/ML 2 ML AMP ONE (11:41)
[2020-12-29] MEDS ORDERED: ALBUMIN HUMAN 5% (12.5gm) 250 ML BOTTLE IVPB ONE (11:41)
[2020-12-29] MEDS ORDERED: LIDOCAINE 1% INJ 10MG/ML (20 ML MDV) ONE (11:41)
[2020-12-29] MEDS ORDERED: PHENYLEPHRINE-0.9% NACL SYG 1,000 MCG/10 ML SYRINGE ONE (11:41)
[2020-12-29] MEDS ORDERED: HYDROmorphone (PF) 1 MG/ML ONE (11:41)
[2020-12-29] MEDS ORDERED: INSULIN REGULAR 100 UNIT/ML VIAL (IV) IV ONE (11:41)
[2020-12-29] MEDS ORDERED: GLYCOPYRROLATE 0.2 MG/ML 2 ML VIAL ONE (11:41)
[2020-12-29] MEDS ORDERED: ROCURONIUM 10 MG/ML (5 ML VIAL) IV ONE (11:41)
[2020-12-29] MEDS ORDERED: NEOSTIGMINE 1 MG/ML 10 ML VIAL ONE (11:41)
[2020-12-29 11:50] LABS: Basophils # (A) 0.1 k/uL (0-0.2); Basophils % (A) 1 %; Eosinophils # (A) 0.3 k/uL (0-0.7); Eosinophils % (A) 1 %; HGB 13.4 gm/dL (11.4-16.0); Lymphocytes # (A) 6.1 k/uL (1.0-4.8); Lymphocytes % (A) 31 %; MCH 27.6 pg (25.0-35.0); MCHC 33.4 g/dL (31.0-37.0); MCV 82.7 fL (80.0-100.0); Mean Platelet Volume 7.9; Monocytes # (A) 0.6 k/uL (0-1.0); Monocytes % (A) 3 %; Neutrophils # (A) 12.2 k/uL (1.3-7.7); Neutrophils % (A) 61 %; Platelet Count 383 k/uL (150-450); RBC 4.84 m/uL (3.80-5.40); WBC 19.9 k/uL (3.8-10.6)
[2020-12-29 11:59] LABS: Albumin 3.9 g/dL (3.5-5.0); Calcium 9.2 mg/dL (8.4-10.2); Potassium 3.2 mmol/L (3.5-5.1); Total Bilirubin 0.4 mg/dL (0.2-1.3); Total Protein 7.1 g/dL (6.3-8.2)
--- NOTE | 2020-12-29 12:29 | P.HPADDEND ---
H&P Addendum H&P Addendum Date: 12/29/20 Patient did report mild lower abdominal pain however not unusual from her prior. CBC and CMP repeated. Anticipated increased time of surgery for lysis of adhesions reviewed including with family members.
[2020-12-29] MEDS: metroNIDAZOLE-NS PMX 500 MG in SALINE 1 100ML.BAG IVPB PRN ×2 (12:36→12:46)
[2020-12-29] MEDS ORDERED: LIDOCAINE 1%-EPI 1:100,000 20 ML VIAL SQ ONE ×2 (12:46)
[2020-12-29] MEDS: LACTATED RINGERS 1,000 ML IV ONE ×5 (14:28→20:42)
[2020-12-29 17:14] LABS: Glucose,Whole Blood 367 mg/dL (75-99)
[2020-12-29 17:27] LABS: Glucose,Whole Blood 346 mg/dL (75-99)
[2020-12-29] MEDS: SODIUM CHLORIDE 0.9% 1,000 ML IV ONE ×2 (18:16→20:42)
[2020-12-29] MEDS ORDERED: BENZOCAINE/MENTHOL LOZENG 1 EACH LOZENGE MUCOUS MEM PRN (18:45)
[2020-12-29 18:48] LABS: Glucose,Whole Blood 333 mg/dL (75-99)
[2020-12-29] MEDS ORDERED: ONDANSETRON 4 MG/2 ML VIAL IVP PRN (18:50)
[2020-12-29] MEDS ORDERED: LORazepam 2 MG/ML INJ IV PRN (18:54)
[2020-12-29] MEDS ORDERED: HYDROmorphone 0.5 MG/0.5 ML SYRINGE IVP ONE ×2 (19:00→19:45)
[2020-12-29] MEDS ORDERED: INSULIN ASPART (NovoLOG) 100 UNIT/ML VIAL SQ ONE (19:03)
[2020-12-29] MEDS ORDERED: ONDANSETRON ODT 4 MG TAB PO ONE (19:42)
[2020-12-29] MEDS ORDERED: KETOROLAC 15 MG/ML 1 ML VIAL IVP ONE (19:54)
[2020-12-29] MEDS ORDERED: LEVOFLOXACIN 500MG-D5W PMX 500 MG in DEXTROSE/WATER 1 100ML.BAG IVPB SCH (20:00)
[2020-12-29 20:02] LABS: Glucose,Whole Blood 319 mg/dL (75-99)
[2020-12-29 20:35] LABS: Glucose,Whole Blood 306 mg/dL (75-99)
[2020-12-29] MEDS: ALPRAZolam 0.5 MG TAB PO SCH (20:49)
[2020-12-29] MEDS: metroNIDAZOLE-NS PMX 500 MG in SALINE 1 100ML.BAG IVPB SCH (20:49)
[2020-12-29] MEDS: HEPARIN SODIUM,PORCINE/PF 5,000 UNIT/0.5 ML SYRINGE SQ SCH (20:49)
[2020-12-29] MEDS: HYDROmorphone 1 MG/ML 1 ML SYRINGE IVP PRN (20:50)
[2020-12-29] MEDS: SIMETHICONE 40 MG/0.6 ML DROPS 2,000 MG/30 ML BOTTLE PO SCH (20:50)
[2020-12-29] MEDS: VENLAFAXINE HCL ER 150 MG CAP PO SCH (20:50)
--- NOTE | 2020-12-29 22:51 | P.OP ---
Date of Procedure: 12/29/20 Description of Procedure: SURGEON: OUMAR VILLELA MD PREOPERATIVE DIAGNOSES: 1. 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 Fibromyalgia with chronic pain syndrome 3. Pneumonia with acute leukocytosis 4. Obesity due to excess calories, BMI 30.6 5. Diabetes type 2, insulin-dependent with diabetic neuropathy 6. Hypertensive heart disease with congestive heart failure 7. Chronic obstructive pulmonary disease with acute exacerbation 8. Depressive disorder 9. Hyperlipidemia 10. Lupus 11. Generalized anxiety disorder 12. History of multiple abdominal surgeries with peritoneal adhesion 13. Gastroesophageal reflux disease 14. Obstructive sleep apnea 15. Hypothyroidism 16. History of brain aneurysm 17. Hyponatremia 18. Hypokalemia POSTOPERATIVE DIAGNOSES: 1. 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 Fibromyalgia with chronic pain syndrome 3. Pneumonia with acute leukocytosis 4. Obesity due to excess calories, BMI 30.6 5. Diabetes type 2, insulin-dependent with diabetic neuropathy 6. Hypertensive heart disease with congestive heart failure 7. Chronic obstructive pulmonary disease with acute exacerbation 8. Depressive disorder 9. Hyperlipidemia 10. Lupus 11. Generalized anxiety disorder 12. History of multiple abdominal surgeries with peritoneal adhesion 13. Gastroesophageal reflux disease 14. Obstructive sleep apnea 15. Hypothyroidism 16. History of brain aneurysm 17. Hyponatremia 18. Hypokalemia 19. Severe intra-abdominal/pelvic adhesions OPERATION: 1. Robotic-assisted daVinci Xi laparoscopic lysis of adhesions, over 3 hrs 2. Robotic-assisted daVinci Xi laparoscopic with sigmoid colectomy and low anterior resection using 29mm EEA Ethicon powered stapler 3. Intraoperative colonoscopy for flexible sigmoidoscopy 4. Placement of round #19 Rashawn-Saleh drain, right pelvis Anesthesia: GETA, local, regional Estimated Blood Loss (ml): 50 Pathology: other (Sigmoid colon, anastomosis) Condition: stable Disposition: floor COMPLICATIONS: None. Operative Findings: 1. Severe sigmoid diverticulitis with pelvic adhesions involving left ovary 2. Greater omental adhesions anterior abdominal wall including severe pelvic adhesions 3. Prior sigmoid colon anastomosis resected INDICATIONS: The patient is a 65-year-old female with symptomatic sigmoid stricture due to recurrent sigmoid diverticulitis. Surgical intervention was described. Benefits and risks, including infection, bowel injury, ureteral injury, colostomy creation and possibility for additional surgery was discussed at length. Informed consent was obtained. All questions of the patient and family were answered. DESCRIPTION: Earlier the patient had undergone a bowel prep using the enhanced colon recovery program. The patient was transferred to the operating room onto a split leg table and repositioned to modified lithotomy following intubation. A Rod catheter was placed. The abdomen was then prepped and draped in standard sterile fashion as Ioban was placed along the abdomen to minimize any contamination of skin floor. After a timeout protocol was performed including antibiotics, DVT prophylaxis, procedures to be performed. Initial attention was brought to flexible sigmoidoscopy and assessment of bowel prep including severe sigmoid stricture. I went to the foot of the bed. An Olympus colonoscope was advanced along the rectum to 30 cm proximal to the anal verge. Moderate sigmoid stricture was confirmed at 20 cm from the anal verge. The colon was decompressed. Attention was brought to the abdominal portion of the case. Attention was then brought to the left upper quadrant whereby a 0 degree 5 mm laparoscopic trocar entry was performed. The abdominal cavity was entered and insufflated to 15 mmHg pressure, which was tolerated well. Diagnostic laparoscopy confirmed severe adhesions omentum to abdominal wall involving the bilateral upper quadrant, midline, epigastrium, and pelvis. Next trocars were placed 20 cm superior from the pelvis. A 12-mm trocar was placed along the right lateral abdominal wall. A 8 mm port was placed along the right upper quadrant. Ports were placed 10 cm apart from each other including 15-20 cm away from the target anatomy of the left pelvis. An 8-mm port was was placed along the left upper quadrant. The 12-mm port was arranged along the left lateral abdominal wall. The patient was then placed in Trendelenburg position, at least 21. The robotic da Michael XI system was primed. The robot was docked from the right side of the patient. Using atraumatic graspers and vessel sealer, the robotic system was docked and primed as described. Instruments were interchanged by the certified surgical assistant including needle driver messenger, clip customer sales consultant, hook cautery, robotic stapler and vessel sealer. The robot stapler was prepared along the right lateral abdominal wall. Initial attention was brought to lysis of adhesions involving the upper abdomen, epigastrium and pelvis. Lysis of adhesions was performed using vessel sealer including hook cautery. Extensive lysis of adhesions over 3 hrs was performed to address abdominal wall adhesions including along the right pelvis. The sigmoid mesentery was adherent to the right pelvic brim which was carefully dissected free. Next, attention was brought to sigmoid colon. The sigmoid mesentery was mobilized using a vessel sealer. Using robot stapler 60 mm black loads, the descending colon was divided. Mobilization of the colon was performed to the pelvic brim along the sacral promontory. The mesentery of the sigmoid colon was mobilized towards the descending colon using a vessel sealer. Next, the top of the rectum was divided using robotic stapler 60 mm black loads. The rest of the sigmoid colon mesentery was mobilized using vessel sealer. Additionally, the sigmoid colon was mobilized onto the colon to minimize injury to the ureters. I went to the foot of the bed for selection of a sizer. A colorectal colon anastomosis with an EEA 29-mm was selected after using a sizer along the rectum. For the proximal sigmoid colon, a 29-mm anvil was placed after creating a colotomy then closed using a stapler at the distal end. The robot arms were temporarily undocked. A stapler was entered along the rectum and mated to the anvil for 1 minute. The anastomosis was created. The donuts were thick on the rectum side and thin on the colon side. I then performed a bedside flexible sigmoidoscopy using colonoscope where no leaks or defects were confirmed as the certified surgical assistant placed normal saline along the pelvis. I re-scrubbed into the case. Irrigation fluid was suctioned from the abdomen. The robot was undocked. All needles were removed from the abdominal cavity. A round #19 Rashawn-Saleh drain was entered via the right lateral trocar in place anterior right lateral along the pelvis. 2-0 nylon was placed to tack the drain to the skin. Via the left lateral 12-mm trocar site, the resected colon was retrieved. The fascial defect was oversewn using 0 Vicryl and a Caleb Hebert. All incisions were cleansed using dilute normal saline and hydrogen peroxide mixture. Next all pneumoperitoneum was evacuated from the abdominal cavity. The 8-mm trocar sites were reapproximated using 4-0 Monocryl in an interrupted subcuticular fashion. Local anesthetic was infiltrated to all wounds for postop analgesia. All incisions were also cleansed with diluted hydrogen peroxide. An Optifoam surgical dressing was placed over the colon extraction site including drain site. Exofin was applied to the rest of the skin incisions. The patient was extubated successfully. The patient was transferred to the postanesthesia care unit in stable condition.
[2020-12-29] MEDS: INSULIN ASPART (NovoLOG) 100 UNIT/ML VIAL SQ SCH (22:55)
[2020-12-29] MEDS: ACETAMINOPHEN IV (For NPO) 1,000 MG in EMPTY BAG 1 BAG IVPB SCH (23:25)
[2020-12-29] MEDS: KETOROLAC 15 MG/ML 1 ML VIAL IVP SCH (23:26)
[2020-12-29] MEDS: 0.9% NACL WITH KCL 40 MEQ/L 1,000 ML IV SCH (23:26)
[2020-12-30] MEDS ORDERED: ONDANSETRON 4 MG/2 ML VIAL IVP SCH
[2020-12-30] MEDS: HYDROmorphone 1 MG/ML 1 ML SYRINGE IVP PRN ×4 (00:26→13:26)
[2020-12-30] MEDS: metroNIDAZOLE-NS PMX 500 MG in SALINE 1 100ML.BAG IVPB SCH ×3 (04:33→19:40)
[2020-12-30] MEDS: ACETAMINOPHEN IV (For NPO) 1,000 MG in EMPTY BAG 1 BAG IVPB SCH ×3 (05:38→18:21)
[2020-12-30] MEDS: KETOROLAC 15 MG/ML 1 ML VIAL IVP SCH ×2 (05:39→11:56)
[2020-12-30] MEDS ORDERED: INSULIN ASPART (NovoLOG) 100 UNIT/ML VIAL SQ SCH ×2 (07:30)
[2020-12-30] MEDS: HEPARIN SODIUM,PORCINE/PF 5,000 UNIT/0.5 ML SYRINGE SQ SCH ×2 (07:48→20:55)
[2020-12-30] MEDS: ALVIMOPAN 12 MG CAPSULE PO SCH ×2 (07:49→20:54)
[2020-12-30] MEDS: VENLAFAXINE HCL ER 150 MG CAP PO SCH ×2 (07:49→21:09)
[2020-12-30] MEDS ORDERED: NON FORMULARY DRUG (Umeclidinium Brm/Vilanterol Tr [Anoro Ellipta 62.5-25 Mcg Inh] 1 EACH INHALATION SCH (09:00)
--- NOTE | 2020-12-30 09:40 | XR ---
EXAMINATION TYPE: XR chest 2V DATE OF EXAM: 12/30/2020 COMPARISON: Chest x-ray March 08, 2018. Low dose lung screening CT May 30, 2020 HISTORY: Cough. History of COPD. TECHNIQUE: Frontal and lateral views of the chest are obtained. FINDINGS: There is moderate underlying emphysematous and pulmonary fibrotic changes without suspicio us new focal air space opacity, pleural effusion, or pneumothorax seen. The cardiac silhouette size is more prominent measuring mildly enlarged currently with slightly ectatic thoracic aorta. The oss eous structures are intact. IMPRESSION: Mild cardiomegaly along with moderate emphysematous changes without acute pulmonary proc ess.
[2020-12-30 09:47] LABS: Glucose,Whole Blood 311 mg/dL (75-99)
[2020-12-30] MEDS: 0.9% NACL WITH KCL 40 MEQ/L 1,000 ML IV SCH ×3 (09:53→19:39)
[2020-12-30] MEDS: INSULIN ASPART (NovoLOG) 100 UNIT/ML VIAL SQ SCH ×4 (09:54→21:10)
[2020-12-30] MEDS ORDERED: SODIUM CHLORIDE 0.9% 1,000 ML IV ONE (10:51)
--- NOTE | 2020-12-30 10:54 | P.PN ---
<EricGalina dodge - Last Filed: 12/30/20 10:47> Subjective Progress Note Date: 12/30/20 CHIEF COMPLAINT: Sigmoid stricture HISTORY OF PRESENT ILLNESS: Patient is status post Robotic-assisted daVinci Xi laparoscopic lysis of adhesions, sigmoid colectomy and low anterior resection for sigmoid stricture due to sigmoid diverticulitis and severe intra- abdominal/pelvic adhesions. She is postop day #1. She reports that her pain is controlled. She is having flatus. She denies any nausea or vomiting. Chest x- ray mild cardiomegaly along with moderate emphysematous changes without acute pulmonary process. Patient's urine output has been on the lower side. Urine is dark. She has had some mild tachycardia. She's afebrile. BP 94/58. Labs are pending. Patient has had 70 mL sanguinous output through REJI drain. PHYSICAL EXAM: VITAL SIGNS: Reviewed GENERAL: Well-developed in no acute distress. HEENT: No sclera icterus. Extraocular movements grossly intact. Moist buccal mucosa. Head is atraumatic, normocephalic. Hears conversational speech. No nasal drainage. NECK: Supple without lymphadenopathy. CHEST: Non-labored respirations and equal bilateral excursions. CARDIOVASCULAR: Palpable 2+ radial pulses. ABDOMEN: Soft. Nondistended. Incision sites clean dry and intact REJI drain with sanguinous output. MUSCULOSKELETAL: No clubbing or cyanosis. NEUROLOGIC: No focal or lateralizing signs. Cranial nerves II through XII grossly intact. PSYCH: Appropriate affect. Alert and oriented to person, place and time. SKIN: Well perfused. Good skin turgor. ASSESSMENT: 1. 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 Fibromyalgia with chronic pain syndrome 3. Pneumonia with acute leukocytosis 4. Obesity due to excess calories, BMI 30.6 5. Diabetes type 2, insulin-dependent with diabetic neuropathy 6. Hypertensive heart disease with congestive heart failure 7. Chronic obstructive pulmonary disease with acute exacerbation 8. Depressive disorder 9. Hyperlipidemia 10. Lupus 11. Generalized anxiety disorder 12. History of multiple abdominal surgeries with peritoneal adhesion 13. Gastroesophageal reflux disease 14. Obstructive sleep apnea 15. Hypothyroidism 16. History of brain aneurysm 17. Hyponatremia 18. Hypokalemia 19. Severe intra-abdominal/pelvic adhesions PLAN: -We'll give her 1 L normal saline fluid bolus for low urine output -Continue clear liquid diet -Continue pain medication as needed -Continue antibiotics -Continue IV fluids -Encourage patient to ambulate -Encourage patient to use incentive spirometer -DVT prophylaxis subcu heparin Physician Rn Transplant note has been reviewed by physician. Signing provider agrees with the documented findings, assessment, and plan of care. Objective - Vital Signs Vital signs: Vital Signs Temp 97.8 F 12/30/20 07:34 Pulse 92 12/30/20 07:34 Resp 16 12/30/20 07:34 BP 94/58 12/30/20 07:34 Pulse Ox 92 L 12/30/20 07:34 Intake & Output 12/29/20 12/30/20 12/30/20 18:59 06:59 18:59 Intake Total 3150 Output Total 300 120 70 Balance 2850 -120 -70 Weight 86 kg Intake: IV 3150 Output: Drainage 80 70 Right Lower Abdomen 80 70 Urine 250 40 Estimated Blood Loss 50 Other: Voiding Method Indwelling Catheter - Labs CBC & Chem 7: 12/29/20 11:39 12/29/20 11:39 Labs: Abnormal Lab Results - Last 24 Hours (Table) 12/29/20 12/29/20 12/29/20 Range/Units 11:39 11:39 17:11 WBC 19.9 H (3.8-10.6) k/uL Neutrophils # 12.2 H (1.3-7.7) k/uL Lymphocytes # 6.1 H (1.0-4.8) k/uL Potassium 3.2 L (3.5-5.1) mmol/L BUN 23 H (7-17) mg/dL Creatinine 1.17 H (0.52-1.04) mg/dL Glucose 127 H (74-99) mg/dL POC Glucose (mg/dL) 367 H (75-99) mg/dL AST 67 H (14-36) U/L ALT 43 H (4-34) U/L Alkaline Phosphatase 174 H (38-126) U/L 12/29/20 12/29/20 12/29/20 Range/Units 17:15 18:40 20:00 WBC (3.8-10.6) k/uL Neutrophils # (1.3-7.7) k/uL Lymphocytes # (1.0-4.8) k/uL Potassium (3.5-5.1) mmol/L BUN (7-17) mg/dL Creatinine (0.52-1.04) mg/dL Glucose (74-99) mg/dL POC Glucose (mg/dL) 346 H 333 H 319 H (75-99) mg/dL AST (14-36) U/L ALT (4-34) U/L Alkaline Phosphatase (38-126) U/L 12/29/20 12/30/20 Range/Units 20:31 09:44 WBC (3.8-10.6) k/uL Neutrophils # (1.3-7.7) k/uL Lymphocytes # (1.0-4.8) k/uL Potassium (3.5-5.1) mmol/L BUN (7-17) mg/dL Creatinine (0.52-1.04) mg/dL Glucose (74-99) mg/dL POC Glucose (mg/dL) 306 H 311 H (75-99) mg/dL AST (14-36) U/L ALT (4-34) U/L Alkaline Phosphatase (38-126) U/L <Mahsa Tan N - Last Filed: 12/30/20 17:44> Subjective Patient seen and evaluated with above. Please see additional documentation below. CHIEF COMPLAINT: History of sigmoid diverticulitis HISTORY OF PRESENT ILLNESS: The patient is a 65-year-old female status post low anterior resection with sigmoid colectomy for recurrent sigmoid diverticulitis and stricture of sigmoid colon. She reports feeling well. White count has improved. Patient did present with pre-existing leukocytosis white count almost 20,000. Her pre-existing dyspnea has improved. She is passing flatus. She is tolerating liquid diet. Urine output was mostly dark and low but improved after fluid bolus. REVIEW OF ORGAN SYSTEMS: No fevers or chills. No nausea and vomiting. No bowel movement. No chest pain. PHYSICAL EXAM: VITAL SIGNS: Stable GENERAL: Well-developed pleasant in no acute distress. HEENT: No scleral icterus. Extraocular movements grossly intact. Moist buccal mucosa. NECK: Supple without lymphadenopathy. CHEST: Unlabored respirations. Equal bilateral excursions. CARDIOVASCULAR: Regular rate and rhythm. Distal 2+ pulses. ABDOMEN: Dressing clean dry and intact. REJI serosanguineous. No peritonitis. MUSCULOSKELETAL: No clubbing, cyanosis, or edema. NERUO: Cranial nerves 2-12 grossly intact. PSYCH: Alert and oriented to person place and time. : Urine clear and yellow. XRAY: Chest x-ray obtained confirming COPD without acute pneumonia. ASSESSMENT: 1. Sigmoid diverticulitis 2. Chronic pain syndrome. 3. Acute exacerbation of chronic obstructive pulmonary disease PLAN: 1. Continue IV antibiotics for pre-existing leukocytosis due to infection of unclear etiology. 2. Await bowel movement prior to advancing to low fiber diet. 3. Pulmonary consultation for acute exacerbation of COPD 4. Medicine consultation for poorly controlled diabetes type 2 Objective - Vital Signs Vital signs: Vital Signs Temp 98.0 F 12/30/20 14:00 Pulse 96 12/30/20 16:36 Resp 16 12/30/20 14:00 BP 104/57 12/30/20 14:00 Pulse Ox 86 L 12/30/20 15:02 Intake & Output 12/29/20 12/30/20 12/30/20 18:59 06:59 18:59 Intake Total 3150 Output Total 300 120 70 Balance 2850 -120 -70 Weight 86 kg Intake: IV 3150 Output: Drainage 80 70 Right Lower Abdomen 80 70 Urine 250 40 Estimated Blood Loss 50 Other: Voiding Method Indwelling Catheter Indwelling Catheter - Labs CBC & Chem 7: 12/30/20 06:41 12/30/20 06:41 Labs: Abnormal Lab Results - Last 24 Hours (Table) 12/29/20 12/29/20 12/29/20 Range/Units 18:40 20:00 20:31 WBC (4.50-10.00) X 10*3/uL RBC (4.10-5.20) X 10*6/uL Hgb (12.0-15.0) g/dL Hct (37.2-46.3) % MCHC (32.0-37.0) g/dL RDW (11.5-14.5) % Immature Gran # (0.00-0.04) X 10*3/uL Neutrophils # (1.80-7.70) X 10*3/uL Eosinophils # (0.04-0.35) X 10*3/uL Carbon Dioxide (21.6-31.8) mmol/L BUN (9.0-27.0) mg/dL Est GFR (CKD-EPI)AfAm (60.0-200.0) Est GFR (CKD-EPI)NonAf (60.0-200.0) Glucose (70-110) mg/dL POC Glucose (mg/dL) 333 H 319 H 306 H (75-99) mg/dL Calcium (8.7-10.3) mg/dL 12/30/20 12/30/20 12/30/20 Range/Units 06:41 06:41 09:44 WBC 13.70 H (4.50-10.00) X 10*3/uL RBC 3.84 L (4.10-5.20) X 10*6/uL Hgb 10.6 L (12.0-15.0) g/dL Hct 33.2 L (37.2-46.3) % MCHC 31.9 L (32.0-37.0) g/dL RDW 15.7 H (11.5-14.5) % Immature Gran # 0.05 H (0.00-0.04) X 10*3/uL Neutrophils # 10.50 H (1.80-7.70) X 10*3/uL Eosinophils # 0.02 L (0.04-0.35) X 10*3/uL Carbon Dioxide 19.9 L (21.6-31.8) mmol/L BUN 28.0 H (9.0-27.0) mg/dL Est GFR (CKD-EPI)AfAm 41.6 L (60.0-200.0) Est GFR (CKD-EPI)NonAf 35.9 L (60.0-200.0) Glucose 147 H (70-110) mg/dL POC Glucose (mg/dL) 311 H (75-99) mg/dL Calcium 8.0 L (8.7-10.3) mg/dL 12/30/20 12/30/20 Range/Units 11:41 16:31 WBC (4.50-10.00) X 10*3/uL RBC (4.10-5.20) X 10*6/uL Hgb (12.0-15.0) g/dL Hct (37.2-46.3) % MCHC (32.0-37.0) g/dL RDW (11.5-14.5) % Immature Gran # (0.00-0.04) X 10*3/uL Neutrophils # (1.80-7.70) X 10*3/uL Eosinophils # (0.04-0.35) X 10*3/uL Carbon Dioxide (21.6-31.8) mmol/L BUN (9.0-27.0) mg/dL Est GFR (CKD-EPI)AfAm (60.0-200.0) Est GFR (CKD-EPI)NonAf (60.0-200.0) Glucose (70-110) mg/dL POC Glucose (mg/dL) 229 H 205 H (75-99) mg/dL Calcium (8.7-10.3) mg/dL Assessment and Plan (1) Diverticulitis large intestine w/o perforation or abscess w/o bleeding Current Visit: Yes Status: Acute Code(s): K57.32 - DVTRCLI OF LG INT W/O PERFORATION OR ABSCESS W/O BLEEDING SNOMED Code(s): 3432190 (2) Chronic pain syndrome Current Visit: No Status: Acute Code(s): G89.4 - CHRONIC PAIN SYNDROME SNOMED Code(s): 884632765 (3) Elevated serum glucose Current Visit: No Status: Acute Code(s): R73.9 - HYPERGLYCEMIA, UNSPECIFIED SNOMED Code(s): 91336163
[2020-12-30 11:45] LABS: Glucose,Whole Blood 229 mg/dL (75-99)
[2020-12-30] MEDS: SIMETHICONE 40 MG/0.6 ML DROPS 2,000 MG/30 ML BOTTLE PO SCH ×4 (11:59→20:55)
[2020-12-30] MEDS: diphenhydrAMINE 50 MG/ML 1 ML VIAL IVP PRN (12:00)
[2020-12-30 12:12] LABS: Basophils # (A) 0.05 X 10*3/uL (0.00-0.10); Basophils % (A) 0.4 %; Eosinophils # (A) 0.02 X 10*3/uL (0.04-0.35); Eosinophils % (A) 0.1 %; HCT 33.2 % (37.2-46.3); HGB 10.6 g/dL (12.0-15.0); Lymphocytes % (A) 18.2 %; MCH 27.6 pg (27.0-32.0); MCHC 31.9 g/dL (32.0-37.0); MCV 86.5 fL (80.0-97.0); Monocytes # (A) 0.58 X 10*3/uL (0.20-1.00); Monocytes % (A) 4.2 %; Neutrophils % (A) 76.7 %; Platelet Count 254 X 10*3/uL (140-440); RBC 3.84 X 10*6/uL (4.10-5.20); RDW 15.7 % (11.5-14.5)
[2020-12-30 12:28] LABS: African American GFR (CKD) 41.6 (60.0-200.0); Anion Gap 11.1 mmol/L (4.00-12.00); BUN/Creat Ratio 18.67 Ratio (12.00-20.00); Carbon Dioxide 19.9 mmol/L (21.6-31.8); Non-African American GFR(CKD) 35.9 (60.0-200.0); Potassium 4.1 mmol/L (3.5-5.5)
--- NOTE | 2020-12-30 12:56 | P.CONS ---
History of Present Illness - Reason for Consult Acute renal failure, type 2 diabetes mellitus - History of Present Illness 65-year-old female admitted for the sigmoid colectomy anterior resection of the sigmoid stricture for sigmoid diverticulitis he did patient has and an anastomosis doesn't have a colostomy bag. His bit hypotensive not in any antidepressant medications patient is received a bolus of IV fluids patient is receiving normal saline at 1 50 mL per outpatient creatinine is elevated from 1. 17-1.5. Patient is on 4 L of oxygen at this time earlier today it was noted by the nursing staff that she didn't require any oxygen chest x-ray did not show any significant abnormality will try to wean off the oxygen. Not able to wean of the oxygen then we need to work her up for pulmonary embolism, starting with the d-dimer which probably will be elevated because of sepsis and surgery. Patient is on Toradol which will discuss reviewed at this time. Patient blood sugars are bit elevated. Patient is being started on clear liquid diet patient usually uses 47 units of Lantus at home patient will be started on 40 units today may need a higher dose once she starts eating actually means. Lantus doesn't usually cause hypoglycemia. Patient will be continue on sliding scale insulin. Patient was tachycardic which is improving at this time this tachycardia secondary to hypotension postsurgery. Patient is still complaining of some abdominal pain. REVIEW OF SYSTEMS: CONSTITUTIONAL: No fever, no malaise, no fatigue. HEENT: No recent visual problems or hearing problems. Denied any sore throat. CARDIOVASCULAR: No chest pain, orthopnea, PND, no palpitations, no syncope. PULMONARY: No shortness of breath, no cough, no hemoptysis. GASTROINTESTINAL: No diarrhea, no nausea, no vomiting. NEUROLOGICAL: No headaches, no weakness, no numbness. HEMATOLOGICAL: Denies any bleeding or petechiae. GENITOURINARY: Denies any burning micturition, frequency, or urgency. MUSCULOSKELETAL/RHEUMATOLOGICAL: Denies any joint pain, swelling, or any muscle pain. ENDOCRINE: Denies any polyuria or polydipsia. The rest of the 14-point review of systems is negative. PHYSICAL EXAMINATION: GENERAL: The patient is alert and oriented x3, not in any acute distress. Well developed, well nourished. HEENT: Pupils are round and equally reacting to light. EOMI. No scleral icterus. No conjunctival pallor. Normocephalic, atraumatic. No pharyngeal erythema. No thyromegaly. CARDIOVASCULAR: S1 and S2 present. No murmurs, rubs, or gallops. PULMONARY: Chest is clear to auscultation, no wheezing or crackles. ABDOMEN: Soft, nontender, nondistended, normoactive bowel sounds. No palpable organomegaly. MUSCULOSKELETAL: No joint swelling or deformity. EXTREMITIES: No cyanosis, clubbing, or pedal edema. NEUROLOGICAL: Gross neurological examination did not reveal any focal deficits. SKIN: No rashes. Assessment and plan -Mild acute renal failure probably secondary to hypotension patient is an up properly to IV fluids which will be continued. Kidney function is expected to improve with IV fluids.. -Shortness of breath probably secondary to atelectasis patient the may have a sleep apnea as well with some restrictive lung disease. Continue with incentive spirometry to try to wean off oxygen. My suspicion for pulmonary embolism is low but if he cannot the get her off oxygen it's reasonable to consider doing a CT of the chest for pulmonary embolism once creatinine improves. -Leukocytosis secondary to her diverticulitis patient is status post laparotomy, patient is on appropriate antibiotics -Fibromyalgia -Hypertension Hyperlipidemia Diabetes mellitus: Management as mentioned above -COPD without any acute exacerbation Heparin depression -Hyperlipidemia -Gastroesophageal reflux disease -Obstructive sleep apnea -Hypothyroidism DVT prophylaxis: As per primary service Past Medical History Past Medical History: Asthma, COPD, CVA/TIA, Diabetes Mellitus, Fibromyalgia, GERD/Reflux, Hyperlipidemia, Hypertension, Neurologic Disorder, Sleep Apnea/CPAP/BIPAP, Thyroid Disorder Additional Past Medical History / Comment(s): IDDMM. 08/2011 DUODENAL ULCER, GASTRITIS. NEUROPATHY FEET, RLS. HX OF RHEUMATIC FEVER, HAS HOLE IN BACK OF HEART., HX OF SEPSIS FROM PORT INFECTIONS., STATES NO LONGER USING C-PAP MACHINE., STATES FREQUENT DIARRHEA., LUPUS., aneurysm back of brain surgery with coil, and stent to repair, difficulty swallowing, diverticulitis History of Any Multi-Drug Resistant Organisms: None Reported Past Surgical History: Back Surgery, Section, Hernia Repair, Hysterectomy, Joint Replacement Additional Past Surgical History / Comment(s): THUMB SURGERY, BRUCE TOTAL KNEES, PORT INSERTED & REMOVED. Lap Nasir with hiatal hernia repair with mesh 05/09/2017 ,surgery to repair brain aneurysm with coil and stent, bruce elbow surgery ,lap sigmoid colectomy, cataracts-lens implants, back surgery 06/23/20 Past Anesthesia/Blood Transfusion Reactions: Blood Transfusion Reaction Additional Past Anesthesia/Blood Transfusion Reaction / Comm: STATES BLOOD TRANSFUSION 45 years ago WITH CHILD - STATES RASH AND ITCHING Smoking Status: Former smoker - Past Family History Mother Family Medical History: Deep Vein Thrombosis (DVT) Daughter(s) Family Medical History: Cancer Additional Family Medical History / Comment(s): lymphoma- age 30 Medications and Allergies Home Medications Medication Instructions Recorded Confirmed Type Aspirin [Adult Low Dose Aspirin EC] 81 mg PO DAILY 11/27/16 12/26/20 History Diclofenac Sodium [Voltaren Gel] 2 gram TOPICAL DAILY PRN 11/27/16 12/26/20 History Levothyroxine Sodium [Synthroid] 112 mcg PO QAM 11/27/16 12/26/20 History Umeclidinium Brm/Vilanterol Tr 1 puff INHALATION QAM 11/27/16 12/26/20 History [Anoro Ellipta 62.5-25 Mcg INH] rOPINIRole HCL [Requip] 3 mg PO HS 11/27/16 12/26/20 History Venlafaxine HCl [Effexor XR] 150 mg PO BID 05/03/17 12/26/20 History ALPRAZolam [Xanax] 0.5 mg PO HS 03/05/18 12/26/20 History Atorvastatin [Lipitor] 40 mg PO QAM 09/26/20 12/26/20 History Furosemide [Lasix] 20 mg PO QAM 09/26/20 12/26/20 History Insulin Glargine [Lantus Vial] 46 unit SQ HS 09/26/20 12/26/20 History oxyCODONE-APAP 7.5-325MG [Percocet 1 tab PO Q6H 09/26/20 12/26/20 History 7.5-325 mg] Insulin Aspart [NovoLOG] 0 units SQ ACHS PRN 12/26/20 12/26/20 History Allergies Allergy/AdvReac Type Severity Reaction Status Date / Time ceftriaxone [From Rocephin] Allergy Severe PASSED OUT Verified 12/29/20 10:06 Sulfa (Sulfonamide Allergy Unknown Rash/Hives, Verified 12/29/20 10:06 Antibiotics) Itchy morphine Allergy Swelling Verified 12/29/20 10:06 dermabond Allergy Rash/Hives Uncoded 12/29/20 10:06 Physical Exam Vitals: Vital Signs Temp Pulse Resp BP Pulse Ox 12/30/20 07:34 97.8 F 92 16 94/58 92 L 12/30/20 03:49 99.2 F 104 H 18 111/80 93 L 12/30/20 00:38 98.8 F 100 15 105/75 92 L 12/29/20 23:19 18 12/29/20 22:30 107 H 118/84 12/29/20 22:15 107 H 136/80 12/29/20 22:00 106 H 124/87 12/29/20 21:45 109 H 151/97 12/29/20 21:30 64 150/64 12/29/20 21:15 168/89 12/29/20 21:00 100 143/84 12/29/20 20:45 101 H 123/77 12/29/20 20:30 98.0 F 101 H 16 154/93 94 L 12/29/20 19:45 103 H 18 137/63 93 L 12/29/20 19:30 104 H 18 155/78 93 L 12/29/20 19:15 94 18 167/80 93 L 12/29/20 19:00 102 H 19 155/78 94 L 12/29/20 18:45 102 H 18 155/97 94 L 12/29/20 18:31 98.2 F 106 H 18 161/76 95 Intake and Output 12/29/20 12/30/20 12/30/20 22:59 06:59 14:59 Intake Total 0 Output Total 340 80 70 Balance -340 -80 -70 Intake: IV 0 Output: Drainage 80 70 Right Lower Abdomen 80 70 Urine 290 Estimated Blood Loss 50 Other: Voiding Method Indwelling Catheter Results CBC & Chem 7: 12/30/20 06:41 12/30/20 06:41 Labs: Abnormal Lab Results - Last 24 Hours (Table) 12/29/20 12/29/20 12/29/20 Range/Units 17:11 17:15 18:40 WBC (4.50-10.00) X 10*3/uL RBC (4.10-5.20) X 10*6/uL Hgb (12.0-15.0) g/dL Hct (37.2-46.3) % MCHC (32.0-37.0) g/dL RDW (11.5-14.5) % Immature Gran # (0.00-0.04) X 10*3/uL Neutrophils # (1.80-7.70) X 10*3/uL Eosinophils # (0.04-0.35) X 10*3/uL Carbon Dioxide (21.6-31.8) mmol/L BUN (9.0-27.0) mg/dL Est GFR (CKD-EPI)AfAm (60.0-200.0) Est GFR (CKD-EPI)NonAf (60.0-200.0) Glucose (70-110) mg/dL POC Glucose (mg/dL) 367 H 346 H 333 H (75-99) mg/dL Calcium (8.7-10.3) mg/dL 12/29/20 12/29/20 12/30/20 Range/Units 20:00 20:31 06:41 WBC 13.70 H (4.50-10.00) X 10*3/uL RBC 3.84 L (4.10-5.20) X 10*6/uL Hgb 10.6 L (12.0-15.0) g/dL Hct 33.2 L (37.2-46.3) % MCHC 31.9 L (32.0-37.0) g/dL RDW 15.7 H (11.5-14.5) % Immature Gran # 0.05 H (0.00-0.04) X 10*3/uL Neutrophils # 10.50 H (1.80-7.70) X 10*3/uL Eosinophils # 0.02 L (0.04-0.35) X 10*3/uL Carbon Dioxide (21.6-31.8) mmol/L BUN (9.0-27.0) mg/dL Est GFR (CKD-EPI)AfAm (60.0-200.0) Est GFR (CKD-EPI)NonAf (60.0-200.0) Glucose (70-110) mg/dL POC Glucose (mg/dL) 319 H 306 H (75-99) mg/dL Calcium (8.7-10.3) mg/dL 12/30/20 12/30/20 12/30/20 Range/Units 06:41 09:44 11:41 WBC (4.50-10.00) X 10*3/uL RBC (4.10-5.20) X 10*6/uL Hgb (12.0-15.0) g/dL Hct (37.2-46.3) % MCHC (32.0-37.0) g/dL RDW (11.5-14.5) % Immature Gran # (0.00-0.04) X 10*3/uL Neutrophils # (1.80-7.70) X 10*3/uL Eosinophils # (0.04-0.35) X 10*3/uL Carbon Dioxide 19.9 L (21.6-31.8) mmol/L BUN 28.0 H (9.0-27.0) mg/dL Est GFR (CKD-EPI)AfAm 41.6 L (60.0-200.0) Est GFR (CKD-EPI)NonAf 35.9 L (60.0-200.0) Glucose 147 H (70-110) mg/dL POC Glucose (mg/dL) 311 H 229 H (75-99) mg/dL Calcium 8.0 L (8.7-10.3) mg/dL
[2020-12-30] MEDS: IPRATROPIUM 0.5 MG/2.5 ML NEBU INHALATION SCH ×4 (13:05→20:36)
[2020-12-30] MEDS: FORMOTEROL FUMARATE 20 MCG/2 ML NEBU INHALATION SCH ×2 (13:05→20:36)
[2020-12-30 16:33] LABS: Glucose,Whole Blood 205 mg/dL (75-99)
[2020-12-30] MEDS: DICLOFENAC SODIUM GEL 100 GM TUBE TOPICAL SCH ×2 (18:20→21:10)
[2020-12-30 20:53] LABS: Glucose,Whole Blood 135 mg/dL (75-99)
[2020-12-30] MEDS: ALPRAZolam 0.5 MG TAB PO SCH (20:54)
[2020-12-30] MEDS: INSULIN DETEMIR (LEVEMIR) 100 UNIT/ML SYR SQ SCH (21:09)
[2020-12-30] MEDS: oxyCODONE-APAP 7.5-325MG 1 EACH TAB PO SCH (23:09)
[2020-12-31] MEDS: 0.9% NACL WITH KCL 40 MEQ/L 1,000 ML IV SCH ×3 (02:44→22:30)
[2020-12-31] MEDS: metroNIDAZOLE-NS PMX 500 MG in SALINE 1 100ML.BAG IVPB SCH ×3 (04:11→22:30)
[2020-12-31] MEDS: oxyCODONE-APAP 7.5-325MG 1 EACH TAB PO SCH ×3 (05:25→17:35)
[2020-12-31] MEDS: diphenhydrAMINE 50 MG/ML 1 ML VIAL IVP PRN (05:26)
[2020-12-31 07:06] LABS: Glucose,Whole Blood 90 mg/dL (75-99)
[2020-12-31] MEDS: INSULIN ASPART (NovoLOG) 100 UNIT/ML VIAL SQ SCH ×4 (07:34→22:17)
[2020-12-31] MEDS: IPRATROPIUM 0.5 MG/2.5 ML NEBU INHALATION SCH ×4 (08:00→21:25)
[2020-12-31] MEDS: FORMOTEROL FUMARATE 20 MCG/2 ML NEBU INHALATION SCH ×2 (08:07→21:25)
[2020-12-31] MEDS: LEVOFLOXACIN 750MG-D5W PMX 750 MG in DEXTROSE/WATER 1 150ML.BAG IVPB SCH (08:24)
[2020-12-31] MEDS: ALVIMOPAN 12 MG CAPSULE PO SCH (08:24)
[2020-12-31] MEDS: HEPARIN SODIUM,PORCINE/PF 5,000 UNIT/0.5 ML SYRINGE SQ SCH ×2 (08:24→22:16)
[2020-12-31] MEDS: VENLAFAXINE HCL ER 150 MG CAP PO SCH ×2 (08:24→22:16)
[2020-12-31] MEDS: DICLOFENAC SODIUM GEL 100 GM TUBE TOPICAL SCH ×4 (08:25→22:20)
[2020-12-31] MEDS: SIMETHICONE 40 MG/0.6 ML DROPS 2,000 MG/30 ML BOTTLE PO SCH ×4 (08:25→22:19)
[2020-12-31 11:03] LABS: Basophils # (A) 0.03 X 10*3/uL (0.00-0.10); Basophils % (A) 0.2 %; Eosinophils # (A) 0.31 X 10*3/uL (0.04-0.35); Eosinophils % (A) 2.5 %; HCT 32.5 % (37.2-46.3); HGB 9.7 g/dL (12.0-15.0); Lymphocytes # (A) 1.57 X 10*3/uL (0.90-5.00); Lymphocytes % (A) 12.6 %; MCH 25.9 pg (27.0-32.0); MCHC 29.8 g/dL (32.0-37.0); MCV 86.9 fL (80.0-97.0); Mean Platelet Volume 11.1 fL (9.5-12.2); Monocytes # (A) 0.59 X 10*3/uL (0.20-1.00); Monocytes % (A) 4.7 %; Neutrophils # (A) 9.95 X 10*3/uL (1.80-7.70); Neutrophils % (A) 79.8 %; Platelet Count 243 X 10*3/uL (140-440); RBC 3.74 X 10*6/uL (4.10-5.20); RDW 15.6 % (11.5-14.5); WBC 12.48 X 10*3/uL (4.50-10.00)
[2020-12-31 11:41] LABS: Glucose,Whole Blood 85 mg/dL (75-99)
--- NOTE | 2020-12-31 12:13 | P.PN ---
Subjective Progress Note Date: 12/31/20 Principal diagnosis: Sigmoid stricture Patient doing well today. White blood cell count is 12. Tolerating clears. She is having bowel function. Objective - Vital Signs Vital signs: Vital Signs Temp 97.9 F 12/31/20 08:00 Pulse 96 12/31/20 11:28 Resp 20 12/31/20 08:00 BP 126/71 12/31/20 08:00 Pulse Ox 93 L 12/31/20 08:00 Intake & Output 12/30/20 12/31/20 12/31/20 18:59 06:59 18:59 Intake Total 2560 Output Total 170 430 150 Balance 2390 -430 -150 Intake: Intake, IV Titration 2560 Amount 0.9% NaCl with KCl 40 Meq 1560 /l 1,000 ml @ 130 mls/hr IV .[id number] [facility] Rx#: [id number] Sodium Chloride 0.9% 1, 1000 000 ml @ 999 mls/hr IV . Q1H1M [facility] Rx#:[id number] Output: Drainage 170 230 150 Right Lower Abdomen 170 230 150 Urine 200 Other: Voiding Method Indwelling Catheter # Bowel Movements 1 - Exam Abdomen: Soft, nondistended, incisions clean and dry, mild tenderness - Labs CBC & Chem 7: 12/31/20 07:00 12/30/20 06:41 Labs: Abnormal Lab Results - Last 24 Hours (Table) 12/30/20 12/30/20 12/30/20 Range/Units 06:41 06:41 06:41 WBC 13.70 H (4.50-10.00) X 10*3/uL RBC 3.84 L (4.10-5.20) X 10*6/uL Hgb 10.6 L (12.0-15.0) g/dL Hct 33.2 L (37.2-46.3) % MCH (27.0-32.0) pg MCHC 31.9 L (32.0-37.0) g/dL RDW 15.7 H (11.5-14.5) % Immature Gran # 0.05 H (0.00-0.04) X 10*3/uL Neutrophils # 10.50 H (1.80-7.70) X 10*3/uL Eosinophils # 0.02 L (0.04-0.35) X 10*3/uL Carbon Dioxide 19.9 L (21.6-31.8) mmol/L BUN 28.0 H (9.0-27.0) mg/dL Est GFR (CKD-EPI)AfAm 41.6 L (60.0-200.0) Est GFR (CKD-EPI)NonAf 35.9 L (60.0-200.0) Glucose 147 H (70-110) mg/dL POC Glucose (mg/dL) (75-99) mg/dL Hemoglobin A1c 10.7 H (4.0-6.0) % Calcium 8.0 L (8.7-10.3) mg/dL 12/30/20 12/30/20 12/31/20 Range/Units 16:31 20:52 07:00 WBC 12.48 H (4.50-10.00) X 10*3/uL RBC 3.74 L (4.10-5.20) X 10*6/uL Hgb 9.7 L (12.0-15.0) g/dL Hct 32.5 L (37.2-46.3) % MCH 25.9 L (27.0-32.0) pg MCHC 29.8 L (32.0-37.0) g/dL RDW 15.6 H (11.5-14.5) % Immature Gran # (0.00-0.04) X 10*3/uL Neutrophils # 9.95 H (1.80-7.70) X 10*3/uL Eosinophils # (0.04-0.35) X 10*3/uL Carbon Dioxide (21.6-31.8) mmol/L BUN (9.0-27.0) mg/dL Est GFR (CKD-EPI)AfAm (60.0-200.0) Est GFR (CKD-EPI)NonAf (60.0-200.0) Glucose (70-110) mg/dL POC Glucose (mg/dL) 205 H 135 H (75-99) mg/dL Hemoglobin A1c (4.0-6.0) % Calcium (8.7-10.3) mg/dL Assessment and Plan (1) Diverticulitis large intestine w/o perforation or abscess w/o bleeding Narrative/Plan: Patient seems to be doing well today. Will increase diet at this time. Ambulate. Recheck CBC tomorrow. Current Visit: Yes Status: Acute Code(s): K57.32 - DVTRCLI OF LG INT W/O PERFORATION OR ABSCESS W/O BLEEDING SNOMED Code(s): 4296829
[2020-12-31 13:07] LABS: African American GFR (CKD) 54.5 (60.0-200.0); Anion Gap 7.2 mmol/L (4.00-12.00); BUN/Creat Ratio 15.83 Ratio (12.00-20.00); Calcium 8.2 mg/dL (8.7-10.3); Carbon Dioxide 17.8 mmol/L (21.6-31.8); Non-African American GFR(CKD) 47.1 (60.0-200.0); Potassium 4.3 mmol/L (3.5-5.5)
[2020-12-31 14:11] VITALS: BMI 30.6
--- NOTE | 2020-12-31 14:45 | P.CNPUL ---
History of Present Illness Consult date: 12/31/20 Requesting physician: Mahsa Tan Reason for consult: dyspnea, hypoxemia, other Chief complaint: Shortness of breath, postoperative hypoxia. History of present illness: Pulmonary/critical care consult dated 12/31/2020. 65-year-old female, who we are asked to see because of postoperative hypoxemia. The patient has a history of multiple medical problems including brain aneurysm, hypothyroidism, sleep apnea syndrome, GERD, multiple abdominal surgeries with adhesions, anxiety, lupus, hyperlipidemia, depression, COPD, hypertension, diabetes, obesity, fibromyalgia, and sigmoid stricture due to sigmoid diverticuli. The patient underwent a robotically assisted laparoscopic lysis of adhesions, sigmoid colectomy, and low anterior resection, as well as intraoperative colonoscopy and placement of Rashawn-Saleh drain. The surgery was done on December 29. Currently, the patient's resting comfortably in her room. She's flat on her back, and not on any supplemental oxygen. She would like to go home. Her saturations on room air are in the mid 90s. She denies being short of breath. We were asked to see her because of low saturations. White count 12.48, hemoglobin 9.7, hematocrit 32 5, and platelet count 243,000. Sodium 141, potassium 4.3, chlorides 116, CO2 18, anion gap 7, BUN 19, creatinine 1.2. A chest x-ray done yesterday shows mild cardiomegaly along with COPD changes. There is nothing acute on the chest x-ray. Review of Systems REVIEW OF SYSTEMS: CONSTITUTIONAL: [Negative.] NEUROLOGIC: [ Negative.] HEENT: [ Negative.] CARDIAC: [Negative.] PULMONARY: Shortness of breath, which has resolved. GI: [Negative.] : [Negative.] RHEUMATOLOGIC: [ Negative.] IMMUNOLOGIC: [ Negative.] ENDOCRINE: [Negative. ] DERMATOLOGIC: [Negative.] Past Medical History Past Medical History: Asthma, COPD, CVA/TIA, Diabetes Mellitus, Fibromyalgia, GERD/Reflux, Hyperlipidemia, Hypertension, Neurologic Disorder, Sleep Apnea/CPAP/BIPAP, Thyroid Disorder Additional Past Medical History / Comment(s): IDDMM. 08/2011 DUODENAL ULCER, GASTRITIS. NEUROPATHY FEET, RLS. HX OF RHEUMATIC FEVER, HAS HOLE IN BACK OF HEART., HX OF SEPSIS FROM PORT INFECTIONS., STATES NO LONGER USING C-PAP MACHINE., STATES FREQUENT DIARRHEA., LUPUS., aneurysm back of brain surgery with coil, and stent to repair, difficulty swallowing, diverticulitis History of Any Multi-Drug Resistant Organisms: None Reported Past Surgical History: Back Surgery, Section, Hernia Repair, Hysterectomy, Joint Replacement Additional Past Surgical History / Comment(s): THUMB SURGERY, BRUCE TOTAL KNEES, PORT INSERTED & REMOVED. Lap Nasir with hiatal hernia repair with mesh 05/09/2017 ,surgery to repair brain aneurysm with coil and stent, bruce elbow surgery ,lap sigmoid colectomy, cataracts-lens implants, back surgery 06/23/20 Past Anesthesia/Blood Transfusion Reactions: Blood Transfusion Reaction Additional Past Anesthesia/Blood Transfusion Reaction / Comment(s): STATES BLOOD TRANSFUSION 45 years ago WITH CHILD - STATES RASH AND ITCHING Smoking Status: Former smoker - Past Family History Mother Family Medical History: Deep Vein Thrombosis (DVT) Daughter(s) Family Medical History: Cancer Additional Family Medical History / Comment(s): lymphoma- age 30 Medications and Allergies Home Medications Medication Instructions Recorded Confirmed Type Aspirin [Adult Low Dose Aspirin EC] 81 mg PO DAILY 11/27/16 12/26/20 History Diclofenac Sodium [Voltaren Gel] 2 gram TOPICAL DAILY PRN 11/27/16 12/26/20 History Levothyroxine Sodium [Synthroid] 112 mcg PO QAM 11/27/16 12/26/20 History Umeclidinium Brm/Vilanterol Tr 1 puff INHALATION QAM 11/27/16 12/26/20 History [Anoro Ellipta 62.5-25 Mcg INH] rOPINIRole HCL [Requip] 3 mg PO HS 11/27/16 12/26/20 History Venlafaxine HCl [Effexor XR] 150 mg PO BID 05/03/17 12/26/20 History ALPRAZolam [Xanax] 0.5 mg PO HS 03/05/18 12/26/20 History Atorvastatin [Lipitor] 40 mg PO QAM 09/26/20 12/26/20 History Furosemide [Lasix] 20 mg PO QAM 09/26/20 12/26/20 History Insulin Glargine [Lantus Vial] 46 unit SQ HS 09/26/20 12/26/20 History oxyCODONE-APAP 7.5-325MG [Percocet 1 tab PO Q6H 09/26/20 12/26/20 History 7.5-325 mg] Insulin Aspart [NovoLOG] 0 units SQ ACHS PRN 12/26/20 12/26/20 History Amoxic-Pot Clav 875-125Mg 1 each PO Q12HR #20 tab 12/30/20 Rx [Augmentin 875-125] Ibuprofen [Motrin] 600 mg PO Q8HR PRN #30 tab 12/30/20 Rx Simethicone [Gas-X] 125 mg PO AC-TID PRN #20 cap 12/30/20 Rx metroNIDAZOLE [Flagyl] 500 mg PO TID #30 tab 12/30/20 Rx Gabapentin 800 mg PO BID 12/31/20 12/31/20 History Allergies Allergy/AdvReac Type Severity Reaction Status Date / Time ceftriaxone [From Rocephin] Allergy Severe PASSED OUT Verified 12/29/20 10:06 Sulfa (Sulfonamide Allergy Unknown Rash/Hives, Verified 12/29/20 10:06 Antibiotics) Itchy morphine Allergy Swelling Verified 12/29/20 10:06 dermabond Allergy Rash/Hives Uncoded 12/29/20 10:06 Physical Exam Osteopathic Statement: *. No significant issues noted on an osteopathic structural exam other than those noted in the History and Physical/Consult. Vitals: Vital Signs Temp Pulse Pulse Resp BP Pulse Ox 12/31/20 11:28 96 12/31/20 11:21 100 12/31/20 08:13 92 12/31/20 08:09 96 12/31/20 08:00 97.9 F 92 101 H 20 126/71 93 L 12/31/20 00:37 97.6 F 95 92/58 92 L 12/30/20 20:52 92 12/30/20 20:36 92 91 L 12/30/20 20:00 88 16 12/30/20 18:58 97.9 F 88 121/60 93 L 12/30/20 16:36 96 12/30/20 16:25 96 12/30/20 15:02 86 L Intake and Output 12/30/20 12/31/20 12/31/20 22:59 06:59 14:59 Intake Total 2560 Output Total 160 370 150 Balance 2400 -370 -150 Intake: Intake, IV Titration 2560 Amount 0.9% NaCl with KCl 40 Meq 1560 /l 1,000 ml @ 130 mls/hr IV .Q7H42M [facility] Rx#: [id number] Sodium Chloride 0.9% 1, 1000 000 ml @ 999 mls/hr IV . Q1H1M [facility] Rx#:[id number] Output: Drainage 160 170 150 Right Lower Abdomen 160 170 150 Urine 200 Other: # Bowel Movements 1 Weight 86 kg No acute distress, oriented 3. No conversational dyspnea or wheezing, or use of accessory muscles. Room air saturation between 96 and 100%. HEENT examination is grossly unremarkable. Neck supple. Full range of motion. No adenopathy thyromegaly or neck vein distention. Cardiovascular examination reveals regular rhythm rate. S1-S2 normal. No S3 or S4. No discernible murmur noted. Heart rate 96 bpm. Lungs reveal interval scattered rhonchi. Breath sounds are mostly clear. No wheezes or crackles. Breath sounds equal bilaterally. Looking back at her saturations, but low saturation was 86% at 3:00 yesterday. Abdomen soft bowel sounds are heard. No masses or tenderness. Extremities are intact. No cyanosis clubbing or edema. Skin is without rash or lesion. Neurologic examination is brief but nonfocal. Results - Laboratory Findings CBC and BMP: 12/31/20 07:00 12/31/20 07:00 Abnormal lab findings: Abnormal Labs 12/29/20 12/29/20 12/29/20 10:12 11:39 11:39 WBC 19.9 H RBC Hgb Hct MCH MCHC RDW Immature Gran # Neutrophils # 12.2 H Lymphocytes # 6.1 H Eosinophils # Potassium 3.2 L Chloride Carbon Dioxide BUN 23 H Creatinine 1.17 H Est GFR (CKD-EPI)AfAm Est GFR (CKD-EPI)NonAf Glucose 127 H POC Glucose (mg/dL) 141 H Hemoglobin A1c Calcium AST 67 H ALT 43 H Alkaline Phosphatase 174 H 12/29/20 12/29/20 12/29/20 17:11 17:15 18:40 WBC RBC Hgb Hct MCH MCHC RDW Immature Gran # Neutrophils # Lymphocytes # Eosinophils # Potassium Chloride Carbon Dioxide BUN Creatinine Est GFR (CKD-EPI)AfAm Est GFR (CKD-EPI)NonAf Glucose POC Glucose (mg/dL) 367 H 346 H 333 H Hemoglobin A1c Calcium AST ALT Alkaline Phosphatase 12/29/20 12/29/20 12/30/20 20:00 20:31 06:41 WBC 13.70 H RBC 3.84 L Hgb 10.6 L Hct 33.2 L MCH MCHC 31.9 L RDW 15.7 H Immature Gran # 0.05 H Neutrophils # 10.50 H Lymphocytes # Eosinophils # 0.02 L Potassium Chloride Carbon Dioxide BUN Creatinine Est GFR (CKD-EPI)AfAm Est GFR (CKD-EPI)NonAf Glucose POC Glucose (mg/dL) 319 H 306 H Hemoglobin A1c Calcium AST ALT Alkaline Phosphatase 12/30/20 12/30/20 12/30/20 06:41 06:41 09:44 WBC RBC Hgb Hct MCH MCHC RDW Immature Gran # Neutrophils # Lymphocytes # Eosinophils # Potassium Chloride Carbon Dioxide 19.9 L BUN 28.0 H Creatinine Est GFR (CKD-EPI)AfAm 41.6 L Est GFR (CKD-EPI)NonAf 35.9 L Glucose 147 H POC Glucose (mg/dL) 311 H Hemoglobin A1c 10.7 H Calcium 8.0 L AST ALT Alkaline Phosphatase 12/30/20 12/30/20 12/30/20 11:41 16:31 20:52 WBC RBC Hgb Hct MCH MCHC RDW Immature Gran # Neutrophils # Lymphocytes # Eosinophils # Potassium Chloride Carbon Dioxide BUN Creatinine Est GFR (CKD-EPI)AfAm Est GFR (CKD-EPI)NonAf Glucose POC Glucose (mg/dL) 229 H 205 H 135 H Hemoglobin A1c Calcium AST ALT Alkaline Phosphatase 12/31/20 12/31/20 07:00 07:00 WBC 12.48 H RBC 3.74 L Hgb 9.7 L Hct 32.5 L MCH 25.9 L MCHC 29.8 L RDW 15.6 H Immature Gran # Neutrophils # 9.95 H Lymphocytes # Eosinophils # Potassium Chloride 116 H Carbon Dioxide 17.8 L BUN Creatinine Est GFR (CKD-EPI)AfAm 54.5 L Est GFR (CKD-EPI)NonAf 47.1 L Glucose POC Glucose (mg/dL) Hemoglobin A1c Calcium 8.2 L AST ALT Alkaline Phosphatase - Diagnostic Findings Chest x-ray: image reviewed Assessment and Plan Assessment: Mild, transient, postoperative hypoxemia, likely related to recent abdominal procedure, and basilar atelectasis. Postop day #2, robotically assisted laparoscopic lysis of adhesions, sigmoid colectomy and low anterior resection, intraoperative colonoscopy, and placement of a Rashawn-Saleh drain. History of COPD from previous tobacco use. History of sleep apnea syndrome. History of brain aneurysm. History of hypothyroidism. History of gastroesophageal reflux disease. History of multiple abdominal surgeries. Generalized anxiety disorder. History of lupus. History of hyperlipidemia. History of hypertensive cardiovascular disease. History of type 2 diabetes. Obesity. History of fibromyalgia. Plan: Plan dated 12/31/2020. Currently, the patient seemed to be doing relatively well. She's flat on her back, not on any supplemental oxygen, and her saturations are in the mid 90s. She would like to be discharged home if possible. Apparently the surgeon stated that the patient could be considered for discharge. The surgeon who did the procedure, did not see the patient today. The patient should be encouraged to deep breathe, cough, and clear secretions. In addition, the patient showed take-home her incentive spirometer. Finally, the patient does see my partner in the office for COPD, and uses a once a day medication that contains a long- acting beta agonist, and a long-acting muscarinic antagonist. The patient should continue to use this medication on a regular basis. Time with Patient: Greater than 30
--- NOTE | 2020-12-31 15:16 | XR ---
EXAMINATION TYPE: XR chest 1V portable DATE OF EXAM: 12/31/2020 COMPARISON: Yesterday HISTORY: Short of breath TECHNIQUE: FINDINGS: Heart and mediastinum are normal. Lungs are clear of consolidation. There are no hilar mass es. Costophrenic angles are clear. Bony thorax is intact. There is small linear density in the left m idlung. IMPRESSION: Minimal subsegmental atelectasis in the left lung without change compared to yesterday. N ormal heart.
[2020-12-31 16:39] LABS: Glucose,Whole Blood 133 mg/dL (75-99)
--- NOTE | 2020-12-31 18:34 | PN ---
PROGRESS NOTE DATE OF SERVICE: 12/31/2020 This 65-year-old woman who was admitted after robotic-assisted laparoscopic lysis of adhesions as well as sigmoid colectomy and low anterior resection for sigmoid stricture and sigmoid diverticulitis is being closely monitored at this time. The patient also has renal failure. No chest pain. No palpitations. No fever. White count is elevated at 12.48. PHYSICAL EXAMINATION: Alert and oriented x3. Pulse is 107, blood pressure 124/73, respiration 20, temperature 98.3, pulse ox 94% on room air. HEENT: Conjunctivae normal. NECK: No jugular venous distention. CARDIOVASCULAR: S1, S2 muffled. RESPIRATION: Breath sounds diminished at the bases. No rhonchi. No crackles. ABDOMEN: Soft. Status post surgery. LEGS: No edema. No swelling. NERVOUS SYSTEM: No focal deficit. LABS: WBC 12.3, hemoglobin 9.7. Other labs are noted. ASSESSMENT: 1. Status post robotic-assisted laparoscopic lysis of adhesion as well as laparoscopic sigmoid colectomy with low anterior resection for sigmoid stricture due to sigmoid diverticulitis. 2. Increased white count. 3. Anemia. 4. History of asthma, chronic obstructive pulmonary disease. 5. Cerebrovascular accident, transient ischemic attack. 6. Diabetes mellitus, type 2. 7. Fibromyalgia. 8. Gastroesophageal reflux disease. 9. Hypertension. 10.Hyperlipidemia. 11.History of . 12.Sleep apnea. 13.History of duodenal ulcer. 14.History of gastritis. 15.Back surgery. 16. section. 17.History of anxiety, depression. 18.History of nicotine dependence. 19.FULL CODE. RECOMMENDATIONS AND DISCUSSION: In this 65-year-old woman who presented with multiple complex medical issues, we will monitor the patient closely, continue the current medications, continue symptomatic treatment. Continue with home medications. DVT prophylaxis. I would also recommend proton pump inhibitors. Closely follow with Surgery. Guarded prognosis. Further recommendations to follow. MMODL / IJN: [id number] /
[2020-12-31 21:58] LABS: Glucose,Whole Blood 144 mg/dL (75-99)
[2020-12-31] MEDS: GABAPENTIN 400 MG CAP PO SCH (22:16)
[2020-12-31] MEDS: ALPRAZolam 0.5 MG TAB PO SCH (22:16)
[2020-12-31] MEDS: INSULIN DETEMIR (LEVEMIR) 100 UNIT/ML SYR SQ SCH (22:17)
[2021-01-01] MEDS: oxyCODONE-APAP 7.5-325MG 1 EACH TAB PO SCH ×4 (01:06→17:43)
[2021-01-01] MEDS: metroNIDAZOLE-NS PMX 500 MG in SALINE 1 100ML.BAG IVPB SCH ×3 (03:16→21:40)
[2021-01-01] MEDS: LEVOTHYROXINE 112 MCG TAB PO SCH (05:03)
[2021-01-01] MEDS: IPRATROPIUM 0.5 MG/2.5 ML NEBU INHALATION SCH ×4 (07:29→20:56)
[2021-01-01] MEDS: FORMOTEROL FUMARATE 20 MCG/2 ML NEBU INHALATION SCH ×2 (07:29→20:56)
[2021-01-01 07:41] LABS: Glucose,Whole Blood 68 mg/dL (75-99)
[2021-01-01] MEDS: INSULIN ASPART (NovoLOG) 100 UNIT/ML VIAL SQ SCH ×4 (07:49→21:23)
[2021-01-01] MEDS: SIMETHICONE 40 MG/0.6 ML DROPS 2,000 MG/30 ML BOTTLE PO SCH ×4 (08:08→21:44)
[2021-01-01] MEDS: GABAPENTIN 400 MG CAP PO SCH ×2 (08:08→21:41)
[2021-01-01] MEDS: VENLAFAXINE HCL ER 150 MG CAP PO SCH ×2 (08:08→21:41)
[2021-01-01] MEDS: PANTOPRAZOLE 40 MG TABLET PO SCH (08:08)
[2021-01-01] MEDS: HEPARIN SODIUM,PORCINE/PF 5,000 UNIT/0.5 ML SYRINGE SQ SCH ×2 (08:08→21:41)
[2021-01-01] MEDS: DICLOFENAC SODIUM GEL 100 GM TUBE TOPICAL SCH ×4 (08:10→21:43)
[2021-01-01 08:13] LABS: Glucose,Whole Blood 123 mg/dL (75-99)
--- NOTE | 2021-01-01 11:10 | P.PN ---
Subjective Progress Note Date: 01/01/21 Principal diagnosis: Sigmoid stricture Patient is doing well today. She is anxious to go home. She is having bowel activity. Tolerating diet. No fevers. Estrace hemoglobin was noted to drop slightly. This morning labs are pending. No rectal bleeding Objective - Vital Signs Vital signs: Vital Signs Temp 97.8 F 01/01/21 08:00 Pulse 100 01/01/21 11:00 Resp 16 01/01/21 11:00 BP 121/69 01/01/21 08:00 Pulse Ox 93 L 01/01/21 08:00 Intake & Output 12/31/20 01/01/21 01/01/21 18:59 06:59 18:59 Intake Total 1080 Output Total 150 80 120 Balance 930 -80 -120 Weight 86 kg Intake: Oral 1080 Output: Drainage 150 80 120 Right Lower Abdomen 150 80 120 Other: Voiding Method Toilet Diaper # Voids 3 2 # Bowel Movements 2 - Exam Abdomen: Soft, nondistended, mild incisional tenderness - Labs CBC & Chem 7: 12/31/20 07:00 12/31/20 07:00 Labs: Abnormal Lab Results - Last 24 Hours (Table) 12/31/20 12/31/20 12/31/20 Range/Units 07:00 16:38 21:57 Chloride 116 H (96-109) mmol/L Carbon Dioxide 17.8 L (21.6-31.8) mmol/L Est GFR (CKD-EPI)AfAm 54.5 L (60.0-200.0) Est GFR (CKD-EPI)NonAf 47.1 L (60.0-200.0) POC Glucose (mg/dL) 133 H 144 H (75-99) mg/dL Calcium 8.2 L (8.7-10.3) mg/dL 01/01/21 01/01/21 Range/Units 07:39 08:12 Chloride (96-109) mmol/L Carbon Dioxide (21.6-31.8) mmol/L Est GFR (CKD-EPI)AfAm (60.0-200.0) Est GFR (CKD-EPI)NonAf (60.0-200.0) POC Glucose (mg/dL) 68 L 123 H (75-99) mg/dL Calcium (8.7-10.3) mg/dL Assessment and Plan (1) Diverticulitis large intestine w/o perforation or abscess w/o bleeding Narrative/Plan: Patient doing well at this time. Check today's labs. Likely discharge. Current Visit: Yes Status: Acute Code(s): K57.32 - DVTRCLI OF LG INT W/O PERFORATION OR ABSCESS W/O BLEEDING SNOMED Code(s): 0330504
[2021-01-01 11:41] LABS: Glucose,Whole Blood 137 mg/dL (75-99)
[2021-01-01 12:11] LABS: Basophils # (A) 0.04 X 10*3/uL (0.00-0.10); Basophils % (A) 0.3 %; Eosinophils # (A) 0.54 X 10*3/uL (0.04-0.35); Eosinophils % (A) 4.1 %; HCT 33.7 % (37.2-46.3); HGB 10.3 g/dL (12.0-15.0); Lymphocytes # (A) 2.92 X 10*3/uL (0.90-5.00); Lymphocytes % (A) 22.4 %; MCH 26.5 pg (27.0-32.0); MCHC 30.6 g/dL (32.0-37.0); MCV 86.6 fL (80.0-97.0); Mean Platelet Volume 10.8 fL (9.5-12.2); Monocytes # (A) 0.72 X 10*3/uL (0.20-1.00); Monocytes % (A) 5.5 %; Neutrophils # (A) 8.77 X 10*3/uL (1.80-7.70); Neutrophils % (A) 67.3 %; Platelet Count 283 X 10*3/uL (140-440); RBC 3.89 X 10*6/uL (4.10-5.20); RDW 15.9 % (11.5-14.5); WBC 13.04 X 10*3/uL (4.50-10.00)
[2021-01-01 12:54] LABS: African American GFR (CKD) 54.5 (60.0-200.0); BUN/Creat Ratio 11.67 Ratio (12.00-20.00); Calcium 8.5 mg/dL (8.7-10.3); Non-African American GFR(CKD) 47.1 (60.0-200.0); Potassium 4.3 mmol/L (3.5-5.5)
--- NOTE | 2021-01-01 13:33 | P.PN ---
Subjective Progress Note Date: 01/01/21 Principal diagnosis: Postoperative hypoxemia. Pulmonary/critical care consult dated 12/31/2020. 65-year-old female, who we are asked to see because of postoperative hypoxemia. The patient has a history of multiple medical problems including brain aneurysm, hypothyroidism, sleep apnea syndrome, GERD, multiple abdominal surgeries with adhesions, anxiety, lupus, hyperlipidemia, depression, COPD, hypertension, diabetes, obesity, fibromyalgia, and sigmoid stricture due to sigmoid diverticuli. The patient underwent a robotically assisted laparoscopic lysis of adhesions, sigmoid colectomy, and low anterior resection, as well as intraoperative colonoscopy and placement of Rashawn-Saleh drain. The surgery was done on December 29. Currently, the patient's resting comfortably in her room. She's flat on her back, and not on any supplemental oxygen. She would like to go home. Her saturations on room air are in the mid 90s. She denies being short of breath. We were asked to see her because of low saturations. White count 12.48, hemoglobin 9.7, hematocrit 32 5, and platelet count 243,000. Sodium 141, potassium 4.3, chlorides 116, CO2 18, anion gap 7, BUN 19, crea tinine 1.2. A chest x-ray done yesterday shows mild cardiomegaly along with COPD changes. There is nothing acute on the chest x-ray. Progress note dated 01/01/2021. 65-year-old female that we saw yesterday in consultation. We are asked to see her for postoperative hypoxemia. The patient has a number of medical problems including brain aneurysm, hypothyroidism, sleep apnea syndrome, gastroesophageal reflux disease, previous multiple abdominal surgeries with adhesions, anxiety, lupus, hyperlipidemia, as well as many other medical issues including COPD. The patient underwent a robotically assisted laparoscopic lysis of adhesions, remote colectomy, low anterior resection, and intraoperative colonoscopy and placement of a Rashawn-Saleh drain. The surgery was done on December 29. She is currently on room air. He thought she could've been discharged yesterday. The surgeon thought otherwise. She is clinically well without complaints of shortness of breath or difficulty breathing. White count 13.04, hemoglobin 10.3, hematocrit 33.7, and platelet count 283,000. Sodium 141, potassium 4.3, chlorides 118, CO2 22, anion gap 1, BUN 14, creatinine 1.2. Calcium is 8.5. Chest x-ray shows some bibasilar left greater than right, atelectatic changes. Objective - Vital Signs Vital signs: Vital Signs Temp 97.8 F 01/01/21 08:00 Pulse 100 01/01/21 11:00 Resp 16 01/01/21 11:00 BP 121/69 01/01/21 08:00 Pulse Ox 93 L 01/01/21 08:00 Intake & Output 12/31/20 01/01/21 01/01/21 18:59 06:59 18:59 Intake Total 1080 Output Total 150 80 120 Balance 930 -80 -120 Weight 86 kg Intake: Oral 1080 Output: Drainage 150 80 120 Right Lower Abdomen 150 80 120 Other: Voiding Method Toilet Diaper # Voids 3 2 # Bowel Movements 2 - Exam No acute distress, oriented 3. No conversational dyspnea or wheezing, or use of accessory muscles. Room air saturation is 93-94%. HEENT examination is grossly unremarkable. Neck supple. Full range of motion. No adenopathy thyromegaly or neck vein distention. Cardiovascular examination reveals regular rhythm rate. S1-S2 normal. No S3 or S4. No discernible murmur noted. Heart rate 100 bpm. Lungs reveal mostly clear breath sounds. No wheezes, or crackles. Scattered mild to minimal rhonchi are noted. Breath sounds are equal bilaterally. She is not restricted in her breathing. Abdomen soft bowel sounds are heard. No masses or tenderness. Extremities are intact. No cyanosis clubbing or edema. Skin is without rash or lesion. Neurologic examination is brief but nonfocal. - Labs CBC & Chem 7: 01/01/21 06:24 01/01/21 06:24 Labs: Abnormal Lab Results - Last 24 Hours (Table) 12/31/20 12/31/20 01/01/21 Range/Units 16:38 21:57 06:24 WBC 13.04 H (4.50-10.00) X 10*3/uL RBC 3.89 L (4.10-5.20) X 10*6/uL Hgb 10.3 L (12.0-15.0) g/dL Hct 33.7 L (37.2-46.3) % MCH 26.5 L (27.0-32.0) pg MCHC 30.6 L (32.0-37.0) g/dL RDW 15.9 H (11.5-14.5) % Immature Gran # 0.05 H (0.00-0.04) X 10*3/uL Neutrophils # 8.77 H (1.80-7.70) X 10*3/uL Eosinophils # 0.54 H (0.04-0.35) X 10*3/uL Chloride (96-109) mmol/L Anion Gap (4.00-12.00) mmol/L Est GFR (CKD-EPI)AfAm (60.0-200.0) Est GFR (CKD-EPI)NonAf (60.0-200.0) BUN/Creatinine Ratio (12.00-20.00) Ratio Glucose (70-110) mg/dL POC Glucose (mg/dL) 133 H 144 H (75-99) mg/dL Calcium (8.7-10.3) mg/dL 01/01/21 01/01/21 01/01/21 Range/Units 06:24 07:39 08:12 WBC (4.50-10.00) X 10*3/uL RBC (4.10-5.20) X 10*6/uL Hgb (12.0-15.0) g/dL Hct (37.2-46.3) % MCH (27.0-32.0) pg MCHC (32.0-37.0) g/dL RDW (11.5-14.5) % Immature Gran # (0.00-0.04) X 10*3/uL Neutrophils # (1.80-7.70) X 10*3/uL Eosinophils # (0.04-0.35) X 10*3/uL Chloride 118 H (96-109) mmol/L Anion Gap 1.00 L (4.00-12.00) mmol/L Est GFR (CKD-EPI)AfAm 54.5 L (60.0-200.0) Est GFR (CKD-EPI)NonAf 47.1 L (60.0-200.0) BUN/Creatinine Ratio 11.67 L (12.00-20.00) Ratio Glucose 54 L (70-110) mg/dL POC Glucose (mg/dL) 68 L 123 H (75-99) mg/dL Calcium 8.5 L (8.7-10.3) mg/dL 01/01/21 Range/Units 11:39 WBC (4.50-10.00) X 10*3/uL RBC (4.10-5.20) X 10*6/uL Hgb (12.0-15.0) g/dL Hct (37.2-46.3) % MCH (27.0-32.0) pg MCHC (32.0-37.0) g/dL RDW (11.5-14.5) % Immature Gran # (0.00-0.04) X 10*3/uL Neutrophils # (1.80-7.70) X 10*3/uL Eosinophils # (0.04-0.35) X 10*3/uL Chloride (96-109) mmol/L Anion Gap (4.00-12.00) mmol/L Est GFR (CKD-EPI)AfAm (60.0-200.0) Est GFR (CKD-EPI)NonAf (60.0-200.0) BUN/Creatinine Ratio (12.00-20.00) Ratio Glucose (70-110) mg/dL POC Glucose (mg/dL) 137 H (75-99) mg/dL Calcium (8.7-10.3) mg/dL Assessment and Plan Assessment: Mild, transient, postoperative hypoxemia, likely related to recent abdominal p rocedure, and basilar atelectasis. Postop day #3, robotically assisted laparoscopic lysis of adhesions, sigmoid colectomy and low anterior resection, intraoperative colonoscopy, and placement of a Rashawn-Saleh drain. History of COPD from previous tobacco use. History of sleep apnea syndrome. History of brain aneurysm. History of hypothyroidism. History of gastroesophageal reflux disease. History of multiple abdominal surgeries. Generalized anxiety disorder. History of lupus. History of hyperlipidemia. History of hypertensive cardiovascular disease. History of type 2 diabetes. Obesity. History of fibromyalgia. Plan: Plan dated 12/31/2020. Currently, the patient seemed to be doing relatively well. She's flat on her back, not on any supplemental oxygen, and her saturations are in the mid 90s. She would like to be discharged home if possible. Apparently the surgeon stated that the patient could be considered for discharge. The surgeon who did the procedure, did not see the patient today. The patient should be encouraged to deep breathe, cough, and clear secretions. In addition, the patient showed take-home her incentive spirometer. Finally, the patient does see my partner in the office for COPD, and uses a once a day medication that contains a long- acting beta agonist, and a long-acting muscarinic antagonist. The patient should continue to use this medication on a regular basis. Plan dated 01/01/2021. Currently, the patient is without complaints. Her room air saturations are excellent. We do encourage her to sit up in bed, deep breathe, cough, clear secretions, and use the incentive spirometer every hour. In addition, she should follow with my partner, who is treating her with Anoro, 1 puff a day. The patient is otherwise doing well. We will continue to follow. She may be ready for discharge in the near future. No additional recommendations are made. Time with Patient: Less than 30
[2021-01-01 16:41] LABS: Glucose,Whole Blood 141 mg/dL (75-99)
--- NOTE | 2021-01-01 19:56 | PN ---
PROGRESS NOTE DATE OF SERVICE: 01/01/2021. This 65-year-old woman who was admitted after laparoscopic surgery is improving significantly. No chest pain. No palpitations. No fever. PHYSICAL EXAMINATION: Alert and oriented x3. The pulse is 92, blood pressure is 130/80, respiration 18, temperature 99.2, pulse ox 94% on room air. HEENT: Conjunctivae normal. Oral mucosa moist. NECK: No jugular venous distention. No lymph node enlargement. CARDIOVASCULAR: S1, S2, muffled. No S3, no S4, RESPIRATORY: Diminished breath sounds at the bases. A few scattered rhonchi. ABDOMEN: Soft, status post surgery. LEGS: No edema, no swelling. NERVOUS SYSTEM: No focal deficits. LABS: WBC 13.2, hemoglobin 10.3. Other labs are noted. ASSESSMENT: 1. Status post robotic-assisted laparoscopic lysis of adhesion as well as laparoscopic sigmoid colectomy with low anterior resection of sigmoid stricture due to sigmoid diverticulitis. 2. Increased WBC. 3. Anemia. 4. History of asthma, chronic obstructive pulmonary disease. 5. History of CVA, TIA. 6. Diabetes type 2. 7. Fibromyalgia. 8. Gastroesophageal reflux disease. 9. Hypertension. 10.Hyperlipidemia. 11.History of sleep apnea. 12.History of duodenal ulcer. 13.History of gastritis. 14.History of back surgery. 15.History of section. 16.History of anxiety, depression. 17.History of nicotine dependence. 18.FULL CODE. RECOMMENDATIONS AND DISCUSSION: Continue current management and symptomatic treatment. Otherwise, incentive spirometry, DVT prophylaxis. Closely follow with surgery. Further recommendations to follow. MMODL / IJN: [id number] /
[2021-01-01 21:02] LABS: Glucose,Whole Blood 126 mg/dL (75-99)
[2021-01-01] MEDS: INSULIN DETEMIR (LEVEMIR) 100 UNIT/ML SYR SQ SCH (21:41)
[2021-01-01] MEDS: ALPRAZolam 0.5 MG TAB PO SCH (21:41)
[2021-01-02] MEDS: oxyCODONE-APAP 7.5-325MG 1 EACH TAB PO SCH ×4 (01:02→16:43)
[2021-01-02] MEDS: LEVOTHYROXINE 112 MCG TAB PO SCH (05:45)
[2021-01-02] MEDS: metroNIDAZOLE-NS PMX 500 MG in SALINE 1 100ML.BAG IVPB SCH ×2 (05:45→11:39)
[2021-01-02 06:48] LABS: Basophils % (A) 0 %; Eosinophils # (A) 0.5 k/uL (0-0.7); Eosinophils % (A) 5 %; HCT 32.9 % (34.0-46.0); HGB 10.6 gm/dL (11.4-16.0); Hypochromasia Slight; Lymphocytes % (A) 17 %; MCH 27.9 pg (25.0-35.0); MCHC 32.2 g/dL (31.0-37.0); MCV 86.6 fL (80.0-100.0); Mean Platelet Volume 8.3; Monocytes # (A) 0.5 k/uL (0-1.0); Monocytes % (A) 4 %; Neutrophils # (A) 8.2 k/uL (1.3-7.7); Neutrophils % (A) 72 %; Platelet Count 323 k/uL (150-450); RDW 15.7 % (11.5-15.5); WBC 11.5 k/uL (3.8-10.6)
[2021-01-02 07:04] LABS: Glucose,Whole Blood 100 mg/dL (75-99)
[2021-01-02] MEDS: GABAPENTIN 400 MG CAP PO SCH ×2 (07:56→21:11)
[2021-01-02] MEDS: VENLAFAXINE HCL ER 150 MG CAP PO SCH ×2 (07:56→21:14)
[2021-01-02] MEDS: HEPARIN SODIUM,PORCINE/PF 5,000 UNIT/0.5 ML SYRINGE SQ SCH ×2 (07:57→21:14)
[2021-01-02] MEDS: LEVOFLOXACIN 750MG-D5W PMX 750 MG in DEXTROSE/WATER 1 150ML.BAG IVPB SCH (07:57)
[2021-01-02] MEDS: PANTOPRAZOLE 40 MG TABLET PO SCH (07:57)
[2021-01-02] MEDS: IPRATROPIUM 0.5 MG/2.5 ML NEBU INHALATION SCH ×4 (08:00→19:48)
[2021-01-02] MEDS: FORMOTEROL FUMARATE 20 MCG/2 ML NEBU INHALATION SCH ×2 (08:00→19:49)
[2021-01-02] MEDS: DICLOFENAC SODIUM GEL 100 GM TUBE TOPICAL SCH ×4 (08:24→21:16)
[2021-01-02] MEDS: SIMETHICONE 40 MG/0.6 ML DROPS 2,000 MG/30 ML BOTTLE PO SCH ×4 (08:24→21:15)
[2021-01-02] MEDS: HYDROmorphone 1 MG/ML 1 ML SYRINGE IVP PRN ×4 (08:30→20:50)
[2021-01-02] MEDS: INSULIN ASPART (NovoLOG) 100 UNIT/ML VIAL SQ SCH ×4 (10:02→21:14)
[2021-01-02 11:29] LABS: Glucose,Whole Blood 99 mg/dL (75-99)
--- NOTE | 2021-01-02 12:32 | P.PN ---
Subjective Progress Note Date: 01/02/21 01/02/2021, I'm seeing this patient for a follow-up. She is gradually improving and she is doing better. On today's evaluation, she has been passing flatus and she also had bowel movements pH is gradually advancing her diet as tolerated. Surgical wound site is dry clean and intact. She has possible sounds. REJI drains are in place. Her pulmonary status is also stable. She still bronchospastic and wheezy although less compared to yesterday. She is currently on room air oxygen. She has been using incentive spirometer. No respiratory difficulties. No cough or sputum production. Tentative plan is to send her home within the next 24 hours. The chest x-ray showed some limited atelectatic changes and left lung base. She is known to have multiple medical problems including history of brain aneurysm, hypothyroidism, obstructive sleep apnea, acid reflux, anxiety, lupus, hyperlipidemia and COPD. She is also had multiple abdominal surgeries. For now, she is awake and alert. Pain is not an active issue for now. Her blood work is showing a hemoglobin of 10.6 with a white cell count of 11.5. Glucose is at 100. She is postop day #4. Objective - Vital Signs Vital signs: Vital Signs Temp 97.7 F 01/02/21 07:00 Pulse 88 01/02/21 11:16 Resp 20 01/02/21 07:00 BP 114/70 01/02/21 07:00 Pulse Ox 96 01/02/21 08:10 Intake & Output 01/01/21 01/02/21 01/02/21 18:59 06:59 18:59 Intake Total 1080 Output Total 400 120 100 Balance 680 -120 -100 Intake: Oral 1080 Output: Drainage 400 120 100 Right Lower Abdomen 400 120 100 Other: Voiding Method Toilet Diaper # Voids 3 2 # Bowel Movements 1 - Exam No acute distress, oriented 3. No conversational dyspnea or wheezing, or use o f accessory muscles. Room air saturation is 93-94%. HEENT examination is grossly unremarkable. Neck supple. Full range of motion. No adenopathy thyromegaly or neck vein distention. Cardiovascular examination reveals regular rhythm rate. S1-S2 normal. No S3 or S4. No discernible murmur noted. Heart rate 100 bpm. Lungs reveal mostly clear breath sounds. No wheezes, or crackles. Scattered mild to minimal rhonchi are noted. Breath sounds are equal bilaterally. She is not restricted in her breathing. Abdomen soft bowel sounds are heard. No masses or tenderness. Extremities are intact. No cyanosis clubbing or edema. Skin is without rash or lesion. Neurologic examination is brief but nonfocal. - Labs CBC & Chem 7: 01/02/21 05:59 01/01/21 06:24 Labs: Abnormal Lab Results - Last 24 Hours (Table) 01/01/21 01/01/21 01/01/21 Range/Units 06:24 16:40 21:00 WBC (3.8-10.6) k/uL Hgb (11.4-16.0) gm/dL Hct (34.0-46.0) % RDW (11.5-15.5) % Neutrophils # (1.3-7.7) k/uL Chloride 118 H (96-109) mmol/L Anion Gap 1.00 L (4.00-12.00) mmol/L Est GFR (CKD-EPI)AfAm 54.5 L (60.0-200.0) Est GFR (CKD-EPI)NonAf 47.1 L (60.0-200.0) BUN/Creatinine Ratio 11.67 L (12.00-20.00) Ratio Glucose 54 L (70-110) mg/dL POC Glucose (mg/dL) 141 H 126 H (75-99) mg/dL Calcium 8.5 L (8.7-10.3) mg/dL 01/02/21 01/02/21 Range/Units 05:59 06:58 WBC 11.5 H (3.8-10.6) k/uL Hgb 10.6 L (11.4-16.0) gm/dL Hct 32.9 L (34.0-46.0) % RDW 15.7 H (11.5-15.5) % Neutrophils # 8.2 H (1.3-7.7) k/uL Chloride (96-109) mmol/L Anion Gap (4.00-12.00) mmol/L Est GFR (CKD-EPI)AfAm (60.0-200.0) Est GFR (CKD-EPI)NonAf (60.0-200.0) BUN/Creatinine Ratio (12.00-20.00) Ratio Glucose (70-110) mg/dL POC Glucose (mg/dL) 100 H (75-99) mg/dL Calcium (8.7-10.3) mg/dL Assessment and Plan Plan: 1 Mild, transient, postoperative hypoxemia, likely related to recent abdominal procedure, and basilar atelectasis. 2 Postop day #4, robotically assisted laparoscopic lysis of adhesions, sigmoid colectomy and low anterior resection, intraoperative colonoscopy, and placement of a Rashawn-Saleh drain. 3 History of COPD from previous tobacco use. 4 History of sleep apnea syndrome. 5 History of brain aneurysm. 6 History of hypothyroidism. 7 History of gastroesophageal reflux disease. 8 History of multiple abdominal surgeries. 9 Generalized anxiety disorder. 10 History of lupus. 11 History of hyperlipidemia. 12 History of hypertensive cardiovascular disease. 13 History of type 2 diabetes. 14 Obesity. 15History of fibromyalgia. Plan: Pulmonary status is stable. The patient is currently on room air oxygen. Continue using incentive spirometer. DuoNeb nebulized treatments around the clock. She is postop day #4. No significant respiratory difficulties. Continue oral antibiotics. Increased level of activity as tolerated. Asked the patient is up on a chair. Assess her ability to walk and assess his readiness to go home. I'll be glad to see her an outpatient basis regarding her COPD. I asked her to continue the Anoro at home and uses the albuterol nebulized tr eatments on an as-needed basis. Follow-up with general surgery regarding her abdominal surgical postop care.
--- NOTE | 2021-01-02 13:19 | XR ---
EXAMINATION TYPE: XR chest 2V DATE OF EXAM: 01/02/2021 COMPARISON: Chest x-ray 2 days ago HISTORY: Worsening shortness of breath TECHNIQUE: Frontal and lateral views of the chest are obtained. FINDINGS: There is increasing reticular interstitial prominence bilaterally. No pleural effusion or pneumothorax seen bilaterally. The cardiac silhouette size is stable and mildly enlarged. The osse ous structures are intact. IMPRESSION: Correlate for CHF exacerbation as there is mild cardiomegaly with mild to moderate inter stitial edema felt present.
--- NOTE | 2021-01-02 14:14 | P.PN ---
<EricGalina dodge - Last Filed: 01/02/21 14:06> Subjective Progress Note Date: 01/02/21 CHIEF COMPLAINT: Sigmoid stricture HISTORY OF PRESENT ILLNESS: Patient is status post Robotic-assisted daVinci Xi laparoscopic lysis of adhesions, sigmoid colectomy and low anterior resection for sigmoid stricture due to sigmoid diverticulitis and severe intra- abdominal/pelvic adhesions on 12/29/20. Patient's main complaint is her s hortness of breath and cough. She is on room air satting around 95%. She is having flatus and bowel movement. She does report some mild left-sided abdominal pain. Denies any nausea or vomiting. Afebrile. WBC did decrease from 13-11.5. She was seen by pulmonary service. She had 2 chest x-ray completed. Her fluids have been hep-locked. REJI drain was 100 mL output of serous fluid PHYSICAL EXAM: VITAL SIGNS: Reviewed GENERAL: Well-developed in no acute distress. HEENT: No sclera icterus. Extraocular movements grossly intact. Moist buccal mucosa. Head is atraumatic, normocephalic. Hears conversational speech. No nasal drainage. NECK: Supple without lymphadenopathy. CHEST: Non-labored respirations and equal bilateral excursions. CARDIOVASCULAR: Palpable 2+ radial pulses. ABDOMEN: Soft. Nondistended. Incision sites clean dry and intact REJI drain with serous output. MUSCULOSKELETAL: No clubbing or cyanosis. NEUROLOGIC: No focal or lateralizing signs. Cranial nerves II through XII grossly intact. PSYCH: Appropriate affect. Alert and oriented to person, place and time. SKIN: Well perfused. Good skin turgor. ASSESSMENT: 1. 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 Fibromyalgia with chronic pain syndrome 3. Pneumonia with acute leukocytosis 4. Obesity due to excess calories, BMI 30.6 5. Diabetes type 2, insulin-dependent with diabetic neuropathy 6. Hypertensive heart disease with congestive heart failure 7. Chronic obstructive pulmonary disease with acute exacerbation 8. Depressive disorder 9. Hyperlipidemia 10. Lupus 11. Generalized anxiety disorder 12. History of multiple abdominal surgeries with peritoneal adhesion 13. Gastroesophageal reflux disease 14. Obstructive sleep apnea 15. Hypothyroidism 16. History of brain aneurysm 17. Hyponatremia 18. Hypokalemia 19. Severe intra-abdominal/pelvic adhesions PLAN: -Continue pain medication as needed -Continue antibiotics -Hep-Lock IV -Continue nebulizer treatments -Encourage patient to ambulate -Encourage patient to use incentive spirometer -DVT prophylaxis subcu heparin -Medicine to manage possible CHF findings on chest x-ray Physician Cow Puncher note has been reviewed by physician. Signing provider agrees with the documented findings, assessment, and plan of care. Objective - Vital Signs Vital signs: Vital Signs Temp 97.7 F 01/02/21 07:00 Pulse 88 01/02/21 11:16 Resp 20 01/02/21 07:00 BP 114/70 01/02/21 07:00 Pulse Ox 96 01/02/21 08:10 Intake & Output 01/01/21 01/02/21 01/02/21 18:59 06:59 18:59 Intake Total 1080 Output Total 400 120 100 Balance 680 -120 -100 Intake: Oral 1080 Output: Drainage 400 120 100 Right Lower Abdomen 400 120 100 Other: Voiding Method Toilet Diaper # Voids 3 2 # Bowel Movements 1 - Labs CBC & Chem 7: 01/02/21 05:59 01/01/21 06:24 Labs: Abnormal Lab Results - Last 24 Hours (Table) 01/01/21 01/01/21 01/02/21 Range/Units 16:40 21:00 05:59 WBC 11.5 H (3.8-10.6) k/uL Hgb 10.6 L (11.4-16.0) gm/dL Hct 32.9 L (34.0-46.0) % RDW 15.7 H (11.5-15.5) % Neutrophils # 8.2 H (1.3-7.7) k/uL POC Glucose (mg/dL) 141 H 126 H (75-99) mg/dL 01/02/21 Range/Units 06:58 WBC (3.8-10.6) k/uL Hgb (11.4-16.0) gm/dL Hct (34.0-46.0) % RDW (11.5-15.5) % Neutrophils # (1.3-7.7) k/uL POC Glucose (mg/dL) 100 H (75-99) mg/dL <Mahsa Tan - Last Filed: 01/07/21 21:16> Subjective CHIEF COMPLAINT: History of sigmoid diverticulitis HISTORY OF PRESENT ILLNESS: The patient is a 65-year-old female with recurrent sigmoid diverticulitis. She is status post sigmoid resection. She is passing flatus. She is having bowel movement. Her pain is controlled. She has chronic obstructive pulmonary disease and reports troubles with breathing. REVIEW OF ORGAN SYSTEMS: No fevers or chills. No nausea and vomiting. PHYSICAL EXAM: VITAL SIGNS: Stable GENERAL: Well-developed pleasant in no acute distress. HEENT: No scleral icterus. Extraocular movements grossly intact. Moist buccal mucosa. NECK: Supple without lymphadenopathy. CHEST: Labored respirations. Equal bilateral excursions. CARDIOVASCULAR: Regular rate and rhythm. Distal 2+ pulses. ABDOMEN: Dressing intact. No peritonitis. REJI serosanguineous. MUSCULOSKELETAL: No clubbing, cyanosis, or edema. NERUO: Cranial nerves 2-12 grossly intact. PSYCH: Alert and oriented to person place and time. LABS: WBC trending down from 13,000-11,000. REPORTS: Chest x-ray demonstrates congestive heart failure. ASSESSMENT: 1. Sigmoid diverticulitis 2. Chronic pain syndrome 3. Congestive heart failure PLAN: 1. Pulmonary consultation for management of congestive heart failure. 2. Continue IV antibiotics Objective - Vital Signs Vital signs: Vital Signs Temp 98.5 F 01/03/21 08:00 Pulse 86 01/03/21 08:50 Resp 20 01/03/21 08:00 BP 106/71 01/03/21 08:00 Pulse Ox 91 L 01/03/21 08:00 - Labs CBC & Chem 7: 01/03/21 05:45 01/03/21 05:45 Assessment and Plan (1) Diverticulitis large intestine w/o perforation or abscess w/o bleeding Status: Acute Code(s): K57.32 - DVTRCLI OF LG INT W/O PERFORATION OR ABSCESS W/O BLEEDING SNOMED Code(s): 2221737 (2) Chronic pain syndrome Status: Acute Code(s): G89.4 - CHRONIC PAIN SYNDROME SNOMED Code(s): 878437867 (3) Elevated serum glucose Status: Acute Code(s): R73.9 - HYPERGLYCEMIA, UNSPECIFIED SNOMED Code(s): 51629806 (4) Congestive heart failure (CHF) Status: Acute Code(s): I50.9 - HEART FAILURE, UNSPECIFIED SNOMED Code(s): 36881707
[2021-01-02] MEDS ORDERED: FUROSEMIDE 10 MG/ML 4 ML VIAL IV STA (15:33)
--- NOTE | 2021-01-02 15:33 | P.PN ---
Subjective Progress Note Date: 01/02/21 This is a pleasant 65-year-old female who is postop day #4 laparoscopic lysis of adhesions, sigmoid colectomy and low anterior resection for sigmoid stricture due to sigmoid diverticulitis and severe intra-abdominal/pelvic adhesions. Patient at the time assessment today complaining of shortness of breath with exertion and at rest. She does have a nonproductive deep cough. She also reports that she has not had a COPD exacerbation in quite some time however this feels similar. Patient is being followed by pulmonary services. Patient has been started on by mouth Levaquin 750 every 24 hours to start on the . Continues on Percocet and Dilaudid for pain management. Patient does have typical lozenges as needed. Labs today reveals a white blood cell, 11.5, hemoglobin 10.6. Creatinine today is 1.2. Glucose is 99. Hemoglobin A1c is 10.7. Vital signs are stable, afebrile, 97.7, heart rate 80 sinus rhythm, blood pressure 135/68, 96% on room air. The patient's most recent echo completed in November 2017 revealed an EF of 45-50% with mild concentric left ventricular hypertrophy, [id number] mitral regurgitation. Chest x-ray was completed today - correlate for CHF exacerbation as there is mild cardiomegaly with mild to moderate interstitial edema felt present. ROS: Constitutional: Denied any fatigue denied any fever. Cardio vascular: denied any chest pain, palpitations Gastrointestinal denied any nausea vomiting reports flatus, reports left lower quadrant abdominal pain Pulmonary: Reports shortness of breath and cough nonproductive Neurologic denied any new focal deficits All inpatient medications were reviewed and appropriate changes in these medications as dictated in the interval history and assessment and plan. PHYSICAL EXAMINATION: GENERAL: The patient is alert and oriented x3, not in any acute distress. Well developed, well nourished. HEENT: Pupils are round and equally reacting to light. EOMI. No scleral icterus. No conjunctival pallor. Normocephalic, atraumatic. No pharyngeal erythema. No thyromegaly. CARDIOVASCULAR: S1 and S2 present. No murmurs, rubs, or gallops. PULMONARY: Bilateral coarse rhonchi throughout all lung jones, no wheezing noted, no crackles ABDOMEN: Soft, tender, nondistended, normoactive bowel sounds. No palpable organomegaly. Postsurgical abdomen. Rashawn-Saleh drain in place MUSCULOSKELETAL: No joint swelling or deformity. EXTREMITIES: No cyanosis, clubbing, or pedal edema. NEUROLOGICAL: Gross neurological examination did not reveal any focal deficits. SKIN: No rashes. Assessment and plan Assessment -Acute exacerbation of chronic systolic and diastolic heart failure, most recent EF 45-50%, 1 dose of IV Lasix will be given -Postop day #4 laparoscopic lysis of adhesions, sigmoid colectomy and low anterior resection of sigmoid stricture Leukocytosis, most likely reactive monitor trends Anemia, monitor trends History of asthma, COPD not in acute exacerbation Diabetes type 2 with hyperglycemia, A1c 10.6 -Gastroesophageal reflux disease Hypertension Hyperlipidemia -Chronic nicotine dependence, counseled on cessation -FULL CODE DVT prophylaxis: Subcu heparin GI prophylaxis: Protonix Chest x-ray was reviewed, a stat BMP was ordered patient will be given a one- time dose of IV Lasix. Patient is not on any IV fluids. We'll monitor lab work tomorrow. We will continue to follow along for medical management of this patient. Objective - Vital Signs Vital signs: Vital Signs Temp 97.7 F 01/02/21 07:00 Pulse 88 01/02/21 11:16 Resp 20 01/02/21 07:00 BP 114/70 01/02/21 07:00 Pulse Ox 96 01/02/21 08:10 Intake & Output 01/01/21 01/02/21 01/02/21 18:59 06:59 18:59 Intake Total 1080 Output Total 400 120 100 Balance 680 -120 -100 Intake: Oral 1080 Output: Drainage 400 120 100 Right Lower Abdomen 400 120 100 Other: Voiding Method Toilet Diaper # Voids 3 2 # Bowel Movements 1 - Labs CBC & Chem 7: 01/02/21 05:59 01/01/21 06:24 Labs: Abnormal Lab Results - Last 24 Hours (Table) 01/01/21 01/01/21 01/02/21 Range/Units 16:40 21:00 05:59 WBC 11.5 H (3.8-10.6) k/uL Hgb 10.6 L (11.4-16.0) gm/dL Hct 32.9 L (34.0-46.0) % RDW 15.7 H (11.5-15.5) % Neutrophils # 8.2 H (1.3-7.7) k/uL POC Glucose (mg/dL) 141 H 126 H (75-99) mg/dL 01/02/21 Range/Units 06:58 WBC (3.8-10.6) k/uL Hgb (11.4-16.0) gm/dL Hct (34.0-46.0) % RDW (11.5-15.5) % Neutrophils # (1.3-7.7) k/uL POC Glucose (mg/dL) 100 H (75-99) mg/dL Assessment and Plan Time with Patient: Greater than 30
[2021-01-02 16:44] LABS: Glucose,Whole Blood 140 mg/dL (75-99)
--- NOTE | 2021-01-02 17:21 | P.PN ---
Progress Note - Text Progress Note Date: 01/02/21 Presenting complaint: Sigmoid diverticulitis History of presenting complaint: Patient done December 29 underwent surgery for sigmoid stricture due to sigmoid diverticulitis, with sigmoid colectomy and low anterior resection, lysis of adhesions. Also had a REJI drain placed. January 02: Has a slight cough. But no wheezing. Good pulse ox on room air. Fair oral intake. Has had a bowel movement. Being followed by pulmonary. Review of systems: Was done for constitutional, cardiovascular, GI, pulmonary. relevant finding as above Active Medications Alprazolam (Alprazolam 0.5 Mg Tab) 0.5 mg PO HS JUAN Last Admin: 01/01/21 21:41 Dose: 0.5 mg Documented by: Benzocaine/Menthol (Benzocaine/Menthol Lozeng 1 Each Lozenge) 1 each MUCOUS MEM Q1HR PRN PRN Reason: Sore Throat Diclofenac Sodium (Diclofenac Sodium Gel 100 Gm Tube) 2 gm TOPICAL QID JUAN; Protocol Last Admin: 01/02/21 16:43 Dose: Not Given Documented by: Diphenhydramine HCl (Diphenhydramine 50 Mg/Ml 1 Ml Vial) 25 mg IVP Q6HR PRN PRN Reason: Allergy Symptoms Last Admin: 12/31/20 05:26 Dose: 25 mg Documented by: Formoterol Fumarate (Formoterol Fumarate 20 Mcg/2 Ml Nebu) 20 mcg INHALATION RT-BID JUAN Last Admin: 01/02/21 08:00 Dose: 20 mcg Documented by: Gabapentin (Gabapentin 400 Mg Cap) 800 mg PO BID JUAN Last Admin: 01/02/21 07:56 Dose: 800 mg Documented by: Heparin Sodium (Porcine) (Heparin Sodium,Porcine/Pf 5,000 Unit/0.5 Ml Syringe) 5,000 unit SQ Q12HR JUAN Last Admin: 01/02/21 07:57 Dose: 5,000 unit Documented by: Hydromorphone HCl (Hydromorphone 1 Mg/Ml 1 Ml Syringe) 1 mg IVP Q3HR PRN PRN Reason: Moderate to Severe Pain Last Admin: 01/02/21 16:46 Dose: 1 mg Documented by: Insulin Aspart (Insulin Aspart (Novolog) 100 Unit/Ml Vial) 0 unit SQ ACHS JUAN; Protocol Last Admin: 01/02/21 16:44 Dose: 1 unit Documented by: Insulin Detemir (Insulin Detemir (Levemir) 100 Unit/Ml Syr) 40 unit SQ [facility] Last Admin: 01/01/21 21:41 Dose: 40 unit Documented by: Ipratropium [place] (Ipratropium 0.5 Mg/2.5 Ml Nebu) 0.5 mg INHALATION RT-QID [facility] Last Admin: 01/02/21 15:37 Dose: 0.5 mg Documented by: Levofloxacin (Levofloxacin 750 Mg Tab) 750 mg PO Q48H [facility] Levothyroxine Sodium (Levothyroxine 112 Mcg Tab) 112 mcg PO QAM@0630 [facility] Last Admin: 01/02/21 05:45 Dose: 112 mcg Documented by: Lorazepam (Lorazepam 2 Mg/Ml Inj) 1 mg IV Q4HR PRN PRN Reason: Anxiety Metronidazole (Metronidazole 500 Mg Tab) 500 mg PO Q8H [facility] Ondansetron HCl (Ondansetron 4 Mg/2 Ml Vial) 4 mg IVP Q6HR PRN PRN Reason: Nausea Oxycodone/Acetaminophen (Oxycodone-Apap 7.5-325mg 1 Each Tab) 1 each PO Q6H [facility] Last Admin: 01/02/21 16:43 Dose: 1 each Documented by: Pantoprazole Sodium (Pantoprazole 40 Mg Tablet) 40 mg PO -BRKFST [facility] Last Admin: 01/02/21 07:57 Dose: 40 mg Documented by: Ropinirole HCl (Ropinirole Hcl 1 Mg Tab) 3 mg PO [facility] Last Admin: 01/01/21 21:40 Dose: 3 mg Documented by: Simethicone (Simethicone 40 Mg/0.6 Ml Drops 2,000 Mg/30 Ml Bottle) 80 mg PO [facility] Last Admin: 01/02/21 16:43 Dose: 80 mg Documented by: Venlafaxine HCl (Venlafaxine Hcl Er 150 Mg Cap) 150 mg PO BID [facility] Last Admin: 01/02/21 07:56 Dose: 150 mg Documented by: On examination: VITAL SIGNS: 98.9, 88, 18, 120/76, 91% room air GENERAL APPEARANCE: Laying in bed, comfortable HEENT: Normal external appearance of nose and ear. Oral cavity normal EYES: Pupils equal. Conjunctiva normal. NECK: JVD not raised. Mass not palpable. RESPIRATORY: Respiratory effort normal. Lungs clear to auscultation. CARDIOVASCULAR: First and second sounds normal. No edema. ABDOMEN: Soft. Mild tenderness, no guarding rigidity, Liver and spleen not palpable. No tenderness. No mass palpable. PSYCHIATRY: Alert and oriented x3. Mood and affect normal. INVESTIGATIONS, reviewed in the clinical context: WBC 11.5 hemoglobin 10.6 platelets 323 Room BNP 749 Assessment and plan: -Sigmoid colectomy with low anterior resection for chronic sigmoid diverticulitis Tolerating diet. Had a bowel movement. -COPD in a ex-smoker On Atrovent 4 times a day. And perforomist. Patient lungs are clear. Patient has some acute tracheitis. -Acute tracheitis. Likely viral. Treat symptomatically -Hypothyroid Synthroid 112 g daily -Diabetes mellitus type 2, chronically on insulin Levemir, 40 units subcu daily at bedtime Follow Accu-Cheks -Chronic fibromyalgia Continue pain medications -GERD GERD as needed -Hyperlipidemia Lipitor 40 mg daily -Peripheral neuropathy Neurontin 800 mg twice a day -Restless leg syndrome Requip 3 mg daily at bedtime Care was discussed with the patient. Questions answered. She is medically stable. Continue current medications. Thank you Dr. Farris
[2021-01-02 20:39] LABS: Glucose,Whole Blood 196 mg/dL (75-99)
[2021-01-02] MEDS: metroNIDAZOLE 500 MG TAB PO SCH (21:11)
[2021-01-02] MEDS: ALPRAZolam 0.5 MG TAB PO SCH (21:11)
[2021-01-02] MEDS: INSULIN DETEMIR (LEVEMIR) 100 UNIT/ML SYR SQ SCH (21:15)
[2021-01-03] MEDS: oxyCODONE-APAP 7.5-325MG 1 EACH TAB PO SCH ×3 (00:58→12:26)
[2021-01-03] MEDS: HYDROmorphone 1 MG/ML 1 ML SYRINGE IVP PRN ×3 (03:12→11:01)
[2021-01-03] MEDS: metroNIDAZOLE 500 MG TAB PO SCH ×2 (03:12→12:27)
[2021-01-03] MEDS: LEVOTHYROXINE 112 MCG TAB PO SCH (06:28)
[2021-01-03 06:44] LABS: African American GFR (CKD) 53 (>60 ml/min/1.73 sqM); Anion Gap 12 mmol/L; Blood Urea Nitrogen 13 mg/dL (7-17); Calcium 8.3 mg/dL (8.4-10.2); Carbon Dioxide 16 mmol/L (22-30); Chloride 110 mmol/L (98-107); Glucose 64 mg/dL (74-99); Non-African American GFR(CKD) 46 (>60 ml/min/1.73 sqM); Potassium 4.1 mmol/L (3.5-5.1); Sodium 138 mmol/L (137-145)
[2021-01-03 07:08] LABS: Glucose,Whole Blood 84 mg/dL (75-99)
[2021-01-03] MEDS: INSULIN ASPART (NovoLOG) 100 UNIT/ML VIAL SQ SCH ×2 (07:26→12:27)
[2021-01-03] MEDS: HEPARIN SODIUM,PORCINE/PF 5,000 UNIT/0.5 ML SYRINGE SQ SCH (07:32)
[2021-01-03] MEDS: SIMETHICONE 40 MG/0.6 ML DROPS 2,000 MG/30 ML BOTTLE PO SCH (07:33)
[2021-01-03] MEDS: VENLAFAXINE HCL ER 150 MG CAP PO SCH (07:33)
[2021-01-03] MEDS: GABAPENTIN 400 MG CAP PO SCH (07:33)
[2021-01-03] MEDS: PANTOPRAZOLE 40 MG TABLET PO SCH (07:33)
[2021-01-03] MEDS: FORMOTEROL FUMARATE 20 MCG/2 ML NEBU INHALATION SCH (08:35)
[2021-01-03] MEDS: IPRATROPIUM 0.5 MG/2.5 ML NEBU INHALATION SCH ×2 (08:35→11:48)
[2021-01-03] MEDS ORDERED: ATORVASTATIN 40 MG TAB PO SCH (09:00)
[2021-01-03 09:11] LABS: Basophils # (A) 0.04 X 10*3/uL (0.00-0.10); Basophils % (A) 0.3 %; Eosinophils % (A) 4.3 %; HCT 33.8 % (37.2-46.3); HGB 10.2 g/dL (12.0-15.0); Lymphocytes # (A) 2.59 X 10*3/uL (0.90-5.00); MCH 26.5 pg (27.0-32.0); MCHC 30.2 g/dL (32.0-37.0); MCV 87.8 fL (80.0-97.0); Mean Platelet Volume 10.6 fL (9.5-12.2); Monocytes # (A) 0.82 X 10*3/uL (0.20-1.00); Neutrophils # (A) 7.73 X 10*3/uL (1.80-7.70); Neutrophils % (A) 65.8 %; Platelet Count 308 X 10*3/uL (140-440); RBC 3.85 X 10*6/uL (4.10-5.20); RDW 16.8 % (11.5-14.5); WBC 11.75 X 10*3/uL (4.50-10.00)
[2021-01-03] MEDS: DICLOFENAC SODIUM GEL 100 GM TUBE TOPICAL SCH (09:11)
[2021-01-03 09:18] VITALS: BP 106/71; RESP 20; TEMP 98.5
[2021-01-03 11:42] LABS: Glucose,Whole Blood 153 mg/dL (75-99)
[2021-01-03 11:50] VITALS: PULSE 86
[2021-01-03] MEDS ORDERED: SODIUM BICARBONATE TAB 650 MG TAB PO SCH (12:00)
--- NOTE | 2021-01-03 12:13 | P.DS ---
<Galina Walter - Last Filed: 01/03/21 11:43> Providers Expected date of discharge: 01/03/21 Hospital Course: Discharge diagnosis 1. 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 Fibromyalgia with chronic pain syndrome 3. Pneumonia with acute leukocytosis 4. Obesity due to excess calories, BMI 30.6 5. Diabetes type 2, insulin-dependent with diabetic neuropathy 6. Hypertensive heart disease with congestive heart failure 7. Chronic obstructive pulmonary disease with acute exacerbation 8. Depressive disorder 9. Hyperlipidemia 10. Lupus 11. Generalized anxiety disorder 12. History of multiple abdominal surgeries with peritoneal adhesion 13. Gastroesophageal reflux disease 14. Obstructive sleep apnea 15. Hypothyroidism 16. History of brain aneurysm 17. Hyponatremia 18. Hypokalemia 19. Severe intra-abdominal/pelvic adhesions 20. Fluid overload Hospital course This is a 65-year-old female with long-standing history of sigmoid diverticulitis she is status post Robotic-assisted daVinci Xi laparoscopic lysis of adhesions, sigmoid colectomy and low anterior resection for sigmoid stricture due to sigmoid diverticulitis and severe intra-abdominal/pelvic adhesions on 12/29/20. Patient tolerated surgery well. Her pain is controlled. She is tolerating diet. She is up and ambulating. She is having bowel movements. She's afebrile. She is stable for discharge. She's been cleared by a consulting physicians for discharge. Physician Mobile Sales Consultant note has been reviewed by physician. Signing provider agrees with the documented findings, assessment, and plan of care. Patient Condition at Discharge: Stable Plan - Discharge Summary Discharge Rx Participant: Yes New Discharge Prescriptions: New metroNIDAZOLE [Flagyl] 500 mg PO TID #30 tab Sodium Bicarbonate Tab 650 mg PO TID #30 tab Amoxic-Pot Clav 875-125Mg [Augmentin 875-125] 1 each PO Q12HR #20 tab Simethicone [Gas-X] 125 mg PO AC-TID PRN #20 cap PRN Reason: Pain Ibuprofen [Motrin] 600 mg PO Q8HR PRN #30 tab PRN Reason: Pain Continue Umeclidinium Brm/Vilanterol Tr [Anoro Ellipta 62.5-25 Mcg INH] 1 puff INHALATION QAM Levothyroxine Sodium [Synthroid] 112 mcg PO QAM rOPINIRole HCL [Requip] 3 mg PO HS Diclofenac Sodium [Voltaren Gel] 2 gram TOPICAL DAILY PRN PRN Reason: Pain Aspirin [Adult Low Dose Aspirin EC] 81 mg PO DAILY Venlafaxine HCl [Effexor XR] 150 mg PO BID ALPRAZolam [Xanax] 0.5 mg PO HS Insulin Aspart [NovoLOG] 0 units SQ ACHS PRN PRN Reason: Blood Sugar - High Atorvastatin [Lipitor] 40 mg PO QAM Furosemide [Lasix] 20 mg PO QAM Insulin Glargine [Lantus Vial] 46 unit SQ HS oxyCODONE-APAP 7.5-325MG [Percocet 7.5-325 mg] 1 tab PO Q6H Gabapentin 800 mg PO BID Discharge Medication List Aspirin [Adult Low Dose Aspirin EC] 81 mg PO DAILY 11/27/16 [History] Diclofenac Sodium [Voltaren Gel] 2 gram TOPICAL DAILY PRN 11/27/16 [History] Levothyroxine Sodium [Synthroid] 112 mcg PO QAM 11/27/16 [History] Umeclidinium Brm/Vilanterol Tr [Anoro Ellipta 62.5-25 Mcg INH] 1 puff INHALATION QAM 11/27/16 [History] rOPINIRole HCL [Requip] 3 mg PO HS 11/27/16 [History] Venlafaxine HCl [Effexor XR] 150 mg PO BID 05/03/17 [History] ALPRAZolam [Xanax] 0.5 mg PO HS 03/05/18 [History] Atorvastatin [Lipitor] 40 mg PO QAM 09/26/20 [History] Furosemide [Lasix] 20 mg PO QAM 09/26/20 [History] Insulin Glargine [Lantus Vial] 46 unit SQ HS 09/26/20 [History] oxyCODONE-APAP 7.5-325MG [Percocet 7.5-325 mg] 1 tab PO Q6H 09/26/20 [History] Insulin Aspart [NovoLOG] 0 units SQ ACHS PRN 12/26/20 [History] Amoxic-Pot Clav 875-125Mg [Augmentin 875-125] 1 each PO Q12HR #20 tab 12/30/20 [Rx] Ibuprofen [Motrin] 600 mg PO Q8HR PRN #30 tab 12/30/20 [Rx] Simethicone [Gas-X] 125 mg PO AC-TID PRN #20 cap 12/30/20 [Rx] metroNIDAZOLE [Flagyl] 500 mg PO TID #30 tab 12/30/20 [Rx] Gabapentin 800 mg PO BID 12/31/20 [History] Sodium Bicarbonate Tab 650 mg PO TID #30 tab 01/03/21 [Rx] Follow up Appointment(s)/Referral(s): Mahsa Tan MD [STAFF PHYSICIAN] - 01/10/21 [facility], [NON-STAFF] - ([facility] will call you to schedule your first home care visit. Please call them if you have questions regarding your home care services. ) Patient Instructions/Handouts: Colectomy (DC), COPD (Chronic Obstructive Pulmonary Disease) (DC), Laparoscopic Bowel Resection (DC), Colectomy Diet (DC) Activity/Diet/Wound Care/Special Instructions: Wear abdominal binder at all times for comfort. Please notify your pain specialist for narcotic pain meds. No lifting over 4 pounds in 4 weeks until January 12. May shower. No bath tub soaks for two weeks until January 12. Avoid steak, tough meats and seeds such as raspberry seeds. No driving while on narcotics. Use Tylenol and ibuprofen scheduled for the next 24-48 hours for best pain relief. Use ice along incisions for today to prevent swelling. Keep a log of REJI drain output and bring with you to your follow-up appointment Milk/strip drains 2-3 times a day Discharge Disposition: HOME SELF-CARE <Mahsa Tan - Last Filed: 01/07/21 21:21> Providers Date of admission: 12/29/20 08:52 Attending physician: Mahsa Tan Consults: 12/30/20 13:49 Consult Physician Routine Consulting Provider: Saw Collins Consult Reason/Comments: medical management Do you want consulting provider notified?: Already Contacted 12/30/20 16:07 Consult Physician Routine Consulting Provider: Heron Spain Consult Reason/Comments: hypoxia Do you want consulting provider notified?: Yes Primary care physician: Mariana Young - Discharge Diagnosis(es) (1) Diverticulitis large intestine w/o perforation or abscess w/o bleeding Status: Acute (2) Chronic pain syndrome Status: Acute (3) Elevated serum glucose Status: Acute (4) Congestive heart failure (CHF) Status: Acute Hospital Course: POSTOPERATIVE DIAGNOSES: 1. 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 Fibromyalgia with chronic pain syndrome 3. Pneumonia with acute leukocytosis 4. Obesity due to excess calories, BMI 30.6 5. Diabetes type 2, insulin-dependent with diabetic neuropathy 6. Hypertensive heart disease with congestive heart failure 7. Chronic obstructive pulmonary disease with acute exacerbation 8. Depressive disorder 9. Hyperlipidemia 10. Lupus 11. Generalized anxiety disorder 12. History of multiple abdominal surgeries with peritoneal adhesion 13. Gastroesophageal reflux disease 14. Obstructive sleep apnea 15. Hypothyroidism 16. History of brain aneurysm 17. Hyponatremia 18. Hypokalemia 19. Severe intra-abdominal/pelvic adhesions 20. Congestive heart failure with exacerbation NOT FLUID OVERLOAD COURSE: The patient is a 65-year-old female presented with recurrent sigmoid diverticulitis. She is status post sigmoid resection with extensive lysis of adhesions. Patient has pre-existing chronic obstructive pulmonary disease including hypertensive heart disease and congestive heart failure. She also had chronic obstructive pulmonary disease. Pulmonary consultation had been obt ained. Prior to discharge, pain was controlled. She was having bowel movements. Discharge instructions were reviewed. Procedures: OPERATION: 1. Robotic-assisted daVinci Xi laparoscopic lysis of adhesions, over 3 hrs 2. Robotic-assisted daVinci Xi laparoscopic with sigmoid colectomy and low anterior resection using 29mm EEA Ethicon powered stapler 3. Intraoperative colonoscopy for flexible sigmoidoscopy 4. Placement of round #19 Rashawn-Saleh drain, right pelvis Anesthesia: GETA, local, regional Estimated Blood Loss (ml): 50 Pathology: other (Sigmoid colon, anastomosis) Condition: stable Disposition: floor COMPLICATIONS: None. Operative Findings: 1. Severe sigmoid diverticulitis with pelvic adhesions involving left ovary 2. Greater omental adhesions anterior abdominal wall including severe pelvic adhesions 3. Prior sigmoid colon anastomosis resected
--- NOTE | 2021-01-03 21:44 | P.PN ---
Progress Note - Text Progress Note Date: 01/03/21 Presenting complaint: Sigmoid diverticulitis History of presenting complaint: Patient done December 29 underwent surgery for sigmoid stricture due to sigmoid diverticulitis, with sigmoid colectomy and low anterior resection, lysis of adhesions. Also had a REJI drain placed. January 02: Has a slight cough. But no wheezing. Good pulse ox on room air. Fair oral intake. Has had a bowel movement. Being followed by pulmonary. January 03: Feeling much better today. Fair oral intake. Pain much better controlled. Breathing better. Care was discussed with the patient. Questions answered. Antibiotics per surgery Review of systems: Was done for constitutional, cardiovascular, GI, pulmonary. relevant finding as above Current medications reviewed in today's electronic records On examination: VITAL SIGNS: 98.5, 88, 20, 106/71, 91% on room air GENERAL APPEARANCE: Sitting up, comfortable HEENT: Normal external appearance of nose and ear. Oral cavity normal EYES: Pupils equal. Conjunctiva normal. NECK: JVD not raised. Mass not palpable. RESPIRATORY: Respiratory effort normal. Lungs clear to auscultation. CARDIOVASCULAR: First and second sounds normal. No edema. ABDOMEN: Soft. Mild tenderness, no guarding rigidity, Liver and spleen not palpable. No tenderness. No mass palpable. PSYCHIATRY: Alert and oriented x3. Mood and affect normal. INVESTIGATIONS, reviewed in the clinical context: December 26: WBC 11.7 hemoglobin 10.2 platelets 308 potassium 4.1 creatinine 1.23 bicarb 16 WBC 11.5 hemoglobin 10.6 platelets 323 Room BNP 749 Assessment and plan: -Sigmoid colectomy with low anterior resection for chronic sigmoid diverticulitis Tolerating diet. Had bowel movement. -COPD in a ex-smoker On Atrovent 4 times a day. And perforomist. Patient lungs are clear. Patient has some acute tracheitis. -Acute tracheitis. Likely viral. Treat symptomatically -Hypothyroid Synthroid 112 g daily -Diabetes mellitus type 2, chronically on insulin Levemir, to continue Follow Accu-Cheks -Chronic fibromyalgia Continue pain medications -Acute blood loss anemia, as expected from surgery Weight take [id number] iron supplement. -Metabolic acidosis 1 week of sodium bicarbonate prescribed -GERD GERD as needed -Hyperlipidemia Lipitor 40 mg daily -Peripheral neuropathy Neurontin 800 mg twice a day -Restless leg syndrome Requip 3 mg daily at bedtime Care was discussed. Questions answered. Patient to follow with PCP. Thank you Dr. Brenton CALVERT BMP: 1 week with PCP
[2021-01-04] MEDS ORDERED: LEVOFLOXACIN 750 MG TAB PO SCH (09:00)
== END 2021-01-03 14:18 | disposition home health service (06) | DRG 326 ==
LOC: 2ORMAIN 08:52 → 4SSUR 18:27
PROVIDERS: ADMIT Surgery Plastic and Reconstructive Surgery; ATTEND Surgery Plastic and Reconstructive Surgery
PROC: 0DN64ZZ Release Stomach, Percutaneous Endoscopic Approach (ICD-10-PCS; principal; 2020-12-29 11:30)
PROC: 0DTN4ZZ Resection of Sigmoid Colon, Percutaneous Endoscopic Approach (ICD-10-PCS; principal; 2020-12-29 11:30)
PROC: 0DNN4ZZ Release Sigmoid Colon, Percutaneous Endoscopic Approach (ICD-10-PCS; principal; 2020-12-29 11:30)
PROC: 0DNU3ZZ Release Omentum, Percutaneous Approach (ICD-10-PCS; principal; 2020-12-29 11:30)
PROC: 0DTP4ZZ Resection of Rectum, Percutaneous Endoscopic Approach (ICD-10-PCS; principal; 2020-12-29 11:30)
PROC: 0DJD8ZZ Inspection of Lower Intestinal Tract, Via Natural or Artificial Opening Endoscopic (ICD-10-PCS; principal; 2020-12-29 11:30)
PROC: 0W9J30Z Drainage of Pelvic Cavity with Drainage Device, Percutaneous Approach (ICD-10-PCS; principal; 2020-12-29 11:30)
PROC: 8E0W4CZ Robotic Assisted Procedure of Trunk Region, Percutaneous Endoscopic Approach (ICD-10-PCS; principal; 2020-12-29 11:30)
PROC: 0DNW4ZZ Release Peritoneum, Percutaneous Endoscopic Approach (ICD-10-PCS; principal; 2020-12-29 11:30)
DX: K57.32 Diverticulitis of large intestine without perforation or abscess without bleeding (principal); J18.9 Pneumonia, unspecified organism; I50.43 Acute on chronic combined systolic (congestive) and diastolic (congestive) heart failure; J98.11 Atelectasis; J44.1 Chronic obstructive pulmonary disease with (acute) exacerbation; D62 Acute posthemorrhagic anemia; E87.1 Hypo-osmolality and hyponatremia; N17.9 Acute kidney failure, unspecified; E87.2 Acidosis; Z20.822 Contact with and (suspected) exposure to COVID-19; N73.6 Female pelvic peritoneal adhesions (postinfective); K66.0 Peritoneal adhesions (postprocedural) (postinfection); K21.9 Gastro-esophageal reflux disease without esophagitis; M79.7 Fibromyalgia; E03.9 Hypothyroidism, unspecified; E11.40 Type 2 diabetes mellitus with diabetic neuropathy, unspecified; E11.65 Type 2 diabetes mellitus with hyperglycemia; E66.09 Other obesity due to excess calories; E78.5 Hyperlipidemia, unspecified; E87.6 Hypokalemia; F17.200 Nicotine dependence, unspecified, uncomplicated; F32.9 Major depressive disorder, single episode, unspecified; F41.1 Generalized anxiety disorder; G25.81 Restless legs syndrome; G47.33 Obstructive sleep apnea (adult) (pediatric); G89.4 Chronic pain syndrome; I11.0 Hypertensive heart disease with heart failure; I34.0 Nonrheumatic mitral (valve) insufficiency; J04.10 Acute tracheitis without obstruction; F41.9 Anxiety disorder, unspecified; Z87.11 Personal history of peptic ulcer disease; Z86.73 Personal history of transient ischemic attack (TIA), and cerebral infarction without residual deficits; Z80.7 Family history of other malignant neoplasms of lymphoid, hematopoietic and related tissues; Z79.899 Other long term (current) drug therapy; Z79.890 Hormone replacement therapy; Z79.82 Long term (current) use of aspirin; Z79.4 Long term (current) use of insulin; Z68.30 Body mass index [BMI] 30.0-30.9, adult; Z96.1 Presence of intraocular lens; Z90.710 Acquired absence of both cervix and uterus; R09.02 Hypoxemia; H26.9 Unspecified cataract; K29.70 Gastritis, unspecified, without bleeding
CPT/HCPCS: 64999; 71045; 71046; 80048; 80053; 83036; 83880; 85025; 86850; 86870; 86880; 86900; 86901; 87635; 88307; 94640; 94760

== ENCOUNTER → 2021-01-10 | Outpatient (CLI) | payer MEDICARE, OTHER ==
[2021-01-10 19:08] LABS: HCT 40.1 % (37.2-46.3); HGB 12.1 g/dL (12.0-15.0); MCH 26.1 pg (27.0-32.0); MCHC 30.2 g/dL (32.0-37.0); MCV 86.4 fL (80.0-97.0); Mean Platelet Volume 10.1 fL (9.5-12.2); Platelet Count 709 X 10*3/uL (140-440); RBC 4.64 X 10*6/uL (4.10-5.20); RDW 16.4 % (11.5-14.5); WBC 13.48 X 10*3/uL (4.50-10.00)
== END | disposition home or self-care (01) ==
LOC: LABWHC1 12:22
PROVIDERS: ATTEND Surgery Plastic and Reconstructive Surgery
DX: K57.32 Diverticulitis of large intestine without perforation or abscess without bleeding (principal)
CPT/HCPCS: 36415; 85027

== ENCOUNTER 2021-01-16 17:41 | Inpatient (IN) | payer MEDICARE, OTHER ==
[2021-01-16] MEDS ORDERED: HYDROmorphone 0.5 MG/0.5 ML SYRINGE IVP STA (18:58)
[2021-01-16] MEDS ORDERED: SODIUM CHLORIDE 0.9% 1,000 ML IV STA (18:58)
[2021-01-16] MEDS ORDERED: NALOXONE 0.4 MG/ML 1 ML VIAL IV PRN (19:02)
[2021-01-16] MEDS ORDERED: ACETAMINOPHEN TAB 325 MG TAB PO PRN (19:02)
[2021-01-16] MEDS ORDERED: metroNIDAZOLE-NS PMX 500 MG in SALINE 1 100ML.BAG IVPB STA (19:02)
[2021-01-16] MEDS ORDERED: ONDANSETRON 4 MG/2 ML VIAL IVP PRN (19:02)
[2021-01-16] MEDS ORDERED: LEVOFLOXACIN 750MG-D5W PMX 750 MG in DEXTROSE/WATER 1 150ML.BAG IVPB STA (19:02)
--- NOTE | 2021-01-16 19:02 | ED ---
General Adult HPI - General Chief complaint: Abdominal Pain Stated complaint: Abdominal fluid Time Seen by Provider: 01/16/21 18:42 Source: patient Mode of arrival: EMS Limitations: no limitations - History of Present Illness Initial comments: Dictation was produced using [employer] dictation software. please excuse any grammatical, word or spelling errors. Chief Complaint: 65-year-old male presents emergency department for abnormal CT. History of Present Illness: A 65-year-old female she had a bowel resection performed on December 29. The reason for the surgery was for robotic-assisted lysis of adhesions, sigmoid colectomy and anterior resection. She states that she had worsening abdominal pain over the last couple days. She initially presented to [facility] emergency department where she was evaluated. She had normal vital signs. No white count however did have a mild lactic acidosis 3.2. Computed tomography scan was ordered that showed intra-abdominal abscess around the anastomotic site. Patient states she has severe abdominal pain to the left anterior abdomen. Mild nausea. No vomiting. The ROS documented in this emergency department record has been reviewed and confirmed by me. Those systems with pertinent positive or negative responses have been documented in the HPI. All other systems are other negative and/or noncontributory. PHYSICAL EXAM: General Impression: Alert and oriented x3, not in acute distress HEENT: Normocephalic atraumatic, extra-ocular movements intact, pupils equal and reactive to light bilaterally, mucous membranes moist. Cardiovascular: Heart regular rate and rhythm Chest: Able to complete full sentences, no retractions, no tachypnea Abdomen: abdomen soft, diffuse abdominal palpatory tenderness worse on the left, Non-distended, no organomegaly Musculoskeletal: Pulses present and equal in all extremities, no peripheral edema Motor: no focal deficits noted Neurological: CN II-XII grossly intact, no focal motor or sensory deficits noted Skin: Intact with no visualized rashes Psych: Normal affect and mood ED course: 65-year-old female transferred from outside emergency department for intra-abdominal abscess. Chart use performed. Patient did have robotic surgery performed by Dr. Tan here on December 29. Vital signs in our emergency department are stable. Transfer documentation was reviewed. Patient was given Levaquin and Flagyl. Case discussed with Dr. Tan, patient's primary surgeon was went accept patient's care. Patient will be continued on Levaquin and Flagyl. - Related Data Home Medications Medication Instructions Recorded Confirmed Aspirin [Adult Low Dose Aspirin EC] 81 mg PO DAILY 11/27/16 12/26/20 Diclofenac Sodium [Voltaren Gel] 2 gram TOPICAL DAILY PRN 11/27/16 12/26/20 Levothyroxine Sodium [Synthroid] 112 mcg PO QAM 11/27/16 12/26/20 Umeclidinium Brm/Vilanterol Tr 1 puff INHALATION QAM 11/27/16 12/26/20 [Anoro Ellipta 62.5-25 Mcg INH] rOPINIRole HCL [Requip] 3 mg PO HS 11/27/16 12/26/20 Venlafaxine HCl [Effexor XR] 150 mg PO BID 05/03/17 12/26/20 ALPRAZolam [Xanax] 0.5 mg PO HS 03/05/18 12/26/20 Atorvastatin [Lipitor] 40 mg PO QAM 09/26/20 12/26/20 Furosemide [Lasix] 20 mg PO QAM 09/26/20 12/26/20 Insulin Glargine [Lantus Vial] 46 unit SQ HS 09/26/20 12/26/20 oxyCODONE-APAP 7.5-325MG [Percocet 1 tab PO Q6H 09/26/20 12/26/20 7.5-325 mg] Insulin Aspart [NovoLOG] 0 units SQ ACHS PRN 12/26/20 12/26/20 Gabapentin 800 mg PO BID 12/31/20 12/31/20 Previous Rx's Medication Instructions Recorded Amoxic-Pot Clav 875-125Mg 1 each PO Q12HR #20 tab 12/30/20 [Augmentin 875-125] Ibuprofen [Motrin] 600 mg PO Q8HR PRN #30 tab 12/30/20 Simethicone [Gas-X] 125 mg PO AC-TID PRN #20 cap 12/30/20 metroNIDAZOLE [Flagyl] 500 mg PO TID #30 tab 12/30/20 Sodium Bicarbonate Tab 650 mg PO TID #30 tab 01/03/21 Allergies Allergy/AdvReac Type Severity Reaction Status Date / Time ceftriaxone [From Rocephin] Allergy Severe PASSED OUT Verified 01/16/21 17:52 Sulfa (Sulfonamide Allergy Unknown Rash/Hives, Verified 01/16/21 17:52 Antibiotics) Itchy morphine Allergy Swelling Verified 01/16/21 17:52 dermabond Allergy Rash/Hives Uncoded 01/16/21 17:52 Review of Systems ROS Statement: Those systems with pertinent positive or pertinent negative responses have been documented in the HPI. ROS Other: All systems not noted in ROS Statement are negative. Past Medical History Past Medical History: Asthma, COPD, CVA/TIA, Diabetes Mellitus, Fibromyalgia, GERD/Reflux, Hypertension, Neurologic Disorder, Sleep Apnea/CPAP/BIPAP, Thyroid Disorder Additional Past Medical History / Comment(s): IDDMM. 08/2011 DUODENAL ULCER, GASTRITIS. NEUROPATHY FEET, RLS. HX OF RHEUMATIC FEVER, HAS HOLE IN BACK OF HEART., HX OF SEPSIS FROM PORT INFECTIONS., STATES NO LONGER USING C-PAP MACHINE., STATES FREQUENT DIARRHEA., LUPUS., aneurysm back of brain surgery with coil, and stent to repair, difficulty swallowing History of Any Multi-Drug Resistant Organisms: None Reported Past Surgical History: Back Surgery, Section, Hysterectomy, Joint Replacement Additional Past Surgical History / Comment(s): THUMB SURGERY, BRUCE TOTAL KNEES, PORT INSERTED & REMOVED. Lap Nasir with hiatal hernia repair with mesh 05/09/2017 ,surgery to repair brain aneurysm with coil and stent, bruce elbow surgery ,lap sigmoid colectomy, cataracts-lens implants, back surgery 06/23/20 Past Anesthesia/Blood Transfusion Reactions: Blood Transfusion Reaction Additional Past Anesthesia/Blood Transfusion Reaction / Comment(s): STATES BLOOD TRANSFUSION 45 years ago WITH CHILD - STATES RASH AND ITCHING Past Psychological History: Anxiety, Depression Smoking Status: Former smoker Past Alcohol Use History: None Reported Past Drug Use History: None Reported - Past Family History Mother Family Medical History: Deep Vein Thrombosis (DVT) Daughter(s) Family Medical History: Cancer Additional Family Medical History / Comment(s): lymphoma- age 30 General Exam Limitations: no limitations Course Vital Signs 01/16/21 17:48 Temperature 98.5 F Pulse Rate 91 Respiratory 18 Rate Blood Pressure 124/71 O2 Sat by Pulse 96 Oximetry Disposition Clinical Impression: Intra-abdominal abscess Disposition: ADMITTED IP TO THIS HOSP Condition: Fair Referrals: Mariana Young MD [Primary Care Provider] - 1-2 days
[2021-01-16] MEDS: SODIUM CHLORIDE 0.9% 1,000 ML IV SCH (19:48)
[2021-01-16] MEDS: HYDROmorphone 0.5 MG/0.5 ML SYRINGE IVP PRN (21:22)
[2021-01-17] MEDS: HYDROmorphone 0.5 MG/0.5 ML SYRINGE IVP PRN ×3 (00:15→05:44)
[2021-01-17] MEDS: SODIUM CHLORIDE 0.9% 1,000 ML IV SCH ×3 (03:12→23:15)
[2021-01-17] MEDS: HYDROmorphone 1 MG/ML 1 ML SYRINGE IVP PRN ×4 (08:58→20:49)
[2021-01-17] MEDS ORDERED: PANTOPRAZOLE 40 MG/10 ML VIAL IV SCH (09:00)
[2021-01-17] MEDS: HEPARIN SODIUM,PORCINE/PF 5,000 UNIT/0.5 ML SYRINGE SQ SCH ×2 (09:05→20:50)
[2021-01-17] MEDS: metroNIDAZOLE-NS PMX 500 MG in SALINE 1 100ML.BAG IVPB SCH ×2 (09:07→17:17)
[2021-01-17 09:37] LABS: Glucose,Whole Blood 164 mg/dL (75-99)
[2021-01-17 10:19] LABS: Basophils % (A) 0 %; Eosinophils # (A) 0.5 k/uL (0-0.7); Eosinophils % (A) 5 %; HGB 10.3 gm/dL (11.4-16.0); Hypochromasia Moderate; Lymphocytes # (A) 1.5 k/uL (1.0-4.8); Lymphocytes % (A) 16 %; MCH 26.4 pg (25.0-35.0); MCHC 30.4 g/dL (31.0-37.0); Mean Platelet Volume 7.5; Monocytes # (A) 0.4 k/uL (0-1.0); Monocytes % (A) 4 %; Neutrophils # (A) 6.9 k/uL (1.3-7.7); Neutrophils % (A) 73 %; Platelet Count 465 k/uL (150-450); RBC 3.91 m/uL (3.80-5.40); RDW 15.7 % (11.5-15.5); WBC 9.4 k/uL (3.8-10.6)
[2021-01-17 10:35] LABS: African American GFR (CKD) 76 (>60 ml/min/1.73 sqM); Anion Gap 9 mmol/L; Blood Urea Nitrogen 11 mg/dL (7-17); Calcium 8.4 mg/dL (8.4-10.2); Carbon Dioxide 18 mmol/L (22-30); Chloride 113 mmol/L (98-107); Glucose 156 mg/dL (74-99); Non-African American GFR(CKD) 66 (>60 ml/min/1.73 sqM); Potassium 4.5 mmol/L (3.5-5.1); Sodium 140 mmol/L (137-145)
[2021-01-17 12:23] LABS: Glucose,Whole Blood 144 mg/dL (75-99)
[2021-01-17] MEDS: PIPERACILLIN-TAZOBACTAM 3.375 GM in SODIUM CHLORIDE 0.9% 100 ML IVPB SCH ×2 (12:46→21:14)
[2021-01-17] MEDS: INSULIN ASPART (NovoLOG) 100 UNIT/ML VIAL SQ SCH ×3 (12:47→21:12)
[2021-01-17] MEDS ORDERED: IBUPROFEN 600 MG TAB PO PRN (13:04)
[2021-01-17] MEDS ORDERED: SIMETHICONE 80 MG CHEWABLE PO PRN (13:04)
--- NOTE | 2021-01-17 13:05 | P.GSHP ---
History of Present Illness H&P Date: 01/17/21 CHIEF COMPLAINT: Abdominal pain HISTORY OF PRESENT ILLNESS: This is a 65-year-old female who presented to the emergency room with complaints of abdominal pain. Her pain is located on the left side of her abdomen. She's had increasing pain over the last couple of days. She admits to having nausea and no vomiting. She initially presented to an outside facility and had a computed tomography scan completed with initial concerns of a possible intra-abdominal abscess. Patient did have elevated l actic acid level and was started on IV antibiotics. Her white count was normal. Abdominal CAT scan findings were reviewed by Dr. Tan who felt that there is no evidence of abscess or free air. Patient is status post robotic assisted laparoscopic sigmoid colectomy with lower anterior resection and lysis of adhesions for sigmoid stricture due to sigmoid diverticulitis on 12/29/[address] Tan. PAST MEDICAL HISTORY: See list. PAST SURGICAL HISTORY: See list. MEDICATIONS: See list. ALLERGIES: See list. SOCIAL HISTORY: No illicit drug use. REVIEW OF SYSTEMS: CONSTITUTIONAL: Denies fever or chills. HEENT: Denies blurred vision, vision changes, or eye pain. Denies hemoptysis ENDOCRINE: Denies heat or cold intolerance. CARDIOVASCULAR: Denies chest pain or pressure. RESPIRATORY: No shortness of breath. GASTROINTESTINAL: Please refer to HPI otherwise unremarkable NEURO: Denies history of seizures. PSYCH: No depression or suicidal ideation HEMATOLOGIC: Denies bleeding disorders. LYMPHATIC: The patient denies any lumps and bumps around the neck. GENITOURINARY: Denies any blood in urine or increased urinary frequency. MUSCULOSKELETAL: Denies myalgias. Denies joint swelling. Denies decreased range of motion beyond patients baseline. SKIN: Denies pruitis. Denies rash. PHYSICAL EXAM: VITAL SIGNS: Reviewed GENERAL: Well-developed in no acute distress. HEENT: No sclera icterus. Extraocular movements grossly intact. Moist buccal mucosa. Head is atraumatic, normocephalic. Hears conversational speech. No nasal drainage. NECK: Supple without lymphadenopathy. CHEST: Non-labored respirations and equal bilateral excursions. CARDIOVASCULAR: Palpable 2+ radial pulses. ABDOMEN: Soft. Nondistended. Tenderness with palpation left side abdomen. incision sites clean dry and intact MUSCULOSKELETAL: No clubbing or cyanosis. NEUROLOGIC: No focal or lateralizing signs. Cranial nerves II through XII grossly intact. PSYCH: Appropriate affect. Alert and oriented to person, place and time. SKIN: Well perfused. Good skin turgor. LABORATORY DATA: WBC 9.4 hemoglobin 10.3 platelets 465 Sodium 140 potassium 4.5 chloride 113 CO2 18 BUN is 11 creatinine 0.91 COVID-19 not detected IMAGING: Computed tomography scan of abdomen reviewed by Dr. Tan shows no evidence of abscess or free air ASSESSMENT: 1. Acute on chronic pain syndrome 2. Left-sided abdominal pain with no evidence of abscess or free air on CAT scan 3. Status post robotic assisted laparoscopic sigmoid colectomy with lower anterior resection and lysis of adhesions for sigmoid stricture due to sigmoid diverticulitis on 12/29/2020 4. Fibromyalgia with chronic pain 5. Obesity due to excess calories, BMI 30.6 6. Diabetes mellitus type 2 insulin-dependent 7. Hypertensive heart disease with congestive heart failure. No evidence of exacerbation 8. Chronic obstructive disease without acute exacerbation 9. Lupus 10. History of multiple abdominal surgeries with peritoneal adhesion 11. History of brain aneurysm with coil PLAN: -Continue supportive care -No plans for surgical intervention -Continue IV antibiotics -Increased Dilaudid to 2 mg IV every 3 hours as needed for pain to help with pain control -Keep patient nothing by mouth except for ice chips and popsicles -Continue IV fluids -Continue antiemetics -Add NovoLog sliding scale coverage every before meals and at bedtime -GI prophylaxis Protonix and DVT prophylaxis subcu heparin Physician [employer] note has been reviewed by physician. Signing provider agrees with the documented findings, assessment, and plan of care. Past Medical History Past Medical History: Asthma, COPD, CVA/TIA, Diabetes Mellitus, Fibromyalgia, GERD/Reflux, Hypertension, Neurologic Disorder, Sleep Apnea/CPAP/BIPAP, Thyroid Disorder Additional Past Medical History / Comment(s): IDDMM. 08/2011 DUODENAL ULCER, GASTRITIS. NEUROPATHY FEET, RLS. HX OF RHEUMATIC FEVER, HAS HOLE IN BACK OF HEART., HX OF SEPSIS FROM PORT INFECTIONS., STATES NO LONGER USING C-PAP MACHINE., STATES FREQUENT DIARRHEA., LUPUS., aneurysm back of brain surgery with coil, and stent to repair, difficulty swallowing History of Any Multi-Drug Resistant Organisms: None Reported Past Surgical History: Back Surgery, Section, Hysterectomy, Joint Replacement Additional Past Surgical History / Comment(s): THUMB SURGERY, BRUCE TOTAL KNEES, PORT INSERTED & REMOVED. Lap Nasir with hiatal hernia repair with mesh 05/09/2017 ,surgery to repair brain aneurysm with coil and stent, bruce elbow surgery ,lap sigmoid colectomy, cataracts-lens implants, back surgery 06/23/20 Past Anesthesia/Blood Transfusion Reactions: Blood Transfusion Reaction Additional Past Anesthesia/Blood Transfusion Reaction / Comment(s): STATES BLOOD TRANSFUSION 45 years ago WITH CHILD - STATES RASH AND ITCHING Past Psychological History: Anxiety, Depression Smoking Status: Former smoker Past Alcohol Use History: None Reported Past Drug Use History: None Reported - Past Family History Mother Family Medical History: Deep Vein Thrombosis (DVT) Daughter(s) Family Medical History: Cancer Additional Family Medical History / Comment(s): lymphoma- age 30 Medications and Allergies Home Medications Medication Instructions Recorded Confirmed Type Aspirin [Adult Low Dose Aspirin EC] 81 mg PO DAILY 11/27/16 01/16/21 History Diclofenac Sodium [Voltaren Gel] 2 gram TOPICAL DAILY PRN 11/27/16 01/16/21 History Levothyroxine Sodium [Synthroid] 112 mcg PO DAILY 11/27/16 01/16/21 History Umeclidinium Brm/Vilanterol Tr 1 puff INHALATION RT-DAILY 11/27/16 01/16/21 History [Anoro Ellipta 62.5-25 Mcg INH] Venlafaxine HCl [Effexor XR] 150 mg PO DAILY 05/03/17 01/16/21 History ALPRAZolam [Xanax] 0.5 mg PO HS 03/05/18 01/16/21 History Furosemide [Lasix] 40 mg PO DAILY 09/26/20 01/16/21 History Insulin Glargine [Lantus Vial] 64 unit SQ HS 09/26/20 01/16/21 History Insulin Aspart [NovoLOG] See Protocol SQ ACHS PRN 12/26/20 01/16/21 History Ibuprofen [Motrin] 600 mg PO Q8HR PRN #30 tab 12/30/20 01/16/21 Rx Simethicone [Gas-X] 125 mg PO AC-TID PRN #20 cap 12/30/20 01/16/21 Rx Gabapentin 800 mg PO BID 12/31/20 01/16/21 History Atorvastatin [Lipitor] 20 mg PO DAILY 01/16/21 01/16/21 History Omeprazole 40 mg PO DAILY 01/16/21 01/16/21 History oxyCODONE-APAP 10-325MG [Percocet 1 tab PO Q6H PRN 01/16/21 01/16/21 History 10-325 mg] rOPINIRole HCL [Requip] 12 mg PO HS 01/16/21 01/16/21 History Allergies Allergy/AdvReac Type Severity Reaction Status Date / Time ceftriaxone [From Rocephin] Allergy Severe Anaphylaxis, Verified 01/17/21 10:56 Hives/Rash, Itching, Shortness of Breath cefotaxime Allergy Hives, Verified 01/16/21 21:49 Shortness of Breath, Itching fexofenadine Allergy Hives, Verified 01/16/21 21:49 Itching morphine Allergy Swelling, Verified 01/16/21 21:49 Hives, Rash pregabalin [From Lyrica] Allergy Shortness Verified 01/16/21 21:49 of Breath Sulfa (Sulfonamide Allergy Rash/Hives, Verified 01/16/21 21:49 Antibiotics) Itchy terbinafine [From Lamisil] Allergy Hives, Verified 01/16/21 21:49 Shortness of Breath dermabond Allergy Rash/Hives Uncoded 01/16/21 21:49 Surgical - Exam Vital Signs Temp Pulse Resp BP Pulse Ox 98.5 F 91 18 124/71 96 01/16/21 17:48 01/16/21 17:48 01/16/21 17:48 01/16/21 17:48 01/16/21 17:48 Results - Labs 01/17/21 09:49 01/17/21 09:49 Abnormal Lab Results - Last 24 Hours (Table) 01/17/21 01/17/21 01/17/21 Range/Units 09:35 09:49 09:49 Hgb 10.3 L (11.4-16.0) gm/dL MCHC 30.4 L (31.0-37.0) g/dL RDW 15.7 H (11.5-15.5) % Plt Count 465 H (150-450) k/uL Chloride 113 H (98-107) mmol/L Carbon Dioxide 18 L (22-30) mmol/L Glucose 156 H (74-99) mg/dL POC Glucose (mg/dL) 164 H (75-99) mg/dL 01/17/21 Range/Units 12:21 Hgb (11.4-16.0) gm/dL MCHC (31.0-37.0) g/dL RDW (11.5-15.5) % Plt Count (150-450) k/uL Chloride (98-107) mmol/L Carbon Dioxide (22-30) mmol/L Glucose (74-99) mg/dL POC Glucose (mg/dL) 144 H (75-99) mg/dL Diabetes panel 01/17/21 Range/Units 09:49 Sodium 140 (137-145) mmol/L Potassium 4.5 (3.5-5.1) mmol/L Chloride 113 H (98-107) mmol/L Carbon Dioxide 18 L (22-30) mmol/L BUN 11 (7-17) mg/dL Creatinine 0.91 (0.52-1.04) mg/dL Glucose 156 H (74-99) mg/dL Calcium 8.4 (8.4-10.2) mg/dL Calcium panel 01/17/21 Range/Units 09:49 Calcium 8.4 (8.4-10.2) mg/dL Pituitary panel 01/17/21 Range/Units 09:49 Sodium 140 (137-145) mmol/L Potassium 4.5 (3.5-5.1) mmol/L Chloride 113 H (98-107) mmol/L Carbon Dioxide 18 L (22-30) mmol/L BUN 11 (7-17) mg/dL Creatinine 0.91 (0.52-1.04) mg/dL Glucose 156 H (74-99) mg/dL Calcium 8.4 (8.4-10.2) mg/dL Adrenal panel 01/17/21 Range/Units 09:49 Sodium 140 (137-145) mmol/L Potassium 4.5 (3.5-5.1) mmol/L Chloride 113 H (98-107) mmol/L Carbon Dioxide 18 L (22-30) mmol/L BUN 11 (7-17) mg/dL Creatinine 0.91 (0.52-1.04) mg/dL Glucose 156 H (74-99) mg/dL Calcium 8.4 (8.4-10.2) mg/dL
[2021-01-17 17:48] LABS: Glucose,Whole Blood 119 mg/dL (75-99)
[2021-01-17] MEDS ORDERED: LEVOFLOXACIN 500MG-D5W PMX 500 MG in DEXTROSE/WATER 1 100ML.BAG IVPB SCH (20:00)
[2021-01-17] MEDS: ALPRAZolam 0.5 MG TAB PO SCH (20:50)
[2021-01-17] MEDS: GABAPENTIN 400 MG CAP PO SCH (20:50)
[2021-01-17] MEDS ORDERED: INSULIN DETEMIR (LEVEMIR) 100 UNIT/ML SYR SQ SCH (21:00)
[2021-01-17 21:22] LABS: Glucose,Whole Blood 124 mg/dL (75-99)
[2021-01-17] MEDS: SODIUM BICARBONATE TAB 650 MG TAB PO SCH (21:48)
[2021-01-17] MEDS: rOPINIRole HCL 4 MG TABLET PO SCH (21:49)
--- NOTE | 2021-01-17 22:00 | P.CONS ---
History of Present Illness - Reason for Consult Consult date: 01/17/21 Medical management Requesting physician: Mahsa Tan - Chief Complaint Abdominal pain - History of Present Illness This is a pleasant 65-year-old patient, follows with Dr. Mariana Young. Chronic stable medical conditions include COPD, diabetes, fibromyalgia, GERD, hypertension, hypothyroid, peripheral neuropathy, restless leg syndrome, lupus, anxiety depression, brain aneurysm with coiling the stent, CAD nonobstructive. Patient has a prior surgical history to include lab Nasir fundoplication with hiatal hernia repair with mesh in 2017. Patient also had back surgery in June 2020. Patient on December 29, underwent robotic lysis of adhesions, sigmoid co lectomy and low anterior resection. Patient states when she left hospital on January 03 she was still having abdominal pain. She was documented to have 100% of her breakfast the day she left. Since discharge patient is been able to eat. Having about 3-4 bowel movements a day. Abdominal pains which are less sadness progressively been getting worse. Denies any nausea vomiting. No fever no chills. Has decided to come back to the ER. She was seen by Dr. Farris and a postop follow-up. It was then felt that the pain was from surgery. Patient was discharged on Augmentin and Flagyl. Review of systems: GEN.: Tired EYES: None HEENT: None NECK: None RESPIRATORY: None CARDIOVASCULAR: None GASTROINTESTINAL: As above GENITOURINARY: None MUSCULOSKELETAL: None LYMPHATICS: None HEMATOLOGICAL: None PSYCHIATRY: Anxious NEUROLOGICAL: None Past medical history to include: COPD, diabetes, fibromyalgia, GERD, essential hypertension, SLEEP apnea, duodenal ulcer, peripheral neuropathy, restless leg syndrome, distant use CPAP, lupus, and resume of the brain with the quite and stent, anxiety depression Social history: Started smoking in 1977 and stopped in 2016. One pack a day. Did use medical marijuana to 5 years ago. . Family history: Lymphoma Physical examination: VITAL SIGNS: 98.5, 91, 18, 124/71, 96% room air GENERAL: BMI 31, reclining in bed, awake not in distress. EYES: Pupils equal. Conjunctiva normal. HEENT: External appearance of nose and ears normal, oral cavity grossly normal. NECK: JVD not raised; masses not palpable. HEART: First and second heart sounds are normal; no edema. LUNGS: Respiratory rate normal; decreased breath sounds. ABDOMEN: Soft, left-sided tenderness, no guarding rigidity, liver spleen not palpable, no masses palpable. PSYCH: Alert and oriented x3; mood and affect anxiousl. NEUROLOGICAL: Cranial nerves grossly intact; no facial asymmetry, power and sensation grossly intact. LYMPHATICS: No lymph nodes palpable in the axilla and neck INVESTIGATIONS, reviewed in the clinical context: WBC 9.4 hemoglobin 10.3 platelets 465 potassium 4.5 bicarb 18 creatinine 0.91 Computed tomography scan from an outside facility: Questionable intra-abdominal abscess Assessment and plan: -This is a patient who underwent sigmoid colectomy with low anterior resection on December 29. Patient was discharged on gabapentin and Flagyl. Patient was tolerating a diet for age with discharge. Patient now presents progressively increasing pain especially on the left side. Has a fair oral intake. No nausea vomiting. No fever no chills. Is having 4-5 bowel movements a day. Computed tomography scan was reviewed by Dr. Farris and she does not feel there is any abscess there. Stool will be sent off for C. diff -COPD in a previous smoker Formoterol 20 g twice a day, Atrovent 4 times a day -Diabetes mellitus type 2, chronically on insulin Levemir 50 units subcu daily at bedtime. Follow Accu-Cheks -Mild metabolic acidosis from diarrhea Had sodium bicarbonate -Chronic fibromyalgia Percocet 10 one tablet every 6 when necessary -GERD Protonic 40 mg daily -Obstructive sleep apnea does not use CPAP -Peripheral neuropathy Neurontin 800 mg twice a day -Restless leg syndrome Requip 12 mg daily at bedtime -Chronic lupus Neurontin, Effexor -Brain aneurysm with coil and stent -Depression Effexor XL 150 mg a day -Hypothyroid Synthroid 112 g daily Patient is currently nothing by mouth. Empirically on IV antibiotics per surgery. back and IV fluids. Stool for C. diff. Resume home medications. Check pro-calcitonin. Care was discussed with the patient. Thank you Dr. Farris Past Medical History Past Medical History: Asthma, COPD, CVA/TIA, Diabetes Mellitus, Fibromyalgia, GERD/Reflux, Hypertension, Neurologic Disorder, Sleep Apnea/CPAP/BIPAP, Thyroid Disorder Additional Past Medical History / Comment(s): IDDMM. 08/2011 DUODENAL ULCER, GASTRITIS. NEUROPATHY FEET, RLS. HX OF RHEUMATIC FEVER, HAS HOLE IN BACK OF HEART., HX OF SEPSIS FROM PORT INFECTIONS., STATES NO LONGER USING C-PAP MACHINE., STATES FREQUENT DIARRHEA., LUPUS., aneurysm back of brain surgery with coil, and stent to repair, difficulty swallowing History of Any Multi-Drug Resistant Organisms: None Reported Past Surgical History: Back Surgery, Section, Hysterectomy, Joint Replacement Additional Past Surgical History / Comment(s): THUMB SURGERY, BRUCE TOTAL KNEES, PORT INSERTED & REMOVED. Lap Nasir with hiatal hernia repair with mesh 05/09/2017 ,surgery to repair brain aneurysm with coil and stent, bruce elbow surgery ,lap sigmoid colectomy, cataracts-lens implants, back surgery 06/23/20 Past Anesthesia/Blood Transfusion Reactions: Blood Transfusion Reaction Additional Past Anesthesia/Blood Transfusion Reaction / Comm: STATES BLOOD TRANSFUSION 45 years ago WITH CHILD - STATES RASH AND ITCHING Past Psychological History: Anxiety, Depression Smoking Status: Former smoker Past Alcohol Use History: None Reported Past Drug Use History: None Reported - Past Family History Mother Family Medical History: Deep Vein Thrombosis (DVT) Daughter(s) Family Medical History: Cancer Additional Family Medical History / Comment(s): lymphoma- age 30 Medications and Allergies Home Medications Medication Instructions Recorded Confirmed Type Aspirin [Adult Low Dose Aspirin EC] 81 mg PO DAILY 11/27/16 01/16/21 History Diclofenac Sodium [Voltaren Gel] 2 gram TOPICAL DAILY PRN 11/27/16 01/16/21 History Levothyroxine Sodium [Synthroid] 112 mcg PO DAILY 11/27/16 01/16/21 History Umeclidinium Brm/Vilanterol Tr 1 puff INHALATION RT-DAILY 11/27/16 01/16/21 History [Anoro Ellipta 62.5-25 Mcg INH] Venlafaxine HCl [Effexor XR] 150 mg PO DAILY 05/03/17 01/16/21 History ALPRAZolam [Xanax] 0.5 mg PO HS 03/05/18 01/16/21 History Furosemide [Lasix] 40 mg PO DAILY 09/26/20 01/16/21 History Insulin Glargine [Lantus Vial] 64 unit SQ HS 09/26/20 01/16/21 History Insulin Aspart [NovoLOG] See Protocol SQ ACHS PRN 12/26/20 01/16/21 History Ibuprofen [Motrin] 600 mg PO Q8HR PRN #30 tab 09/24/21 10/11/21 Rx Simethicone [Gas-X] 125 mg PO AC-TID PRN #20 cap 12/30/20 01/16/21 Rx Gabapentin 800 mg PO BID 12/31/20 01/16/21 History Atorvastatin [Lipitor] 20 mg PO DAILY 01/16/21 01/16/21 History Omeprazole 40 mg PO DAILY 01/16/21 01/16/21 History oxyCODONE-APAP 10-325MG [Percocet 1 tab PO Q6H PRN 01/16/21 01/16/21 History 10-325 mg] rOPINIRole HCL [Requip] 12 mg PO HS 01/16/21 01/16/21 History Allergies Allergy/AdvReac Type Severity Reaction Status Date / Time ceftriaxone [From Rocephin] Allergy Severe Anaphylaxis, Verified 01/17/21 10:56 Hives/Rash, Itching, Shortness of Breath cefotaxime Allergy Hives, Verified 01/16/21 21:49 Shortness of Breath, Itching fexofenadine Allergy Hives, Verified 01/16/21 21:49 Itching morphine Allergy Swelling, Verified 01/16/21 21:49 Hives, Rash pregabalin [From Lyrica] Allergy Shortness Verified 01/16/21 21:49 of Breath Sulfa (Sulfonamide Allergy Rash/Hives, Verified 01/16/21 21:49 Antibiotics) Itchy terbinafine [From Lamisil] Allergy Hives, Verified 01/16/21 21:49 Shortness of Breath dermabond Allergy Rash/Hives Uncoded 01/16/21 21:49 Physical Exam Vitals: Vital Signs Temp Pulse Resp BP Pulse Ox 01/17/21 07:28 98.4 F 101 H 18 147/72 95 01/17/21 04:50 98.2 F 102 H 18 135/73 96 01/16/21 17:48 98.5 F 91 18 124/71 96 Results CBC & Chem 7: 01/17/21 09:49 01/17/21 09:49 Labs: Abnormal Lab Results - Last 24 Hours (Table) 01/17/21 01/17/21 01/17/21 Range/Units 09:35 09:49 09:49 Hgb 10.3 L (11.4-16.0) gm/dL MCHC 30.4 L (31.0-37.0) g/dL RDW 15.7 H (11.5-15.5) % Plt Count 465 H (150-450) k/uL Chloride 113 H (98-107) mmol/L Carbon Dioxide 18 L (22-30) mmol/L Glucose 156 H (74-99) mg/dL POC Glucose (mg/dL) 164 H (75-99) mg/dL 01/17/21 Range/Units 12:21 Hgb (11.4-16.0) gm/dL MCHC (31.0-37.0) g/dL RDW (11.5-15.5) % Plt Count (150-450) k/uL Chloride (98-107) mmol/L Carbon Dioxide (22-30) mmol/L Glucose (74-99) mg/dL POC Glucose (mg/dL) 144 H (75-99) mg/dL
[2021-01-18] MEDS: HYDROmorphone 1 MG/ML 1 ML SYRINGE IVP PRN ×5 (00:11→22:08)
[2021-01-18] MEDS: metroNIDAZOLE-NS PMX 500 MG in SALINE 1 100ML.BAG IVPB SCH ×4 (00:12→23:24)
[2021-01-18] MEDS: PANTOPRAZOLE 40 MG TABLET PO SCH ×3 (00:12→17:49)
[2021-01-18] MEDS: oxyCODONE-APAP 10-325MG 1 EACH TAB PO PRN ×2 (01:34→09:17)
[2021-01-18] MEDS: SODIUM CHLORIDE 0.9% 1,000 ML IV SCH ×2 (03:09→20:52)
[2021-01-18] MEDS: PIPERACILLIN-TAZOBACTAM 3.375 GM in SODIUM CHLORIDE 0.9% 100 ML IVPB SCH ×3 (04:34→20:39)
[2021-01-18] MEDS: LEVOTHYROXINE 112 MCG TAB PO SCH (06:04)
[2021-01-18 06:57] LABS: African American GFR (CKD) 69 (>60 ml/min/1.73 sqM); Anion Gap 9 mmol/L; Blood Urea Nitrogen 9 mg/dL (7-17); Calcium 9.2 mg/dL (8.4-10.2); Carbon Dioxide 19 mmol/L (22-30); Chloride 114 mmol/L (98-107); Glucose 97 mg/dL (74-99); Non-African American GFR(CKD) 60 (>60 ml/min/1.73 sqM); Potassium 4.5 mmol/L (3.5-5.1); Sodium 142 mmol/L (137-145)
[2021-01-18 07:38] LABS: Glucose,Whole Blood 117 mg/dL (75-99)
[2021-01-18] MEDS: INSULIN ASPART (NovoLOG) 100 UNIT/ML VIAL SQ SCH ×4 (07:41→20:39)
[2021-01-18] MEDS: IPRATROPIUM 0.5 MG/2.5 ML NEBU INHALATION SCH ×4 (07:42→20:26)
[2021-01-18] MEDS: FORMOTEROL FUMARATE 20 MCG/2 ML NEBU INHALATION SCH ×2 (07:42→20:26)
[2021-01-18] MEDS ORDERED: NON FORMULARY DRUG (Omeprazole [Omeprazole] 40 MG Capsule) PO SCH (09:00)
[2021-01-18] MEDS: VENLAFAXINE HCL ER 150 MG CAP PO SCH (09:01)
[2021-01-18] MEDS: FUROSEMIDE 40 MG TAB PO SCH (09:01)
[2021-01-18] MEDS: SODIUM BICARBONATE TAB 650 MG TAB PO SCH ×3 (09:01→20:39)
[2021-01-18] MEDS: GABAPENTIN 400 MG CAP PO SCH ×2 (09:01→20:39)
[2021-01-18] MEDS: HEPARIN SODIUM,PORCINE/PF 5,000 UNIT/0.5 ML SYRINGE SQ SCH ×2 (09:01→20:39)
[2021-01-18] MEDS: ATORVASTATIN 20 MG TAB PO SCH (09:01)
[2021-01-18] MEDS: ASPIRIN 81 MG PO SCH (09:01)
[2021-01-18 12:18] LABS: Basophils % (A) 0 %; Eosinophils # (A) 0.6 k/uL (0-0.7); Eosinophils % (A) 7 %; HCT 33.6 % (34.0-46.0); HGB 10.3 gm/dL (11.4-16.0); Hypochromasia Marked; Lymphocytes # (A) 1.5 k/uL (1.0-4.8); Lymphocytes % (A) 19 %; MCHC 30.6 g/dL (31.0-37.0); Mean Platelet Volume 7.3; Monocytes # (A) 0.3 k/uL (0-1.0); Monocytes % (A) 4 %; Neutrophils # (A) 5.4 k/uL (1.3-7.7); Neutrophils % (A) 68 %; Platelet Count 476 k/uL (150-450); Poikilocytosis Slight; RBC 3.82 m/uL (3.80-5.40); RDW 15.9 % (11.5-15.5); WBC 7.9 k/uL (3.8-10.6)
--- NOTE | 2021-01-18 12:30 | P.PAINCN ---
History of Present Illness - Reason for Consult Consult date: 01/18/21 - History of Present Illness HISTORY OF PRESENT ILLNESS: This is a 65-year-old female who presented to the emergency room with complaints of abdominal pain. Her pain is located on the left side of her abdomen. She's had increasing pain over the last couple of days. She admits to having nausea and no vomiting. She initially presented to an outside facility and had a computed tomography scan completed with initial concerns of a possible intra-abdominal abscess. Patient did have elevated lactic acid level and was started on IV antibiotics. Her white count was normal. Abdominal CAT scan findings were reviewed by Dr. Tan who felt that there is no evidence of abscess or free air. Patient is status post neil otic assisted laparoscopic sigmoid colectomy with lower anterior resection and lysis of adhesions for sigmoid stricture due to sigmoid diverticulitis on 12/29/[address] Tan. She reported that she had chronic pain syndrome , and chronic low back pain and she was repeated as an outpatient with Percocet 10/325 every 6 hours, and Neurontin 800 mg twice a day, patient reported that currently her pain is constant localized mostly in the lower abdominal area, more prominent on the left side Past Medical History Past Medical History: Asthma, COPD, CVA/TIA, Diabetes Mellitus, Fibromyalgia, GERD/Reflux, Hypertension, Neurologic Disorder, Sleep Apnea/CPAP/BIPAP, Thyroid Disorder Additional Past Medical History / Comment(s): IDDMM. 08/2011 DUODENAL ULCER, GASTRITIS. NEUROPATHY FEET, RLS. HX OF RHEUMATIC FEVER, HAS HOLE IN BACK OF HEART., HX OF SEPSIS FROM PORT INFECTIONS., STATES NO LONGER USING C-PAP MACHINE., STATES FREQUENT DIARRHEA., LUPUS., aneurysm back of brain surgery with coil, and stent to repair, difficulty swallowing History of Any Multi-Drug Resistant Organisms: None Reported Past Surgical History: Back Surgery, Section, Hysterectomy, Joint Replacement Additional Past Surgical History / Comment(s): THUMB SURGERY, BRUCE TOTAL KNEES, PORT INSERTED & REMOVED. Lap Nasir with hiatal hernia repair with mesh 05/09/2017 ,surgery to repair brain aneurysm with coil and stent, bruce elbow surgery ,lap sigmoid colectomy, cataracts-lens implants, back surgery 06/23/20 Past Anesthesia/Blood Transfusion Reactions: Blood Transfusion Reaction Additional Past Anesthesia/Blood Transfusion Reaction / Comm: STATES BLOOD TRANSFUSION 45 years ago WITH CHILD - STATES RASH AND ITCHING Past Psychological History: Anxiety, Depression Smoking Status: Former smoker Past Alcohol Use History: None Reported Past Drug Use History: None Reported - Past Family History Mother Family Medical History: Deep Vein Thrombosis (DVT) Daughter(s) Family Medical History: Cancer Additional Family Medical History / Comment(s): lymphoma- age 30 Medications and Allergies Home Medications Medication Instructions Recorded Confirmed Type Aspirin [Adult Low Dose Aspirin EC] 81 mg PO DAILY 11/27/16 01/16/21 History Diclofenac Sodium [Voltaren Gel] 2 gram TOPICAL DAILY PRN 11/27/16 01/16/21 History Levothyroxine Sodium [Synthroid] 112 mcg PO DAILY 11/27/16 01/16/21 History Umeclidinium Brm/Vilanterol Tr 1 puff INHALATION RT-DAILY 11/27/16 01/16/21 History [Anoro Ellipta 62.5-25 Mcg INH] Venlafaxine HCl [Effexor XR] 150 mg PO DAILY 05/03/17 01/16/21 History ALPRAZolam [Xanax] 0.5 mg PO HS 03/05/18 01/16/21 History Furosemide [Lasix] 40 mg PO DAILY 09/26/20 01/16/21 History Insulin Glargine [Lantus Vial] 64 unit SQ HS 09/26/20 01/16/21 History Insulin Aspart [NovoLOG] See Protocol SQ ACHS PRN 12/26/20 01/16/21 History Ibuprofen [Motrin] 600 mg PO Q8HR PRN #30 tab 12/30/20 01/16/21 Rx Simethicone [Gas-X] 125 mg PO AC-TID PRN #20 cap 12/30/20 01/16/21 Rx Gabapentin 800 mg PO BID 12/31/20 01/16/21 History Atorvastatin [Lipitor] 20 mg PO DAILY 01/16/21 01/16/21 History Omeprazole 40 mg PO DAILY 01/16/21 01/16/21 History oxyCODONE-APAP 10-325MG [Percocet 1 tab PO Q6H PRN 01/16/21 01/16/21 History 10-325 mg] rOPINIRole HCL [Requip] 12 mg PO HS 01/16/21 01/16/21 History Allergies Allergy/AdvReac Type Severity Reaction Status Date / Time ceftriaxone [From Rocephin] Allergy Severe Anaphylaxis, Verified 01/17/21 10:56 Hives/Rash, Itching, Shortness of Breath cefotaxime Allergy Hives, Verified 01/16/21 21:49 Shortness of Breath, Itching fexofenadine Allergy Hives, Verified 01/16/21 21:49 Itching morphine Allergy Swelling, Verified 01/16/21 21:49 Hives, Rash pregabalin [From Lyrica] Allergy Shortness Verified 01/16/21 21:49 of Breath Sulfa (Sulfonamide Allergy Rash/Hives, Verified 01/16/21 21:49 Antibiotics) Itchy terbinafine [From Lamisil] Allergy Hives, Verified 01/16/21 21:49 Shortness of Breath dermabond Allergy Rash/Hives Uncoded 01/16/21 21:49 Physical Exam Vitals: Vital Signs Temp Pulse Pulse Resp BP BP Pulse Ox 01/18/21 09:00 98.5 F 101 H 134/70 01/18/21 07:54 94 20 01/18/21 07:44 98 20 01/18/21 05:40 99 F 98 20 140/84 92 L 01/17/21 19:53 99 F 96 16 137/72 93 L 01/17/21 17:48 98.4 F 94 18 121/72 95 01/17/21 17:18 98.6 F 100 20 136/74 95 Intake and Output 01/17/21 01/18/21 01/18/21 22:59 06:59 14:59 Intake Total 100 100 Balance 100 100 Intake: Intake, IV Titration 100 Amount metroNIDAZOLE-NS PMX 500 100 mg In Saline 1 100ml.bag @ 100 mls/hr IVPB Q8HR [facility] Rx#:[id number] Oral 100 Other: Voiding Method Toilet Toilet # Voids 1 5 1 # Bowel Movements 1 Weight 87.09 kg Physical examination: VITAL SIGNS: 98.5, 91, 18, 124/71, 96% room air GENERAL: BMI 31, reclining in bed, awake not in distress. EYES: Pupils equal. Conjunctiva normal. HEENT: External appearance of nose and ears normal, oral cavity grossly normal. NECK: JVD not raised; masses not palpable. HEART: First and second heart sounds are normal; no edema. LUNGS: Respiratory rate normal; decreased breath sounds. ABDOMEN: Soft, abdominal tenderness L>R , no guarding rigidity, liver spleen not palpable, no masses palpable. PSYCH: Alert and oriented x3; mood and affect anxiousl. NEUROLOGICAL: Cranial nerves grossly intact; no facial asymmetry, power and sensation grossly intact. LYMPHATICS: No lymph nodes palpable in the axilla and neck Results CBC & Chem 7: 01/18/21 11:31 01/18/21 05:55 Labs: Abnormal Lab Results - Last 24 Hours (Table) 01/17/21 01/17/21 01/18/21 Range/Units 17:46 21:10 05:55 Hgb (11.4-16.0) gm/dL Hct (34.0-46.0) % MCHC (31.0-37.0) g/dL RDW (11.5-15.5) % Plt Count (150-450) k/uL Chloride 114 H (98-107) mmol/L Carbon Dioxide 19 L (22-30) mmol/L POC Glucose (mg/dL) 119 H 124 H (75-99) mg/dL 01/18/21 01/18/21 Range/Units 07:35 11:31 Hgb 10.3 L (11.4-16.0) gm/dL Hct 33.6 L (34.0-46.0) % MCHC 30.6 L (31.0-37.0) g/dL RDW 15.9 H (11.5-15.5) % Plt Count 476 H (150-450) k/uL Chloride (98-107) mmol/L Carbon Dioxide (22-30) mmol/L POC Glucose (mg/dL) 117 H (75-99) mg/dL Assessment and Plan Plan: Assessment and plan=1-abdominal pain. status post sigmoid colectomy with low anterior resection,done 3 weeks ago, patient was evaluated by Dr. Jaky Garzon currently on Percocet 10/325 every 6 hours and Neurontin 800 mg twice a day and she continued to have severe pain Currently there is no need for any surgical intervention, and could benefit from erector spinae block bilaterally Time with Patient: Greater than 30 PQRS Measure Charge Sheet - Pain Location Abdomen Non-Pharmacological Interventions: Binder, Darkened Room, Distraction Pharmacological Interventions: PRN Medication Pain Comment: see MAR PQRS Narrative: Smoking Status Former smoker Blood Pressure [Left Arm] 134/70 Blood Pressure 136/74 Pain Intensity [Abdomen] 8 Pain Intensity 10 Pain Scale Used Numeric (1 - 10) Scale Used Numeric (1 - 10) Home Medications: Ambulatory Orders Aspirin [Adult Low Dose Aspirin EC] 81 mg PO DAILY 11/27/16 Diclofenac Sodium [Voltaren Gel] 2 gram TOPICAL DAILY PRN 11/27/16 Levothyroxine Sodium [Synthroid] 112 mcg PO DAILY 11/27/16 Umeclidinium Brm/Vilanterol Tr [Anoro Ellipta 62.5-25 Mcg INH] 1 puff INHALATION RT-DAILY 11/27/16 Venlafaxine HCl [Effexor XR] 150 mg PO DAILY 05/03/17 ALPRAZolam [Xanax] 0.5 mg PO HS 03/05/18 Furosemide [Lasix] 40 mg PO DAILY 09/26/20 Insulin Glargine [Lantus Vial] 64 unit SQ HS 09/26/20 Insulin Aspart [NovoLOG] See Protocol SQ ACHS PRN 12/26/20 Ibuprofen [Motrin] 600 mg PO Q8HR PRN #30 tab 12/30/20 Simethicone [Gas-X] 125 mg PO AC-TID PRN #20 cap 12/30/20 Gabapentin 800 mg PO BID 12/31/20 Atorvastatin [Lipitor] 20 mg PO DAILY 01/16/21 Omeprazole 40 mg PO DAILY 01/16/21 oxyCODONE-APAP 10-325MG [Percocet 10-325 mg] 1 tab PO Q6H PRN 01/16/21 rOPINIRole HCL [Requip] 12 mg PO HS 01/16/21
--- NOTE | 2021-01-18 12:36 | CDI ---
Documentation Clarification Form Date: 01/18/2021 12:19:41 PM From: Ila Dueñas RN CCDS Admit Date: 01/16/2021 07:05:00 PM Patient Name: Mamta Le Visit Number: [id number] Discharge Date: ATTENTION: The Clinical Documentation Specialists (CDI) and [facility] Coding Staff appreciate your assistance in clarifying documentation. Please respond to the clarification below the line at the bottom and electronically sign. The CDI & [facility] Coding staff will review the response and follow-up if needed. Please note: Queries are made part of the Legal Health Record. If you have any questions, please contact the author of this message via ITS. Dr. Mahsa Tan Your patient has the documented diagnosis of unspecified CHF 01/17, H&P. Additional information regarding the type, acuity of CHF is requested. History/Risk Factors: 65-year-old female presents to the ED with abdominal pain, nausea and vomiting. Medical History: Laparoscopic sigmoid colectomy with lower anterior resection due to sigmoid diverticulitis 12/29/20. Asthma, COPD, CVA/TIA DM Fibromyalgia, GERD, HTN, Lupus and Hypertensive heart disease with congestive heart failure. 01/17, H&P. Clinical Indicators: VS/Pulse OX: 01/16 B/P 124/71, HR 91, Temp 98.5 F Oral, RR 18, SpO2 96% room air. Echocardiogram Results: 02/2018 Left ventricular hypertrophy. EF 45-50% basal inferior LV wall motion is hypokinetic. Mid inferior LV wall motion is hypokinetic. Mild to moderate mitral regurgitation is present. Mild tricuspid regurgitation present. Treatment: 01/18 to current Lasix 40mg PO Daily JUAN. In your professional opinion, can you please clarify the acuity and type of CHF if known? [ ] Chronic Systolic Heart Failure (reduced EF) [ ] Chronic Diastolic Heart Failure (preserved EF) [ ] Chronic Systolic & Diastolic Heart Failure [ ] Congestive heart failure ruled out [ ] Other, please specify [ ] Unable to determine (Template Last Revised: May 2020) [ X ] Chronic Systolic Heart Failure (reduced EF) as reviewed above, 01/19/21 KM 01/19/21 @ 0245 NADJA
--- NOTE | 2021-01-18 13:06 | P.PN ---
Subjective Progress Note Date: 01/18/21 CHIEF COMPLAINT: Abdominal pain HISTORY OF PRESENT ILLNESS: Patient presented to hospital with left-sided abdominal pain. There was no evidence of abscess or free air on her computed tomography scan. Patient is complaining of left-sided abdominal pain. She is requiring the IV Dilaudid scheduled every 3 hours with her Percocet. Pain service was consult at. Patient reports that she does follow up with at the pain clinic outpatient. She denies any nausea or vomiting. She did have a bowel movement. Afebrile. WBC 7.9 hemoglobin 10.3 creatinine 0.99 PHYSICAL EXAM: VITAL SIGNS: Reviewed GENERAL: Well-developed in no acute distress. HEENT: No sclera icterus. Extraocular movements grossly intact. Moist buccal mucosa. Head is atraumatic, normocephalic. Hears conversational speech. No nasal drainage. NECK: Supple without lymphadenopathy. CHEST: Non-labored respirations and equal bilateral excursions. CARDIOVASCULAR: Palpable 2+ radial pulses. ABDOMEN: Soft. Nondistended. Tenderness with palpation of the left abdomen. Incision sites clean dry and intact. MUSCULOSKELETAL: No clubbing or cyanosis. NEUROLOGIC: No focal or lateralizing signs. Cranial nerves II through XII marlin ssly intact. PSYCH: Appropriate affect. Alert and oriented to person, place and time. SKIN: Well perfused. Good skin turgor. ASSESSMENT: 1. Acute on chronic pain syndrome 2. Left-sided abdominal pain with no evidence of abscess or free air on CAT scan 3. Status post robotic assisted laparoscopic sigmoid colectomy with lower anterior resection and lysis of adhesions for sigmoid stricture due to sigmoid diverticulitis on 12/29/2020 4. Fibromyalgia with chronic pain 5. Obesity due to excess calories, BMI 30.6 6. Diabetes mellitus type 2 insulin-dependent 7. Hypertensive heart disease with congestive heart failure. No evidence of exacerbation 8. Chronic obstructive disease without acute exacerbation 9. Lupus 10. History of multiple abdominal surgeries with peritoneal adhesion 11. History of brain aneurysm with coil PLAN: -No plans for any surgical intervention -Continue supportive care -Consult pain service for pain management -Encouraged patient to increase activity -Advance diet to low fiber -Anticipate discharge tomorrow -Continue GI and DVT prophylaxis Physician Lumber Handler note has been reviewed by physician. Signing provider agrees with the documented findings, assessment, and plan of care. Objective - Vital Signs Vital signs: Vital Signs Temp 98.5 F 01/18/21 09:00 Pulse 94 01/18/21 12:37 Resp 20 01/18/21 07:54 BP 134/70 01/18/21 09:00 Pulse Ox 92 L 01/18/21 05:40 Intake & Output 01/17/21 01/18/21 01/18/21 18:59 06:59 18:59 Intake Total 100 100 Balance 100 100 Weight 87.09 kg Intake: Intake, IV Titration 100 Amount metroNIDAZOLE-NS PMX 500 100 mg In Saline 1 100ml.bag @ 100 mls/hr IVPB Q8HR [facility] Rx#:[id number] Oral 100 Other: Voiding Method Toilet Toilet # Voids 5 1 # Bowel Movements 1 - Labs CBC & Chem 7: 01/18/21 11:31 01/18/21 05:55 Labs: Abnormal Lab Results - Last 24 Hours (Table) 01/17/21 01/17/21 01/18/21 Range/Units 17:46 21:10 05:55 Hgb (11.4-16.0) gm/dL Hct (34.0-46.0) % MCHC (31.0-37.0) g/dL RDW (11.5-15.5) % Plt Count (150-450) k/uL Chloride 114 H (98-107) mmol/L Carbon Dioxide 19 L (22-30) mmol/L POC Glucose (mg/dL) 119 H 124 H (75-99) mg/dL 01/18/21 01/18/21 Range/Units 07:35 11:31 Hgb 10.3 L (11.4-16.0) gm/dL Hct 33.6 L (34.0-46.0) % MCHC 30.6 L (31.0-37.0) g/dL RDW 15.9 H (11.5-15.5) % Plt Count 476 H (150-450) k/uL Chloride (98-107) mmol/L Carbon Dioxide (22-30) mmol/L POC Glucose (mg/dL) 117 H (75-99) mg/dL
[2021-01-18 13:25] LABS: Glucose,Whole Blood 152 mg/dL (75-99)
[2021-01-18] MEDS ORDERED: MIDAZOLAM 2 MG/2 ML VIAL IV ONE (15:04)
[2021-01-18] MEDS ORDERED: fentaNYL (PF) 50 MCG/ML 2 ML AMP IV ONE (15:06)
[2021-01-18] MEDS ORDERED: LACTATED RINGERS 1,000 ML IV ONE (15:30)
[2021-01-18] MEDS ORDERED: LIDOCAINE 1%-EPI 1:100,000 20 ML VIAL ONE (15:49)
[2021-01-18] MEDS ORDERED: ROPIVACAINE 5 MG/ML 30 ML VIAL ONE (15:49)
--- NOTE | 2021-01-18 15:58 | P.PCN ---
Date of Procedure: 01/18/21 Procedure(s) Performed: Procedure= bilateral erector spinae block under ultrasound guidance Preoperative diagnosis= acute on chronic abdominal pain Postoperative diagnosis=Same as preop Diagnosis . Complication = none Condition= stable Anesthesia= moderate sedation with intravenous Versed 2 mg , and fentanyl 50 micrograms . Indication for the procedure= patient complaining of abdominal pain( mainly left-sided ) , examination was positive for tenderness over the left lower quadrant abdominal area, has some tenderness over the right lower quadrant abdominal area, and I discussed with the patient the option of doing the erector spinae block to evaluate if this is intra-abdominal pain versus abdominal wall pain. Description of the procedure= procedure risk and benefits discussed with the patient, including but not limited, risk of infection and bleeding, and ALLERGIC reaction to the medication and not complete pain relief and patient agreed with the preceding patient taken to the recovery room, placed in lateral position OR standard monitors applied, to the patient then after induction of anesthesia back prepped with chlorhexidine 3 times , Then under strict sterile technique, first I did the left side ,the spinous process and the transverse process of T8 and 9 identified under ultrasound guidance was identified under ultrasound guidance been local infiltration of the skin and subcu interstitial with Ropivacaine 0.5 % 1 ml then after that 21- gauge Pujunk needle, advanced slowly and placed on top of the transverse process of T8, and after negative aspiration for heme or CSF and there was no paresthesia, a total of 15 mL of ropivacaine 0.5% mixed with 10 ml lidocaine 2 % with epi 1/200 k ,epinephren, total volume was 25 mL , and injection done after intermittent negative aspiration every 5 ML, and then exact same procedure was done from the right side, to do the right erector spinae block, tolerated the procedure well without any complications.
[2021-01-18 17:13] LABS: Glucose,Whole Blood 199 mg/dL (75-99)
--- NOTE | 2021-01-18 19:30 | P.PN ---
Progress Note - Text Progress Note Date: 01/18/21 - Chief Complaint Abdominal pain Hospital course This is a pleasant 65-year-old patient, follows with Dr. Mariana Young. Chronic stable medical conditions include COPD, diabetes, fibromyalgia, GERD, hypertension, hypothyroid, peripheral neuropathy, restless leg syndrome, lupus, anxiety depression, brain aneurysm with coiling the stent, CAD nonobstructive. Patient has a prior surgical history to include lab Nasir fundoplication with hiatal hernia repair with mesh in 2017. Patient also had back surgery in June 2020. Patient on December 29, underwent robotic lysis of adhesions, sigmoid colectomy and low anterior resection. Patient states when she left hospital on January 03 she was still having abdominal pain. She was documented to have 100% of her breakfast the day she left. Since discharge patient is been able to eat. Having about 3-4 bowel movements a day. Abdominal pains which are less sadness progressively been getting worse. Denies any nausea vomiting. No fever no chills. Has decided to come back to the ER. She was seen by Dr. Farris and a postop follow-up. It was then felt that the pain was from surgery. Patient was discharged on Augmentin and Flagyl. 01/18/2021: Sitting up in a chair. Liquid diet. Abdominal pain a bit better. No nausea vomiting. Underwent bilateral erector spinae block under ultrasound guidance by Dr. Patel from pain services. Review of systems: Was done for constitutional, cardiovascular, GI, pulmonary. relevant finding as above Active Medications Acetaminophen (Acetaminophen Tab 325 Mg Tab) 650 mg PO Q6HR PRN PRN Reason: Mild Pain or Fever > 100.5 Last Admin: 01/17/21 04:28 Dose: 650 mg Documented by: Alprazolam (Alprazolam 0.5 Mg Tab) 0.5 mg PO HS [facility] Last Admin: 01/17/21 20:50 Dose: 0.5 mg Documented by: Aspirin (Aspirin 81 Mg) 81 mg PO DAILY [facility] Last Admin: 01/18/21 09:01 Dose: 81 mg Documented by: Atorvastatin Calcium (Atorvastatin 20 Mg Tab) 20 mg PO DAILY [facility] Last Admin: 01/18/21 09:01 Dose: 20 mg Documented by: Formoterol Fumarate (Formoterol Fumarate 20 Mcg/2 Ml Nebu) 20 mcg INHALATION RT-BID [facility] Last Admin: 01/18/21 07:42 Dose: 20 mcg Documented by: Furosemide (Furosemide 40 Mg Tab) 40 mg PO DAILY [facility] Last Admin: 01/18/21 09:01 Dose: 40 mg Documented by: Gabapentin (Gabapentin 400 Mg Cap) 800 mg PO BID [facility] Last Admin: 01/18/21 09:01 Dose: 800 mg Documented by: Heparin Sodium (Porcine) (Heparin Sodium,Porcine/Pf 5,000 Unit/0.5 Ml Syringe) 5,000 unit SQ Q12HR [facility] Last Admin: 01/18/21 09:01 Dose: 5,000 unit Documented by: Hydromorphone HCl (Hydromorphone 1 Mg/Ml 1 Ml Syringe) 2 mg IVP Q3HR PRN PRN Reason: Pain Last Admin: 01/18/21 19:14 Dose: 2 mg Documented by: Sodium Chloride (Saline 0.9%) 1,000 mls @ 50 mls/hr IV .Q20H [facility] Last Admin: 01/18/21 03:09 Dose: Not Given Documented by: Metronidazole 500 mg/ IV (Solution) 100 mls @ 100 mls/hr IVPB Q8HR [facility] Last Admin: 01/18/21 17:49 Dose: 100 mls/hr Documented by: Piperacillin Sod/Tazobactam (Sod 3.375 gm/ Sodium Chloride) 100 mls @ 25 mls/hr IVPB Q8H [facility] Last Admin: 01/18/21 12:40 Dose: 25 mls/hr Documented by: Ibuprofen (Ibuprofen 600 Mg Tab) 600 mg PO Q8HR PRN PRN Reason: Pain Insulin Aspart (Insulin Aspart (Novolog) 100 Unit/Ml Vial) 0 unit SQ [facility]; Protocol Last Admin: 01/18/21 17:49 Dose: 4 unit Documented by: Insulin Detemir (Insulin Detemir (Levemir) 100 Unit/Ml Syr) [address] [facility] Ipratropium [place] (Ipratropium 0.5 Mg/2.5 Ml Nebu) 0.5 mg INHALATION RT-QID [facility] Last Admin: 01/18/21 16:15 Dose: 0.5 mg Documented by: Levothyroxine Sodium (Levothyroxine 112 Mcg Tab) 112 mcg PO DAILY@0630 [facility] Last Admin: 01/18/21 06:04 Dose: 112 mcg Documented by: Naloxone HCl (Naloxone 0.4 Mg/Ml 1 Ml Vial) 0.2 mg IV Q2M PRN PRN Reason: Opioid Reversal Ondansetron HCl (Ondansetron 4 Mg/2 Ml Vial) 4 mg IVP Q8HR PRN PRN Reason: Nausea And Vomiting Last Admin: 01/16/21 23:05 Dose: 4 mg Documented by: Oxycodone/Acetaminophen (Oxycodone-Apap 10-325mg 1 Each Tab) 1 each PO Q6H PRN PRN Reason: Pain Last Admin: 01/18/21 09:17 Dose: 1 each Documented by: Pantoprazole Sodium (Pantoprazole 40 Mg Tablet) 40 mg PO AC-BID [facility] Last Admin: 01/18/21 17:49 Dose: 40 mg Documented by: Ropinirole HCl (Ropinirole Hcl 4 Mg Tablet) 12 mg PO HS [facility] Last Admin: 01/17/21 21:49 Dose: 12 mg Documented by: Simethicone (Simethicone 80 Mg Chewable) 120 mg PO AC-TID PRN PRN Reason: GAS PAIN Sodium Bicarbonate (Sodium Bicarbonate Tab 650 Mg Tab) 650 mg PO TID [facility] Last Admin: 01/18/21 17:49 Dose: 650 mg Documented by: Venlafaxine HCl (Venlafaxine Hcl Er 150 Mg Cap) 150 mg PO DAILY [facility] Last Admin: 01/18/21 09:01 Dose: 150 mg Documented by: Past medical history to include: COPD, diabetes, fibromyalgia, GERD, essential hypertension, SLEEP apnea, d uodenal ulcer, peripheral neuropathy, restless leg syndrome, distant use CPAP, lupus, and resume of the brain with the quite and stent, anxiety depression Social history: Started smoking in 1977 and stopped in 2017. One pack a day. Did use medical marijuana to 5 years ago. . Family history: Lymphoma Physical examination: VITAL SIGNS: 98.5, 1 or 2, 18, 1-2 x 58, 92% on 2 L GENERAL: Taking a chair, awake, not in distress. EYES: Pupils equal. Conjunctiva normal. HEENT: External appearance of nose and ears normal, oral cavity grossly normal. NECK: JVD not raised; masses not palpable. HEART: First and second heart sounds are normal; no edema. LUNGS: Respiratory rate normal; decreased breath sounds. ABDOMEN: Soft, left-sided tenderness, no guarding rigidity, liver spleen not p alpable, no masses palpable. PSYCH: Alert and oriented x3; mood and affect anxiousl. NEUROLOGICAL: Cranial nerves grossly intact; no facial asymmetry, power and sensation grossly intact. LYMPHATICS: No lymph nodes palpable in the axilla and neck INVESTIGATIONS, reviewed in the clinical context: January 18: WBC 7.9 hemoglobin 10.3 platelets 176 potassium 4.5 by cup 19 creatinine 0.99 Pro-calcitonin 0.24 WBC 9.4 hemoglobin 10.3 platelets 465 potassium 4.5 bicarb 18 creatinine 0.91 Computed tomography scan from an outside facility: Questionable intra-abdominal abscess Assessment and plan: -This is a patient who underwent sigmoid colectomy with low anterior resection on December 29. Patient was discharged on gabapentin and Flagyl. Patient was tolerating a diet for age with discharge. Patient now presents progressively increasing pain especially on the left side. Has a fair oral intake. No nausea vomiting. No fever no chills. Is having 4-5 bowel movements a day. Computed tomography scan was reviewed by Dr. Farris and she does not feel there is any abscess there. Patient underwent bilateral and erector spinae injection by pain services. -COPD in a previous smoker Formoterol 20 g twice a day, Atrovent 4 times a day -Diabetes mellitus type 2, chronically on insulin Levemir 50 units subcu daily at bedtime. Follow Accu-Cheks -Mild metabolic acidosis from diarrhea Had sodium bicarbonate -Chronic fibromyalgia Percocet 10 one tablet every 6 when necessary -GERD Protonic 40 mg daily -Obstructive sleep apnea does not use CPAP -Peripheral neuropathy Neurontin 800 mg twice a day -Restless leg syndrome Requip 12 mg daily at bedtime -Chronic lupus Neurontin, Effexor -Brain aneurysm with coil and stent -Depression Effexor XL 150 mg a day -Hypothyroid Synthroid 112 g daily Decreased bowel movements. Had erector spinae injection done today. Other medications to continue. Diet being advanced by surgery. Clinically looks better. Thank you Dr. Farris
[2021-01-18 20:10] LABS: Glucose,Whole Blood 158 mg/dL (75-99)
[2021-01-18] MEDS: ALPRAZolam 0.5 MG TAB PO SCH (20:39)
[2021-01-18] MEDS: INSULIN DETEMIR (LEVEMIR) 100 UNIT/ML SYR SQ SCH (20:40)
[2021-01-18] MEDS: rOPINIRole HCL 4 MG TABLET PO SCH (20:51)
[2021-01-19] MEDS: HYDROmorphone 1 MG/ML 1 ML SYRINGE IVP PRN ×4 (03:04→14:42)
[2021-01-19] MEDS: PIPERACILLIN-TAZOBACTAM 3.375 GM in SODIUM CHLORIDE 0.9% 100 ML IVPB SCH ×3 (03:59→21:02)
[2021-01-19] MEDS: oxyCODONE-APAP 10-325MG 1 EACH TAB PO PRN ×2 (06:12→17:14)
[2021-01-19] MEDS: LEVOTHYROXINE 112 MCG TAB PO SCH (06:12)
[2021-01-19 07:00] LABS: Glucose,Whole Blood 123 mg/dL (75-99)
[2021-01-19] MEDS: INSULIN ASPART (NovoLOG) 100 UNIT/ML VIAL SQ SCH ×4 (07:31→21:01)
[2021-01-19] MEDS: IPRATROPIUM 0.5 MG/2.5 ML NEBU INHALATION SCH ×4 (07:43→19:30)
[2021-01-19] MEDS: FORMOTEROL FUMARATE 20 MCG/2 ML NEBU INHALATION SCH ×2 (07:43→19:30)
[2021-01-19] MEDS: SODIUM BICARBONATE TAB 650 MG TAB PO SCH ×3 (08:29→21:00)
[2021-01-19] MEDS: VENLAFAXINE HCL ER 150 MG CAP PO SCH (08:29)
[2021-01-19] MEDS: PANTOPRAZOLE 40 MG TABLET PO SCH ×2 (08:29→17:14)
[2021-01-19] MEDS: ATORVASTATIN 20 MG TAB PO SCH (08:29)
[2021-01-19] MEDS: metroNIDAZOLE-NS PMX 500 MG in SALINE 1 100ML.BAG IVPB SCH ×2 (08:29→17:14)
[2021-01-19] MEDS: GABAPENTIN 400 MG CAP PO SCH ×2 (08:29→21:00)
[2021-01-19] MEDS: HEPARIN SODIUM,PORCINE/PF 5,000 UNIT/0.5 ML SYRINGE SQ SCH ×2 (08:29→21:00)
[2021-01-19] MEDS: ASPIRIN 81 MG PO SCH (08:30)
[2021-01-19] MEDS: FUROSEMIDE 40 MG TAB PO SCH (08:30)
[2021-01-19 11:19] LABS: Glucose,Whole Blood 139 mg/dL (75-99)
[2021-01-19] MEDS: IOPAMIDOL CONTRAST (ORAL USE) VIAL PO PRN ×2 (11:44→12:54)
--- NOTE | 2021-01-19 13:38 | P.PN ---
Progress Note - Text Progress Note Date: 01/19/21 - Chief Complaint Abdominal pain Hospital course This is a pleasant 65-year-old patient, follows with Dr. Mariana Young. Chronic stable medical conditions include COPD, diabetes, fibromyalgia, GERD, hypertension, hypothyroid, peripheral neuropathy, restless leg syndrome, lupus, anxiety depression, brain aneurysm with coiling the stent, CAD nonobstructive. Patient has a prior surgical history to include lab Nasir fundoplication with hiatal hernia repair with mesh in 2017. Patient also had back surgery in June 2020. Patient on December 29, underwent robotic lysis of adhesions, sigmoid colectomy and low anterior resection. Patient states when she left hospital on January 03 she was still having abdominal pain. She was documented to have 100% of her breakfast the day she left. Since discharge patient is been able to eat. Having about 3-4 bowel movements a day. Abdominal pains which are less sadness progressively been getting worse. Denies any nausea vomiting. No fever no chills. Has decided to come back to the ER. She was seen by Dr. Farris and a postop follow-up. It was then felt that the pain was from surgery. Patient was discharged on Augmentin and Flagyl. 01/18/2021: Sitting up in a chair. Liquid diet. Abdominal pain a bit better. No nausea vomiting. Underwent bilateral erector spinae block under ultrasound guidance by Dr. Patel from pain services. 01/19/2021: Laying in bed. Tired. Abdominal pain still present. Patient had all of her breakfast. Feeling better. Only had 2 bowel movements in the last 24 hours. Review of systems: Was done for constitutional, cardiovascular, GI, pulmonary. relevant finding as above Active Medications Acetaminophen (Acetaminophen Tab 325 Mg Tab) 650 mg PO Q6HR PRN PRN Reason: Mild Pain or Fever > 100.5 Last Admin: 01/17/21 04:28 Dose: 650 mg Documented by: Alprazolam (Alprazolam 0.5 Mg Tab) 0.5 mg PO [facility] Last Admin: 01/18/21 20:39 Dose: 0.5 mg Documented by: Aspirin (Aspirin 81 Mg) 81 mg PO DAILY [facility] Last Admin: 01/19/21 08:30 Dose: 81 mg Documented by: Atorvastatin Calcium (Atorvastatin 20 Mg Tab) 20 mg PO DAILY [facility] Last Admin: 01/19/21 08:29 Dose: 20 mg Documented by: Formoterol Fumarate (Formoterol Fumarate 20 Mcg/2 Ml Nebu) 20 mcg INHALATION RT-BID [facility] Last Admin: 01/19/21 07:43 Dose: 20 mcg Documented by: Furosemide (Furosemide 40 Mg Tab) 40 mg PO DAILY [facility] Last Admin: 01/19/21 08:30 Dose: 40 mg Documented by: Gabapentin (Gabapentin 400 Mg Cap) 800 mg PO BID [facility] Last Admin: 01/19/21 08:29 Dose: 800 mg Documented by: Heparin Sodium (Porcine) (Heparin Sodium,Porcine/Pf 5,000 Unit/0.5 Ml Syringe) 5,000 unit SQ Q12HR [facility] Last Admin: 01/19/21 08:29 Dose: 5,000 unit Documented by: Hydromorphone HCl (Hydromorphone 1 Mg/Ml 1 Ml Syringe) 2 mg IVP Q3HR PRN PRN Reason: Pain Last Admin: 01/19/21 11:43 Dose: 2 mg Documented by: Sodium Chloride (Saline 0.9%) 1,000 mls @ 50 mls/hr IV .Q20H [facility] Last Admin: 01/18/21 20:52 Dose: 50 mls/hr Documented by: Metronidazole 500 mg/ IV (Solution) 100 mls @ 100 mls/hr IVPB Q8HR [facility] Last Admin: 01/19/21 08:29 Dose: 100 mls/hr Documented by: Piperacillin Sod/Tazobactam (Sod 3.375 gm/ Sodium Chloride) 100 mls @ 25 mls/hr IVPB Q8H [facility] Last Admin: 01/19/21 11:44 Dose: 25 mls/hr Documented by: Ibuprofen (Ibuprofen 600 Mg Tab) 600 mg PO Q8HR PRN PRN Reason: Pain Insulin Aspart (Insulin Aspart (Novolog) 100 Unit/Ml Vial) 0 unit SQ [facility]; Protocol Last Admin: 01/19/21 11:24 Dose: Not Given Documented by: Insulin Detemir (Insulin Detemir (Levemir) 100 Unit/Ml Syr) 50 unit SQ HS [facility] Last Admin: 01/18/21 20:40 Dose: 50 unit Documented by: Ipratropium [place] (Ipratropium 0.5 Mg/2.5 Ml Nebu) 0.5 mg INHALATION RT-QID [facility] Last Admin: 01/19/21 11:28 Dose: 0.5 mg Documented by: Levothyroxine Sodium (Levothyroxine 112 Mcg Tab) 112 mcg PO DAILY@0630 [facility] Last Admin: 01/19/21 06:12 Dose: 112 mcg Documented by: Naloxone HCl (Naloxone 0.4 Mg/Ml 1 Ml Vial) 0.2 mg IV Q2M PRN PRN Reason: Opioid Reversal Ondansetron HCl (Ondansetron 4 Mg/2 Ml Vial) 4 mg IVP Q8HR PRN PRN Reason: Nausea And Vomiting Last Admin: 01/16/21 23:05 Dose: 4 mg Documented by: Oxycodone/Acetaminophen (Oxycodone-Apap 10-325mg 1 Each Tab) 1 each PO Q6H PRN PRN Reason: Pain Last Admin: 01/19/21 06:12 Dose: 1 each Documented by: Pantoprazole Sodium (Pantoprazole 40 Mg Tablet) 40 mg PO AC-BID [facility] Last Admin: 01/19/21 08:29 Dose: 40 mg Documented by: Ropinirole HCl (Ropinirole Hcl 4 Mg Tablet) 12 mg PO HS [facility] Last Admin: 01/18/21 20:51 Dose: 12 mg Documented by: Simethicone (Simethicone 80 Mg Chewable) 120 mg PO AC-TID PRN PRN Reason: GAS PAIN Sodium Bicarbonate (Sodium Bicarbonate Tab 650 Mg Tab) 650 mg PO TID [facility] Last Admin: 01/19/21 08:29 Dose: 650 mg Documented by: Venlafaxine HCl (Venlafaxine Hcl Er 150 Mg Cap) 150 mg PO DAILY [facility] Last Admin: 01/19/21 08:29 Dose: 150 mg Documented by: Past medical history to include: COPD, diabetes, fibromyalgia, GERD, essential hypertension, SLEEP apnea, duodenal ulcer, peripheral neuropathy, restless leg syndrome, distant use CPAP, lupus, and resume of the brain with the quite and stent, anxiety depression Social history: Started smoking in 1977 and stopped in 2017. One pack a day. Did use medical marijuana to 5 years ago. . Family history: Lymphoma Physical examination: VITAL SIGNS: 98.5, 98, 18, 113/73, 97% room air GENERAL: Laying in bed, awake, not in distress EYES: Pupils equal. Conjunctiva normal. HEENT: External appearance of nose and ears normal, oral cavity grossly normal. NECK: JVD not raised; masses not palpable. HEART: First and second heart sounds are normal; no edema. LUNGS: Respiratory rate normal; decreased breath sounds. ABDOMEN: Soft, some left-sided tenderness, no guarding rigidity, liver spleen not palpable, no masses palpable. PSYCH: Alert and oriented x3; mood and affect anxiousl. INVESTIGATIONS, reviewed in the clinical context: January 18: WBC 7.9 hemoglobin 10.3 platelets 176 potassium 4.5 by cup 19 creatinine 0.99 Pro-calcitonin 0.24 WBC 9.4 hemoglobin 10.3 platelets 465 potassium 4.5 bicarb 18 creatinine 0.91 Computed tomography scan from an outside facility: Questionable intra-abdominal abscess Assessment and plan: -This is a patient who underwent sigmoid colectomy with low anterior resection on December 29. Patient was discharged on gabapentin and Flagyl. Patient was tolerating a diet for age with discharge. Patient now presents progressively increasing pain especially on the left side. Has a fair oral intake. No nausea vomiting. No fever no chills. Is having 4-5 bowel movements a day. Computed tomography scan was reviewed by Dr. Farris and she does not feel there is any abscess there. Patient underwent bilateral and erector spinae injection by pain services. -COPD in a previous smoker Formoterol 20 g twice a day, Atrovent 4 times a day -Diabetes mellitus type 2, chronically on insulin Levemir 50 units subcu daily at bedtime. Follow Accu-Cheks -Mild metabolic acidosis from diarrhea Had sodium bicarbonate -Chronic fibromyalgia Percocet 10 one tablet every 6 when necessary -GERD Protonic 40 mg daily -Obstructive sleep apnea does not use CPAP -Peripheral neuropathy Neurontin 800 mg twice a day -Restless leg syndrome Requip 12 mg daily at bedtime -Chronic lupus Neurontin, Effexor -Brain aneurysm with coil and stent -Depression Effexor XL 150 mg a day -Hypothyroid Synthroid 112 g daily Looking better. Oral intake is improved. Other medications to continue. Medically stable. Repeat computed tomography scan ordered by surgery. Results pending Thank you Dr. Farris
--- NOTE | 2021-01-19 13:44 | P.PN ---
Subjective Progress Note Date: 01/19/21 CHIEF COMPLAINT: Abdominal pain HISTORY OF PRESENT ILLNESS: Patient presented to hospital with left-sided abdominal pain. There was no evidence of abscess or free air on her computed tomography scan from outside facility. Patient is complaining of left-sided abdominal pain. She reports that the block did not help with her pain. Patient is complaining of cough and congestion. PHYSICAL EXAM: VITAL SIGNS: Reviewed GENERAL: Well-developed in no acute distress. HEENT: No sclera icterus. Extraocular movements grossly intact. Moist buccal mucosa. Head is atraumatic, normocephalic. Hears conversational speech. No nasal drainage. NECK: Supple without lymphadenopathy. CHEST: Non-labored respirations and equal bilateral excursions. CARDIOVASCULAR: Palpable 2+ radial pulses. ABDOMEN: Soft. Nondistended. Tenderness with palpation of the left abdomen. Incision sites clean dry and intact. MUSCULOSKELETAL: No clubbing or cyanosis. NEUROLOGIC: No focal or lateralizing signs. Cranial nerves II through XII grossly intact. PSYCH: Appropriate affect. Alert and oriented to person, place and time. SKIN: Well perfused. Good skin turgor. ASSESSMENT: 1. Acute on chronic pain syndrome 2. Left-sided abdominal pain with no evidence of abscess or free air on CAT scan 3. Status post robotic assisted laparoscopic sigmoid colectomy with lower anterior resection and lysis of adhesions for sigmoid stricture due to sigmoid diverticulitis on 12/29/2020 4. Fibromyalgia with chronic pain 5. Obesity due to excess calories, BMI 30.6 6. Diabetes mellitus type 2 insulin-dependent 7. Hypertensive heart disease with congestive heart failure. No evidence of exacerbation 8. Chronic obstructive disease without acute exacerbation 9. Lupus 10. History of multiple abdominal surgeries with peritoneal adhesion 11. History of brain aneurysm with coil PLAN: -Check computed tomography scan of chest, abdomen and pelvis -No plans for any surgical intervention -Continue supportive care -Encouraged patient to increase activity -Advance diet to low fiber -Continue GI and DVT prophylaxis Physician Cuprous Chloride Helper note has been reviewed by physician. Signing provider agrees with the documented findings, assessment, and plan of care. Objective - Vital Signs Vital signs: Vital Signs Temp 98.5 F 01/19/21 11:40 Pulse 98 01/19/21 11:40 Resp 18 01/19/21 11:40 BP 113/73 01/19/21 11:40 Pulse Ox 97 01/19/21 11:40 Intake & Output 01/18/21 01/19/21 01/19/21 18:59 06:59 18:59 Intake Total 1100 850 Balance 1100 850 Intake: IV 300 Intake, IV Titration 800 850 Amount Piperacillin-Tazobactam 3 100 100 .375 gm In Sodium Chloride 0.9% 100 ml @ 25 mls/hr IVPB Q8H [facility] Rx#: [id number] Sodium Chloride 0.9% 1, 600 400 000 ml @ 50 mls/hr IV . Q20H [facility] Rx#:[id number] metroNIDAZOLE-NS PMX 500 100 350 mg In Saline 1 100ml.bag @ 100 mls/hr IVPB Q8HR [facility] Rx#:[id number] Other: Voiding Method Toilet Toilet # Voids 1 2 - Labs CBC & Chem 7: 01/18/21 11:31 01/18/21 05:55 Labs: Abnormal Lab Results - Last 24 Hours (Table) 01/18/21 01/18/21 01/18/21 Range/Units 17:11 20:08 Unknown POC Glucose (mg/dL) 199 H 158 H (75-99) mg/dL Procalcitonin 0.24 H (0.02-0.09) ng/mL 01/19/21 01/19/21 Range/Units 06:59 11:18 POC Glucose (mg/dL) 123 H 139 H (75-99) mg/dL Procalcitonin (0.02-0.09) ng/mL
--- NOTE | 2021-01-19 14:06 | CT ---
EXAMINATION TYPE: CT ChestAbdPelvis w con DATE OF EXAM: 01/19/2021 INDICATION: left sided abdominal pain, abscess COMPARISON: 08/18/2020 CT DLP: 1494.3 mGycm CONTRAST: Performed with Oral Contrast and with IV Contrast, patient injected with 100 mL of Isovue 300. TECHNIQUE: Axial images at 5 mm thick sections. Reconstructed images in the coronal plane. Delayed images through the kidneys. FINDINGS: CT CHEST: Portion of the thyroid visualized is normal. No suspicious lung nodules or focal infiltrates are present. Emphysematous changes are present. No enlarged mediastinal or hilar adenopathy is evident. The ascending aorta diameter at the level of the main pulmonary artery is 3.4 cm. The main pulmonary artery diameter at the bifurcation is 2.8 cm. Some mild coronary artery calcification is present. CT ABDOMEN: Liver: Minimal fatty infiltration is not excluded. No discrete masses or cysts are evident. Spleen: Normal Pancreas: Slightly atrophic Adrenal glands: The adrenal glands are normal. Gallbladder: Surgically absent Kidneys: No masses are evident. No hydronephrosis is present. No cysts are present. Delayed images were obtained through the kidneys, which remain unremarkable. Aorta: Vascular calcification is within the aorta. Inferior vena cava: Normal. CT PELVIS: Postsurgical changes are within the lower pelvis. There appears to be prior hysterectomy a nd oophorectomy. Loops of bowel within the abdomen and pelvis are normal. There are loops of bowel which are incom pletely distended or lack oral contrast limiting their evaluation. Appendix: Normal as visualized. Urinary bladder: Normal. Genitourinary structures: Not visualized.0 Osseous structures: No suspicious lytic or sclerotic lesions. IMPRESSIONS: 1. No suspicious changes to suggest intra-abdominal abscess
[2021-01-19 17:06] LABS: Glucose,Whole Blood 161 mg/dL (75-99)
[2021-01-19 19:54] LABS: Glucose,Whole Blood 139 mg/dL (75-99)
[2021-01-19] MEDS: ALPRAZolam 0.5 MG TAB PO SCH (21:00)
[2021-01-19] MEDS: INSULIN DETEMIR (LEVEMIR) 100 UNIT/ML SYR SQ SCH (21:00)
[2021-01-19] MEDS: rOPINIRole HCL 4 MG TABLET PO SCH (21:01)
[2021-01-20] MEDS: metroNIDAZOLE-NS PMX 500 MG in SALINE 1 100ML.BAG IVPB SCH ×3 (00:03→16:35)
[2021-01-20] MEDS: SODIUM CHLORIDE 0.9% 1,000 ML IV SCH ×2 (00:06→03:38)
[2021-01-20] MEDS: oxyCODONE-APAP 10-325MG 1 EACH TAB PO PRN ×4 (01:39→20:34)
[2021-01-20] MEDS: PIPERACILLIN-TAZOBACTAM 3.375 GM in SODIUM CHLORIDE 0.9% 100 ML IVPB SCH ×3 (03:38→19:28)
[2021-01-20] MEDS: LEVOTHYROXINE 112 MCG TAB PO SCH (06:05)
[2021-01-20 07:10] LABS: Glucose,Whole Blood 108 mg/dL (75-99)
[2021-01-20] MEDS: INSULIN ASPART (NovoLOG) 100 UNIT/ML VIAL SQ SCH ×4 (07:30→22:12)
[2021-01-20] MEDS: IPRATROPIUM 0.5 MG/2.5 ML NEBU INHALATION SCH ×4 (07:38→19:02)
[2021-01-20] MEDS: FORMOTEROL FUMARATE 20 MCG/2 ML NEBU INHALATION SCH ×2 (07:38→19:02)
[2021-01-20] MEDS: FUROSEMIDE 40 MG TAB PO SCH (08:58)
[2021-01-20] MEDS: SODIUM BICARBONATE TAB 650 MG TAB PO SCH ×3 (08:58→20:34)
[2021-01-20] MEDS: ATORVASTATIN 20 MG TAB PO SCH (08:58)
[2021-01-20] MEDS: PANTOPRAZOLE 40 MG TABLET PO SCH ×2 (08:58→16:35)
[2021-01-20] MEDS: ASPIRIN 81 MG PO SCH (08:58)
[2021-01-20] MEDS: GABAPENTIN 400 MG CAP PO SCH ×2 (08:58→20:34)
[2021-01-20] MEDS: HEPARIN SODIUM,PORCINE/PF 5,000 UNIT/0.5 ML SYRINGE SQ SCH ×2 (08:58→20:33)
[2021-01-20] MEDS: VENLAFAXINE HCL ER 150 MG CAP PO SCH (08:58)
[2021-01-20 11:54] LABS: Glucose,Whole Blood 118 mg/dL (75-99)
--- NOTE | 2021-01-20 14:01 | P.DS ---
Providers Date of admission: 01/16/21 19:05 Expected date of discharge: 01/20/21 Attending physician: Mahsa Tan Consults: 01/17/21 13:56 Consult Physician Routine Consulting Provider: Saw Collins Consult Reason/Comments: medical management Do you want consulting provider notified?: Yes 01/18/21 08:37 Consult Physician Routine Consulting Provider: Anesthesia,Services Consult Reason/Comments: pain management, chronic pain Do you want consulting provider notified?: Yes Primary care physician: Mariana Young Hospital Course: Discharge diagnosis 1. Acute on chronic pain syndrome. Patient's pain is likely secondary to developing scar tissue from her recent surgery. 2. Left-sided abdominal pain with no evidence of abscess or free air on CAT scan 3. Status post robotic assisted laparoscopic sigmoid colectomy with lower anterior resection and lysis of adhesions for sigmoid stricture due to sigmoid diverticulitis on 12/29/2020 4. Fibromyalgia with chronic pain 5. Obesity due to excess calories, BMI 30.6 6. Diabetes mellitus type 2 insulin-dependent 7. Hypertensive heart disease with congestive heart failure. No evidence of exacerbation 8. Chronic obstructive disease without acute exacerbation 9. Lupus 10. History of multiple abdominal surgeries with peritoneal adhesion 11. History of brain aneurysm with coil Hospital course This is a 65-year-old female who presented to the emergency room with complaints of abdominal pain. Her pain is located on the left side of her abdomen. She's had increasing pain over the last couple of days. She admits to having nausea and no vomiting. She initially presented to an outside facility and had a computed tomography scan completed with initial concerns of a possible intra- abdominal abscess. Patient did have elevated lactic acid level and was started on IV antibiotics. Her white count was normal. Abdominal CAT scan findings were reviewed by Dr. Tan who felt that there is no evidence of abscess or free air. Patient is status post robotic assisted laparoscopic sigmoid colectomy with lower anterior resection and lysis of adhesions for sigmoid stricture due to sigmoid diverticulitis on 12/29/[address] Tan. Patient was seen by pain service and spinal block completed. Patient had no relief in pain from block. Patient had a repeat computed tomography scan of the chest abdomen and pelvis and a confirm that there was no evidence of abscess. Computed tomography scan of the chest was done due to her cough. There is no acute abnormality noted. Patient is tolerating diet. She is having bowel movements. She is afebrile. Patient has chronic pain. Her white count is normal. She is up and ambulating. Patient is stable for discharge. It is recommended that she follows up with her pain management physician. Physician Print Line Feeder note has been reviewed by physician. Signing provider agrees with the documented findings, assessment, and plan of care. Patient Condition at Discharge: Stable Plan - Discharge Summary Discharge Rx Participant: Yes New Discharge Prescriptions: New Sodium Bicarbonate Tab 650 mg PO TID #30 tab Ibuprofen [Motrin] 800 mg PO Q8HR PRN #30 tab PRN Reason: Pain Continue Umeclidinium Brm/Vilanterol Tr [Anoro Ellipta 62.5-25 Mcg INH] 1 puff INHALATION RT-DAILY Levothyroxine Sodium [Synthroid] 112 mcg PO DAILY Diclofenac Sodium [Voltaren Gel] 2 gram TOPICAL DAILY PRN PRN Reason: Pain Aspirin [Adult Low Dose Aspirin EC] 81 mg PO DAILY Venlafaxine HCl [Effexor XR] 150 mg PO DAILY ALPRAZolam [Xanax] 0.5 mg PO HS Insulin Aspart [NovoLOG] See Protocol SQ ACHS PRN PRN Reason: Blood Sugar - High Omeprazole 40 mg PO DAILY Atorvastatin [Lipitor] 20 mg PO DAILY oxyCODONE-APAP 10-325MG [Percocet 10-325 mg] 1 tab PO Q6H PRN PRN Reason: Pain Furosemide [Lasix] 40 mg PO DAILY Insulin Glargine [Lantus Vial] 64 unit SQ HS Simethicone [Gas-X] 125 mg PO AC-TID PRN #20 cap PRN Reason: Pain Ibuprofen [Motrin] 600 mg PO Q8HR PRN #30 tab PRN Reason: Pain Gabapentin 800 mg PO BID rOPINIRole HCL [Requip] 12 mg PO HS Discharge Medication List Aspirin [Adult Low Dose Aspirin EC] 81 mg PO DAILY 11/27/16 [History] Diclofenac Sodium [Voltaren Gel] 2 gram TOPICAL DAILY PRN 11/27/16 [History] Levothyroxine Sodium [Synthroid] 112 mcg PO DAILY 11/27/16 [History] Umeclidinium Brm/Vilanterol Tr [Anoro Ellipta 62.5-25 Mcg INH] 1 puff INHALATION RT-DAILY 11/27/16 [History] Venlafaxine HCl [Effexor XR] 150 mg PO DAILY 05/03/17 [History] ALPRAZolam [Xanax] 0.5 mg PO HS 03/05/18 [History] Furosemide [Lasix] 40 mg PO DAILY 09/26/20 [History] Insulin Glargine [Lantus Vial] 64 unit SQ HS 09/26/20 [History] Insulin Aspart [NovoLOG] See Protocol SQ ACHS PRN 12/26/20 [History] Ibuprofen [Motrin] 600 mg PO Q8HR PRN #30 tab 12/30/20 [Rx] Simethicone [Gas-X] 125 mg PO AC-TID PRN #20 cap 12/30/20 [Rx] Gabapentin 800 mg PO BID 12/31/20 [History] Atorvastatin [Lipitor] 20 mg PO DAILY 01/16/21 [History] Omeprazole 40 mg PO DAILY 01/16/21 [History] oxyCODONE-APAP 10-325MG [Percocet 10-325 mg] 1 tab PO Q6H PRN 01/16/21 [History] rOPINIRole HCL [Requip] 12 mg PO HS 01/16/21 [History] Sodium Bicarbonate Tab 650 mg PO TID #30 tab 01/19/21 [Rx] Ibuprofen [Motrin] 800 mg PO Q8HR PRN #30 tab 01/20/21 [Rx] Follow up Appointment(s)/Referral(s): Mahsa Tna MD [Family Provider] - 01/24/21 (Telehealth) Mariana Young MD [Primary Care Provider] - 1-2 days Patient Instructions/Handouts: Pain Management After Surgery (GEN) Activity/Diet/Wound Care/Special Instructions: FOLLOW-UP WITH PAIN SPECIALIST FOR PAIN PUMP Discharge Disposition: HOME SELF-CARE
--- NOTE | 2021-01-20 17:08 | P.PN ---
Progress Note - Text Progress Note Date: 01/20/21 - Chief Complaint Abdominal pain Hospital course This is a pleasant 65-year-old patient, follows with Dr. Mariana Young. Chronic stable medical conditions include COPD, diabetes, fibromyalgia, GERD, hypertension, hypothyroid, peripheral neuropathy, restless leg syndrome, lupus, anxiety depression, brain aneurysm with coiling the stent, CAD nonobstructive. Patient has a prior surgical history to include lab Nasir fundoplication with hiatal hernia repair with mesh in 2017. Patient also had back surgery in June 2020. Patient on December 29, underwent robotic lysis of adhesions, sigmoid colectomy and low anterior resection. Patient states when she left hospital on January 03 she was still having abdominal pain. She was documented to have 100% of her breakfast the day she left. Since discharge patient is been able to eat. Having about 3-4 bowel movements a day. Abdominal pains which are less sadness progressively been getting worse. Denies any nausea vomiting. No fever no chills. Has decided to come back to the ER. She was seen by Dr. Farris and a postop follow-up. It was then felt that the pain was from surgery. Patient was discharged on Augmentin and Flagyl. 01/18/2021: Sitting up in a chair. Liquid diet. Abdominal pain a bit better. No nausea vomiting. Underwent bilateral erector spinae block under ultrasound guidance by Dr. Patel from pain services. 01/19/2021: Laying in bed. Tired. Abdominal pain still present. Patient had all of her breakfast. Feeling better. Only had 2 bowel movements in the last 24 hours. 01/20/2021: Sitting up in a chair. Still complaining of some pain. Patient had about 75% of her lunch. Bowel movements positive. Clinically looks better. Being followed by pain services Review of systems: Was done for constitutional, cardiovascular, GI, pulmonary. relevant finding as above Active Medications Acetaminophen (Acetaminophen Tab 325 Mg Tab) 650 mg PO Q6HR PRN PRN Reason: Mild Pain or Fever > 100.5 Last Admin: 01/17/21 04:28 Dose: 650 mg Documented by: Alprazolam (Alprazolam 0.5 Mg Tab) 0.5 mg PO HS [facility] Last Admin: 01/19/21 21:00 Dose: 0.5 mg Documented by: Aspirin (Aspirin 81 Mg) 81 mg PO DAILY [facility] Last Admin: 01/20/21 08:58 Dose: 81 mg Documented by: Atorvastatin Calcium (Atorvastatin 20 Mg Tab) 20 mg PO DAILY [facility] Last Admin: 01/20/21 08:58 Dose: 20 mg Documented by: Formoterol Fumarate (Formoterol Fumarate 20 Mcg/2 Ml Nebu) 20 mcg INHALATION RT-BID [facility] Last Admin: 01/20/21 07:38 Dose: 20 mcg Documented by: Furosemide (Furosemide 40 Mg Tab) 40 mg PO DAILY [facility] Last Admin: 01/20/21 08:58 Dose: 40 mg Documented by: Gabapentin (Gabapentin 400 Mg Cap) 800 mg PO BID [facility] Last Admin: 01/20/21 08:58 Dose: 800 mg Documented by: Heparin Sodium (Porcine) (Heparin Sodium,Porcine/Pf 5,000 Unit/0.5 Ml Syringe) 5,000 unit SQ Q12HR [facility] Last Admin: 01/20/21 08:58 Dose: 5,000 unit Documented by: Hydromorphone HCl (Hydromorphone 1 Mg/Ml 1 Ml Syringe) 2 mg IVP Q3HR PRN PRN Reason: Pain Last Admin: 01/19/21 14:42 Dose: 2 mg Documented by: Sodium Chloride (Saline 0.9%) 1,000 mls @ 50 mls/hr IV .Q20H [facility] Last Admin: 01/20/21 03:38 Dose: 50 mls/hr Documented by: Metronidazole 500 mg/ IV (Solution) 100 mls @ 100 mls/hr IVPB Q8HR [facility] Last Admin: 01/20/21 16:35 Dose: 100 mls/hr Documented by: Piperacillin Sod/Tazobactam (Sod 3.375 gm/ Sodium Chloride) 100 mls @ 25 mls/hr IVPB Q8H [facility] Last Admin: 01/20/21 14:22 Dose: 25 mls/hr Documented by: Ibuprofen (Ibuprofen 600 Mg Tab) 600 mg PO Q8HR PRN PRN Reason: Pain Insulin Aspart (Insulin Aspart (Novolog) 100 Unit/Ml Vial) 0 unit SQ ACHS [facility]; Protocol Last Admin: 01/20/21 16:35 Dose: Not Given Documented by: Insulin Detemir (Insulin Detemir (Levemir) 100 Unit/Ml Syr) 50 unit SQ HS [facility] Last Admin: 01/19/21 21:00 Dose: 50 unit Documented by: Ipratropium Thorp (Ipratropium 0.5 Mg/2.5 Ml Nebu) 0.5 mg INHALATION RT-QID [facility] Last Admin: 01/20/21 16:11 Dose: 0.5 mg Documented by: Levothyroxine Sodium (Levothyroxine 112 Mcg Tab) 112 mcg PO DAILY@0630 [facility] Last Admin: 01/20/21 06:05 Dose: 112 mcg Documented by: Naloxone HCl (Naloxone 0.4 Mg/Ml 1 Ml Vial) 0.2 mg IV Q2M PRN PRN Reason: Opioid Reversal Ondansetron HCl (Ondansetron 4 Mg/2 Ml Vial) 4 mg IVP Q8HR PRN PRN Reason: Nausea And Vomiting Last Admin: 01/16/21 23:05 Dose: 4 mg Documented by: Oxycodone/Acetaminophen (Oxycodone-Apap 10-325mg 1 Each Tab) 1 each PO Q6H PRN PRN Reason: Pain Last Admin: 01/20/21 14:23 Dose: 1 each Documented by: Pantoprazole Sodium (Pantoprazole 40 Mg Tablet) 40 mg PO AC-BID [facility] Last Admin: 01/20/21 16:35 Dose: 40 mg Documented by: Ropinirole HCl (Ropinirole Hcl 4 Mg Tablet) 12 mg PO HS [facility] Last Admin: 01/19/21 21:01 Dose: 12 mg Documented by: Simethicone (Simethicone 80 Mg Chewable) 120 mg PO AC-TID PRN PRN Reason: GAS PAIN Sodium Bicarbonate (Sodium Bicarbonate Tab 650 Mg Tab) 650 mg PO TID [facility] Last Admin: 01/20/21 16:35 Dose: 650 mg Documented by: Venlafaxine HCl (Venlafaxine Hcl Er 150 Mg Cap) 150 mg PO DAILY [facility] Last Admin: 01/20/21 08:58 Dose: 150 mg Documented by: Past medical history to include: COPD, diabetes, fibromyalgia, GERD, essential hypertension, SLEEP apnea, duodenal ulcer, peripheral neuropathy, restless leg syndrome, distant use CPAP, lupus, and resume of the brain with the quite and stent, anxiety depression Social history: Started smoking in 1977 and stopped in 2017. One pack a day. Did use medical marijuana to 5 years ago. . Family history: Lymphoma Physical examination: VITAL SIGNS: 98.3, 88, 19, 130/71, 94% on room air GENERAL: Sitting up in chair, awake, slightly anxious EYES: Pupils equal. Conjunctiva normal. HEENT: External appearance of nose and ears normal, oral cavity grossly normal. NECK: JVD not raised; masses not palpable. HEART: First and second heart sounds are normal; no edema. LUNGS: Respiratory rate normal; decreased breath sounds. ABDOMEN: Soft, some left-sided tenderness, no guarding rigidity, liver spleen not palpable, no masses palpable. PSYCH: Alert and oriented x3; mood and affect less anxious. INVESTIGATIONS, reviewed in the clinical context: January 18: WBC 7.9 hemoglobin 10.3 platelets 176 potassium 4.5 by cup 19 creatinine 0.99 Pro-calcitonin 0.24 WBC 9.4 hemoglobin 10.3 platelets 465 potassium 4.5 bicarb 18 creatinine 0.91 Computed tomography scan from an outside facility: Questionable intra-abdominal abscess Assessment and plan: -This is a patient who underwent sigmoid colectomy with low anterior resection on December 29. Patient was discharged on Augmentin and Flagyl. Patient was tolerating a diet before discharge. Patient now presents progressively increasing pain especially on the left side. Has a fair oral intake. No nausea vomiting. No fever no chills. Is having 4-5 bowel movements a day. Computed tomography scan was reviewed by Dr. Farris and she does not feel there is any abscess there. Patient underwent bilateral and erector spinae injection by pain services. Diarrhea improved. Fair oral intake. Some of the pain appears to be functional. -COPD in a previous smoker Formoterol 20 g twice a day, Atrovent 4 times a day -Diabetes mellitus type 2, chronically on insulin Levemir 50 units subcu daily at bedtime. Follow Accu-Cheks -Mild metabolic acidosis from diarrhea Had sodium bicarbonate -Chronic fibromyalgia Percocet 10 one tablet every 6 when necessary -GERD Protonic 40 mg daily -Obstructive sleep apnea does not use CPAP -Peripheral neuropathy Neurontin 800 mg twice a day -Restless leg syndrome Requip 12 mg daily at bedtime -Chronic lupus Neurontin, Effexor -Brain aneurysm with coil and stent -Depression Effexor XL 150 mg a day -Hypothyroid Synthroid 112 g daily Doing better. Fair oral intake. Some of the pain appears to be functional. Being followed by pain services. Discussed with the patient. Current medication to continue. Thank you Dr. Farris
[2021-01-20 17:10] LABS: Glucose,Whole Blood 132 mg/dL (75-99)
[2021-01-20] MEDS: rOPINIRole HCL 4 MG TABLET PO SCH (20:33)
[2021-01-20] MEDS: ALPRAZolam 0.5 MG TAB PO SCH (20:37)
[2021-01-20 21:54] LABS: Glucose,Whole Blood 152 mg/dL (75-99)
[2021-01-20] MEDS: INSULIN DETEMIR (LEVEMIR) 100 UNIT/ML SYR SQ SCH (22:13)
[2021-01-20 23:03] VITALS: BP 150/84; PULSE 77; RESP 20; TEMP 98
== END 2021-01-20 23:33 | disposition home or self-care (01) | DRG 948 ==
LOC: EC 17:41 → 5NMEDONC 19:05
PROVIDERS: ADMIT Surgery Plastic and Reconstructive Surgery; ATTEND Surgery Plastic and Reconstructive Surgery
PROC: 3E0T3BZ Introduction of Anesthetic Agent into Peripheral Nerves and Plexi, Percutaneous Approach (ICD-10-PCS; principal; 2021-01-18 14:30)
DX: G89.18 Other acute postprocedural pain (principal); E87.2 Acidosis; I50.22 Chronic systolic (congestive) heart failure; G89.4 Chronic pain syndrome; E03.9 Hypothyroidism, unspecified; E11.42 Type 2 diabetes mellitus with diabetic polyneuropathy; E66.09 Other obesity due to excess calories; Z87.891 Personal history of nicotine dependence; F41.8 Other specified anxiety disorders; G25.81 Restless legs syndrome; G47.33 Obstructive sleep apnea (adult) (pediatric); I11.0 Hypertensive heart disease with heart failure; I25.10 Atherosclerotic heart disease of native coronary artery without angina pectoris; J44.9 Chronic obstructive pulmonary disease, unspecified; K21.9 Gastro-esophageal reflux disease without esophagitis; M79.7 Fibromyalgia; Z20.822 Contact with and (suspected) exposure to COVID-19; K66.0 Peritoneal adhesions (postprocedural) (postinfection); M32.9 Systemic lupus erythematosus, unspecified; Z68.30 Body mass index [BMI] 30.0-30.9, adult; Z79.4 Long term (current) use of insulin; Z79.82 Long term (current) use of aspirin; Z79.890 Hormone replacement therapy; Z79.899 Other long term (current) drug therapy; Z80.7 Family history of other malignant neoplasms of lymphoid, hematopoietic and related tissues; Z86.73 Personal history of transient ischemic attack (TIA), and cerebral infarction without residual deficits; Z87.11 Personal history of peptic ulcer disease; Z90.710 Acquired absence of both cervix and uterus; Z98.42 Cataract extraction status, left eye; Z98.41 Cataract extraction status, right eye; Z96.1 Presence of intraocular lens; Z90.49 Acquired absence of other specified parts of digestive tract; Z98.890 Other specified postprocedural states; Z83.2 Family history of diseases of the blood and blood-forming organs and certain disorders involving the immune mechanism; Z88.1 Allergy status to other antibiotic agents; Z88.5 Allergy status to narcotic agent; Z88.8 Allergy status to other drugs, medicaments and biological substances; Z88.2 Allergy status to sulfonamides; Z96.653 Presence of artificial knee joint, bilateral
CPT/HCPCS: 64999; 71260; 74177; 80048; 84145; 85025; 87635; 94640; 94760; 96374; 99285

== ENCOUNTER 2022-01-19 11:02 | Day surgery (SDC) | payer MEDICARE, OTHER ==
[2022-01-18 11:19] VITALS: BMI 30.4
--- NOTE | 2022-01-19 07:51 | P.GSHP ---
History of Present Illness H&P Date: 01/19/22 CHIEF COMPLAINT: History of intra-abdominal adhesions HISTORY OF PRESENT ILLNESS: The patient is a 66-year-old female who presents with history of intra-abdominal adhesions from multiple prior surgeries including increasing abdominal pain. She now presents for diagnostic laparoscopy including lysis of adhesions. PAST MEDICAL HISTORY: Please see list. PAST SURGICAL HISTORY: Please see list. MEDICATIONS: Please see list. ALLERGIES: Please see list. SOCIAL HISTORY: No illicit drug use FAMILY HISTORY: No reports of Crohn disease or ulcerative colitis. REVIEW OF ORGAN SYSTEMS: CONSTITUTIONAL: No reports of fevers or chills. GI: Has change in blood in stools or constipation. PHYSICAL EXAM: VITAL SIGNS: Stable GENERAL: Well-developed pleasant and in no acute distress. HEENT: No scleral icterus. Extraocular movements grossly intact. Moist buccal mucosa. NECK: Supple without lymphadenopathy. CHEST: Unlabored respirations. Equal bilateral excursions. CARDIOVASCULAR: Regular rate and rhythm. Distal 2+ pulses. ABDOMEN: Soft, diffuse abdominal tenderness. No peritonitis. MUSCULOSKELETAL: No clubbing, cyanosis, or edema. ASSESSMENT: 1. Diffuse abdominal pain. 2. History of multiple abdominal surgeries. 3. Intra-abdominal adhesions. PLAN: 1. Robotic lysis of adhesions were described in detail including risk of injury to the intestine, need for further surgery, and open technique. 2. DVT prophylaxis. Past Medical History Past Medical History: Asthma, COPD, CVA/TIA, Diabetes Mellitus, Fibromyalgia, GERD/Reflux, Hypertension, Neurologic Disorder, Osteoarthritis (OA), Sleep Apnea/CPAP/BIPAP, Thyroid Disorder Additional Past Medical History / Comment(s): 08/2011 DUODENAL ULCER, GASTRITIS. NEUROPATHY BILATERAL FEET, RLS. HX OF RHEUMATIC FEVER, HAS HOLE IN BACK OF HEART. HX OF SEPSIS FROM PORT INFECTIONS. NO LONGER USING C-PAP MACHINE. FREQUENT DIARRHEA. LUPUS. Hx aneurysm back of brain, had surgery with coil and stent to repair. Difficulty swallowing. Hx TIA 6-7 yrs ago, no residual effects. History of Any Multi-Drug Resistant Organisms: None Reported Past Surgical History: Back Surgery, Bowel Resection, Section, Hyster ectomy, Joint Replacement Additional Past Surgical History / Comment(s): THUMB SURGERY, bilateral total knee replacements, PORT INSERTED & REMOVED, Laproscopic Nasir with hiatal hernia repair with mesh 05/09/2017, surgery to repair brain aneurysm with coil and stent, bilateral elbow surgery, laproscopic sigmoid colectomy, cataracts removed with lens implants, back surgery 06/23/20, stimulator in back for pain. Past Anesthesia/Blood Transfusion Reactions: No Reported Reaction, Blood Transfusion Reaction Additional Past Anesthesia/Blood Transfusion Reaction / Comment(s): HX BLOOD TRANSFUSION 45 YEARS AGO WITH CHILD , HAD RASH AND ITCHING. Past Psychological History: Anxiety, Depression Smoking Status: Former smoker Past Alcohol Use History: None Reported Additional Past Alcohol Use History / Comment(s): Started smoking in 1977 and quit 03/24, smoked 1 ppd. Past Drug Use History: Marijuana Additional Drug Use History / Comment(s): HX MEDICAL MARIJUANA 5 YRS AGO- NONE SINCE. - Past Family History Mother Family Medical History: Deep Vein Thrombosis (DVT) Daughter(s) Family Medical History: Cancer Additional Family Medical History / Comment(s): Lymphoma-, age 30. Medications and Allergies Home Medications Medication Instructions Recorded Confirmed Type Aspirin [Adult Low Dose Aspirin EC] 81 mg PO DAILY 11/27/16 01/18/22 History Diclofenac Sodium [Voltaren Gel] 2 gram TOPICAL DAILY PRN 11/27/16 01/18/22 History Levothyroxine Sodium [Synthroid] 112 mcg PO QAM 11/27/16 01/18/22 History Umeclidinium Brm/Vilanterol Tr 1 puff INHALATION QAM 11/27/16 01/18/22 History [Anoro Ellipta 62.5-25 Mcg INH] Venlafaxine HCl [Effexor XR] 150 mg PO QAM 05/03/17 01/18/22 History ALPRAZolam [Xanax] 0.5 mg PO HS 03/05/18 01/18/22 History Furosemide [Lasix] 40 mg PO DAILY 09/26/20 01/18/22 History Insulin Glargine [Lantus Vial] 64 unit SQ HS 09/26/20 01/18/22 History Insulin Aspart [NovoLOG] See Protocol SQ ACHS PRN 12/26/20 01/18/22 History Simethicone [Gas-X] 125 mg PO AC-TID PRN #20 cap 12/30/20 01/18/22 Rx Gabapentin 800 mg PO BID 12/31/20 01/18/22 History Atorvastatin [Lipitor] 20 mg PO DAILY 01/16/21 01/18/22 History Omeprazole 40 mg PO QAM 01/16/21 01/18/22 History oxyCODONE-APAP 10-325MG [Percocet 1 tab PO Q6H PRN 01/16/21 01/18/22 History 10-325 mg] rOPINIRole HCL [Requip] 12 mg PO HS 01/16/21 01/18/22 History Sodium Bicarbonate Tab 650 mg PO TID #30 tab 01/19/21 01/18/22 Rx Ibuprofen 800 mg PO Q6H 01/18/22 01/18/22 History Allergies Allergy/AdvReac Type Severity Reaction Status Date / Time ceftriaxone [From Rocephin] Allergy Severe Anaphylaxis, Verified 01/18/22 10:45 Hives/Rash, Itching, Shortness of Breath cefotaxime Allergy Hives, Verified 01/18/22 10:45 Shortness of Breath, Itching fexofenadine Allergy Hives, Verified 01/18/22 10:45 Itching morphine Allergy Swelling, Verified 01/18/22 10:45 Hives, Rash pregabalin [From Lyrica] Allergy Shortness Verified 01/18/22 10:45 of Breath Sulfa (Sulfonamide Allergy Rash/Hives, Verified 01/18/22 10:45 Antibiotics) Itchy terbinafine [From Lamisil] Allergy Hives, Verified 01/18/22 10:45 Shortness of Breath dermabond Allergy Rash/Hives Uncoded 01/18/22 10:45
[~2022-01-19 11:02] MED LIST changes: -ACETAMINOPHEN TAB 500 MG TAB PO PRN; +ACETAMINOPHEN TAB 500 MG TAB PO STA; -ALVIMOPAN 12 MG CAPSULE PO PRN; +DEXAMETHASONE SOD PHOSPHATE 4 MG/ML 1 ML VIAL IV ONE; +FAMOTIDINE 20 MG TAB PO STA; +LACTATED RINGERS 1,000 ML IV SCH; +MIDAZOLAM 2 MG/2 ML VIAL IV PRN; +ONDANSETRON 4 MG/2 ML VIAL IVP ONE; +Pre Op ABX Message 1 EACH MISC MISCELLANE ONE
[2022-01-19 12:22] LABS: Glucose,Whole Blood 176 mg/dL (70-110)
[2022-01-19] MEDS ORDERED: MIDAZOLAM 2 MG/2 ML VIAL IV ONE (13:00)
[2022-01-19] MEDS ORDERED: fentaNYL (PF) 50 MCG/ML 2 ML AMP IV ONE (13:00)
[2022-01-19 13:07] LABS: Anisocytosis Slight; Basophils % (A) 0 %; Eosinophils # (A) 0.1 k/uL (0-0.7); Eosinophils % (A) 1 %; HCT 39.8 % (34.0-46.0); HGB 12.8 gm/dL (11.4-16.0); Hypochromasia Moderate; Lymphocytes # (A) 2.1 k/uL (1.0-4.8); Lymphocytes % (A) 22 %; MCHC 32.1 g/dL (31.0-37.0); Mean Platelet Volume 8.8; Monocytes # (A) 0.6 k/uL (0-1.0); Monocytes % (A) 6 %; Neutrophils # (A) 6.3 k/uL (1.3-7.7); Neutrophils % (A) 69 %; Platelet Count 261 k/uL (150-450); RBC 4.92 m/uL (3.80-5.40); RDW 16.4 % (11.5-15.5); WBC 9.2 k/uL (3.8-10.6)
[2022-01-19] MEDS ORDERED: ROPIVACAINE 5 MG/ML 30 ML VIAL ONE (13:13)
[2022-01-19] MEDS ORDERED: SUCCINYLCHOLINE CHLORIDE 200 MG/10 ML VIAL IV ONE (13:13)
[2022-01-19] MEDS ORDERED: LIDOCAINE 4% LTA KIT (4 ML) TOPICAL ONE (13:13)
[2022-01-19] MEDS ORDERED: ceFAZolin 1,000 MG VIAL ONE (13:13)
[2022-01-19] MEDS ORDERED: SODIUM CHLORIDE 0.9% (PF) 10 ML VIAL ONE (13:13)
[2022-01-19] MEDS ORDERED: SODIUM CHLORIDE 0.9% 100 ML BAG ONE (13:13)
[2022-01-19] MEDS ORDERED: PROPOFOL 10 MG/ML 20 ML VIAL IV ONE (13:13)
[2022-01-19] MEDS ORDERED: fentaNYL (PF) 50 MCG/ML 2 ML AMP ONE (13:13)
[2022-01-19] MEDS ORDERED: NEOSTIGMINE 1 MG/ML 10 ML VIAL ONE (13:13)
[2022-01-19] MEDS ORDERED: GLYCOPYRROLATE 0.2 MG/ML 2 ML VIAL ONE (13:13)
[2022-01-19] MEDS ORDERED: LIDOCAINE 2% INJ 20 MG/ML (2 ML VIAL) ONE (13:13)
[2022-01-19] MEDS ORDERED: PHENYLEPHRINE-0.9% NACL SYG 1,000 MCG/10 ML SYRINGE ONE (13:13)
[2022-01-19] MEDS ORDERED: ROCURONIUM 10 MG/ML (5 ML VIAL) IV ONE (13:13)
[2022-01-19] MEDS ORDERED: MIDAZOLAM 2 MG/2 ML VIAL ONE (13:13)
[2022-01-19 13:14] LABS: Albumin 4.4 g/dL (3.5-5.0); Calcium 9.6 mg/dL (8.4-10.2); Potassium 4.2 mmol/L (3.5-5.1); Total Bilirubin 0.7 mg/dL (0.2-1.3); Total Protein 7.5 g/dL (6.3-8.2)
[2022-01-19] MEDS ORDERED: BUPIVACAIN-EPI 0.25%-1:200,000 30 ML VIAL SQ ONE (13:18)
[2022-01-19] MEDS ORDERED: ceFAZolin 1,000 MG VIAL IVPB ONE (13:18)
[2022-01-19 14:45] VITALS: TEMP 97
[2022-01-19] MEDS: fentaNYL (PF) 50 MCG/ML 2 ML AMP IV PRN ×2 (14:46→15:01)
[2022-01-19] MEDS ORDERED: HYDROmorphone 0.5 MG/0.5 ML SYRINGE IVP ONE ×3 (15:15→16:27)
[2022-01-19] MEDS ORDERED: ONDANSETRON 4 MG/2 ML VIAL IVP ONE (15:57)
[2022-01-19] MEDS ORDERED: LACTATED RINGERS 1,000 ML IV ONE (16:01)
[2022-01-19] MEDS ORDERED: KETOROLAC 15 MG/ML 1 ML VIAL IVP ONE (16:14)
--- NOTE | 2022-01-19 16:22 | P.OP ---
Date of Procedure: 01/19/22 Description of Procedure: SURGEON: MAHSA TAN MD PREOPERATIVE DIAGNOSES: 1. Lower abdominal pain due to peritoneal adhesions 2. Fibromyalgia with chronic pain syndrome 3. Pneumonia with acute leukocytosis 4. Obesity due to excess calories, BMI 30.6 5. Diabetes type 2, insulin-dependent with diabetic neuropathy 6. Hypertensive heart disease with congestive heart failure 7. Chronic obstructive pulmonary disease with acute exacerbation 8. Depressive disorder 9. Hyperlipidemia 10. Lupus 11. Generalized anxiety disorder 12. History of multiple abdominal surgeries with peritoneal adhesion 13. Gastroesophageal reflux disease 14. Obstructive sleep apnea 15. Hypothyroidism 16. History of brain aneurysm 17. Hyponatremia 18. Hypokalemia POSTOPERATIVE DIAGNOSES: 1. 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 Fibromyalgia with chronic pain syndrome 3. Pneumonia with acute leukocytosis 4. Obesity due to excess calories, BMI 30.6 5. Diabetes type 2, insulin-dependent with diabetic neuropathy 6. Hypertensive heart disease with congestive heart failure 7. Chronic obstructive pulmonary disease with acute exacerbation 8. Depressive disorder 9. Hyperlipidemia 10. Lupus 11. Generalized anxiety disorder 12. History of multiple abdominal surgeries with peritoneal adhesion 13. Gastroesophageal reflux disease 14. Obstructive sleep apnea 15. Hypothyroidism 16. History of brain aneurysm 17. Hyponatremia 18. Hypokalemia 19. Fatty liver disease with early cirrhosis OPERATION: 1. Robotic-assisted da Michael Xi laparoscopic with lysis of adhesions, over 1 hour ESTIMATED BLOOD LOSS: 5 mL. SPECIMENS REMOVED: None. COMPLICATIONS: None. OPERATIVE FINDINGS: 1. Severe lower abdominal peritoneal adhesions small bowel to abdominal wall were lysed 2. Hepatomegaly with fatty liver disease and early cirrhosis INDICATIONS: The patient is a 66-year-old female who presents with moderate to severe left lower quadrant abdominal pain. Surgical intervention with diagnostic laparoscopy, lysis of adhesions were described. Informed consent was obtained. Robotic assisted laparoscopic approach was described. Benefits and risks of the procedure including but not limited to bleeding, infection, injury to the biliary tree was described. Informed consent was obtained. DESCRIPTION OF PROCEDURE: Patient was brought to the operating room, placed in supine position. After general induction, the abdomen had been prepped and draped in standard sterile fashion. The robotic da Michael XI system was primed. After a timeout protocol was performed, the patient had been prepped and draped in standard sterile fashion. The robot was docked along the right lateral abdomen. Please note prior to docking of the robot; however, a 5 mm 0 degrees laparoscopic trocar entry was performed along the left upper quadrant. A 5 mm trocar was upsized to a 12 mm trocar. Next, three 8 mm robotic ports were placed along the left lateral abdomen. Please note that the ports were placed at least 10 to 15 cm away from the target anatomy. Instruments including graspers and scissors with cautery were interchanged by the certified dental assistant. I had sat at the console. The liver surface was yellow and enlarged with features of early cirrhosis due to fatty liver disease. At the patient's location of pain lower abdomen and left upper quadrant, greater omental adhesions to the abdominal wall were identified. Of the lower abdomen, small bowel was adherent to the pelvis. Lysis of adhesions using blunt dissection as well as vessel sealer and electrocautery Bovie cautery scissors were used for over one hour extensive lysis of adhesions. A 1 mm thermal defect was found of the small bowel which is oversewn using 3-0 Vicryl with imbrication. The robot was undocked. All pneumoperitoneum and instruments were evacuated from the abdominal cavity. The incisions were reapproximated using 4-0 Monocryl in an interrupted subcuticular fashion. Please note along the trocar sites, local anesthetic was placed as a field block prior to insertion of all instruments. Exofin was applied to the skin. At the end of the procedure needle, sponge, and instrument count had been verified correct by the surgical services manager. The patient was transferred to postanesthesia care unit in stable condition. Plan - Discharge Summary Discharge Rx Participant: Yes New Discharge Prescriptions: New Simethicone [Gas-X] 125 mg PO AC-TID PRN #20 capsule PRN Reason: Pain Acetaminophen Tab [Tylenol Tab] 1,000 mg PO Q6HR PRN #30 tablet PRN Reason: Pain Continue Umeclidinium Brm/Vilanterol Tr [Anoro Ellipta 62.5-25 Mcg INH] 1 puff INHALATION QAM Levothyroxine Sodium [Synthroid] 112 mcg PO QAM Diclofenac Sodium [Voltaren Gel] 2 gram TOPICAL DAILY PRN PRN Reason: Pain Aspirin [Adult Low Dose Aspirin EC] 81 mg PO DAILY Venlafaxine HCl [Effexor XR] 150 mg PO QAM ALPRAZolam [Xanax] 0.5 mg PO HS Insulin Aspart [NovoLOG] See Protocol SQ ACHS PRN PRN Reason: Blood Sugar - High Omeprazole 40 mg PO QAM Atorvastatin [Lipitor] 20 mg PO DAILY oxyCODONE-APAP 10-325MG [Percocet 10-325 mg] 1 tab PO Q6H PRN PRN Reason: Pain Sodium Bicarbonate Tab 650 mg PO TID #30 tab Ibuprofen 800 mg PO Q6H Furosemide [Lasix] 40 mg PO DAILY Insulin Glargine [Lantus Vial] 64 unit SQ HS Simethicone [Gas-X] 125 mg PO AC-TID PRN #20 cap PRN Reason: Pain Gabapentin 800 mg PO BID rOPINIRole HCL [Requip] 12 mg PO HS Discharge Medication List Aspirin [Adult Low Dose Aspirin EC] 81 mg PO DAILY 11/27/16 [History] Diclofenac Sodium [Voltaren Gel] 2 gram TOPICAL DAILY PRN 11/27/16 [History] Levothyroxine Sodium [Synthroid] 112 mcg PO QAM 11/27/16 [History] Umeclidinium Brm/Vilanterol Tr [Anoro Ellipta 62.5-25 Mcg INH] 1 puff INHALATION QAM 11/27/16 [History] Venlafaxine HCl [Effexor XR] 150 mg PO QAM 05/03/17 [History] ALPRAZolam [Xanax] 0.5 mg PO HS 03/05/18 [History] Furosemide [Lasix] 40 mg PO DAILY 09/26/20 [History] Insulin Glargine [Lantus Vial] 64 unit SQ HS 09/26/20 [History] Insulin Aspart [NovoLOG] See Protocol SQ ACHS PRN 12/26/20 [History] Simethicone [Gas-X] 125 mg PO AC-TID PRN #20 cap 12/30/20 [Rx] Gabapentin 800 mg PO BID 12/31/20 [History] Atorvastatin [Lipitor] 20 mg PO DAILY 01/16/21 [History] Omeprazole 40 mg PO QAM 01/16/21 [History] oxyCODONE-APAP 10-325MG [Percocet 10-325 mg] 1 tab PO Q6H PRN 01/16/21 [History] rOPINIRole HCL [Requip] 12 mg PO HS 01/16/21 [History] Sodium Bicarbonate Tab 650 mg PO TID #30 tab 01/19/21 [Rx] Ibuprofen 800 mg PO Q6H 01/18/22 [History] Acetaminophen Tab [Tylenol Tab] 1,000 mg PO Q6HR PRN #30 tablet 01/19/22 [Rx] Simethicone [Gas-X] 125 mg PO AC-TID PRN #20 capsule 01/19/22 [Rx] Follow up Appointment(s)/Referral(s): Mahsa Tan MD [STAFF PHYSICIAN] - 01/23/22 (TELEHEALTH) Patient Instructions/Handouts: *Surgery [facility] - Managing Your Pain After Surgery Without Opioids, Lysis of Abdominal Adhesions (GEN) Activity/Diet/Wound Care/Special Instructions: Using antibacterial soap. No lifting over 10 pounds 2 weeks, Feb 02August shower. Wear abdominal binder daily for comfort except for showering. Use ice along incisions for today to prevent swelling. Take tylenol, aleve/ibuprofen, simethicone scheduled for 3 days for best pain relief Discharge Disposition: HOME SELF-CARE
--- NOTE | 2022-01-19 17:17 | P.ANPRN ---
Procedure Note - Anesthesia - Nerve Block Performed Bilateral Transversus Abdominis Single Time Out Performed: Yes (1259) Date of Procedure: 01/19/22 Procedure Start Time: 13:00 Procedure Stop Time: 13:05 Location of Patient: PreOp Indication: Acute Post-Operative Pain, Requested by Surgeon Specifically requested for management of pain by : Mahsa Tan Sedation Type: Sedate with meaningful contact maintained Preparation: Sterile Prep Position: Supine Catheter: None Needle Types: Pajunk Needle Gauge: 21 Ultrasound used to visualize needle placement: Yes Ultrasound used to observe medication spread: Yes Injectate: 0.5% Ropivacaine (see comment for volume) (15cc + 10cc nacl pf each side) Blood Aspirated: No Pain Paresthesia on Injection Noted: No Resistance on Injection: Normal Image Stored and Saved: Yes Events: Uneventful and Well Tolerated
[2022-01-19 18:22] VITALS: RESP 18
[2022-01-19 18:26] VITALS: BP 106/60; PULSE 81
== END 2022-01-19 18:15 | disposition home or self-care (01) ==
LOC: OR 11:02
PROVIDERS: ATTEND Surgery Plastic and Reconstructive Surgery
DX: K57.32 Diverticulitis of large intestine without perforation or abscess without bleeding (principal); M79.7 Fibromyalgia; G89.4 Chronic pain syndrome; J18.9 Pneumonia, unspecified organism; J44.0 Chronic obstructive pulmonary disease with (acute) lower respiratory infection; J44.1 Chronic obstructive pulmonary disease with (acute) exacerbation; Z68.30 Body mass index [BMI] 30.0-30.9, adult; I11.0 Hypertensive heart disease with heart failure; I50.9 Heart failure, unspecified; F32.A Depression, unspecified; E78.5 Hyperlipidemia, unspecified; M32.9 Systemic lupus erythematosus, unspecified; F41.1 Generalized anxiety disorder; G47.33 Obstructive sleep apnea (adult) (pediatric); K21.9 Gastro-esophageal reflux disease without esophagitis; E03.9 Hypothyroidism, unspecified; E87.1 Hypo-osmolality and hyponatremia; E87.6 Hypokalemia; K76.0 Fatty (change of) liver, not elsewhere classified; E66.09 Other obesity due to excess calories; E11.40 Type 2 diabetes mellitus with diabetic neuropathy, unspecified; M19.90 Unspecified osteoarthritis, unspecified site; Z86.73 Personal history of transient ischemic attack (TIA), and cerebral infarction without residual deficits; Z79.4 Long term (current) use of insulin; G89.18 Other acute postprocedural pain; Z87.19 Personal history of other diseases of the digestive system; Z96.653 Presence of artificial knee joint, bilateral; Z98.890 Other specified postprocedural states; F17.210 Nicotine dependence, cigarettes, uncomplicated; Z79.82 Long term (current) use of aspirin; Z82.49 Family history of ischemic heart disease and other diseases of the circulatory system; Z79.899 Other long term (current) drug therapy; Z79.1 Long term (current) use of non-steroidal anti-inflammatories (NSAID); Z79.51 Long term (current) use of inhaled steroids
CPT/HCPCS: 64488; 80053; 85025; 44180; J2250; J0330; J1100; J2710; J2405; J0690; J3010; J2795; J1885; J2370; J2704; J1170; J1644; J2001

== ENCOUNTER 2022-09-07 20:53 | Emergency (ER) | payer MEDICARE, OTHER ==
--- NOTE | 2022-09-07 21:11 | ED ---
Weakness HPI - General Stated complaint: Weakness Time Seen by Provider: 09/07/22 21:07 Source: patient, EMS Mode of arrival: EMS Limitations: no limitations - History of Present Illness Initial comments: This patient is a 67-year-old woman who presents for a constellation of symptoms that are been going on for past few days. She notes that she is having generalized weakness and fatigue. She is having diffuse abdominal pain, perhaps slightly greater on the left side. The patient is having frequent bowel movements, the last of which had some dark tarry material. She describes having diarrhea. The patient also having nausea and occasional vomiting no coffee ground emesis or blood. In reviewing the patient's recent history she is out of the oral morphine that she takes for chronic back pain. MD Complaint: generalized weakness -: days(s) Location: generalized Quality: aching Consistency: constant Improves with: none Worsens with: none Associated Symptoms: nausea/vomiting - Related Data Home Medications Medication Instructions Recorded Confirmed Levothyroxine Sodium [Synthroid] 112 mcg PO DAILY 11/27/16 09/07/22 Umeclidinium Brm/Vilanterol Tr 1 puff INHALATION RT-DAILY 11/27/16 09/07/22 [Anoro Ellipta 62.5-25 Mcg INH] ALPRAZolam [Xanax] 0.5 mg PO DAILY PRN 03/05/18 09/07/22 Furosemide [Lasix] 40 mg PO DAILY 09/26/20 09/07/22 Gabapentin 800 mg PO BID PRN 12/31/20 09/07/22 Atorvastatin [Lipitor] 20 mg PO DAILY 01/16/21 09/07/22 Cholestyramine/Aspartame 4 gm PO DAILY 09/07/22 09/07/22 [Cholestyramine Light Packet] Cyclobenzaprine [Flexeril] 5 mg PO TID PRN 09/07/22 09/07/22 Denosumab [Prolia] 60 mg SQ Q182D 09/07/22 09/07/22 Desvenlafaxine [Desvenlafaxine ER] 50 mg PO DAILY 09/07/22 09/07/22 Insulin Aspart [NovoLOG Flexpen] See Protocol SQ AC-TID 09/07/22 09/07/22 Insulin Glargine,Hum.rec.anlog 30 units SQ DAILY 09/07/22 09/07/22 [Lantus Solostar Pen] Insulin Glargine,Hum.rec.anlog 70 units SQ HS 09/07/22 09/07/22 [Lantus Solostar Pen] Morphine Sulfate ER [Ms Contin] 15 mg PO BID PRN 09/07/22 09/07/22 Omeprazole [PriLOSEC] 40 mg PO DAILY 09/07/22 09/07/22 hydrOXYzine pamoate [Vistaril] 25 mg PO TID PRN 09/07/22 09/07/22 rOPINIRole HCL [Requip] 2 mg PO BID@0900,1500 09/07/22 09/07/22 rOPINIRole HCL [Requip] 4 mg PO HS 09/07/22 09/07/22 Previous Rx's Medication Instructions Recorded HYDROcodone/APAP 5-325MG [[place] 1 tab PO Q6HR PRN 3 Days #12 tab 09/08/22 5-325] Ciprofloxacin HCl [Cipro] 500 mg PO DAILY #5 tablet 09/11/22 Allergies Allergy/AdvReac Type Severity Reaction Status Date / Time ceftriaxone [From Rocephin] Allergy Severe Anaphylaxis, Verified 09/11/22 16:06 Hives/Rash, Itching, Shortness of Breath cefotaxime Allergy Hives, Verified 09/11/22 16:06 Shortness of Breath, Itching fexofenadine Allergy Hives, Verified 09/11/22 16:06 Itching morphine Allergy Swelling, Verified 09/11/22 16:06 Hives, Rash pregabalin [From Lyrica] Allergy Shortness Verified 09/11/22 16:06 of Breath Sulfa (Sulfonamide Allergy Rash/Hives, Verified 09/11/22 16:06 Antibiotics) Itchy terbinafine [From Lamisil] Allergy Hives, Verified 09/11/22 16:06 Shortness of Breath dermabond Allergy Rash/Hives Uncoded 09/11/22 16:06 Review of Systems ROS Statement: Those systems with pertinent positive or pertinent negative responses have been documented in the HPI. ROS Other: All systems not noted in ROS Statement are negative. Constitutional: Reports: weakness. Denies: fever, chills Respiratory: Denies: cough, dyspnea Cardiovascular: Denies: chest pain, palpitations Endocrine: Reports: fatigue Gastrointestinal: Reports: abdominal pain, nausea, vomiting, diarrhea, melena. Denies: hematemesis, hematochezia Genitourinary: Denies: dysuria, hematuria Musculoskeletal: Denies: back pain Skin: Denies: rash Neurological: Denies: headache, weakness, numbness Psychiatric: Reports: anxiety Past Medical History Past Medical History: Asthma, COPD, CVA/TIA, Diabetes Mellitus, Fibromyalgia, GERD/Reflux, Hypertension, Neurologic Disorder, Osteoarthritis (OA), Sleep Apnea/CPAP/BIPAP, Thyroid Disorder Additional Past Medical History / Comment(s): 08/2011 DUODENAL ULCER, GASTRITIS. NEUROPATHY BILATERAL FEET, RLS. HX OF RHEUMATIC FEVER, HAS HOLE IN BACK OF HEART. HX OF SEPSIS FROM PORT INFECTIONS. NO LONGER USING C-PAP MACHINE. FREQUENT DIARRHEA. LUPUS. Hx aneurysm back of brain, had surgery with coil and stent to repair. Difficulty swallowing. Hx TIA 6-7 yrs ago, no residual effects. History of Any Multi-Drug Resistant Organisms: None Reported Past Surgical History: Back Surgery, Bowel Resection, Section, Hysterectomy, Joint Replacement Additional Past Surgical History / Comment(s): THUMB SURGERY, bilateral total knee replacements, PORT INSERTED & REMOVED, Laproscopic Nasir with hiatal hernia repair with mesh 05/09/2017, surgery to repair brain aneurysm with coil and stent, bilateral elbow surgery, laproscopic sigmoid colectomy, cataracts removed with lens implants, back surgery 06/23/20, stimulator in back for pain. Past Anesthesia/Blood Transfusion Reactions: No Reported Reaction, Blood T ransfusion Reaction Additional Past Anesthesia/Blood Transfusion Reaction / Comment(s): HX BLOOD TRANSFUSION 45 YEARS AGO WITH CHILD , HAD RASH AND ITCHING. Past Psychological History: Anxiety, Depression Smoking Status: Former smoker Past Alcohol Use History: None Reported Past Drug Use History: Marijuana - Past Family History Mother Family Medical History: Deep Vein Thrombosis (DVT) Daughter(s) Family Medical History: Cancer Additional Family Medical History / Comment(s): Lymphoma-, age 30. General Exam General appearance: alert, in no apparent distress Head exam: Present: atraumatic, normocephalic Eye exam: Present: normal appearance. Absent: scleral icterus, conjunctival injection Neck exam: Present: normal inspection Respiratory exam: Present: normal lung sounds bilaterally. Absent: respiratory distress, wheezes, rales, rhonchi, chest wall tenderness Cardiovascular Exam: Present: regular rate, normal rhythm, normal heart sounds. Absent: systolic murmur, diastolic murmur, rubs, gallop GI/Abdominal exam: Present: soft, tenderness (Mild diffuse tenderness), hyperactive bowel sounds. Absent: distended, guarding, rebound, mass, pulsatile mass, hernia Extremities exam: Present: normal inspection, normal capillary refill. Absent: pedal edema, calf tenderness Back exam: Present: normal inspection. Absent: CVA tenderness (R), CVA tenderness (L) Neurological exam: Present: alert Skin exam: Present: warm, dry, intact, normal color. Absent: rash Course Vital Signs 09/07/22 09/08/22 09/08/22 21:01 03:40 05:44 Temperature 97.4 F L Pulse Rate 85 72 65 Respiratory 15 15 15 Rate Blood Pressure 118/60 130/60 130/60 O2 Sat by Pulse 96 98 98 Oximetry 09/08/22 07:18 Temperature 97.8 F Pulse Rate 75 Respiratory 16 Rate Blood Pressure 137/69 O2 Sat by Pulse 98 Oximetry EKG Findings - EKG Results: EKG: interpreted by [facility], sinus rhythm (Rate 82 bpm), normal axis, normal QRS - Blocks, Edgar, Hypertrophy, ST Abn: Repolarization changes or abnormalities: ST or T wave suggestive of ischemia (Lateral T-wave inversions in 1 and aVL, which are present in previous ECG) Medical Decision Making - Medical Decision Making This patient is 67-year-old woman with abdominal pain. The patient had computed tomography scan of abdomen and pelvis which I interpreted as being negative for free air, bowel obstruction, or evidence of diverticulitis. The patient had workup here which was unremarkable. She is feeling better and on reevaluation would like to go home. We discussed appropriate further care and follow-up she will return if symptoms recur or if there is worsening in anyway. Was pt. sent in by a medical professional or institution (, PA, COLD PRESS LOADER, urgent care, hospital, or retirement...) When possible be specific @ -[No] Did you speak to anyone other than the patient for history (EMS, parent, family, police, friend...)? What history was obtained from this source @ -[No] Did you review nursing and triage notes (agree or disagree)? Why? @ -[I reviewed and agree with nursing and triage notes] Were old charts reviewed (outside hosp., previous admission, EMS record, old EKG, old radiological studies, urgent care reports/EKG's, retirement records)? Report findings @ -[No old charts were reviewed] Differential Diagnosis (chest pain, altered mental status, abdominal pain women, abdominal pain men, vaginal bleeding, weakness, fever, dyspnea, syncope, headache, dizziness, GI bleed, back pain, seizure, CVA, palpatations, mental health, musculoskeletal)? @ -[Differential Abdominal Pain Women: Appendicitis, Cholecystitis, diverticulosis, ischemic bowel, pancreatitis, hepatitis, UTI, gastroenteritis, AAA, incarcerated hernia, bowel obstruction, constipation, inflammatory bowel, hepatitis, peptic ulcer disease, splenic infarction, perforated viscus, vulvitis, ovarian torsion, PID, kidney stone, placenta abruption, this is not meant to be an all-inclusive list EKG interpreted by me (3pts min.). @ -[As above] X-rays interpreted by me (1pt min.). @ -[None done] CT interpreted by me (1pt min.). @ -[As above U/S interpreted by me (1pt. min.). @ -[None done] What testing was considered but not performed or refused? (CT, X-rays, U/S, labs)? Why? @ -[None] What meds were considered but not given or refused? Why? @ -[None] Did you discuss the management of the patient with other professionals (professionals i.e. , PA, COLD PRESS LOADER, lab, RT, psych nurse, criminal justice social worker, brick or block maker, teacher, gunnery/ordnance officer, assistant case manager)? Give summary @ -[No] Was smoking cessation discussed for >3mins.? @ -[No] Was critical care preformed (if so, how long)? @ -[No] Were there social determinants of health that impacted care today? How? ( Homelessness, low income, unemployed, alcoholism, drug addiction, transportation, low edu. Level, literacy, decrease access to med. care, group home, rehab)? @ -[No] Was there de-escalation of care discussed even if they declined (Discuss DNR or withdrawal of care, Hospice)? DNR status @ -[No] What co-morbidities impacted this encounter? (DM, HTN, Smoking, COPD, CAD, Cancer, CVA, ARF, Chemo, Hep., AIDS, mental health diagnosis, sleep apnea, morbid obesity)? @ -[None] Was patient admitted / discharged? Hospital course, mention meds given and route, prescriptions, significant lab abnormalities, going to OR and other pertinent info. @ -[Patient is discharged with close follow-up and strict return parameters Undiagnosed new problem with uncertain prognosis? @ -[No] Drug Therapy requiring intensive monitoring for toxicity (Heparin, Nitro, Insulin, Cardizem)? @ -[No] Were any procedures done? @ -[No] Diagnosis/symptom? @ -[Acute abdominal pain Acute, or Chronic, or Acute on Chronic? @ -[default] Uncomplicated (without systemic symptoms) or Complicated (systemic symptoms)? @ -[Uncomplicated Side effects of treatment? @ -[No] Exacerbation, Progression, or Severe Exacerbation? @ -[No] Poses a threat to life or bodily function? How? (Chest pain, [place], [place], pneumonia, PE, COPD, DKA, ARF, appy, cholecystitis, CVA, Diverticulitis, Homicidal, S uicidal, threat to staff... and all critical care pts) @ -[No] - Lab Data Result diagrams: 09/07/22 21:12 09/07/22 21:12 Lab Results 09/07/22 09/07/22 09/07/22 Range/Units 21:12 21:12 21:12 WBC 8.2 (3.8-10.6) k/uL RBC 4.07 (3.80-5.40) m/uL Hgb 11.8 (11.4-16.0) gm/dL Hct 35.6 (34.0-46.0) % MCV 87.5 (80.0-100.0) fL MCH 29.1 (25.0-35.0) pg MCHC 33.2 (31.0-37.0) g/dL RDW 15.6 H (11.5-15.5) % Plt Count 199 (150-450) k/uL MPV 8.8 Neutrophils % 67 % Lymphocytes % 26 % Monocytes % 5 % Eosinophils % 1 % Basophils % 0 % Neutrophils # 5.5 (1.3-7.7) k/uL Lymphocytes # 2.1 (1.0-4.8) k/uL Monocytes # 0.4 (0-1.0) k/uL Eosinophils # 0.1 (0-0.7) k/uL Basophils # 0.0 (0-0.2) k/uL Sodium 135 L (137-145) mmol/L Potassium 3.3 L (3.5-5.1) mmol/L Chloride 107 (98-107) mmol/L Carbon Dioxide 16 L (22-30) mmol/L Anion Gap 12 mmol/L BUN 12 (7-17) mg/dL Creatinine 0.74 (0.52-1.04) mg/dL Est GFR (CKD-EPI)AfAm >90 (>60 ml/min/1.73 sqM) Est GFR (CKD-EPI)NonAf 84 (>60 ml/min/1.73 sqM) Glucose 97 (74-99) mg/dL Plasma Lactic Acid Shyam 0.9 (0.7-2.0) mmol/L Calcium 8.3 L (8.4-10.2) mg/dL Magnesium 1.8 (1.6-2.3) mg/dL Total Bilirubin 0.9 (0.2-1.3) mg/dL AST 29 (14-36) U/L ALT 14 (4-34) U/L Alkaline Phosphatase 94 (38-126) U/L Troponin I (0.000-0.034) ng/mL C-Reactive Protein 2.8 H (<1.0) mg/dL Total Protein 6.0 L (6.3-8.2) g/dL Albumin 3.3 L (3.5-5.0) g/dL Amylase 34 (30-110) U/L Lipase 16 L (23-300) U/L Urine Color Urine Appearance (Clear) Urine pH (5.0-8.0) Ur Specific [place] (1.001-1.035) Urine Protein (Negative) Urine Glucose (UA) (Negative) Urine Ketones (Negative) Urine Blood (Negative) Urine Nitrite (Negative) Urine Bilirubin (Negative) Urine Urobilinogen (<2.0) mg/dL Ur Leukocyte Esterase (Negative) Urine RBC (0-5) /hpf Urine WBC (0-5) /hpf Ur Squamous Epith Cells (0-4) /hpf Urine Bacteria (None) /hpf Hyaline Casts (0-2) /lpf Urine Mucus (None) /hpf 09/07/22 09/08/22 Range/Units 21:12 05:10 WBC (3.8-10.6) k/uL RBC (3.80-5.40) m/uL Hgb (11.4-16.0) gm/dL Hct (34.0-46.0) % MCV (80.0-100.0) fL MCH (25.0-35.0) pg MCHC (31.0-37.0) g/dL RDW (11.5-15.5) % Plt Count (150-450) k/uL MPV Neutrophils % % Lymphocytes % % Monocytes % % Eosinophils % % Basophils % % Neutrophils # (1.3-7.7) k/uL Lymphocytes # (1.0-4.8) k/uL Monocytes # (0-1.0) k/uL Eosinophils # (0-0.7) k/uL Basophils # (0-0.2) k/uL Sodium (137-145) mmol/L Potassium (3.5-5.1) mmol/L Chloride (98-107) mmol/L Carbon Dioxide (22-30) mmol/L Anion Gap mmol/L BUN (7-17) mg/dL Creatinine (0.52-1.04) mg/dL Est GFR (CKD-EPI)AfAm (>60 ml/min/1.73 sqM) Est GFR (CKD-EPI)NonAf (>60 ml/min/1.73 sqM) Glucose (74-99) mg/dL Plasma Lactic Acid Shyam (0.7-2.0) mmol/L Calcium (8.4-10.2) mg/dL Magnesium (1.6-2.3) mg/dL Total Bilirubin (0.2-1.3) mg/dL AST (14-36) U/L ALT (4-34) U/L Alkaline Phosphatase (38-126) U/L Troponin I <0.012 (0.000-0.034) ng/mL C-Reactive Protein (<1.0) mg/dL Total Protein (6.3-8.2) g/dL Albumin (3.5-5.0) g/dL Amylase (30-110) U/L Lipase (23-300) U/L Urine Color Yellow Urine Appearance Cloudy H (Clear) Urine pH 6.5 (5.0-8.0) Ur Specific [place] 1.021 (1.001-1.035) Urine Protein 1+ H (Negative) Urine Glucose (UA) Negative (Negative) Urine Ketones Negative (Negative) Urine Blood Negative (Negative) Urine Nitrite Negative (Negative) Urine Bilirubin Negative (Negative) Urine Urobilinogen 4.0 (<2.0) mg/dL Ur Leukocyte Esterase Large H (Negative) Urine RBC 6 H (0-5) /hpf Urine WBC 69 H (0-5) /hpf Ur Squamous Epith Cells 5 H (0-4) /hpf Urine Bacteria Rare H (None) /hpf Hyaline Casts 2 (0-2) /lpf Urine Mucus Many H (None) /hpf Disposition Clinical Impression: Abdominal pain Disposition: HOME SELF-CARE Condition: Fair Instructions (If sedation given, give patient instructions): Abdominal Pain (ED) Prescriptions: HYDROcodone/APAP 5-325MG [[place] 5-325] 1 tab PO Q6HR PRN 3 Days #12 tab PRN Reason: Pain Is patient prescribed a controlled substance at d/c from ED?: No Referrals: Shay Martinez MD [Primary Care Provider] - 1-2 days
[2022-09-07 21:29] LABS: Basophils % (A) 0 %; Eosinophils # (A) 0.1 k/uL (0-0.7); Eosinophils % (A) 1 %; HCT 35.6 % (34.0-46.0); HGB 11.8 gm/dL (11.4-16.0); Lymphocytes # (A) 2.1 k/uL (1.0-4.8); Lymphocytes % (A) 26 %; MCH 29.1 pg (25.0-35.0); MCHC 33.2 g/dL (31.0-37.0); MCV 87.5 fL (80.0-100.0); Mean Platelet Volume 8.8; Monocytes # (A) 0.4 k/uL (0-1.0); Monocytes % (A) 5 %; Neutrophils # (A) 5.5 k/uL (1.3-7.7); Neutrophils % (A) 67 %; Platelet Count 199 k/uL (150-450); RBC 4.07 m/uL (3.80-5.40); RDW 15.6 % (11.5-15.5); WBC 8.2 k/uL (3.8-10.6)
[2022-09-07 21:44] LABS: ALT 14 U/L (4-34); AST 29 U/L (14-36); African American GFR (CKD) >90 (>60 ml/min/1.73 sqM); Albumin 3.3 g/dL (3.5-5.0); Alkaline Phosphatase 94 U/L (38-126); Amylase 34 U/L (30-110); Anion Gap 12 mmol/L; Blood Urea Nitrogen 12 mg/dL (7-17); C Reactive Protein 2.8 mg/dL (<1.0); Calcium 8.3 mg/dL (8.4-10.2); Carbon Dioxide 16 mmol/L (22-30); Chloride 107 mmol/L (98-107); Glucose 97 mg/dL (74-99); Lipase 16 U/L (23-300); Magnesium 1.8 mg/dL (1.6-2.3); Non-African American GFR(CKD) 84 (>60 ml/min/1.73 sqM); Potassium 3.3 mmol/L (3.5-5.1); Sodium 135 mmol/L (137-145); Total Bilirubin 0.9 mg/dL (0.2-1.3)
[2022-09-07] MEDS ORDERED: MORPHINE SULFATE 4 MG/ML SYRINGE IV STA (22:00)
[2022-09-07] MEDS ORDERED: ONDANSETRON 4 MG/2 ML VIAL IVP STA (22:00)
--- NOTE | 2022-09-08 01:52 | CT ---
EXAM: CT Abdomen and Pelvis Without Intravenous Contrast CLINICAL HISTORY: diffuse abdominal pain TECHNIQUE: Axial computed tomography images of the abdomen and pelvis without intravenous contrast. CTDI is 8.5 mGy and DLP is 494.3 mGy-cm. This CT exam was performed using one or more of the following dose reduction techniques: automated exposure control, adjustment of the mA and/or kV according to patient size, and/or use of iterative reconstruction technique. COMPARISON: CT January 19, 2021 FINDINGS: Lung bases: Unremarkable. No mass. No consolidation. ABDOMEN: Liver: Unremarkable. Gallbladder and bile ducts: Cholecystectomy. No ductal dilation. Pancreas: Unremarkable. No ductal dilation. Spleen: Unremarkable. No splenomegaly. Adrenals: Unremarkable. No mass. Kidneys and ureters: Unremarkable. No obstructing stones. No hydronephrosis. Stomach and bowel: Unremarkable. No obstruction. No mucosal thickening. PELVIS: Appendix: No findings to suggest acute appendicitis. Bladder: Unremarkable. No stones. Reproductive: Hysterectomy. ABDOMEN and PELVIS: Intraperitoneal space: Unremarkable. No free air. No significant fluid collection. Bones/joints: No acute fracture. No dislocation. Soft tissues: Unremarkable. Vasculature: Unremarkable. No abdominal aortic aneurysm. Lymph nodes: Unremarkable. No enlarged lymph nodes. IMPRESSION: No acute findings in the abdomen or pelvis.
[2022-09-08] MEDS ORDERED: METHADONE 10 MG TAB PO STA (05:25)
[2022-09-08 06:02] LABS: Appearance,Urine Cloudy (Clear); Bilirubin,Urine Negative (Negative); Blood,Urine Negative (Negative); Color,Urine Yellow; Glucose,Urine (UA) Negative (Negative); Hyaline Casts,Urine 2 /lpf (0-2); Ketones,Urine Negative (Negative); Leukocyte Esterase,Urine Large (Negative); Mucus,Urine Many /hpf; Nitrite,Urine Negative (Negative); PH, Urine 6.5 (5.0-8.0); Protein,Urine 1+ (Negative); RBC,Urine 6 /hpf (0-5); Specific Gravity,Urine 1.021 (1.001-1.035); Squamous Epithelial Cell,Urine 5 /hpf (0-4); WBC,Urine 69 /hpf (0-5)
[2022-09-08 07:59] VITALS: BP 137/69; PULSE 75; RESP 16; TEMP 97.8
[2022-09-08 16:40] LABS: Bacteria,Urine Rare /hpf
== END 2022-09-08 07:20 | disposition home or self-care (01) ==
LOC: EC 20:53
DX: R10.9 Unspecified abdominal pain (principal); J44.9 Chronic obstructive pulmonary disease, unspecified; K21.9 Gastro-esophageal reflux disease without esophagitis; E11.9 Type 2 diabetes mellitus without complications; I10 Essential (primary) hypertension; M19.90 Unspecified osteoarthritis, unspecified site; E07.9 Disorder of thyroid, unspecified; Z86.73 Personal history of transient ischemic attack (TIA), and cerebral infarction without residual deficits; F41.9 Anxiety disorder, unspecified; F32.A Depression, unspecified; Z87.891 Personal history of nicotine dependence; F12.90 Cannabis use, unspecified, uncomplicated; Z88.1 Allergy status to other antibiotic agents; Z88.2 Allergy status to sulfonamides; Z88.3 Allergy status to other anti-infective agents; Z88.8 Allergy status to other drugs, medicaments and biological substances; Z88.5 Allergy status to narcotic agent; Z79.4 Long term (current) use of insulin; Z79.899 Other long term (current) drug therapy; Z79.890 Hormone replacement therapy
CPT/HCPCS: 36415; 93005; 80053; 82150; 83605; 83690; 83735; 84484; 85025; 86140; 81001; 74176; 99285; 96374; 96375; J2270; J2405; S0109

== ENCOUNTER 2022-09-11 15:46 | Emergency (ER) | payer MEDICARE, OTHER ==
--- NOTE | 2022-09-11 17:22 | ED ---
General Adult HPI - General Chief complaint: Abdominal Pain Stated complaint: abd pain Time Seen by Provider: 09/11/22 16:58 Source: patient, RN notes reviewed Mode of arrival: wheelchair Limitations: no limitations - History of Present Illness Initial comments: 67-year-old female presents emergency department chief complaint of abdominal pain. She states that his been going on for a week. She states the pain is in the left upper quadrant and radiates to the left flank. She states that the pain is constant with no aggravating or relieving factors. She states that she has not been taking anything for the pain. She admits to nausea with vomiting and loose stools. Denies urinary frequency, dysuria, fever, chills. Denies blood in vomitus and stool. Past medical history includes diabetes, hypertension, COPD. She states that she sees Dr. Tan and she states that she has been a few procedures on her including a bowel resection. - Related Data Home Medications Medication Instructions Recorded Confirmed Levothyroxine Sodium [Synthroid] 112 mcg PO DAILY 11/27/16 09/07/22 Umeclidinium Brm/Vilanterol Tr 1 puff INHALATION RT-DAILY 11/27/16 09/07/22 [Anoro Ellipta 62.5-25 Mcg INH] ALPRAZolam [Xanax] 0.5 mg PO DAILY PRN 03/05/18 09/07/22 Furosemide [Lasix] 40 mg PO DAILY 09/26/20 09/07/22 Gabapentin 800 mg PO BID PRN 12/31/20 09/07/22 Atorvastatin [Lipitor] 20 mg PO DAILY 01/16/21 09/07/22 Cholestyramine/Aspartame 4 gm PO DAILY 09/07/22 09/07/22 [Cholestyramine Light Packet] Cyclobenzaprine [Flexeril] 5 mg PO TID PRN 09/07/22 09/07/22 Denosumab [Prolia] 60 mg SQ Q182D 09/07/22 09/07/22 Desvenlafaxine [Desvenlafaxine ER] 50 mg PO DAILY 09/07/22 09/07/22 Insulin Aspart [NovoLOG Flexpen] See Protocol SQ AC-TID 09/07/22 09/07/22 Insulin Glargine,Hum.rec.anlog 30 units SQ DAILY 09/07/22 09/07/22 [Lantus Solostar Pen] Insulin Glargine,Hum.rec.anlog 70 units SQ HS 09/07/22 09/07/22 [Lantus Solostar Pen] Morphine Sulfate ER [Ms Contin] 15 mg PO BID PRN 09/07/22 09/07/22 Omeprazole [PriLOSEC] 40 mg PO DAILY 09/07/22 09/07/22 hydrOXYzine pamoate [Vistaril] 25 mg PO TID PRN 09/07/22 09/07/22 rOPINIRole HCL [Requip] 2 mg PO BID@0900,1500 09/07/22 09/07/22 rOPINIRole HCL [Requip] 4 mg PO HS 09/07/22 09/07/22 Previous Rx's Medication Instructions Recorded HYDROcodone/APAP 5-325MG [[place] 1 tab PO Q6HR PRN 3 Days #12 tab 09/08/22 5-325] Ciprofloxacin HCl [Cipro] 500 mg PO DAILY #5 tablet 09/11/22 Allergies Allergy/AdvReac Type Severity Reaction Status Date / Time ceftriaxone [From Rocephin] Allergy Severe Anaphylaxis, Verified 09/11/22 16:06 Hives/Rash, Itching, Shortness of Breath cefotaxime Allergy Hives, Verified 09/11/22 16:06 Shortness of Breath, Itching fexofenadine Allergy Hives, Verified 09/11/22 16:06 Itching morphine Allergy Swelling, Verified 09/11/22 16:06 Hives, Rash pregabalin [From Lyrica] Allergy Shortness Verified 09/11/22 16:06 of Breath Sulfa (Sulfonamide Allergy Rash/Hives, Verified 09/11/22 16:06 Antibiotics) Itchy terbinafine [From Lamisil] Allergy Hives, Verified 09/11/22 16:06 Shortness of Breath dermabond Allergy Rash/Hives Uncoded 09/11/22 16:06 Review of Systems ROS Statement: Those systems with pertinent positive or pertinent negative responses have been documented in the HPI. ROS Other: All systems not noted in ROS Statement are negative. Past Medical History Past Medical History: Asthma, COPD, CVA/TIA, Diabetes Mellitus, Fibromyalgia, GERD/Reflux, Hypertension, Neurologic Disorder, Osteoarthritis (OA), Sleep A pnea/CPAP/BIPAP, Thyroid Disorder Additional Past Medical History / Comment(s): 08/2011 DUODENAL ULCER, GASTRITIS. NEUROPATHY BILATERAL FEET, RLS. HX OF RHEUMATIC FEVER, HAS HOLE IN BACK OF HEART. HX OF SEPSIS FROM PORT INFECTIONS. NO LONGER USING C-PAP MACHINE. FREQUENT DIARRHEA. LUPUS. Hx aneurysm back of brain, had surgery with coil and stent to repair. Difficulty swallowing. Hx TIA 6-7 yrs ago, no residual effects. History of Any Multi-Drug Resistant Organisms: None Reported Past Surgical History: Back Surgery, Bowel Resection, Section, Hysterectomy, Joint Replacement Additional Past Surgical History / Comment(s): THUMB SURGERY, bilateral total knee replacements, PORT INSERTED & REMOVED, Laproscopic Nasir with hiatal hernia repair with mesh 05/09/2017, surgery to repair brain aneurysm with coil and stent, bilateral elbow surgery, laproscopic sigmoid colectomy, cataracts removed with lens implants, back surgery 06/23/20, stimulator in back for pain. Past Anesthesia/Blood Transfusion Reactions: No Reported Reaction, Blood Transfusion Reaction Additional Past Anesthesia/Blood Transfusion Reaction / Comment(s): HX BLOOD TRANSFUSION 45 YEARS AGO WITH CHILD , HAD RASH AND ITCHING. Past Psychological History: Anxiety, Depression Smoking Status: Former smoker Past Alcohol Use History: None Reported Past Drug Use History: Marijuana - Past Family History Mother Family Medical History: Deep Vein Thrombosis (DVT) Daughter(s) Family Medical History: Cancer Additional Family Medical History / Comment(s): Lymphoma-, age 30. General Exam Limitations: no limitations General appearance: alert, in no apparent distress Head exam: Present: atraumatic, normocephalic, normal inspection Eye exam: Present: normal appearance ENT exam: Present: normal exam, mucous membranes moist Neck exam: Present: normal inspection. Absent: tenderness, meningismus, lymphadenopathy Respiratory exam: Present: normal lung sounds bilaterally. Absent: respiratory distress, wheezes, rales, rhonchi, stridor Cardiovascular Exam: Present: regular rate, normal rhythm, normal heart sounds. Absent: systolic murmur, diastolic murmur, rubs, gallop, clicks GI/Abdominal exam: Present: soft, tenderness (Right upper quadrant), normal bowel sounds. Absent: distended, rebound, rigid Extremities exam: Present: normal inspection, full ROM, normal capillary refill. Absent: tenderness, pedal edema, joint swelling, calf tenderness Back exam: Present: normal inspection Neurological exam: Present: alert, oriented X3 Psychiatric exam: Present: normal affect, normal mood Skin exam: Present: warm, dry, intact, normal color. Absent: rash Course Vital Signs 09/11/22 09/11/22 16:04 20:12 Temperature 98.1 F 97.8 F Pulse Rate 83 72 Respiratory 20 16 Rate Blood Pressure 146/85 128/70 O2 Sat by Pulse 97 99 Oximetry Medical Decision Making - Medical Decision Making Was pt. sent in by a medical professional or institution (, PA, RECREATION PROGRAM SPECIALIST, urgent care, hospital, or [facility]...) When possible be specific @ -No Did you speak to anyone other than the patient for history (EMS, parent, family, police, friend...)? What history was obtained from this source @ -No Did you review nursing and triage notes (agree or disagree)? Why? @ -I reviewed and agree with nursing and triage notes Were old charts reviewed (outside hosp., previous admission, EMS record, old EKG, old radiological studies, urgent care reports/EKG's, [facility] records)? Report findings @ -Computed tomography scan and labs from 6223 were reviewed. Differential Diagnosis (chest pain, altered mental status, abdominal pain women, abdominal pain men, vaginal bleeding, weakness, fever, dyspnea, syncope, headache, dizziness, GI bleed, back pain, seizure, CVA, palpatations, mental health, musculoskeletal)? @ -Differential Abdominal Pain Women: Appendicitis, Cholecystitis, diverticulosis, ischemic bowel, pancreatitis, hepatitis, UTI, gastroenteritis, AAA, incarcerated hernia, bowel obstruction, constipation, inflammatory bowel, hepatitis, peptic ulcer disease, splenic infarction, perforated viscus, vulvitis, ovarian torsion, PID, kidney stone, placenta abruption, this is not meant to be an all-inclusive list EKG interpreted by me (3pts min.). @ -EKG at 1825 showed rate 61, MN 160, QRS 90, QTQTc 408209 X-rays interpreted by me (1pt min.). @ -None done CT interpreted by me (1pt min.). @ -None done U/S interpreted by me (1pt. min.). @ -None done What testing was considered but not performed or refused? (CT, X-rays, U/S, labs)? Why? @ -None What meds were considered but not given or refused? Why? @ -None Did you discuss the management of the patient with other professionals (professionals i.e. , PA, RECREATION PROGRAM SPECIALIST, lab, RT, psych nurse, addiction social worker, flaking roll operator, teacher, senior administrative services officer, telehealth case manager)? Give summary @ -No Was smoking cessation discussed for >3mins.? @ -No Was critical care preformed (if so, how long)? @ -No Were there social determinants of health that impacted care today? How? (Homelessness, low income, unemployed, alcoholism, drug addiction, transportation, low edu. Level, literacy, decrease access to med. care, group home, rehab)? @ -No Was there de-escalation of care discussed even if they declined (Discuss DNR or withdrawal of care, Hospice)? DNR status @ -No What co-morbidities impacted this encounter? (DM, HTN, Smoking, COPD, CAD, Cancer, CVA, ARF, Chemo, Hep., AIDS, mental health diagnosis, sleep apnea, morbid obesity)? @ -None Was patient admitted / discharged? Hospital course, mention meds given and route, prescriptions, significant lab abnormalities, going to OR and other pertinent info. @ -Discharged. Patient presented to emergency department with chief complaint of abdominal pain. She was seen on 6222 for the same thing and she states edson t the pain is persistent. She had a computed tomography scan at that time which was negative. On examination, patient is well-appearing, abdomen is soft and nondistended there is mild tenderness to the left upper abdomen. CBC and CMP were obtained which were within normal limits. UA showed leukocyte esterase, white blood cells consistent with urinary tract infection which prescription was sent to the patient's pharmacy for ciprofloxacin. Patient was given Toradol for pain which she states helps. She was frequently asking to leave and wanting things to hurry up. Patient was also evaluated by my attending, Dr. Parkinson whose agreeing with my assessment and feels that the patient is safe to go home. Patient advised to follow-up with her primary care provider and return to the emergency department for new, worsening symptoms. Patient discharged in stable condition. Undiagnosed new problem with uncertain prognosis? @ -No Drug Therapy requiring intensive monitoring for toxicity (Heparin, Nitro, Insulin, Cardizem)? @ -No Were any procedures done? @ -No Diagnosis/symptom? @ -Abdominal pain Acute, or Chronic, or Acute on Chronic? @ -Acute Uncomplicated (without systemic symptoms) or Complicated (systemic symptoms)? @ -Uncomplicated Side effects of treatment? @ -No Exacerbation, Progression, or Severe Exacerbation? @ -No Poses a threat to life or bodily function? How? (Chest pain, USA, MN, pneumonia, PE, COPD, DKA, ARF, appy, cholecystitis, CVA, Diverticulitis, Homicidal, Suicidal, threat to staff... and all critical care pts) @ -No - Lab Data Result diagrams: 09/11/22 18:17 09/11/22 18:17 Lab Results 09/11/22 09/11/22 09/11/22 Range/Units 18:17 18:17 18:17 WBC 6.8 (3.8-10.6) k/uL RBC 4.71 (3.80-5.40) m/uL Hgb 13.9 (11.4-16.0) gm/dL Hct 42.1 (34.0-46.0) % MCV 89.3 (80.0-100.0) fL MCH 29.5 (25.0-35.0) pg MCHC 33.1 (31.0-37.0) g/dL RDW 15.7 H (11.5-15.5) % Plt Count 241 (150-450) k/uL MPV 8.8 Neutrophils % 61 % Lymphocytes % 32 % Monocytes % 4 % Eosinophils % 2 % Basophils % 0 % Neutrophils # 4.1 (1.3-7.7) k/uL Lymphocytes # 2.1 (1.0-4.8) k/uL Monocytes # 0.3 (0-1.0) k/uL Eosinophils # 0.1 (0-0.7) k/uL Basophils # 0.0 (0-0.2) k/uL Sodium 138 (137-145) mmol/L Potassium 4.5 (3.5-5.1) mmol/L Chloride 105 (98-107) mmol/L Carbon Dioxide 21 L (22-30) mmol/L Anion Gap 12 mmol/L BUN 11 (7-17) mg/dL Creatinine 0.74 (0.52-1.04) mg/dL Est GFR (CKD-EPI)AfAm >90 (>60 ml/min/1.73 sqM) Est GFR (CKD-EPI)NonAf 84 (>60 ml/min/1.73 sqM) Glucose 99 (74-99) mg/dL Plasma Lactic Acid Shyam (0.7-2.0) mmol/L Calcium 9.7 (8.4-10.2) mg/dL Total Bilirubin 1.3 (0.2-1.3) mg/dL AST 31 (14-36) U/L ALT 16 (4-34) U/L Alkaline Phosphatase 104 (38-126) U/L Troponin I 0.013 (0.000-0.034) ng/mL Total Protein 7.2 (6.3-8.2) g/dL Albumin 4.0 (3.5-5.0) g/dL Amylase 47 (30-110) U/L Lipase 20 L (23-300) U/L Urine Color Urine Appearance (Clear) Urine pH (5.0-8.0) Ur Specific [place] (1.001-1.035) Urine Protein (Negative) Urine Glucose (UA) (Negative) Urine Ketones (Negative) Urine Blood (Negative) Urine Nitrite (Negative) Urine Bilirubin (Negative) Urine Urobilinogen (<2.0) mg/dL Ur Leukocyte Esterase (Negative) Urine RBC (0-5) /hpf Urine WBC (0-5) /hpf Ur Squamous Epith Cells (0-4) /hpf Urine Bacteria (None) /hpf Hyaline Casts (0-2) /lpf Urine Mucus (None) /hpf 09/11/22 09/11/22 Range/Units 18:18 19:05 WBC (3.8-10.6) k/uL RBC (3.80-5.40) m/uL Hgb (11.4-16.0) gm/dL Hct (34.0-46.0) % MCV (80.0-100.0) fL MCH (25.0-35.0) pg MCHC (31.0-37.0) g/dL RDW (11.5-15.5) % Plt Count (150-450) k/uL MPV Neutrophils % % Lymphocytes % % Monocytes % % Eosinophils % % Basophils % % Neutrophils # (1.3-7.7) k/uL Lymphocytes # (1.0-4.8) k/uL Monocytes # (0-1.0) k/uL Eosinophils # (0-0.7) k/uL Basophils # (0-0.2) k/uL Sodium (137-145) mmol/L Potassium (3.5-5.1) mmol/L Chloride (98-107) mmol/L Carbon Dioxide (22-30) mmol/L Anion Gap mmol/L BUN (7-17) mg/dL Creatinine (0.52-1.04) mg/dL Est GFR (CKD-EPI)AfAm (>60 ml/min/1.73 sqM) Est GFR (CKD-EPI)NonAf (>60 ml/min/1.73 sqM) Glucose (74-99) mg/dL Plasma Lactic Acid Shyam 1.5 (0.7-2.0) mmol/L Calcium (8.4-10.2) mg/dL Total Bilirubin (0.2-1.3) mg/dL AST (14-36) U/L ALT (4-34) U/L Alkaline Phosphatase (38-126) U/L Troponin I (0.000-0.034) ng/mL Total Protein (6.3-8.2) g/dL Albumin (3.5-5.0) g/dL Amylase (30-110) U/L Lipase (23-300) U/L Urine Color Yellow Urine Appearance Cloudy H (Clear) Urine pH 6.5 (5.0-8.0) Ur Specific [place] 1.021 (1.001-1.035) Urine Protein 1+ H (Negative) Urine Glucose (UA) Negative (Negative) Urine Ketones 1+ H (Negative) Urine Blood Negative (Negative) Urine Nitrite Negative (Negative) Urine Bilirubin Negative (Negative) Urine Urobilinogen 8.0 (<2.0) mg/dL Ur Leukocyte Esterase Large H (Negative) Urine RBC 20 H (0-5) /hpf Urine WBC >182 H (0-5) /hpf Ur Squamous Epith Cells 24 H (0-4) /hpf Urine Bacteria Occasional H (None) /hpf Hyaline Casts 3 H (0-2) /lpf Urine Mucus Many H (None) /hpf Disposition Clinical Impression: Abdominal pain Disposition: HOME SELF-CARE Condition: Stable Instructions (If sedation given, give patient instructions): Abdominal Pain (ED) Additional Instructions: Please return to the emergency department for new or worsening symptoms. Prescriptions: Ciprofloxacin HCl [Cipro] 500 mg PO DAILY #5 tablet Is patient prescribed a controlled substance at d/c from ED?: No Referrals: Shay Martinez MD [Primary Care Provider] - 1-2 days Time of Disposition: 20:11
[2022-09-11 18:26] LABS: Basophils % (A) 0 %; Eosinophils # (A) 0.1 k/uL (0-0.7); Eosinophils % (A) 2 %; HCT 42.1 % (34.0-46.0); HGB 13.9 gm/dL (11.4-16.0); Lymphocytes # (A) 2.1 k/uL (1.0-4.8); Lymphocytes % (A) 32 %; MCH 29.5 pg (25.0-35.0); MCHC 33.1 g/dL (31.0-37.0); MCV 89.3 fL (80.0-100.0); Mean Platelet Volume 8.8; Monocytes # (A) 0.3 k/uL (0-1.0); Monocytes % (A) 4 %; Neutrophils # (A) 4.1 k/uL (1.3-7.7); Neutrophils % (A) 61 %; Platelet Count 241 k/uL (150-450); RBC 4.71 m/uL (3.80-5.40); RDW 15.7 % (11.5-15.5); WBC 6.8 k/uL (3.8-10.6)
[2022-09-11 18:48] LABS: ALT 16 U/L (4-34); AST 31 U/L (14-36); African American GFR (CKD) >90 (>60 ml/min/1.73 sqM); Alkaline Phosphatase 104 U/L (38-126); Amylase 47 U/L (30-110); Anion Gap 12 mmol/L; Blood Urea Nitrogen 11 mg/dL (7-17); Calcium 9.7 mg/dL (8.4-10.2); Carbon Dioxide 21 mmol/L (22-30); Chloride 105 mmol/L (98-107); Lipase 20 U/L (23-300); Non-African American GFR(CKD) 84 (>60 ml/min/1.73 sqM); Potassium 4.5 mmol/L (3.5-5.1); Sodium 138 mmol/L (137-145); Total Bilirubin 1.3 mg/dL (0.2-1.3); Total Protein 7.2 g/dL (6.3-8.2)
[2022-09-11 19:01] LABS: Glucose 99 mg/dL (74-99)
[2022-09-11] MEDS ORDERED: KETOROLAC 15 MG/ML 1 ML VIAL IVP STA (19:03)
[2022-09-11 19:23] LABS: Appearance,Urine Cloudy (Clear); Bacteria,Urine Occasional /hpf; Bilirubin,Urine Negative (Negative); Blood,Urine Negative (Negative); Color,Urine Yellow; Glucose,Urine (UA) Negative (Negative); Hyaline Casts,Urine 3 /lpf (0-2); Ketones,Urine 1+ (Negative); Leukocyte Esterase,Urine Large (Negative); Mucus,Urine Many /hpf; Nitrite,Urine Negative (Negative); PH, Urine 6.5 (5.0-8.0); Protein,Urine 1+ (Negative); RBC,Urine 20 /hpf (0-5); Specific Gravity,Urine 1.021 (1.001-1.035); Squamous Epithelial Cell,Urine 24 /hpf (0-4); WBC,Urine >182 /hpf (0-5)
[2022-09-11 20:18] VITALS: BP 128/70; PULSE 72; RESP 16; TEMP 97.8
== END 2022-09-11 20:17 | disposition home or self-care (01) ==
LOC: EC 15:46
DX: R10.11 Right upper quadrant pain (principal); J45.909 Unspecified asthma, uncomplicated; J44.9 Chronic obstructive pulmonary disease, unspecified; E11.9 Type 2 diabetes mellitus without complications; K21.9 Gastro-esophageal reflux disease without esophagitis; I10 Essential (primary) hypertension; Z86.73 Personal history of transient ischemic attack (TIA), and cerebral infarction without residual deficits; M19.90 Unspecified osteoarthritis, unspecified site; E07.9 Disorder of thyroid, unspecified; F41.9 Anxiety disorder, unspecified; F32.A Depression, unspecified; Z87.891 Personal history of nicotine dependence; F12.90 Cannabis use, unspecified, uncomplicated; Z88.2 Allergy status to sulfonamides; Z88.8 Allergy status to other drugs, medicaments and biological substances; Z88.1 Allergy status to other antibiotic agents; Z88.5 Allergy status to narcotic agent; Z79.4 Long term (current) use of insulin; Z79.890 Hormone replacement therapy; Z79.899 Other long term (current) drug therapy
CPT/HCPCS: 99284; 96374 ×2; 36415; 93005; 80053; 82150; 83605; 83690; 84484; 85025; 81001; 87086; 99285; J1885

== ENCOUNTER 2022-10-17 07:36 | Day surgery (SDC) | payer MEDICARE, OTHER ==
[2022-10-15 15:59] VITALS: BMI 22.0
[~2022-10-17 07:36] MED LIST changes: -ACETAMINOPHEN TAB 500 MG TAB PO STA; -DEXAMETHASONE SOD PHOSPHATE 4 MG/ML 1 ML VIAL IV ONE; -FAMOTIDINE 20 MG TAB PO STA; -HEPARIN SODIUM,PORCINE/PF 5,000 UNIT/0.5 ML SYRINGE SQ PRN; +LIDOCAINE 1% (10MG/ML) FOR IV START INTRADERMA PRN; -MELOXICAM 7.5 MG TAB PO PRN; -MIDAZOLAM 2 MG/2 ML VIAL IV PRN; -ONDANSETRON 4 MG/2 ML VIAL IVP ONE; -Pre Op ABX Message 1 EACH MISC MISCELLANE ONE
[2022-10-17 08:01] VITALS: TEMP 97.8
--- NOTE | 2022-10-17 08:05 | P.GSHP ---
History of Present Illness H&P Date: 10/17/22 CHIEF COMPLAINT: GERD HISTORY OF PRESENT ILLNESS: The patient is a 67-year-old female who presents reports gastroesophageal reflux disease. Upper endoscopy was offered for further evaluation and management. PAST MEDICAL HISTORY: Please see list. PAST SURGICAL HISTORY: Please see list. MEDICATIONS: Please see list. ALLERGIES: Please see list. SOCIAL HISTORY: No illicit drug use FAMILY HISTORY: No reports of Crohn disease or ulcerative colitis. REVIEW OF ORGAN SYSTEMS: CONSTITUTIONAL: No reports of fevers or chills. GI: Denies any blood in stools or constipation. PHYSICAL EXAM: VITAL SIGNS: Stable GENERAL: Well-developed and pleasant in no acute distress. HEENT: No scleral icterus. Extraocular movements grossly intact. Moist buccal mucosa. NECK: Supple without lymphadenopathy. CHEST: Unlabored respirations. Equal bilateral excursions. CARDIOVASCULAR: Regular rate and rhythm. Distal 2+ pulses. ABDOMEN: Soft, nondistended. MUSCULOSKELETAL: No clubbing, cyanosis, or edema. ASSESSMENT: 1. Gastroesophageal reflux disease PLAN: 1. Recommend proceeding with an upper endoscopy Past Medical History Past Medical History: Asthma, COPD, CVA/TIA, Diabetes Mellitus, Fibromyalgia, GERD/Reflux, Hypertension, Neurologic Disorder, Osteoarthritis (OA), Sleep Apnea/CPAP/BIPAP, Thyroid Disorder Additional Past Medical History / Comment(s): 08/2011 DUODENAL ULCER, GASTRITIS. NEUROPATHY BILATERAL FEET, RLS. HX OF RHEUMATIC FEVER, HAS HOLE IN BACK OF HEART. HX OF SEPSIS FROM PORT INFECTIONS. NO LONGER USING C-PAP MACHINE. FREQUENT DIARRHEA. LUPUS. Hx aneurysm back of brain, had surgery with coil and stent to repair. Difficulty swallowing. Hx TIA 6-7 yrs ago, no residual effects. History of Any Multi-Drug Resistant Organisms: None Reported Past Surgical History: Back Surgery, Bowel Resection, Section, Hysterectomy, Joint Replacement Additional Past Surgical History / Comment(s): THUMB SURGERY, bilateral total knee replacements, PORT INSERTED & REMOVED, Laproscopic Nasir with hiatal hernia repair with mesh 05/09/2017, surgery to repair brain aneurysm with coil and stent, bilateral elbow surgery, laproscopic sigmoid colectomy, cataracts removed with lens implants, back surgery 06/23/20, stimulator in back for pain and then removed. Past Anesthesia/Blood Transfusion Reactions: No Reported Reaction, Blood Transfusion Reaction Additional Past Anesthesia/Blood Transfusion Reaction / Comment(s): HX BLOOD TRANSFUSION 45 YEARS AGO WITH CHILD , HAD RASH AND ITCHING. Past Psychological History: Anxiety, Depression Smoking Status: Former smoker Past Alcohol Use History: None Reported Additional Past Alcohol Use History / Comment(s): Started smoking in 1977 and quit 03/24, smoked 1 ppd. Past Drug Use History: Marijuana Additional Drug Use History / Comment(s): HX MEDICAL MARIJUANA 5 YRS AGO- NONE SINCE. - Past Family History Mother Family Medical History: Deep Vein Thrombosis (DVT) Daughter(s) Family Medical History: Cancer Additional Family Medical History / Comment(s): Lymphoma-, age 30. Medications and Allergies Home Medications Medication Instructions Recorded Confirmed Type Levothyroxine Sodium [Synthroid] 112 mcg PO QAM 11/27/16 10/15/22 History Furosemide [Lasix] 40 mg PO DAILY 09/26/20 10/15/22 History Gabapentin 800 mg PO BID PRN 12/31/20 10/15/22 History Atorvastatin [Lipitor] 20 mg PO DAILY 01/16/21 10/15/22 History Denosumab [Prolia] 60 mg SQ Q182D 09/07/22 10/15/22 History Omeprazole [PriLOSEC] 40 mg PO DAILY 09/07/22 10/15/22 History rOPINIRole HCL [Requip] 2 mg PO BID@0900,1500 09/07/22 10/15/22 History rOPINIRole HCL [Requip] 4 mg PO HS 09/07/22 10/15/22 History Allergies Allergy/AdvReac Type Severity Reaction Status Date / Time ceftriaxone [From Rocephin] Allergy Severe Anaphylaxis, Verified 10/17/22 07:55 Hives/Rash, Itching, Shortness of Breath cefotaxime Allergy Hives, Verified 10/17/22 07:55 Shortness of Breath, Itching fexofenadine Allergy Hives, Verified 10/17/22 07:55 Itching morphine Allergy Swelling, Verified 10/17/22 07:55 Hives, Rash pregabalin [From Lyrica] Allergy Shortness Verified 10/17/22 07:55 of Breath Sulfa (Sulfonamide Allergy Rash/Hives, Verified 10/17/22 07:55 Antibiotics) Itchy terbinafine [From Lamisil] Allergy Hives, Verified 10/17/22 07:55 Shortness of Breath dermabond Allergy Rash/Hives Uncoded 10/17/22 07:55 Surgical - Exam Vital Signs Temp Pulse Resp BP Pulse Ox 97.8 F 71 16 150/68 96 10/17/22 07:59 10/17/22 07:59 10/17/22 07:59 10/17/22 07:59 10/17/22 07:59
[2022-10-17 08:17] LABS: Glucose,Whole Blood 114 mg/dL (70-110)
[2022-10-17] MEDS ORDERED: LIDOCAINE 2% INJ 20 MG/ML (2 ML VIAL) ONE (08:34)
[2022-10-17] MEDS ORDERED: PROPOFOL 10 MG/ML 20 ML VIAL IV ONE (08:34)
--- NOTE | 2022-10-17 08:53 | P.PCN ---
Date of Procedure: 10/17/22 Description of Procedure: PREOPERATIVE DIAGNOSIS: Gastroesophageal reflux disease. Epigastric abdominal pain History of hiatal hernia repair POSTOPERATIVE DIAGNOSIS: Gastroesophageal reflux disease Gastritis OPERATION: Esophagogastroduodenoscopy with biopsies along antrum and duodenum SURGEON: Mahsa Tan MD ANESTHESIA: MAC. INDICATIONS: The patient is a 67-year-old female who presents with reflux disease. Benefits and risks of the procedure were described. Informed consent was obtained. DESCRIPTION: The patient was brought into the endoscopy suite and laid in the left lateral decubitus position. An Olympus gastroscope was passed along the posterior oropharynx down to the distal esophagus where the squamocolumnar junction was encountered at 35 cm from the incisors. The stomach was entered and no bile reflux was found. Additional findings are listed below. Biopsies with cold forceps were obtained of the antrum. The first through third portion of the duodenum was examined. Retroflexion of the scope confirmed Hill grade 3 lower esophageal valve. The squamocolumnar junction demonstrated LA grade B erosive esophagitis. The stomach was desufflated. The patient tolerated the procedure well. FINDINGS: Squamocolumnar junction 35 cm from the incisors. Diaphragmatic hiatus at 35 cm. Hill grade 3 lower esophageal valve. LA grade B erosive esophagitis. Biopsies obtained of the duodenum. Chronic gastritis with biopsies obtained. RECOMMENDATIONS: Upper endoscopy as needed. Plan - Discharge Summary Discharge Rx Participant: No New Discharge Prescriptions: Continue Levothyroxine Sodium [Synthroid] 112 mcg PO QAM Atorvastatin [Lipitor] 20 mg PO DAILY rOPINIRole HCL [Requip] 4 mg PO HS Omeprazole [PriLOSEC] 40 mg PO DAILY Furosemide [Lasix] 40 mg PO DAILY Gabapentin 800 mg PO BID PRN PRN Reason: Pain rOPINIRole HCL [Requip] 2 mg PO BID@0900,1500 Denosumab [Prolia] 60 mg SQ Q182D Discharge Medication List Levothyroxine Sodium [Synthroid] 112 mcg PO QAM 11/27/16 [History] Furosemide [Lasix] 40 mg PO DAILY 09/26/20 [History] Gabapentin 800 mg PO BID PRN 12/31/20 [History] Atorvastatin [Lipitor] 20 mg PO DAILY 01/16/21 [History] Denosumab [Prolia] 60 mg SQ Q182D 09/07/22 [History] Omeprazole [PriLOSEC] 40 mg PO DAILY 09/07/22 [History] rOPINIRole HCL [Requip] 2 mg PO BID@0900,1500 09/07/22 [History] rOPINIRole HCL [Requip] 4 mg PO HS 09/07/22 [History] Follow up Appointment(s)/Referral(s): Mahsa Tan MD [STAFF PHYSICIAN] - 11/20/22 11:30 am Patient Instructions/Handouts: GERD (Gastroesophageal Reflux Disease) (DC) Discharge Disposition: HOME SELF-CARE
[2022-10-17 09:05] VITALS: BP 144/77; PULSE 77; RESP 16
== END 2022-10-17 09:32 | disposition home or self-care (01) ==
LOC: ORWHC2ENDO 07:36
PROVIDERS: ATTEND Surgery Plastic and Reconstructive Surgery
DX: K21.00 Gastro-esophageal reflux disease with esophagitis, without bleeding (principal); K29.50 Unspecified chronic gastritis without bleeding; J44.9 Chronic obstructive pulmonary disease, unspecified; E11.9 Type 2 diabetes mellitus without complications; Z86.73 Personal history of transient ischemic attack (TIA), and cerebral infarction without residual deficits; G47.30 Sleep apnea, unspecified; Z96.653 Presence of artificial knee joint, bilateral; Z79.899 Other long term (current) drug therapy; Z87.891 Personal history of nicotine dependence
CPT/HCPCS: 88305; 43239; J2704; J2001